=== PATIENT | female | born 1965 | race Caucasian/White ===

== ENCOUNTER 2024-04-18 21:37 | Observation (INO) | payer MEDICARE, MEDICAID, SELFPAY ==
--- NOTE | ~2024-04-18 | XR_ITS ---
EXAMINATION: XR chest 2V DATE: 04/19/2024 16:53 INDICATION: Chest pain. TECHNIQUE: Frontal and lateral views of the chest were obtained. COMPARISON: Chest 2 views 04/18/2024 FINDINGS: There is no pneumonia, pleural effusion, or pneumothorax. The heart size is normal. IMPRESSION: 1. No acute cardiopulmonary disease. Reviewed, dictated and finalized at location E.
--- NOTE | ~2024-04-18 | US_ITS ---
EXAMINATION: US venous doppler [facility] DATE: 04/19/2024 13:18 INDICATION: Chest pain. TECHNIQUE: Grayscale ultrasound images without and with compression and Doppler ultrasound images of the bilateral lower extremity veins were obtained. COMPARISON: Ultrasound 08/24/2023 FINDINGS: The visualized portions of right common femoral vein, profunda (deep) femoral vein, femoral vein, pop liteal vein, peroneal veins, posterior tibial veins, and greater saphenous vein outflow are patent. The visualized portions of left common femoral vein, profunda femoral vein, femoral vein, popliteal v ein, peroneal veins, posterior tibial veins, and greater saphenous vein outflow are patent. IMPRESSION: 1. No deep venous thrombosis. Reviewed, dictated and finalized at location E.
--- NOTE | ~2024-04-18 | NM_ITS ---
EXAMINATION: NM lung vent and perfusion DATE: 04/19/2024 17:18 INDICATION: Chest pain. TECHNIQUE: 13.1 mCi Xenon-133 was given for ventilation images. 5.0 mCi Tc-99m MAA was administered i ntravenously for perfusion images. Scintigraphic images of the chest were obtained. COMPARISON: Chest 2 views 04/19/2024 FINDINGS: Single breath ventilation images demonstrate no defects. Washout images demonstrate retention in left lower lung zone. Perfusion images show a small defect in left lower lobe. IMPRESSION: 1. Low probability for pulmonary embolus. Reviewed, dictated and finalized at location E.
[2024-04-18 20:40] VITALS: BP 126/50; PULSE 73; RESP 18; TEMP 36.4; O2SAT 100
[2024-04-18 20:45] VITALS: BMI 51.9
[2024-04-18] MEDS: SODIUM CHLORIDE 0.9% IV 1,000 ML 100 ML IV CONT (22:00)
[2024-04-19] VITALS (7 sets, daily range): BP systolic 112–122; BP diastolic 60–61; PULSE 65–81; RESP 18; TEMP 36.1–36.3; O2SAT 99–100
[2024-04-19 05:54] LABS: Basophils Percent Auto 0.3 % (0.2-1.2); Eosinophils Absolute Auto 0.3 K/mm3 (0-0.3); Eosinophils Percent Auto 4.3 % (0-4.4); Hematocrit 30.8 % (37.0-47.0); Hemoglobin 9.5 g/dL (12.0-15.0); Immature Granulocyte Absolute 0.03 K/mm3 (0.00-0.031); Immature Granulocyte Percent A 0.5 % (0-0.5); Lymphocytes Absolute Auto 1.67 K/mm3 (0.9-3.2); Lymphocytes Percent Auto 25.7 % (18.3-44.2); Mean Corpuscular HGB Conc 30.8 g/dl (32-36); Mean Corpuscular Hemoglobin 29.2 pg (26-34); Mean Corpuscular Volume 94.8 fl (80-100); Mean Platelet Volume 10.5 fl (7.4-10.4); Monocytes Absolute Auto 0.6 K/mm3 (0.1-0.6); Monocytes Percent Auto 9.1 % (2.6-8.5); Neutrophils Absolute Auto 3.9 K/mm3 (1.3-6.7); Neutrophils Percent Auto 60.1 % (45.5-73.1); Platelet Count Result 184 k/mm3 (150-375); Red Blood Count 3.25 M/mm3 (4.2-5.4); Red Cell Distribution Width 13.8 % (11.5-14.5); White Blood Count 6.5 K/mm3 (4.5-10.0)
[2024-04-19 06:06] LABS: Alanine Aminotransferase 7 U/L (6-35); Albumin Level 3.3 g/dL (3.5-5.1); Alkaline Phosphatase 97 U/L (38-126); Anion Gap 8 mmol/L (4-12); Aspartate Amino Transferase 15 U/L (14-36); Bilirubin,Total 0.4 mg/dL (0.2-1.3); Blood Urea Nitrogen 52 mg/dL (7-17); Calcium 8.4 mg/dL (8.4-10.2); Carbon Dioxide 15 mmol/L (22-30); Chloride 117 mmol/L (98-107); Estimated CRCL calculation 52 ml/min; Estimated Glomerular Filt Rate 36; Glucose 150 mg/dL (65-110); Phosphorus 3.9 mg/dL (2.5-4.5); Potassium 3.6 mmol/L (3.4-5.0); Sodium 140 mmol/L (137-145)
--- NOTE | 2024-04-19 07:48 | PM.IMHP ---
H&P: HPI History of Present Illness Date/Time: 04/19/24 07:48 Chief Complaint: chest pain Narrative: This is a pleasant 59 year old female with a PMH significant for migraines, CVA x 2, chronic back pain, frozen left shoulder, Rouen Y gastric bypass, and iritible bowel syndrome who presented to the emergency room with complaints of chest pain. The patient provides the following history. She was at home this morning when she developed sudden right, sub sternal chest pain that was sharp in nature. The pain did not travel. She did notice that she had some shortness of breath with activity but this clears with rest. She reports dizziness when she changes positions too quickly. At this present time she denies dizziness, headache, abdominal pain, nausea, vomiting, or constipation. She reports that she has loose stools due to her IBS. She denies recent ill contact. She deines recent fall or trauma. In the ED labs were significant for a white count of 9.7, hemoglobin 11.2, platelets 257, Cr 2.24, BUN 74. Her UA showed trace leukocytes and minimal wbcs. EKG shows NRS with a rate in the 70's. Chest XR shows no acute cardiopulmonary disease. She received a dose of Levaquin in the ED for possible UTI. She was admitted to the floor at [facility] for observation for IV fluids for her acute kidney injury. During her workup her d-dimer was found to be elevated at 3.96. Unfortunately during the weekend we cannot do a VQ scan at [facility] so the patient needed to be transfer to [facility] for further imaging and work up. I discussed plan of care with the patient who is agreeable to transfer. 04/19: Patient is doing well today. She does not have any complaints at this time. Her chest pain is completely resolved. Her renal function has improved so she can have her CTA now. Review of Systems Review of Systems: All systems reviewed & are unremarkable except as noted in HPI and below PMFSH Past Medical History Medical History Anxiety Asthma delivery delivered CVA (cerebral vascular accident) Depression High blood pressure IBS (irritable bowel syndrome) Migraine Surgical History Surgical History History of Ken-en-Y gastric bypass Family History Family History (Updated 04/19/24 @ 08:05 by Bianca Casiano APRN) Daughter ESRD (end stage renal disease) Mother ESRD (end stage renal disease) Social History Social History Smoking status: Never smoker Alcohol intake: never Substance use: never Do You Feel Safe in your Home?: Yes Lack of Transportation: No Lack of Food: Never True Current Housing: I Have Housing Concerned About Future Housing: No Difficulty Paying Gas/Electric Bills: No Difficulty Paying for Meds: No Currently Unemployed: No Education: Trade/Vocational Certificate Difficulty w/ Childcare or Family Care: No Spiritual care concerns: Yes (Tenriism) Meds Home Medications and Allergies Home Medications Medication Instructions Recorded Confirmed Type amlodipine 10 mg tablet 10 mg PO DAILY 04/18/24 04/18/24 History wsibfkagmc-pnhaecyzqmtjm-mgpsnirn 1 tablet PO QAM 04/18/24 04/18/24 History 50 mg-325 mg-40 mg tablet celecoxib 200 mg capsule 200 mg PO DAILY 04/18/24 04/18/24 History escitalopram oxalate 20 mg tablet 20 mg PO DAILY 04/18/24 04/18/24 History ibuprofen 800 mg tablet 800 mg PO BID 04/18/24 04/18/24 History lisinopril 20 mg tablet 20 mg PO DAILY 04/18/24 04/18/24 History melatonin 5 mg tablet 5 mg PO HS PRN Insomnia 04/18/24 04/19/24 History multivitamin 1 tablet PO DAILY 04/18/24 04/18/24 History tirzepatide 7.5 mg/0.5 mL 7.5 mg subcut WEEKLY 04/18/24 04/18/24 History subcutaneous pen injector (Mounjaro) Allergies Allergy/AdvReac Type Severity Reaction Status Date / Time sulfamethoxazole Allergy Severe Los
[2024-04-19] MEDS: ENOXAPARIN 30 MG/0.3 ML SYRINGE SUB-Q (09:21)
[2024-04-19] MEDS: amLODIPine BESYLATE 5 MG TABLET 10 MG PO (09:21)
[2024-04-19] MEDS: MULTIVITAMINS THERAPEUTIC TAB (*BKC) 1 TABLET PO (09:21)
[2024-04-19] MEDS: ESCITALOPRAM OXALATE 10 MG TABLET 20 MG PO (09:21)
[2024-04-19] MEDS: ENOXAPARIN 100 MG/ML SYRINGE SUB-Q (09:22)
[2024-04-19] MEDS: SODIUM CHLORIDE 0.9% IV 1,000 ML 100 ML IV CONT (10:40)
[2024-04-19] MEDS: ACETAMINOPHEN/BUTALBITAL/CAFFEINE 325-50-40 MG TABLET (FIORICET) 1 TAB PO (16:47)
--- NOTE | 2024-04-21 15:17 | PM.DS ---
DS: Admitting Diagnosis Discharge Date 04/19/24 Admitting Diagnosis Chest pain DS: Discharge Diagnosis Discharge Diagnosis (1) Elevated d-dimer: Code(s): R79.89 - Other specified abnormal findings of blood chemistry Status: Acute Assessment and Plan: o??? Some shortness of breath with exertion. o??? Not requiring oxygen, not tachycardic VQ scan and venous dopplers ordered treatment lovenox ordered (2) GARTH (acute kidney injury): Code(s): N17.9 - Acute kidney failure, unspecified Status: Acute Assessment and Plan: o??? unclear etiology o??? patient has a family history of renal failure with her mother and daughter. Both . o??? She does not appear dry and reports a decent appetite. o??? She uses ibuprofen daily for pain control for her back and shoulder. She assures me she only takes 800 mg tablets twice a day. o??? Started on IVF LR at 100 ml per hour o??? FeNa labs ordered o??? Likely will need nephrology consult if Cr does not improve with fluids 04/19: Creatinine is improving. 1.5 today. (3) Chest pain: Code(s): R07.9 - Chest pain, unspecified Status: Acute Assessment and Plan: o??? Troponin negative thus far o??? EKG and repeat EKG normal sinus rhythm o??? BNP mildly elevated (4) High blood pressure: Code(s): I10 - Essential (primary) hypertension Status: Acute Assessment and Plan: On lisinopril, amlodipine Blood pressures reviewed and are stable Continue amlodipine but hold lisinopril in setting of GARTH (5) Metabolic acidosis: Code(s): E87.20 - Acidosis, unspecified Status: Acute Assessment and Plan: o??? IVF o??? add bicarb 650 mg tablet PO BID o??? strict I&O DS: Summary Hospital Course Reason for hospitalization: Chest pain, acute kidney injury Hospital Course: This is a pleasant 59 year old female with a PMH significant for migraines, CVA x 2, chronic back pain, frozen left shoulder, Rouen Y gastric bypass, and iritible bowel syndrome who presented to the emergency room with complaints of chest pain. The patient provides the following history. She was at home this morning when she developed sudden right, sub sternal chest pain that was sharp in nature. The pain did not travel. She did notice that she had some shortness of breath with activity but this clears with rest. She reports dizziness when she changes positions too quickly. At this present time she denies dizziness, headache, abdominal pain, nausea, vomiting, or constipation. She reports that she has loose stools due to her IBS. She denies recent ill contact. She deines recent fall or trauma. In the ED labs were significant for a white count of 9.7, hemoglobin 11.2, platelets 257, Cr 2.24, BUN 74. Her UA showed trace leukocytes and minimal wbcs. EKG shows NRS with a rate in the 70's. Chest XR shows no acute cardiopulmonary disease. She received a dose of Levaquin in the ED for possible UTI. She was admitted to the floor at [place] for observation for IV fluids for her acute kidney injury. During her workup her d-dimer was found to be elevated at 3.96. Unfortunately during the weekend we cannot do a VQ scan at [place] so the patient needed to be transfer to [facility] for further imaging and work up. I discussed plan of care with the patient who is agreeable to transfer. 04/19: Patient is doing well today. She does not have any complaints at this time. Her chest pain is completely resolved. Her renal function has improved so she can have her CTA now. 04/19: CTA was negative for PE. Dopplers negative. Patient stable to discharge home today. Time Spent with Patient Time attestation: Total time spent providing and/or coordinating discharge services:56 Exam Narrative: General: well appearing, appears stated age. HEENT: normocephalic, atraumatic. Mucous membranes moist. EOMI, PERRLA, bilateral sclera anicteric, no conjunctival injection. Neck sup
== END 2024-04-19 18:56 | disposition home or self-care (01) ==
PROVIDERS: Nurse Practitioner; Admitting Provider Internal Medicine; Visit Provider Nurse Practitioner Acute Care
DX: R07.9 Chest pain, unspecified (principal); N17.9 Acute kidney failure, unspecified; R79.1 Abnormal coagulation profile; E87.20 Acidosis, unspecified; R06.02 Shortness of breath; R42 Dizziness and giddiness; I10 Essential (primary) hypertension; J45.909 Unspecified asthma, uncomplicated; F41.9 Anxiety disorder, unspecified; F32.A Depression, unspecified; Z98.84 Bariatric surgery status; Z79.85 Long-term (current) use of injectable non-insulin antidiabetic drugs
CPT/HCPCS: 36415; 71046; 78582; 80053; 80069; 83735; 85025; 93970; 96360; 96361; 96372; A9270; A9540; A9558; G0378; J1650; J7030

== ENCOUNTER 2025-04-06 08:46 | Outpatient (CLI) | payer MEDICARE, MEDICAID, SELFPAY ==
--- NOTE | ~2025-04-06 | CT_ITS ---
CT soft tissue neck wo con Ordering provider: Andrés Smiley, KALEN History: 60 years Female with . Other Dysphagia,HOARSNESS,S/P THYROID REMOVED X3MO AGO . Comparison: None. Technique: CT soft tissues neck was performed without contrast. . Automated exposure control and ite rative reconstruction technique were employed. The dose-length product was 510.47 mGy-cm. Findings: LOWER HEAD: The visualized brain parenchyma, optic globes/orbits and mastoids are normal. The visua lized paranasal sinuses are well aerated. SALIVARY GLANDS: Normal. THYROID: Normal. SUPRAHYOID DEEP SPACES: Normal. CAROTID ARTERIES: Normal. JUGULAR VEINS: Normal. TONSILS: Normal. ORAL CAVITY: Partially obscured by dental amalgam but normal as visualized. PHARYNX, LARYNX AND TRACHEA: Patent and normal. No prevertebral soft tissue swelling. SUPERFICIAL SOFT TISSUES: Soft tissue density is seen in the right supraclavicular area adjacent to t he thyroid gland which is most likely inflammatory with hypodensity which measures 1.1 x 1.7 cm most likely an abscess. Lymphadenopathy in this area is not excluded. THORACIC INLET/VISUALIZED UPPER CHEST: Bilateral groundglass appearance is seen in the lung bases whi ch may indicate atelectasis versus pneumonia versus edema. Clinical correlation advised. SKELETAL: Age appropriate degenerative changes. IMPRESSION: 1. Soft tissue density is seen in the right supraclavicular area most likely inflammatory with hypod ense area suggestive of an abscess measuring 1.1 x 1.7 cm. 2. Groundglass appearance in the lungs which may indicate atelectasis versus pneumonia versus edema. Clinical correlation advised. AMINTA, the Physician: Andrés Smiley,nurse was notified with the result of the patient at 4:04 PM on April 06, 2025. Reviewed, dictated and finalized at location A. IMPRESSION: 1. Soft tissue density is seen in the right supraclavicular area most likely i nflammatory with hypodense area suggestive of an abscess measuring 1.1 x 1.7 cm . 2. Groundglass appearance in the lungs which may indicate atelectasis versus p neumonia versus edema. Clinical correlation advised. AMINTA, the Physician: Andrés Smiley,nurse was notified with the result of the patient at 4:04 PM on April 06, 2025.
--- OUTSIDE RECORDS SUMMARY | 2025-04-06 08:56 | XMS_ITS ---
Author Organization [facility] Address [address] [place] [address] Care Team Providers Care Senior Java Web Application Developer Name Role Phone Andrés Smiley Primary Care Provider [phone] Active Problems Patient Care Coordination No te Formatting of this note migh t be different from the original. This is a 59-year-old female presenting to us at the request of Dr. Kirsty Cobb for an evaluation of mediastinal adenopathy and pulmonary nodules. She has a medical history significant for anxiety, asthma, CVA, depression, GERD, gout and hypertension. She is a never smoker. She has a new diagnosis of papillary thyroid cancer. Thyroid nodules and cervical lymphadenopathy concerning for thyroid cancer were initially found on a head CT after she had a fall. She underwent an ultrasound of the thyroid with findings suspicious for multifocal papillary thyroid carcinoma involving the right and left thyroid lobes, with diffuse involvement of the right thyroid lobe and suspicion for gross extrathyroidal extension posterior to the thyroid in the right. Right cervical lymphadenopathy involved levels 2, 3, 4, 5A and 5B with imaging features consistent with metastatic maikel disease. She underwent an FNA that was positive for papillary thyroid cancer. She has lost 125 lb in the last 7 months however that coincides with the initiation of Mounjaro. She has also had a previous gastric bypass 8 years ago. She feels very weak and fatigued. She underwent a chest CT on 01/06/2025. 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 For reference a 0.4 cm pulmonary nodule in the left lower lobe and a 0.4 cm pulmonary nodule near the fissure in the right lower lobe. No pneumothorax or pleural effusion. Multiple hypoattenuating right thyroid nodules better evaluated on prior thyroid ultrasound, for reference right thyroid nodule measuring up to 1.5 x 1.3 cm. A right paratracheal lymph node measuring up to 1.0 cm. Hypoattenuating mediastinal lymph nodes, for reference a prevascular lymph node measuring 1.0 cm in short axis. Heart size is normal. No pericardial effusion. Postsurgical changes of Ken-en-Y gastric bypass surgery. No suspicious osseous lesions. She underwent a PET scan on 01/21/2025. This showed diffuse marked hypermetabolism throughout the thyroid gland compatible with known primary thyroid malignancy. There is a exophytic component to the contour and uptake in the posterior right thyroid lobe in keeping with known extrathyroidal extension. Markedly FDG avid right neck lymph nodes and multiple lymph node stations level 2, 3, 4, 5 and 1 at level 6 most compatible with maikel metastatic disease. Moderately FDG avid anterior mediastinal lymph node, left internal mammary lymph node and right paratracheal lymph node also compatible with maikel metastatic disease. Several tiny nodules throughout both lungs 2 small to be characterized. Diffuse heterogeneous marrow metabolic activity without discrete focal lesions above background. Findings may represent physiologic bone marrow response to anemia. She is here for further surgical evaluation and discussion. Problem Noted Date Diagnosed Date Post-surgical hypothyroidism 03/24/2025 Localized swelling, mass or lump of neck 025 Thyroid cancer 01/29/2025 Morbid obesity 01/27/2025 Type 2 diabetes mellitus wit h other specified complication, unspecified whether usp insulin use 01/27/2025 Papillary thyroid carcinoma 01/19/2025 Assessment & Plan (01/19/2025 3:25 PM TUBE CLEANER): PET scan scheduled for 01/21/25. Refer to ZENDEJAS treatment after surgery given the extend of neck disease and possible distant metastasis Thyroid replacement after surgery with goal TSH suppression. Prescribed 175 mcg of levothyroxine to be started AFTER total thyroidectomy (when advised by MD). Discuss further monitoring and surveillance with tumor markers, iodine scan and image Mediastinal lymphadenopathy 01/19/2025 Lung nodules 01/19/2025 Chest pain 07/04/2023 Coronary artery disease invo lving moapa coronary artery of moapa heart 06/08/2023 Calculus of gallbladder with out cholecystitis without obstruction 05/17/2022 Overview (05/17/2022): Added automatically from request for surgery [id number] Incisional hernia, without obstruction or gangre ne 05/17/2022 Overview (05/17/2022): Added automatically from request for surgery [id number] Current Treatment and Therapy Plans No current plan information found. Past Treatment and Therapy Plans No past plan information found. Lifetime Dose Tracking * Chemical Lifetime Dose Automatic Entry Manual Entr y Air kerma at the reference point (Ka,r) 524 mGy 0 mGy 524 mGy DLP 1,243 mGycm 1,243 mGycm 0 mGycm
--- OUTSIDE RECORDS SUMMARY | 2025-04-06 08:56 | XMS_ITS | Encounter Summary ---
Author Organization [facility] Address [address] [place] [address] Care Team Providers Care Tool Or Die Drawing Checker Name Role Phone Andrés Smiley Primary Care Provider [phone] Reason for Visit * Diagnostic Imaging (Routine) - Closed Specialty Diagnoses / Procedures Referred By Anish t Referred To Contact Diagnoses Left shoulder pain, unspecified chronicity Procedures XR Shoulder Left 2 or More Views XR Shoulder Left 1 View Yennifer Andrade PA [address] [place] [id number] Phone: tel: fax: Referral ID Status Reason Start Date Expiration Date Visits Re quested Visits Authorized [id number] Closed 08/22/2023 09/20/2024 1 1 Encounter Details Date Type Department Care Team (Late st Contact Info) Description 08/22/2023 7:53 AM CDT Hospital Encounter [facility] Orthopedics and Sports Medicine [address] [place] [address] [place] [phone] Social History Tobacco Use Types Packs/Day Years Used Date Smoking Tobacco: Never Passive Smoke Exposure: Never Smokeless Tobacco: Never AUDIT-C Answer Date Recorded Q1: How often do you have a drink containing alcohol? Never 02/10/2025 Q2: How many drinks containi ng alcohol do you have on a typical day when you are drinking? Patient does not drink Q3: How often do you have si x or more drinks on one occasion? Never 02/10/2025 Personal Safety Answer Date Recorded Have you ever been in or are you currently in a harmful physical or emotional relationship or is someone making you feel afraid or unsafe? 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 Never 02/10/2025 12:00 PM Gilda Jama RN Q2: How many drinks containing alcohol do you have on a typical day when you are drinking? Patient does not drink 02/10/2025 12:00 PM Gilda Jama RN Q3: How often do you have six or more drinks on one occasion? Never 02/10/2025 12:00 PM Gilda Jama RN documented as of this encounter Plan of Treatment Not on file documented as of this encounter Procedures Procedure Name Priority Date/Time Associated Diagnosis Comments XR SHOULDER LEFT 2 OR MORE VIEWS Routine 08/22/2023 3:06 PM CDT Left shoulder pain, unspecified chronicity documented in this encounter Results * XR Shoulder Left 2 or More Views (08/22/2023 3:06 PM CDT) Anatomical Region Laterality Modality Upper Extremities, Shoulder Left Digi ambrocio Radiography Narrative 08/22/2023 6:19 PM CDT Radiographs of the left shoulder reviewed and interpreted. No acute fractures, subluxation/dislocation, or destructive osseous lesions. Mild degenerative changes seen of the acromioclavicular joint. Glenohumeral joint space is maintained Yennifer HIGUERA IMG XR PROCEDURES Final Result documented in this encounter Visit Diagnoses Not on filedocumented in this encounter Care Teams Tool Or Die Drawing Checker Relationship Specialty Start Date End Date Andrés Smiley PA [address] [place] [address] PCP - General 04/18/17 documented as of this encounter
--- OUTSIDE RECORDS SUMMARY | 2025-04-06 08:56 | XMS_ITS | Encounter Summary ---
Author Organization [facility] Address [address] [facility] [address] [place] [address] Phone Care Team Providers Care Automobile Mechanic Name Role Phone Andrés Smiley Primary Care Provider [phone] Reason for Visit * Reason Onset Date Comments Medical Question/Miscellaneous 03/24/2025 Encounter Details Date Type Department Care Team (Late st Contact Info) Description 03/24/2025 Telephone [facility] Surgery [address] [facility] [address] [place] [address] Kirsty Cobb MD [address] [phone] [place] [address] Medical Question/Miscellaneous Social History Tobacco Use Types Packs/Day Years [...] on file 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 Was an attempt to transfer to the assigned clinical staff or backline? Yes advised to send TE. Reason for call?: The patient was advised by Dr Zaragoza that a referral to radiation oncology was placed on 03/13/25. Upon viewing the patient's chart, there was no referral placed. Could we kindly get this added for the patient or reach out if any additional information is required? Who is the caller: Nubia Schultz What is the best number for them to contact for a call back: [phone]. Last office visit: 02/24/2025 Date of Surgery: 02/10/2025 documented in this encounter Plan of Treatment Not on file documented as of this encounter Visit Diagnoses Not on filedocumented in this encounter Care Teams Automobile Mechanic Relationship Specialty Start Date End Date Andrés Smiley PA [address] [place] [address] PCP - General 04/18/17 documented as of this encounter
--- OUTSIDE RECORDS SUMMARY | 2025-04-06 08:56 | XMS_ITS | Data Portability ---
Author Organization [facility] Address [address] [place] [address] Care Team Providers Care Belt Sander Stone Name Role Phone PORSCHE SMILEY Primary Care Provider ART ARITA Frozen Yogurt Maker Unavailable Assessment No assessment recorded. Plan of Treatment Reminders Order Date Submit Date Provider Last Modified By Organization Details Last Modified Time Details Appointments None recorded. Lab None recorded. Referral nephrologi st referral 2024 025 yane Patel MD, [address] [facility] , [address], [address], [address], 5 09:46:32 physical therapist referral 2024 025 [facility], [address] [place], [address], 5 17:38:59 Procedures None recorded. Surgeries None recorded. Imaging CT, neck, soft tissue, w/ contrast 2024 025 [facility], [address] [place], [address], 5 09:10:22 Medication Orders ondansetro n 4 mg disintegra ting tablet 2024 025 [facility] #[id number], [address] [place], [address], 5 15:18:24 tramadol 50 mg tablet 2024 025 [facility] #[id number], [address] [place], [address], 15:18:25 furosemide 20 mg tablet 2024 025 [facility] #[id number], [address] [place], [address], 15:30:55 hydrochlor othiazide 25 mg tablet 2024 025 [facility] #[id number], [address] [place], [address], 15:36:12 azithromyc in 500 mg tablet 2024 025 [facility] #[id number], [address] [place], [address], 15:17:29 Patient TargetsNo targets recorded. Patient Instructions Encounter Date Encounter Id Patient Instructions Last Modified By Organization Details Last Modified Time 01/09/2025 [id number] A healthy lifestyle: care instructions jnanney Not available 01/09/2025 16:20:16 02/18/2025 [id number] body mass index: care instructions jnanney Not available 02/18/2025 15:36:06 learning about healthy weight jnanney Not available 02/18/2025 15:36:06 A healthy lifestyle: care instructions jnanney Not available 02/18/2025 15:36:06 learning about high blood pressure jnanney Not available 02/18/2025 15:36:06 thyroidectomy: before your surgery jnanney Not available 02/18/2025 15:36:06 02/25/2025 [id number] A healthy lifestyle: care instructions jnanney Not available 02/25/2025 15:32:30 leg and ankle edema: care instructions jnanney Not available 02/25/2025 15:30:52 learning about high blood pressure jnanney Not available 02/25/2025 15:30:52 03/11/2025 [id number] nausea and vomiting: care instructions jnanney Not available 03/11/2025 15:18:22 learning about high blood pressure jnanney Not available 03/11/2025 15:18:22 thyroidectomy: before your surgery jnanney Not available 03/11/2025 15:18:22 Reason for Referral Physical Therapist Referral for Muscle weakness Referring Physician: Porsche Smiley, [facility], Encounter Date: 02/18/2025 [place] Referral for De creased renal function Referring Physician: Porsche Smiley [facility], Encounter Date: 02/25/2025 Results Created Date Observation Date Name Description Value Unit Range Abnormal Flag Note LastModifiedBy Organization Detail LastModifiedTime 12/16/1912/16/2024 urina lysis , dipst ick Leukocytes Modera te Not Available In-Office Order Internal Use Only DO Not Attach Compendium DO Not Attach Compendium, Do Not Delete/merge, 12/16/2024 11:33:19 12/16/19 25 12/16/2024 urina lysis , dipst ick Nitrite negati ve Not Available In-Office Order Internal Use Only DO Not Attach Compendium DO Not Attach Compendium, Do Not Delete/merge, 12/16/2024 11:33:19 12/16/1912/16/2024 urina lysis , dipst ick Urobilinogen .2 Not Available In-Of fice Order Internal Use Only DO Not Attach Compendium DO Not Attach Compendium, Do Not Delete/merge, 12/16/2024 11:33:19 12/16/19 25 12/16/2024 urina lysis , dipst ick Protein Trace Not Available In-Office Order Internal Use Only DO Not Attach Compendium DO Not Attach Compendium, Do Not Delete/merge, 12/16/2024 11:33:19 12/16/19 25 12/16/2024 urina lysis , dipst ick pH 6.0 Not Available In-Office Order Internal Use Only DO Not Attach Compendium DO Not Attach Compendium, Do Not Delete/merge, 12/16/2024 11:33:19 12/16/19 25 12/16/2024 urina lysis , dipst ick Blood Negati ve Not Available In-Office Order Internal Use Only DO Not Attach Compendium DO Not Attach Compendium, Do Not Delete/merge, 12/16/2024 11:33:19 12/16/19 25 12/16/2024 urina lysis , dipst ick Specific [place] 1.030 Not Available In-Off ice Order Internal Use Only DO Not Attach Compendium DO Not Attach Compendium, Do Not Delete/merge, 12/16/2024 11:33:19 12/16/19 25 12/16/2024 urina lysis , dipst ick Ketone Negati ve Not Available In-Office Order Internal Use Only DO Not Attach Compendium DO Not Attach Compendium, Do Not Delete/merge, 12/16/2024 11:33:19 12/16/19 25 12/16/2024 urina lysis , dipst ick Bilirubin Small Not Available In-Offic e Order Internal Use Only DO Not Attach Compendium DO Not Attach Compendium, Do Not Delete/merge, 12/16/2024 11:33:19 12/16/19 25 12/16/2024 urina lysis , dipst ick Glucose Negati ve Not Available In-Office Order Internal Use Only DO Not Attach Compendium DO Not Attach Compendium, Do Not Delete/merge, 12/16/2024 11:33:19 12/16/19 25 12/16/2024 urina lysis , dipst ick Appearance Clear Not Available In-Offi ce Order Internal Use Only DO Not Attach Compendium DO Not Attach Compendium, Do Not Delete/merge, 12/16/2024 11:33:19 12/16/19 25 12/16/2024 urina lysis , dipst ick Color Yellow Not Available In-Office Order Internal Use Only DO Not Attach Compendium DO Not Attach Compendium, Do Not Delete/merge, 12/16/2024 11:33:19 02/06/20 25 02/05/2025 Hemog lobin A1c/H emogl obin. total in Blood hemoglobin A1C/hemoglob in.total in blood 6.5 % low: 4%high : 5.6% high Hgb A1C, POC 6.5 (H) 4.0 - 5.6 % Not Available Not Available 02/09/2025 11:16:07 02/06/20 25 02/05/2025 Hemog lobin A1c/H emogl obin. total in Blood glucose mean value [mass/volume ] in blood estimated from glycated hemoglobin 140 mg/dL Est [place] ge Gluc POC 140 mg/dL BRIELLE Shannon BJ Not Available Not Available 02/09/2025 11:16:07 02/06/20 25 02/05/2025 Hemog lobin A1c/H emogl obin. total in Blood interpretati on and review of laboratory results Abnorm al Not Available Not Available 11:16:07 Result Notes None recorded. Problems Name Problem SNOMED Code Status Onset Date Resolution Date Notes Provider Name and Address Organization Details Recorded Time Knee pain Active Not Available [facility] 4 00:18:38 Morbid obesity 412886056 Active Not Available [facility] 4 00:18:38 Chronic depression 922272462 Active Not Available [facility] 4 00:18:38 Cerebrovascul ar accident 772540820 Active Not Available [facility] 4 00:18:38 Psoriasis 7511479 Active Not Available [facility] 4 00:18:38 Candidiasis of skin 90764571 Active Not Available [facility] 4 00:18:38 Hyperglycemia 23895645 Active Not Available [facility] 4 00:18:38 Right upper quadrant pain 206288153 Active Not Available [facility] 4 00:18:38 Diabetes mellitus 33615033 Active Not Available [facility] 4 00:18:38 Cellulitis 940356101 Active Not Available [facility] 4 00:18:38 Migraine 53376458 Active Not Available [facility] 4 00:18:38 Incontinence 14642511 Active Not Available [facility] 4 00:18:38 Notes:Some problems listed i n Documents: #[id number], #[id number], #[id number], #[id number], #[id number], #[id number], #[id number], #[id number], #[id number], #[id number] could not be added to this patient's chart. Please review these documents and add these problems to the patient's chart manually as needed. Problem Notes None recorded. Procedures Surgical History Date Name Laterality Status Provider Name and Address Organization Details Recorded Time 11/24/19 22 Date of Last Mammogram completed Kate Landa MA [facility] 01/04/2022 11:53:00 11/19/18 97 Total hysterectomy completed Kate Landa MA [facility] 02/14/2021 11:30:00 tonsillectomy completed Kate Landa MA [facility] 10/10/2021 10:51:03 Removal of adenoids completed Kate Landa MA [facility] 10/10/2021 10:51:32 abdominoplasty completed Kate Landa MA [facility] 10/10/2021 10:51:40 Gastric Bypass completed Eleonora Miller MA [facility] 01/24/2016 10:13:00 Imaging Results None recorded. Procedure Notes None recorded. Medical Equipment None Reported. Allergies Allergen ID Allergen Name Allergen Category Reaction Reaction Severity Criticality Documentation Date Start Date Code Code System Note Provider Name and Address Organization Details Recorded Time 865124 tetracycl ine medicatio n rash Not available Not available 03/24/2020 66195 RxNorm STEPHANY Blackman [facility] 0 10:56:37 128335 Bactrim medicatio n hives Not available Not available 02/14/2021 67099 9 RxNorm Vomit ing STEPHANY Blackman [facility] 1 11:28:25 77507 amoxicill in medicatio n rash Not available Not available 09/18/2016 723 RxNorm STEPHANY Blackman [facility] 0 10:51:29 16192 Medicinal product containin g tetracycl ine structure and acting as antibacte rial agent (product) medicatio n vomiting severe Not available 09/18/2016 73572 1004 SNOMED STEPHANY Gimenez [facility] 6 10:37:03 Medications Name Sig Start Date Stop Date Status Note LastModified by Organization Details LastModified Time celecoxib 200 mg capsule TAKE 1 CAPSULE BY MOUTH DAILY WITH FOOD. 03/30 completed Not Available Not Available Not Available metformin 500 mg tablet TAKE 1 TABLET BY MOUTH TWICE DAILY 01/04 completed Not Available Not Available Not Available levothyroxi ne 175 mcg tablet TAKE 1 TABLET (175 MCG TOTAL) BY MOUTH PAROLE SUPERVISOR BEFORE BREAKFAST active Not Available Not Available No t Available prednisone 10 mg tablet 06/28 completed Not Available Not Available Not Available atorvastati n 20 mg tablet TAKE 1 TABLET BY MOUTH EVERY DAY 07/31 completed Not Available Not Available Not Available venlafaxine 75 mg tablet TAKE 1 TABLET BY MOUTH EVERY DAY 03/24 completed Not Available Not Available Not Available clindamycin HCl 300 mg capsule TAKE 1 CAPSULE BY MOUTH EVERY 6 HOURS FOR 10 DAYS. 08/18 completed Not Available Not Available Not Available azithromyci n 250 mg tablet TAKE 2 TABS (500MG) TODAY (DAY 1), THEN 1 TAB (250MG) FOR 4 DAYS (DAYS 2-5) 09/20 completed Not Available Not Available Not Available ibuprofen 800 mg tablet TAKE 1 TABLET BY MOUTH THREE TIMES A DAY 03/30 completed Not Available Not Available Not Available alprazolam 1 mg tablet TAKE 1 TABLET BY MOUTH THREE TIMES A DAY 2024 active Not Available Not Available Not Avai lable metoprolol succinate ER 50 mg tablet,exte nded release 24 hr Take 1 tablet every day by oral route for 90 days. 07/31 completed Not Available Not Available Not Available hydrocodone 5 mg-acetamin ophen 325 mg tablet 08/21 completed Not Available Not Available Not Available ondansetron HCl 8 mg tablet Take 1 tablet every 12 hours by oral route as needed for 30 days. 02/14 completed Not Available Not Available Not Available fluconazole 200 mg tablet TAKE 1 TABLET EVERY 72 HOURS BY ORAL ROUTE DIRECTED. 02/18 completed Not Available Not Available Not Available meloxicam 15 mg tablet 15 mg by oral route. 04/18 completed Not Available Not Available Not Available lisinopril 20 mg tablet TAKE 1 TABLET BY MOUTH EVERY DAY 02/18 completed Not Available Not Available Not Available ondansetron HCl 4 mg tablet Take 1 tablet twice a day by oral route as needed for 10 days. 09/18 completed Not Available Not Available Not Available famotidine 40 mg tablet TAKE 1 TABLET BY MOUTH EVERY DAY 02/18 completed Not Available Not Available Not Available prednisone 20 mg tablet TWO TABLETS BY MOUTH ONCE DAILY 09/05 completed Not Available Not Available Not Available metronidazo le 500 mg tablet TAKE 1 TABLET BY MOUTH EVERY 8 HOURS FOR 10 DAYS 08/18 completed Not Available Not Available Not Available amlodipine 5 mg tablet TAKE 1 TABLET BY MOUTH EVERY DAY 01/04 completed Not Available Not Available Not Available ciprofloxac in 500 mg tablet TAKE 1 TABLET BY MOUTH EVERY 12 HOURS FOR 10 DAYS 01/09 completed Not Available Not Available Not Available sulfamethox azole 800 mg-trimetho prim 160 mg tablet TK 1 T PO Q 12 H FOR 10 DAYS 02/14 completed Not Available Not Available Not Available tramadol 50 mg tablet TAKE 1 TABLET BY MOUTH THREE TIMES A DAY NEEDED FOR 30 DAYS active Not Available Not Available No t Available acetaminoph en 500 mg tablet TAKE 2 TABS (1000MG TOTAL) BY MOUTH EVERY 8 HOURS NEEDED FOR PAIN FOR UP TO 20 DOSES 11/29 completed Not Available Not Available Not Available butalbital- acetaminoph en-caffeine 50 mg-325 mg-40 mg tablet TAKE 1 TABLET BY MOUTH EVERY 6 HOURS NEEDED FOR 30 DAYS 02/18 completed Not Available Not Available Not Available oxycodone-a cetaminophe n 5 mg-325 mg tablet 01/03 completed Not Available Not Available Not Available Guaiatussin AC 10 mg-100 mg/5 mL oral liquid Take 10 mL every 4 hours by oral route as needed for 10 days. 07/29 completed Not Available Not Available Not Available pravastatin 10 mg tablet TAKE 1 TABLET BY MOUTH EVERY DAY 01/04 completed Not Available Not Available Not Available meclizine 25 mg tablet Take 1 tablet 3 times a day by oral route as needed for 10 days. 03/24 completed Not Available Not Available Not Available amlodipine 10 mg tablet TAKE 1 TABLET BY MOUTH EVERY DAY 02/18 completed Not Available Not Available Not Available cephalexin 500 mg capsule Take 1 capsule every 8 hours by oral route as directed for 10 days. 12/07 completed Not Available Not Available Not Available tacrolimus 0.1 % topical ointment APPLY 1-2 TIMES PER DAY TO PSORIASIS IN THE FOLDS OF THE SKIN WHEN FLARED 03/27 completed Not Available Not Available Not Available calcipotrie ne 0.005 % topical cream wait 2 weeks and apply to affected areas on the body BID Sunday - . 07/31 completed Not Available Not Available Not Available promethazin e 25 mg/mL injection solution Take 1 mL by injection route. 09/18 completed Not Available Not Available Not Available docusate sodium 100 mg capsule TAKE 1 CAPSULE BY MOUTH 2 TIMES A DAY NEEDED FOR CONSTIPAT ION active Not Available Not Available No t Available Replens vaginal gel Insert 1 g every day by vaginal route at bedtime for 30 days, for vaginal dryness. 02/18 completed Not Available Not Available Not Available hydrochloro thiazide 25 mg tablet TAKE 1 TABLET BY MOUTH EVERY DAY 2024 active Not Available Not Available Not Avai lable mometasone 0.1 % topical ointment apply to affected areas on the body BID x 2 weeks, then decrease to BID Sunday - Sunday. 07/31 completed Not Available Not Available Not Available mupirocin 2 % topical ointment APPLY A SMALL AMOUNT TO AFFECTED AREA 3 TIMES A DAY 02/18 completed Not Available Not Available Not Available zolpidem 5 mg tablet Take 1 tablet every day by oral route for 30 days. 03/24 completed Not Available Not Available Not Available furosemide 20 mg tablet TAKE 1 TABLET BY MOUTH EVERY DAY active Not Available Not Available No t Available levofloxaci n 750 mg tablet TAKE 1 TABLET BY MOUTH EVERY DAY FOR 10 DAYS 01/03 completed Not Available Not Available Not Available methylpredn isolone 4 mg tablets in a dose pack FPD 02/14 completed Not Available Not Available Not Available albuterol sulfate HFA 90 mcg/actuati on aerosol inhaler INHALE 2 PUFFS BY MOUTH FOUR TIMES DAILY NEEDED active Not Available Not Available No t Available ketorolac 60 mg/2 mL intramuscul ar solution Inject 2 mL by intramusc ular route. 07/07 completed Not Available Not Available Not Available clobetasol 0.05 % scalp solution PLEASE SEE ATTACHED FOR DETAILED DIRECTION S 03/27 completed Not Available Not Available Not Available lisinopril 40 mg tablet TAKE 1 TABLET BY MOUTH EVERY DAY 10/10 completed Not Available Not Available Not Available ondansetron 4 mg disintegrat ing tablet PLEASE SEE ATTACHED FOR DETAILED DIRECTION S active Not Available Not Available No t Available calcitriol 0.25 mcg capsule TAKE 1 CAPSULE (0.25 MCG TOTAL) BY MOUTH TWICE A DAY active Not Available Not Available No t Available calcipotrie ne 0.005 % topical ointment WAIT 2 WEEKS AND APPLY TO THE AFFECTED AREA ON THE BODY TWICE DAILY SUNDAY THROUGH 01/20 completed Not Available Not Available Not Available oxycodone 5 mg tablet TAKE 1 TABLET BY MOUTH EVERY 4 HOURS NEEDED FOR PAIN FOR UP TO 12 DOSES 03/30 completed Not Available Not Available Not Available neomycin-po lymyxin-hyd rocort 3.5 mg-10,000 unit/mL-1 % ear drops,susp INSTILL 4 DROPS INTO AFFECTED EAR(S) 3 TIMES A DAY 12/07 completed Not Available Not Available Not Available azithromyci n 500 mg tablet TAKE 1 TABLET BY MOUTH EVERY DAY FOR 3 DAYS 02/18 completed Not Available Not Available Not Available escitalopra m 20 mg tablet TAKE 1 TABLET BY MOUTH EVERY DAY active Not Available Not Available No t Available BD Ultra-Fine Short Pen Needle 31 gauge x 5/16 04/18 completed Not Available Not Available Not Available Januvia 100 mg tablet Take 1 tablet every day by oral route for 90 days. 07/31 completed Not Available Not Available Not Available Lantus Solostar U-100 Insulin 100 unit/mL (3 mL) subcutaneou s pen Inject 10 units every day by subcutane ous route for 30 days. 09/18 completed Not Available Not Available Not Available Purelax 17 gram/dose oral powder TAKE 17 G BY MOUTH NEEDED (UP TO 3 TIMES PER DAY NEEDED FOR CONSITPAT ION) 01/03 completed Not Available Not Available Not Available OneTouch Ultra Blue Test Strip USE TO TEST TWICE DAILY active Not Available Not Available No t Available OneTouch Delica Plus Lancet 33 gauge USE TO TEST TWICE DAILY active Not Available Not Available No t Available Fluarix Quad (PF) 60 mcg (15 mcg x 4)/0.5 mL IM syringe ADM 0.5ML IM UTD 02/14 completed Not Available Not Available Not Available Paxlovid 300 mg (150 mg x 2)-100 mg tablets in a dose pack TAKE 1 DOSE PACK BY MOUTH DIRECTED 03/27 completed Not Available Not Available Not Available Mounjaro 7.5 mg/0.5 mL subcutaneou s pen injector INJECT 0.5 ML SUBCUTANE OUSLY WEEKLY 03/11 completed Not Available Not Available Not Available Mounjaro 5 mg/0.5 mL subcutaneou s pen injector INJECT 5 MG SUBCUTANE OUSLY WEEKLY 10/31 completed Not Available Not Available Not Available Mounjaro 2.5 mg/0.5 mL subcutaneou s pen injector Inject 2.5 mg every week by subcutane ous route. 10/31 completed Not Available Not Available Not Available Vitals Date Recorded Body height Oxygen saturation Oxygen saturation in Arterial blood by Pulse oximetry Heart rate Respiratory rate Body temperature Body mass index (BMI) Body weight Systolic blood pressure Diastolic blood pressure Provider Name and Address Organization Details Last Updated DateTime 5 162.56 cm 97 % 97 % 76 /min 16 /min 98.3 [degF] 43 kg/m2 044945. 97 g 122 mm[Hg] 84 mm[Hg] Rubina Zuniga MA [facility] 5 16:01:28 Date Recorded Body height Oxygen saturation Oxygen saturation in Arterial blood by Pulse oximetry Heart rate Respiratory rate Systolic blood pressure Diastolic blood pressure Provider Name and Address Organization Details Last Updated DateTime 5 162.56 cm 98 % 98 % 76 /min 16 /min 126 mm[Hg] 80 mm[Hg] Rubina Zuniga MA [facility] 5 15:22:09 Date Recorded Body height Systolic blood pressure Diastolic blood pressure Provider Name and Address Organization Details Last Updated DateTime 02/25/2025 162.56 cm 160 mm[Hg] 87 mm[Hg] Rubina Zuniga MA [facility] 02/25/2025 14:57:21 Date Recorded Body height Body mass index (BMI) Body weight Oxygen saturation Oxygen saturation in Arterial blood by Pulse oximetry Heart rate Systolic blood pressure Diastolic blood pressure Provider Name and Address Organization Details Last Updated DateTime 5 162.56 cm 43.8 kg/m2 880098. 05 g 98 % 98 % 75 /min 128 mm[Hg] 76 mm[Hg] Kate Landa MA [facility] 5 14:38:27 Date Recorded Body height Body mass index (BMI) Body weight Respiratory rate Oxygen saturation Oxygen saturation in Arterial blood by Pulse oximetry Heart rate Systolic blood pressure Diastolic blood pressure Provider Name and Address Organization Details Last Updated DateTime 5 162.56 cm 43.9 kg/m2 543259. 65 g 16 /min 99 % 99 % 72 /min 124 mm[Hg] 80 mm[Hg] Rubina Zuniga MA [facility] 5 16:51:50 Social History Question Answer Notes LastModified by Organizat ion Details LastModified Time Tobacco Smoking Status Never Smoker Eleonora Miller MA [facility], [facility] 01/24/2016 10:13:00 Are You Blind Or Do You Have Difficulty Seeing? No Glasses Information not available 06/28/2022 What Is Your Level Of Caffeine Consumption? Occasional Information not available 12/07/2022 How Much Tobacco Do You Chew? None Information not available 03/24/2020 In The 14 Days Before Symptom Onset, Have You Had Close Contact With A Laboratory-confir med COVID-19 While That Case Was Ill? No Information not available 03/24/2020 In The 14 Days Before Symptom Onset, Have You Had Close Contact With A Person Who Is Under Investigation For COVID-19 While That Person Was Ill? No Information not available 03/24/2020 Have You Been To An Area Known To Be High Risk For COVID-19? No Information not available 03/24/2020 Are You Deaf Or Do You Have Serious Difficulty Hearing? Yes [place] Information not available 06/28/2022 What Type Of Diet Are You Following? REGULAR Information not available 02/14/2021 Which Illicit Or Recreational Drugs Have You Used? NO Information not available 03/24/2020 Education 2 Year College Information not available 03/24/2020 Marital Status Informatio n not available 03/24/2020 What Was The Date Of Your Most Recent Tobacco Screening? 03/30/2025 Information not available 03/30/2025 What Is Your Relationship Status? Information not available 10/10/2021 Do You Use Your Seat Belt Or Car Seat Routinely? Yes Information not available 06/28/2022 Are You Sexually Active? No Information not available 06/28/2022 Do You Have Smoke And Carbon Monoxide Detectors In Your Home? Yes Information not available 10/10/2021 Are You Passively Exposed To Smoke? Yes Information no t available 01/04/2022 General Stress Level High Information not available 03/24/2020 Do You Use Sunscreen Routinely? Yes Information not available 06/28/2022 Has Tobacco Cessation Counseling Been Provided? No Information not available 10/10/2021 On What Date Was Tobacco Cessation Counseling Provided? 03/30/2025 Information not available 03/30/2025 Sex: Female Functional Status Question Answer Note LastModified by Organizat ion Details LastModified Time Do you use any illicit or recreational drugs? No Information not available 02/14/2021 Do you or have you ever used any other forms of tobacco or nicotine? No Information not available 10/10/2021 What is your level of alcohol consumption? None Information not available 03/24/2020 Are you currently employed? 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 Occasional Information not available 12/07/2022 Mental Status Question Answer Note LastModified by Organization D etails LastModified Time Do you feel stressed (tense, restless, nervous, or anxious, or unable to sleep at night)? [id number] Information not available 12/07/2022 Family History Relationship Description Onset Age of this Age Resolved Age Notes LastModified by Organization Details LastModified Time Mother Asthma Not availabl e 07/07/2016 10:30:00 Mother Depressive disorder [email or web address] Not available 06/19 10:30:00 Mother Diabetes mellitus [email or web address] Not available 06/19 10:30:00 Mother Disorder of thyroid gland [email or web address] Not available 06/19 10:30:00 Mother Hypertensive disorder [email or web address] Not available 06/19 10:30:00 Mother Migraine Not availa ble 07/07/2016 10:30:00 Father Cerebrovascu lar accident [email or web address] Not available 0 07/07/2016 10:30:00 Father Depressive disorder [email or web address] Not available 06/19 10:30:00 Father Disorder of thyroid gland [email or web address] Not available 06/19 10:30:00 Father Hypertensive disorder [email or web address] Not available 06/19 10:30:00 Medical History Condition Response Coronary Artery Disease N Other N Atrial Fibrillation N High Blood Pressure N Thyroid Problems N Kidney or Bladder Problems N Depression Y COPD N Blood Clots N GI Problems N Skin Problems Y Eating Disorder N Anemia Y Heart Attack (MN) N Diabetes Y Anxiety Disorder Y Muscle, Joint, or Bone Problems N Seizures/Epilepsy N Acid Reflux (GERD) Y Cancer N Stroke Y Allergies N Asthma N ADHD N Substance Abuse N High Cholesterol N Hepatitis N Liver Disease N Schizophrenia N Headaches N Osteoporosis N Heart Failure N Gynecological History Statement/Question Response Date of Last Pap Smear Date of Last Mammogram 11/24/2021 Obstetrics History GPAL:G 0 P 0 0 0 0 Immunizations Vaccine Type Date Status Note Provider Nam e and Address Organization Details Recorded Time Influenza, split virus, quadrivalent, preservative 0 completed Not Available [facility] 01/07/2024 00:18:39 COVID-19, mRNA, LNP-S, PF, 30 mcg/0.3 mL dose 1 completed Not Available [facility] 01/07/2024 00:18:39 COVID-19, mRNA, LNP-S, PF, 30 mcg/0.3 mL dose 1 completed Not Available [facility] 01/07/2024 00:18:39 Influenza, MDCK, quadrivalent, PF 9 completed LIGIA RODRIGUEZ NP Attn: Accounting,[address] [facility], [place], [place], [address] [place] [address], [place] [facility] 08/18/2024 09:32:08 COVID-19, mRNA, LNP-S, PF, 30 mcg/0.3 mL dose 1 completed LIGIA RODRIGUEZ NP Attn: Accounting,[address] [place], [place], [address] [place] [address], [place] [facility] 08/18/2024 09:32:08 Influenza, split virus, quadrivalent, PF 0 completed LIGIA RODRIGUEZ NP Attn: Accounting,[address] [place], [place], [address] [place] [address], [place] [facility] 08/18/2024 09:32:08 Influenza, split virus, quadrivalent, PF 1 completed LIGIA RODRIGUEZ NP Attn: Accounting,[address] [place], [address] [place] [address], [place] [facility] 08/18/2024 09:32:08 zoster recombinant 4 completed Marianela Muñoz [place] null, [place] [facility] 08/28/2024 11:51:46 Pneumococcal conjugate PCV20, polysaccharide [id number] conjugate, adjuvant, PF 4 completed Marianela Muñ[place] [facility] 08/28/2024 11:51:46 zoster recombinant 4 completed Marianela Muñ[place] [facility] 08/28/2024 11:51:46 COVID-19, mRNA, LNP-S, PF, levy-sucrose, 30 mcg/0.3 mL 4 completed Marianela Muñ[place] [facility] 08/28/2024 11:51:46 Influenza, split virus, trivalent, PF 4 completed Marianela Muñ[place] [facility] 08/28/2024 11:51:46 Past Encounters Encounter ID Performer Location Encounter Start Date Encounter Closed Date Diagnosis/Indication Diagnosis SNOMED-CT Code Diagnosis ICD10 Code Diagnosis Note [id number] [facility] [address] [place] [address] 01/24/2016 10:18:29 01/24/2016 11:06:11 Knee pain 25723270 M25.561 Morbid obesity 634519689 E66.01 Chronic depression 02165 0009 F34.1 Cerebrovas cular accident 710528074 I63.9 Psoriasis 1012436 L40.9 Candidiasis of skin 4988 3006 B37.2 [id number] Porsche Smiley PA-C [facility] [address] [place] [address] 02/03/2016 10:09:00 02/03/2016 11:32:58 Candidiasis of skin 99490663 B37.2 Chronic depression 79565 0009 F34.1 Morbid obesity 090110249 E66.01 Psoriasis 1975429 L40.9 Hyperglycemia 71972368 R 73.9 Right uppe r quadrant pain 305389512 R10.11 [id number] Porsche Smiley PA-C [facility] [address] [place] [address] 02/10/2016 10:14:27 02/10/2016 10:43:22 Candidiasis of skin 86729782 B37.2 Knee pain 72805866 M25.5 61 Right uppe r quadrant pain 891021082 R10.11 Chronic depression 00898 0009 F34.1 Morbid obesity 335191659 E66.01 Psoriasis 7086352 L40.9 Cerebrovas cular accident 295167261 I63.9 Hyperglycemia 38875969 R 73.9 Diabetes mellitus 466848 09 E11.9 [id number] Porsche Smiley PA-C [facility] [address] [place] [address] 03/27/2016 10:09:45 03/27/2016 11:06:28 Diabetes mellitus 75998929 E11.9 Morbid obesity 869207376 E66.01 Cellulitis 372877937 L03 .90 [id number] Porsche Smiley PA-C [facility] [address] [place] [address] 04/04/2016 10:29:21 04/04/2016 11:17:27 Cellulitis 295010353 L03.90 Diabetes mellitus 704457 09 E11.9 Morbid obesity 433648871 E66.01 Chronic depression 52475 8 F34.1 [id number] Guille George MD [facility] [address] [place] [address] 05/11/2016 14:25:18 05/11/2016 15:30:24 Migraine 33842407 G43.909 Diabetes mellitus 852499 09 E11.9 [facility] 18473351 R3 2 [id number] Porsche Smiley PA-C [facility] [address] [place] [address] 07/07/2016 10:19:31 07/07/2016 10:53:58 Cellulitis 059028709 L03.90 Chronic depression 8 F34.1 [id number] Porsche Smiley PA-C [facility] [address] [place] [address] 09/18/2016 10:20:55 09/18/2016 12:18:41 Essential hypertension 76840978 I10 [id number] Guille George MD [facility] [address] [place] [address] 04/18/2017 15:51:38 04/18/2017 17:21:24 Incontinence 01383570 N39.42 Chronic depression 8 F34.1 Cerebrovas cular accident 176263533 I63.00 [id number] Guille George MD [facility] [address] [place] [address] 07/11/2017 10:58:35 07/11/2017 12:27:18 [id number] Guille George MD [facility] [address] [place] [address] 07/16/2017 10:44:11 07/16/2017 13:40:27 Cellulitis 591843590 L03.90 Morbid obesity 564264735 E66.01 Diabetes mellitus 897091 09 E11.9 [id number] Guille George MD [facility] [address] [place] [address] 07/18/2017 15:44:57 07/18/2017 17:51:52 Diabetes mellitus 10317108 E11.9 Laceration of lower leg 411308353 S81.811D Primary insomnia 8743901 F51.01 [id number] Guille George MD [facility] [address] [place] [address] 01/09/2018 16:30:51 01/09/2018 18:30:44 Migraine with aura 0367078 G43.109 Essential hypertension 86214510 I10 Primary insomnia 0651974 F51.01 [id number] Mahendra Landa MD [facility] [address] [place] [address] 01/17/2018 15:44:00 01/17/2018 16:43:58 Screening for malignant neoplasm of breast 482989276 Z12.31 New daily persistent headache 9381811689 51645 G44.52 Plaque psoriasis 5402151 09 L40.0 Type 2 kiran betes mellitus 78566703 E11.9 [id number] Guille George MD [facility] [address] [place] [address] 07/29/2018 10:22:56 07/29/2018 11:15:54 Morbid obesity 489473776 E66.01 Diabetes mellitus 213540 09 E11.9 Psoriasis 5757210 L40.0 History of polyp of colon 112555835 Z86.842 [id number] Guille George MD [facility] [address] [place] [address] 08/05/2018 09:51:59 08/05/2018 11:09:56 Chronic depression 066248391 F34.1 Morbid obesity 560803296 E66.01 Diabetes mellitus 579121 09 E11.9 Cerebrovas cular accident 706882102 I63.00 Dyspnea on exertion 6084 5006 R06.09 Essential hypertension 35478808 I10 New daily persistent headache 1368951218 76939 G44.52 [id number] Porsche Smiley PA-C [facility] [address] [place] [address] 08/29/2018 10:52:13 08/29/2018 12:06:39 Pain in right knee 5530215666 32554 M25.636 [id number] MD Joyce Hodge FP ([facility]) [address] [place] [address] 01/15/2019 11:01:30 01/15/2019 13:08:11 Psoriasis 1874130 L40.9 Neurofibroma 620520516 D 36.10 [id number] Porsche Smiley PA-C [facility] [address] [place] [address] 07/31/2019 16:03:16 07/31/2019 17:16:29 Cerebrovascular accident 461805182 I63.00 Morbid obesity 483526750 E66.01 Incontinence 00023571 N3 9.42 Diabetes mellitus 189783 09 E11.9 Psoriasis 0592038 L40.0 New daily persistent headache 9864494009 81473 G44.52 Essential hypertension 41803735 I10 Migraine with aura 87461 06 G43.109 Primary insomnia 4180071 F51.01 [id number] NOMAN [facility] [address] [place] [address] 03/24/2020 10:42:16 03/25/2020 09:54:07 Essential hypertension 90497630 I10 New daily persistent headache 9852894375 25656 G44.52 Diabetes mellitus 745656 09 E11.9 Migraine with aura 12316 06 G43.109 History of asthma 926240 007 Z87.09 Chronic depression 64626 0009 F34.1 [id number] [facility] [address] [place] [address] 03/31/2020 10:21:17 03/31/2020 11:29:43 Essential hypertension 73923583 I10 [id number] Porsche Smiley PA-C [facility] [address] [place] [address] 07/13/2020 09:29:52 07/14/2020 16:16:19 Abscess of left axilla 4606832318 1296830 L02.825 [id number] MD [facility] [address] [place] [address] 02/14/2021 10:12:46 02/15/2021 13:25:03 Furuncle 077210237 L02.828 Benign par oxysmal positional vertigo 389801894 H81.11 [id number] [facility] [address] [place] [address] 10/10/2021 10:40:31 10/10/2021 12:43:11 Essential hypertension 30396680 I10 Type 2 kiran betes mellitus 89312254 E11.9 Migraine without aura 56 665032 G43.009 Chronic depression 14111 0009 F34.1 Screening for malignant neoplasm of breast 245084346 Z12.31 [id number] Porsche Smiley PA-C [facility] [address] [place] [address] 01/04/2022 11:32:37 01/04/2022 12:53:09 Pain of right knee joint 1964951711 75425 M25.561 Mixed anxi ety and depressive disorder 654780175 F41.8 Body mass index 40+ - severely obese 472173424 Z68.43 Osteoarthr itis of knee 120707738 M17.9 [id number] Guille George MD [facility] [address] [place] [address] 02/01/2022 10:56:34 02/01/2022 11:38:27 Morbid obesity 492291805 E66.01 [id number] Porsche Smiley PA-C [facility] [address] [place] [address] 06/28/2022 10:21:30 06/28/2022 11:23:17 Adult health examination 883610912 Z00.00 Essential hypertension 48133624 I10 Migraine without aura 56 074478 G43.009 Moderate p ersistent asthma 823081688 J45.40 Osteoarthritis 128815361 M19.90 Mixed anxi ety and depressive disorder 374653494 F41.8 Gastroesop hageal reflux disease without esophagitis 883300293 K21.9 [id number] Porsche Smiley PA-C [facility] [address] [place] [address] 08/21/2022 14:51:49 08/21/2022 15:50:24 Morbid obesity 954888326 E66.01 Overweight 260097556 E66 .3 Essential hypertension 01886486 I10 [address] 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) [address] [place] [address] 12/07/2022 14:17:34 12/14/2022 16:31:08 Skin lesion 06268265 L98.9 - Noted on right labia externa; no signs concerning for infection- Recommende d using warm compress for 20 minutes a day, 3-4 times per day- Advised patient not to shave labia bare; can use clippers for close trim instead to prevent folliculit is in the future- Patient to return to clinic as needed or if lesion gets warm, red, and much bigger in size [id number] Porsche Smiley PA-C [facility] [address] [place] [address] 12/15/2022 11:40:18 12/20/2022 12:26:53 Cellulitis 528545615 L03.115 Overweight 000412225 E66 .3 [id number] Porsche Smiley PA-C [facility] [address] [place] [address] 03/27/2023 13:52:07 04/02/2023 13:37:49 Angina co-occurrent and due to coronary arteriosclerosis 0406021279 5882378 I25.112 History of cerebrovascular accident 934955976 Z86.73 Morbid obesity 668526477 E66.01 Type 2 kiran betes mellitus 57089328 E11.9 Overweight 890812603 E66 .3 [id number] Guille George MD [facility] [address] [place] [address] 05/09/2023 11:07:10 05/10/2023 09:54:11 Cellulitis 157185517 L03.115 Overweight 802609119 E66 .3 [id number] Guille George MD [facility] [address] [place] [address] 07/02/2023 11:15:47 07/03/2023 11:36:47 Strain of triceps brachii muscle 790730562 S46.312A Overweight 490542564 E66 .3 Plaque psoriasis 6061919 09 L40.0 Chronic neck pain 112191 1356 107 M54.2 Osteoarthritis 431558957 M19.90 [id number] Guille George MD [facility] [address] [place] [address] 07/26/2023 10:44:49 07/31/2023 15:47:13 Pain of left shoulder joint 9599777953 7655886 M25.423 [id number] Porsche Smiley PA-C [facility] [address] [place] [address] 08/27/2023 14:01:38 08/29/2023 15:49:45 Cellulitis of right lower limb 9716450698 7311941 L03.115 Adhesive c apsulitis of left shoulder 0000036321 24127 M75.02 Overweight 332441301 E66 .3 [id number] Porsche Smiley PA-C [facility] [address] [place] [address] 01/03/2024 11:07:00 01/08/2024 09:55:08 Long-term drug therapy 802251681 Z79.899 Adhesive c apsulitis of left shoulder 2797456569 94707 M75.02 Morbid obesity 066729843 E66.01 Mixed anxi ety and depressive disorder 008629615 F41.8 [id number] Porsche Smiley PA-C [facility] [address] [place] [address] 02/18/2024 10:58:46 03/06/2024 14:49:01 Fever 796808375 R50.9 Morbid obesity 497533039 E66.01 COVID-19 023623507 U07.1 [id number] Guille George MD [facility] [address] [place] [address] 03/27/2024 14:10:40 03/28/2024 16:14:49 Morbid obesity 753670499 E66.01 Migraine without aura 56 405903 G43.009 Pain of le ft shoulder joint 7416012154 2132298 M25.695 [id number] Guille George MD [facility] [address] [place] [address] 04/29/2024 11:12:28 04/30/2024 08:50:16 Pain of left shoulder joint 5844050643 8021830 M25.512 Overweight 108443765 E66 .3 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 Pt has CR in 1996; no longer needs pap smears.2. STI screening {{complete d declined *}}.3. Pt is post menopausal .4. Discussed breast self awareness5 . Mammogram ordered per ACOG guidelines 6. Colonoscop y done in . Educated on STI reduction and prevention . Encouraged condom use.8. 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 Screening mammography 24 354419 Z12.31 Last Mammogram: 2Or janes placed for [place] Menopause 053524823 Z78. 0 pt is post menopausal Discussed vaginal changes, moisturize rs and lubricatio nDiscussed returning to clinic with any vaginal bleedingDi scussed Calcium and Vitamin D supplement ation Morbid obesity 225138479 E66.01 Furuncle of vulva 979547 006 N76.4 2 small boils that have popped noted to upper vulvaPt is allergic to Bactrim and tetracycli nesWill try mupirocin 2% topical ointment Psoriasis 8144012 L40.9 psoriasis notedPt is no longer seeing anyone for management [id number] Porsche Smiley PA-C [facility] [address] [place] [address] 08/28/2024 11:13:27 09/04/2024 11:00:58 Mixed anxiety and depressive disorder 771370209 F41.8 Pain in left foot 604011 7715 15203 M79.672 Morbid obesity 900662879 E66.01 [id number] Guille George MD [facility] [address] [place] [address] 10/31/2024 11:19:34 11/03/2024 09:29:35 Mediastinal lymphadenopathy 80363265 R59.0 Thyroid nodule 579455935 E04.1 Morbid obesity 523636129 E66.01 [id number] Guille George MD [facility] [address] [place] [address] 11/17/2024 14:09:49 11/18/2024 12:59:36 Postconcussion syndrome 72120279 F07.81 Morbid obesity 908613815 E66.01 [id number] Guille George MD [facility] [address] [place] [address] 12/16/2024 11:12:16 12/22/2024 11:39:20 Dysuria 67366137 R30.0 Thyroid nodule 495220666 E04.1 Mediastina l lymphadenopathy 40687589 R59.0 Acute urin jeramy tract infection 113223705 N30.00 Morbid obesity 492130986 E66.01 [id number] Guille George MD [facility] [address] [place] [address] 01/09/2025 15:50:45 01/12/2025 12:18:52 History of malignant neoplasm of thyroid 505710194 Z85.850 Cervical lymphadenopathy 370663479 R59.0 Multiple n odules of lung 088079711 R91.8 Acute bron chitis with bronchospasm 35219704 J20.8 Overweight 935464187 E66 .3 [id number] Guille George MD [facility] [address] [place] [address] 02/18/2025 15:10:27 02/20/2025 10:12:33 Mixed anxiety and depressive disorder 360747954 F41.8 cont current meds Essential hypertension 43149556 I10 Malignant tumor of thyroid gland 834192920 C73 Body mass index 40+ - severely obese 323185119 Z68.43 Overweight 406469437 E66 .3 Muscle weakness 18604008 M62.81 [id number] Guille George MD [facility] [address] [place] [address] 02/25/2025 14:46:22 02/26/2025 16:07:33 Essential hypertension 20707219 I10 start lasix Edema of l ower extremity 607202854 R60.0 stop hctz start lasix Decreased renal function 90793916 R94.4 Overweight 868582234 E66 .3 [id number] Guille George MD [facility] [address] [place] [address] 03/11/2025 14:08:18 03/13/2025 10:17:30 Malignant tumor of thyroid gland 368834929 C73 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 029111741 E66.01 Essential hypertension 66784648 I10 start lasix Nausea and vomiting 1692 1999 R11.2 [id number] Guille George MD [facility] [address] [place] [address] 03/30/2025 16:20:28 04/01/2025 12:13:31 Esophageal dysphagia 43099314 R13.19 History of surgery 82928 5003 Z98.890 Health Concerns Section Related Observation LastModified by Organization Detai ls LastModified Time None Recorded Concern Status LastModified by Organization Details LastModified Time None Recorded Advance Directives Directive None Recorded Payers Encounter Date Sequence Insurance Name Policy Number Policy Courtney Covered Member ID Courtney Member ID Guarantor Name 01/09/2025 2 [place] WHEN [place]ARE OR MEDICARE REPLACEMENT PRIMARY) Nubia Schultz [id number] Nubia Schultz 01/09/2025 1 [facility] (MEDICARE REPLACEMENT/AD VANTAGE - HMO) [id number] Nubia Schultz [id number] Nubia Schultz 02/18/2025 2 [place] WHEN [place] OR MEDICARE REPLACEMENT PRIMARY) Nubia Antoine [id number] Nubia Antoine 02/18/2025 1 [facility] (MEDICARE REPLACEMENT/AD VANTAGE - HMO) [id number] Nubia Schultz [id number] Nubia Antoine 02/25/2025 2 [place]ICARE REPLACEMENT PRIMARY) Nubia Schultz [id number] Nubia Schultz 02/25/2025 1 [facility] (MEDICARE REPLACEMENT/AD VANTAGE - HMO) [id number] Nubia Schultz [id number] Nubia Antoine 03/11/2025 2 [place] OR MEDICARE REPLACEMENT PRIMARY) Nubia Schultz [id number] Nubia Schultz 03/11/2025 1 [facility] (MEDICARE REPLACEMENT/AD VANTAGE - HMO) [id number] Nubia Schultz [id number] Nubia Antoine 03/30/2025 2 [place] WHEN [place] OR MEDICARE REPLACEMENT PRIMARY) Nubia Schultz [id number] Nubia Schultz 03/30/2025 1 [facility] (MEDICARE REPLACEMENT/AD VANTAGE - HMO) [id number] Nubia Schultz [id number] Nubia Schultz Notes Date Note Type Note Provider Name and Address Organization Details Recorded Time 01/09/2025 text/html just diagnosed with cancer..thyroid..m ets to lymph nodes and lungs..flu like symptoms Porsche Smiley PA-C Attn: Accounting,[address] [facility], [place], [address], [facility] 01/09/2025 16:22:05 02/18/2025 text/html thyroid cancer..total removal and radiation meds start soon for 2 residual spots..bp meds removed.. Porsche Smiley PA-C Attn: Accounting,[address] [facility], [place], [address], [place] - [facility] 02/18/2025 15:38:24 02/25/2025 text/html follw up from [facility]...surgeon feels that the extra yellow fluid coming from neck drain is secondary to general fluid build up from water retention..HCTZ was replaced to her but she reports no increase urine output... Porsche Smiley PA-C Attn: Accounting,[address] [facility] , [place], [address], [facility] 02/25/2025 15:33:22 03/11/2025 text/html had reaction to mounjaro because of un diagnosed thyroid cancer...d/c ...lamenting her weight loss..wants something else but she cannot now with dx of thyroid cancer..lost 100 pounds in 1 year... Porsche Smiley PA-C Attn: Accounting,[address] [facility] , [place], [address], [facility] 03/11/2025 15:19:46 03/30/2025 text/html began with troub le swallowing since her surgery..surgeon disregarded this..has not had radiation on neck yet.... Porsche Smiley PA-C Attn: Accounting,[address] [facility], [place], [address], [facility] 03/30/2025 17:39:58 OBGyn Episode No OBEpisode recorded.
--- OUTSIDE RECORDS SUMMARY | 2025-04-06 08:57 | XMS_ITS | Clinical Summary ---
Author Organization [facility] Address [address] [place] [address] Care Team Providers Care Scarrer Name Role Phone Andrés Smiley Primary Care Provider [phone] Allergies Active Allergy Reactions Criticality Noted Date Comments Amoxicillin Shortness of breath,Rash High Penicillins Shortness of breath,Rash High Sulfamethoxazole-Trimethopri m Hives Medium 01/02/2025 Bactrim Tetracycline Rash,Vomiting Medium Medications multivitamin capsule 0 0 04/06/20 15 Active lisinopril (PRINIVIL,ZESTRIL ) 20 mg tablet Take 1 tablet (20 mg total) by mouth every morning 3 08/05/20 18 Active albuterol HFA (PROVENTIL HFA,VENTOLIN HFA,PROAIR HFA) 90 mcg/actuation inhaler Inhale 2 puffs every 6 (six) hours as needed for wheezing or shortness of breath 03/21/20 22 Active escitalopram (LEXAPRO) 20 mg tablet Take 1 tablet (20 mg total) by mouth every morning 04/28/20 22 Active melatonin 10 mg tablet Take 1 tablet (10 mg total) by mouth nightly Active ALPRAZolam (XANAX) 1 mg tablet Take 1 tablet (1 mg total) by mouth nightly as needed for anxiety 06/28/20 22 Active amLODIPine (NORVASC) 10 mg tablet Take 1 tablet (10 mg total) by mouth every morning 06/28/20 22 Active celecoxib (CeleBREX) 200 mg capsule Take 1 capsule (200 mg total) by mouth every morning 06/28/20 22 Active famotidine (PEPCID) 40 mg tablet Take 1 tablet (40 mg total) by mouth every morning 06/28/20 22 Active docusate sodium (COLACE) 100 mg capsule Take 1 capsule (100 mg total) by mouth 2 (two) times a day as needed for constipation 60 capsule 09/06/20 22 Active Additional Information Patient not taking.Informant: Self, Reported on 03/13/2025 hydroCHLOROthiazi de (HYDRODIURIL) 25 mg tablet Take 1 tablet (25 mg total) by mouth every morning 05/17/20 23 Active ibuprofen (ADVIL,MOTRIN) 800 mg tabletIndications :Anti-inflammator y,Pain Take 1 tablet (800 mg total) by mouth every 8 (eight) hours as needed for pain Takes nightly Active clobetasoL (TEMOVATE) 0.05 % external solution Apply 1 Application topically as needed (scalp) 07/10/20 23 Active butalbital-acetam inophen-caffeine (ESGIC) 50-325-40 mg per tablet Take 1 tablet by mouth every 6 (six) hours as needed for migraine 12/01/19 25 Active cholecalciferol (VITAMIN D-3) 2000 unit capsule Take 1 capsule (2,000 Units total) by mouth every morning Active cyanocobalamin (Vitamin B-12) 500 mcg tablet Take 1 tablet (500 mcg total) by mouth every morning Active calcium carbonate (OS-KEILA) 1,250 mg (500 mg elemental) tabletIndications :hypocalcemia Take 1 tablet (1,250 mg total) by mouth every 8 (eight) hours 90 tablet 02/13/20 25 Active oxyCODONE (ROXICODONE) 5 mg immediate release tabletIndications :Pain Take 1 tablet (5 mg total) by mouth every 4 (four) hours as needed for pain for up to 12 doses 12 tablet 02/13/20 25 Active Additional Information Patient not taking.Reported on 03/13/2025 calcitRIOL (ROCALTROL) 0.25 mcg capsuleIndication s:hypocalcemia Take 1 capsule (0.25 mcg total) by mouth 2 (two) times a day 60 capsule 11 02/13/20 25 026 Active furosemide (LASIX) 20 mg tablet Take 1 tablet (20 mg total) by mouth daily Active acetaminophen 500 mg capsule Take 2 capsules (1,000 mg total) by mouth every 6 (six) hours 30 tablet 03/04/20 25 Active ondansetron ODT (ZOFRAN-ODT) 4 mg disintegrating tabletIndications :Nausea and Vomiting Take 1 tablet (4 mg total) by mouth every 6 (six) hours as needed for nausea or vomiting 15 tablet 03/04/20 25 Active traMADoL (ULTRAM) 50 mg tablet Take 1 tablet (50 mg total) by mouth every 6 (six) hours 10 tablet 03/04/20 25 Active diphenhydrAMINE (BENADRYL) 12.5 mg chewable tabletIndications :Urticaria,Take if developing rash with doxycycline Take 1 tablet (12.5 mg total) by mouth every 6 (six) hours as needed for allergies 30 tablet 03/04/20 25 Active levothyroxine (SYNTHROID) 175 mcg tabletIndications :hypothyroidism Take 1 tablet (175 mcg total) by mouth credit intern before breakfast 90 tablet 1 03/16/20 25 025 Active levothyroxine (SYNTHROID) 175 mcg tabletIndications :hypothyroidism Take 1 tablet (175 mcg total) by mouth credit intern before breakfast 30 tablet 1 02/13/20 25 025 Discontinu ed(Reorder ) ciprofloxacin (CIPRO) 500 mg tablet Take 1 tablet (500 mg total) by mouth 2 (two) times a day for 10 days 20 tablet 03/04/20 25 025 doxycycline (VIBRAMYCIN) 100 mg capsuleIndication s:Skin/Soft Tissue Infection Take 1 tablet/capsule (100 mg total) by mouth 2 (two) times a day for 10 days 20 tablet/caps ule 03/04/20 25 025 Active Problems Patient Care Coordination No te [...] wit h other specified complication, unspecified whether jail insulin use 01/27/2025 Papillary thyroid carcinoma 01/19/2025 Assessment & Plan (01/19/2025 3:25 PM PHOTOLITH OPERATOR): PET scan scheduled for 01/21/25. Refer to [...] pain 07/04/2023 Coronary artery disease invo lving mohegan coronary artery of mohegan heart 06/08/2023 Calculus of gallbladder with out cholecystitis without obstruction 05/17/2022 Overview (05/17/2022): Added automatically from request for surgery [id number] Incisional hernia, without obstruction or gangre ne 05/17/2022 Overview (05/17/2022): Added automatically from request for surgery [id number] Encounters Date Type Department Care Team Description 04/01/2025 Orders Only [facility] Radiology [address] [place] [address] Anna Casarez RN 03/27/2025 Orders Only [facility] Radiology [address] [place] [address] Anna Casarez, MACK Thyroid cancer (HCC) (Primary Dx) 03/27/2025 Telephone [facility] Radiology [address] [place] [address] Anna Casarez, MACK 03/24/2025 1:00 PM CDT Telemedicine [facility] Endocrinology Metabolism and Lipid [address] [facility] Floor 1, [address] [place] [address] Kd Pike MD Papillary thyroid carcinoma (HCC) (Primary Dx); Lung nodules; Post-surgical hypothyroidism 03/24/2025 Documentation [facility] Advanced Medicine Radiation Oncology [address] [facility] Advanced [facility] [place] [address] Ai Flores, MACK 03/24/2025 Orders Only [facility] Surgery [address] [place] [address] 5 [place] [phone] Kirsty Cobb MD Papillary thyroid carcinoma (HCC) (Primary Dx) 03/24/2025 Telephone [facility] Surgery [address] [place] [address] Floor 8 [place] [phone] Kirsty Cobb MD Medical Question/Miscellaneou s 03/13/2025 3:45 PM CDT Office Visit [facility] Surgery [address] [place] [address] 5 [place] [phone] Kirsty Cobb MD Thyroid cancer (HCC) (Primary Dx); Papillary thyroid carcinoma (HCC) 03/13/2025 1:45 PM CDT Lab [facility] - Lab Collection [address] [place] [address] 5 [place] [address] Thyroid cancer (HCC) 03/13/2025 Orders Only [facility] Surgery [address] [place] [address] 5 [place] [phone] Kirsty Cobb MD Papillary thyroid carcinoma (HCC) 03/13/2025 Orders Only [facility] Surgery [address] [place] [address] 5 [place] [phone] Lizette See RN Papillary thyroid carcinoma (HCC) (Primary Dx) 03/12/2025 Telephone [facility] Surgery [address] [place] [phone] Lizette See RN 03/09/2025 Results Follow-Up [facility] Surgery [address] [place] [address] 5 [place] [phone] Kirsty Cobb MD Aerobic and anaerobic culture and gram stain Aspirate Neck, right 02/28/2025 9:07 AM CDT - 03/04/2025 6:51 PM CDT Hospital Encounter [facility] [address] [place] [address] Tarsha Moraes MD Brown, Taylor, MD Localized swelling, mass or lump of neck (Primary Dx); 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 Discharge Disposition: Discharge to home or self care 02/28/2025 Orders Only [facility] Radiology [address] [place] [address] Maryam Lee, MACK 02/28/2025 Orders Only [facility] Oncology [address] [place] [phone] Amina Villa NP 02/25/2025 Telephone [facility] Surgery [address] [place] [phone] Lizette See RN 02/25/2025 Telephone [facility] Surgery [address] [place] [phone] Lizette See RN 02/24/2025 Telephone [facility] Surgery [address] [place] [phone] Lizette See RN 02/24/2025 Orders Only [facility] Surgery [address] [place] [phone] Lizette See RN Papillary thyroid carcinoma (HCC) (Primary Dx) 02/24/2025 Telephone [facility] Surgery [address] [place] [phone] Lizette See RN 02/24/2025 Telephone [facility] Surgery [address] [place] [phone] Kirsty Cobb MD Medical Question/Miscellaneou s 02/20/2025 1:45 PM CDT Clinical Support [facility] Surgery [address] [place] [phone] Kirsty Cobb MD Papillary thyroid carcinoma (HCC) (Primary Dx) 02/20/2025 Documentation [facility] Surgery [address] [place] [phone] Lizette See RN 02/19/2025 Telephone [facility] Surgery [address] [place] [phone] Kirsty Cobb MD 02/10/2025 1:21 PM CDT Anesthesia Event [facility] ([facility]) [address] [place] [address] John Paul De La O MD Montgomery, Andrea J. 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 02/10/2025 12:00 PM CDT - 02/10/2025 4:50 PM CDT Surgery [facility] Operating Room [facility] ([facility]) [address] [place] [address] Kirsty Cobb MD THYROIDECTOMY - TOTAL 02/10/2025 9:22 AM CDT - 02/10/2025 11:59 PM CDT Hospital Encounter [facility] Radiology [facility] ([facility]) [address] [place] [address] Thyroid cancer (HCC) Discharge Disposition: Discharge to home or self care 02/10/2025 8:46 AM CDT - 02/12/2025 2:09 PM CDT Hospital Encounter [facility] [address] [place] [address] Kirsty Cobb MD Thyroid cancer (HCC) Discharge Disposition: Discharge to home or self care 02/09/2025 Telephone [facility] Surgery [address] [place] [address] 5 [place] [address] Lizette See, MACK 02/09/2025 Orders Only [facility] Surgery [address] [place] [address] 5 [place] [phone] Lizette See, MACK Thyroid cancer (HCC) (Primary Dx) 02/05/2025 7:30 AM CDT Pre-Admission Testing [facility] Center for Preoperative Assessment and Planning [facility] ([facility]) [address] [place] [address] Preoperative testing (Primary Dx) 02/02/2025 Telephone [facility] Surgery [address] [place] [phone] Kirsty Cobb MD Medical Question/Miscellaneou s 01/29/2025 Orders Only [facility] Surgery [address] [place] [address] 5 [place] [phone] Lizette See RN Lung nodules (Primary Dx); Thyroid nodule; Mediastinal lymphadenopathy 01/28/2025 Results Follow-Up [facility] Surgery [address] [place] [address] 5 [place] [address] Kirsty Cobb MD Cytology 01/27/2025 1:30 PM CDT Office Visit [facility] Surgery [address] [place] [phone] Geovanna Ackerman MD Mediastinal lymphadenopathy (Primary Dx); Papillary thyroid carcinoma (HCC); Thyroid cancer (HCC); Morbid obesity (HCC); Type 2 diabetes mellitus with other specified complication, unspecified whether jail insulin use (HCC) 01/27/2025 Orders Only [facility] Surgery [address] [place] [phone] Lizette See RN Thyroid nodule (Primary Dx) 01/27/2025 Telephone [facility] Surgery [address] [place] [phone] Lizette See RN 01/26/2025 Telephone [facility] Surgery [address] [place] [phone] Kirsty Cobb MD Medical Question/Miscellaneou s 01/22/2025 Telephone [facility] Surgery [address] [place] [phone] Kirsty Cobb MD Medical Question/Miscellaneou s 01/21/2025 9:43 AM PHOTOLITH OPERATOR - 01/21/2025 11:59 PM PHOTOLITH OPERATOR Hospital Encounter [facility] Radiology [facility] ([facility]) [address] [place] [address] Discharge Disposition: Discharge to home or self care 01/21/2025 9:42 AM PHOTOLITH OPERATOR - 01/21/2025 11:59 PM PHOTOLITH OPERATOR Hospital Encounter [facility] Radiology [facility] ([facility] [address] [place] [address] Thyroid cancer (HCC) Discharge Disposition: Discharge to home or self care 01/21/2025 Orders Only [facility] Surgery [address] [facility] Floor 5 [place] [address] Kirsty Cobb MD Thyroid cancer (HCC) (Primary Dx) 01/20/2025 8:40 AM PHOTOLITH OPERATOR Lab [facility] 1 [facility] 1st [place] [address] Thyroid cancer (HCC) 01/20/2025 8:36 AM PHOTOLITH OPERATOR - 01/20/2025 11:59 PM PHOTOLITH OPERATOR Hospital Encounter [facility] Radiology [address] [place] [address] Thyroid cancer (HCC) Discharge Disposition: Discharge to home or self care 01/19/2025 11:00 AM PHOTOLITH OPERATOR - 01/19/2025 11:59 PM PHOTOLITH OPERATOR Hospital Encounter [facility] Radiology [address] [place] [address] Thyroid cancer (HCC) Discharge Disposition: Discharge to home or self care 01/19/2025 10:00 AM PHOTOLITH OPERATOR Office Visit [facility] Endocrinology Metabolism and Lipid [address] [facility] Floor 1, [address] [place] [phone] Kd Pike MD Papillary thyroid carcinoma (HCC) (Primary Dx); Thyroid cancer (HCC); Mediastinal lymphadenopathy; Lung nodules 01/19/2025 Orders Only [facility] Radiology [address] [place] [address] Anna Casarez, MACK Thyroid cancer (HCC) (Primary Dx) 01/19/2025 Documentation [facility] Radiation Oncology [facility] [place] [address] Ai Flores RN 01/15/2025 Telephone [facility] Radiology [address] [place] [address] Anna Casarez, MACK 01/15/2025 Telephone [facility] Radiology [address] [place] [address] Anna Casarez, MACK 01/14/2025 Orders Only [facility] Surgery [address] [facility] Floor 5 [place] [address] Lizette See RN Thyroid cancer (HCC) (Primary Dx) 01/12/2025 Telephone [facility] Surgery [facility] Floor 5 [place] [address] Lizette See RN 01/09/2025 Orders Only [facility] Surgery [facility] Floor 5 [place] [address] Kirsty Cobb MD Thyroid cancer (HCC) (Primary Dx) 01/09/2025 Orders Only [facility] Surgery [facility] Floor 5 [place] [address] Lizette See RN Thyroid cancer (HCC) (Primary Dx) 01/09/2025 Orders Only [facility] Surgery [address] [place] [address] Floor 5 [place] [address] Lizette See RN Thyroid cancer (HCC) (Primary Dx) 01/09/2025 Orders Only [facility] Surgery [facility] Floor 5 [place] [phone] Kirsty Cobb MD Thyroid cancer (HCC) (Primary Dx) 01/09/2025 Orders Only [facility] Surgery [facility] 5 [place] [phone] Kirsty Cobb MD 01/09/2025 Telephone [facility] Endocrinology Metabolism and Lipid [address] [facility] 5th [place] [address] [place] [phone] Yeny Cavazos RN 01/08/2025 Telephone [facility] Surgery [facility] Floor 8 [place] [phone] Kirsty Cobb MD Medical Question/Miscellaneou s 01/08/2025 Telephone [facility] Surgery [facility] Floor 5 [place] [phone] Lizette See RN 01/07/2025 Telephone [facility] Surgery [address] [place] [address] Floor 8 [place] [phone] Kirsty Cobb MD Medical Question/Miscellaneou s from Last 3 Months Immunizations Immunization Administration Dates Next Due Influenza, Quadrivalent, Juliana l Culture-based MDCK, Preservative Free, Antibiotic Free, Intramuscular 10/14/2019 Influenza, Quadrivalent, Split, Intramuscular Influenza, Quadrivalent, Spl it, Preservative Free, Intramuscular 09/17/2021,09/13/2020 Influenza, Trivalent, Preservative Free, Intramu scular 08/16/2024 ZOSTER Recombinant 08/16/2024,04/16/2024 Surgical History Surgery Date Site/Laterality Comments HYSTERECTOMY 11/19/1996 - 11/18/1997 OOPHORECTOMY 11/19/1996 - 11/18/1997 Bilateral BREAST BIOPSY 2004? Right benign needle bx, no scar CHOLECYSTECTOMY 05/19/2022 GASTRIC BYPASS with 54lb apon removal Medical History Medical History Date Comments Cerebrovascular accident (CVA) (HCC) Stroke Gout Gout Hypertension Hypertension Asthma GERD (gastroesophageal reflux disease) Motion sickness Depression Anxiety PONV (postoperative nausea and vomiting) Cancer (HCC) Thyroid Family History Medical History Relation Name Comments Breast cancer Neg Hx Ovarian cancer Neg Hx Thyroid cancer Neg Hx Social History Tobacco Use Types Packs/Day Years Used Date Smoking Tobacco: Never Passive Smoke Exposure: Never Smokeless Tobacco: Never Tobacco Cessation:Counseling Given: Not Answered AUDIT-C Answer Date Recorded Q1: How often [...] on file Legal Sex Female 12:10 AM PHOTOLITH OPERATOR Gender Identity Not on file Sexual Orientation Not on file Obstetrics History Para Term AB IAB SAB Ectopic Multiple Livin g Live Births 3 1 1 Date Outcome GA Total Labor Labor/2nd/3rd Weight Sex Type Anes PTL Renata A1 A5 Name Clin Term Last Filed Vital Signs Vital Sign Reading Time Taken Comments Blood Pressure 127/72 03/13/2025 2:00 PM CDT Pulse 87 03/13/2025 2:00 PM CDT Temperature 36.8 C (98.3 F) 03/13/2025 2:00 PM CDT Respiratory Rate 18 03/13/2025 2:00 PM CDT Oxygen Saturation 97% 03/13/2025 2:00 PM CDT Inhaled Oxygen Concentration - - Weight 114.2 kg (251 lb 12.8 oz) 03/13/2025 2:00 PM CDT Height 162.6 cm (5' 4.02 ) 02/28/2025 5:55 PM CD T Body Mass Index 43.2 02/28/2025 5:55 PM CDT Plan of Treatment Health Maintenance Due Date Last Done Comments Albumin Creatinine Ratio, Urine 1967 Colon Cancer Screening-Colonoscopy 1967 Depression Screening 1967 Hepatitis C Screening 1967 Dilated Eye Exam 1967 Foot Exam 1967 DTaP/Tdap/Td Vaccine (1 - Tdap) 1978 Hepatitis B Screening 1985 Regular Well Visit/Exam 18-64 1985 Pneumococcal vaccine <65 (1 of 2 - PCV) 1986 Covid-19 Vaccine (4 - 2023-2 5 season) 2024 10/05/2021, 03/16/2021, 02/16/2021 Hemoglobin A1C 08/08/2025 02/05/2025, 05/0 04/2020, 08/01/2019, Additional history exists Breast Cancer Screening-Mammogram 09/10/2025 024, 11/24/2021 Lipid Panel 02/28/2026 02/28/2025, 05/0 04/2020, 07/30/2018, Additional history exists eGFR 03/04/2026 03/04/2025, 02/17, 03/02/2025, Additional history exists Influenza Vaccine Completed 08/16/2024, , 09/13/2020, Additional history exists Zoster Vaccine Completed 08/16/2024, 04/16/2024 Medical Devices Implanted Type Area Fitter Welder Device Identifier Shelf Expiration Date Model / Serial / Lot [employer]eb Angio-Seal Vip 6fr Closere Device [id number] - [id number] Implanted:Qty: 1 on 07/04/2023 by Hank Irby MD at [facility] 01/17/2024 [id number] / / [id number] Procedures Procedure Name Priority Date/Time Associated Diagnosis Comments REFLEX THYROGLOBULIN, TUMOR MARKER, IA, S Routine 03/13/2025 1:45 PM CDT THYROGLOBULIN REFLEX TO MS OR IA Routine 03/13/2025 1:45 PM CDT Thyroid cancer (HCC) TSH Routine 03/13/2025 1:45 PM CDT Thyroid cancer (HCC) US KIDNEY COMPLETE Timed 03/04/2025 3: 13 PM CDT EGFR Timed 03/04/2025 11:26 AM CDT BASIC METABOLIC PANEL Timed 03/04/2025 11:26 AM CDT URINALYSIS AND REFLEX TO MICROSCOPIC AND CULTURE Routine 03/04/2025 11:26 AM CDT CREATININE, URINE, RANDOM Routine 03/03/2025 10:17 PM CDT UREA NITROGEN, URINE, RANDOM Routine 03/03/2025 10:17 PM CDT EGFR Routine 03/03/2025 10:15 PM CDT MAGNESIUM Routine 03/03/2025 10:15 PM CDT PHOSPHORUS Routine 03/03/2025 10:15 PM CDT CBC WITHOUT DIFFERENTIAL Routine 03/03/2025 10:15 PM CDT BASIC METABOLIC PANEL Routine 03/03/2025 10:15 PM CDT SODIUM, URINE, RANDOM Routine 03/03/2025 1:14 PM CDT CREATININE, URINE, RANDOM Routine 03/03/2025 1:14 PM CDT VANCOMYCIN LEVEL TROUGH Timed 03/03/2025 9:46 AM CDT EGFR Routine 03/02/2025 10:15 PM CDT PHOSPHORUS Routine 03/02/2025 10:15 PM CDT BASIC METABOLIC PANEL Routine 03/02/2025 10:15 PM CDT CBC WITHOUT DIFFERENTIAL Routine 03/02/2025 10:15 PM CDT EGFR Routine 03/01/2025 9:16 PM CDT PHOSPHORUS Routine 03/01/2025 9:16 PM CDT MAGNESIUM Routine 03/01/2025 9:16 PM CDT BASIC METABOLIC PANEL Routine 03/01/2025 9:16 PM CDT CBC WITHOUT DIFFERENTIAL Routine 03/01/2025 9:16 PM CDT POCT GLUCOSE DEVICE Routine 03/01/2025 6 :06 AM CDT LIPID PANEL Routine 02/28/2025 9:37 PM CDT EGFR Routine 02/28/2025 9:37 PM CDT CBC WITHOUT DIFFERENTIAL Routine 02/28/2025 9:37 PM CDT PHOSPHORUS Routine 02/28/2025 9:37 PM CDT MAGNESIUM Routine 02/28/2025 9:37 PM CDT BASIC METABOLIC PANEL Routine 02/28/2025 9:37 PM CDT TRIGLYCERIDES, BODY FLUID STAT 02/28/2025 2:33 PM CDT AMYLASE, BODY FLUID Routine 02/28/2025 2 :33 PM CDT AEROBIC AND ANAEROBIC CULTURE AND GRAM STAIN Routine 02/28/2025 2:[address] SOFT TISSUE NECK W CONTRAST ED 02/28/2025 10:56 AM CDT POCT CREATININE - DEVICE Routine 02/28/2025 10:36 AM CDT EGFR Routine 02/28/2025 10:06 AM CDT DIFFERENTIAL AUTO Routine 02/28/2025 10: 06 AM CDT COMPREHENSIVE METABOLIC PANEL Routine 02/28/2025 10:06 AM CDT CBC WITH AUTO DIFFERENTIAL Routine 02/28/2025 10:06 AM CDT POCT GLUCOSE DEVICE Routine 02/12/2025 1 1:48 AM CDT POCT GLUCOSE DEVICE Routine 02/12/2025 7 :26 AM CDT EGFR Routine 02/11/2025 10:14 PM CDT PTH Routine 02/11/2025 10:14 PM CDT BASIC METABOLIC PANEL Routine 02/11/2025 10:14 PM CDT POCT GLUCOSE DEVICE Routine 02/11/2025 7 :38 PM CDT POCT GLUCOSE DEVICE Routine 02/11/2025 5 :30 PM CDT EGFR Routine 02/11/2025 1:15 PM CDT VITAMIN B12 Routine 02/11/2025 1:15 PM CDT VITAMIN D 25 HYDROXY Routine 02/11/2025 1:15 PM CDT BASIC METABOLIC PANEL Routine 02/11/2025 1:15 PM CDT CALCIUM, IONIZED Timed 02/11/2025 1:15 PM CDT PTH Timed 02/11/2025 1:15 PM CDT POCT GLUCOSE DEVICE Routine 02/11/2025 1 2:28 PM CDT POCT GLUCOSE DEVICE Routine 02/11/2025 8 :26 AM CDT EGFR Routine 02/11/2025 6:03 AM CDT CALCIUM, IONIZED Routine 02/11/2025 6:03 AM CDT PTH Routine 02/11/2025 6:03 AM CDT BASIC METABOLIC PANEL Routine 02/11/2025 6:03 AM CDT POCT GLUCOSE DEVICE Routine 02/10/2025 1 1:20 PM CDT EGFR Routine 02/10/2025 11:14 PM CDT PTH Routine 02/10/2025 11:14 PM CDT CALCIUM, IONIZED Routine 02/10/2025 11:1 4 PM CDT BASIC METABOLIC PANEL Routine 02/10/2025 11:14 PM CDT POCT GLUCOSE DEVICE Routine 02/10/2025 9 :15 PM CDT MS AN PROCEDURE PLACEHOLDER Routine 02/10/2025 5:42 PM CDT POCT GLUCOSE DEVICE Routine 02/10/2025 5 :02 PM CDT SURGICAL PATHOLOGY Routine 02/10/2025 3: 30 PM CDT Thyroid cancer (HCC) POCT GLUCOSE DEVICE Routine 02/10/2025 2 :50 PM CDT MS AN PROCEDURE PLACEHOLDER Routine 02/10/2025 2:00 PM CDT MS AN ELECTIVE ENDOTRACHEAL AIRWAY Routine 02/10/2025 2:00 PM CDT DISSECTION NECK - BILATERAL 02/10/2025 1:21 PM CDT Thyroid cancer (HCC) Case Notes 01/29@1317: Sent case msg to [employer] to see if she is waiting on block release. [facility] [employer]IM[facility] THYROIDECTOMY - TOTAL 02/10/2025 1:21 PM CDT Thyroid cancer (HCC) Case Notes 01/29@1317: Sent case msg to [employer] to see if she is waiting on block release. [facility]eds [facility] POCT GLUCOSE DEVICE Routine 02/10/2025 1 2:36 PM CDT US SOFT TISSUE NECK Schedule Routine, Read Routine (OP Routine) 02/10/2025 11:15 AM CDT Thyroid cancer (HCC) TYPE AND SCREEN 14 DAY Routine 02/05/2025 9:37 AM CDT Preoperative testing POCT HEMOGLOBIN A1C Routine 02/05/2025 8 :23 AM CDT ECG 12-LEAD Routine 02/05/2025 8:11 AM CDT Preoperative testing PET/CT FDG SKULL TO THIGH Schedule Routine, Read Routine (OP Routine) 01/21/2025 1:10 PM PHOTOLITH OPERATOR Thyroid cancer (HCC) NM THYROGEN INJECTION Schedule Routine, Read Routine (OP Routine) 01/20/2025 9:33 AM PHOTOLITH OPERATOR Thyroid cancer (HCC) TSH Routine 01/20/2025 8:38 AM PHOTOLITH OPERATOR Thyroid cancer (HCC) NM THYROGEN INJECTION Schedule Routine, Read Routine (OP Routine) 01/19/2025 11:49 AM PHOTOLITH OPERATOR Thyroid cancer (HCC) SCREENING MAMMOGRAM BILATERAL W VALERIO Schedule Routine, Read Routine (OP Routine) 11/24/2021 8:39 AM PHOTOLITH OPERATOR Encounter for screening mammogram for malignant neoplasm of breast from Last 3 Months or Most Recently Relevant to Health Maintenance Results * Reflex thyroglobulin, tumor marker, IA, S (03/13/2025 1:45 PM CDT) Thyroglobulin, Tumor Marker 78 < or = 33 ng/mL [facility] Thyroglobulin interp See Footnote [facility] Comment: Thyroglobulin (Tg) reference intervals are for patients with an intact thyroid and not for patients who have had surgery for thyroid cancer. Tg reference intervals in patients that have undergone thyroidectomy or any treatment for follicular thyroid cancer are dependent on the residual mass of the thyroid tissue after surgery. Tg results, regardless of concentration, should not be interpreted as absolute evidence for the presence or absence of papillary or follicular thyroid cancer. This result needs to be interpreted in the context of the clinical evaluation. ADDITIONAL INFORMATION PLEASE NOTE: The given cutoff of <1.8 IU/mL is for the detection of potential thyroglobulin antibody (TgAb) interference in thyroglobulin immunoassays. A thyroglobulin antibody (TgAb) reference cutoff of <4.0 IU/mL may be more suitable for the evaluation of autoimmune thyroiditis. The thyroglobulin and thyroglobulin antibody testing methods are immunoenzymatic assays manufactured by [employer] and performed on the [employer] DXI 800. Values obtained from different assay methods or kits may be different and cannot be used interchangeably. The results cannot be interpreted as absolute evidence for the presence or absence of malignant disease. Test Performed by: [facility] [address] [place] [address] Finish Machine Tender: Basil Rose Ph.D.; CLIA# [id number] Blood 03/13/2025 1:45 PM CDT 03/13/2025 3:05 PM CDT us Kirsty Cobb MD LAB BLOOD ORDERABLES Final Resul t Performing Organization Address City/[facility] Co de Phone Number [facility] Department [place] [address] [facility] * Thyroglobulin reflex to MS or IA (03/13/2025 1:45 PM CDT) Anti-thyroglobulin <1.8 <1.8 IUnits/mL [facility] Comment: Thyroglobulin Antibody < 1.8 IU/mL. Thyroglobulin performed by Immunoassay to follow. Test Performed by: [place] [id number] Finish Machine Tender: Basil Rose Ph.D.; CLIA# [id number] Blood 03/13/2025 1:45 PM CDT 03/13/2025 3:05 PM CDT us Kirsty Cobb MD LAB BLOOD ORDERABLES Final Resul t Performing Organization Address [facility] Co de Phone Number [facility] Department [place] [address] [facility] * (ABNORMAL) TSH (03/13/2025 1:45 PM CDT) Thyroid Stimulating Hormone 0.04(L) 0.30 - 4.20 mcIUnit/mL Blood 03/13/2025 1:45 PM CDT 03/13/2025 1:47 PM CDT us Kirsty Cobb MD LAB BLOOD ORDERABLES Final Resul t Performing Organization Address City/[facility]/ZIP Co de Phone Number [facility] [place] [address] * US Kidney Complete (03/04/2025 3:13 PM CDT) Anatomical Region Laterality Modality Kidney N/A Ultrasound 03/04/2025 3:28 PM CDT Impressions 03/04/2025 3:28 PM CDT No hydronephrosis. Electronically signed by: Carolann Aleman M.D. Narrative 03/04/2025 3:28 PM CDT EXAMINATION: COMPLETE RENAL SONOGRAM HISTORY: Persistent elevation in creatinine COMPARISON: CT abdomen pelvis on 05/06/2022 FINDINGS: Kidneys: The echogenicity of both kidneys is normal. Mild thinning of the renal cortices bilaterally with prominent renal sinus fat unchanged since 05/06/2022. The kidneys are normal in size. The right kidney measures 9.3 cm in length, and the left, 10.0 cm in length. There is no hydronephrosis in either kidney. There are no renal calculi visualized. Bladder: The urinary bladder is normal Procedure Note Carolann Aleman MD - 03/04/2025 EXAMINATION: COMPLETE RENAL SONOGRAM HISTORY: Persistent elevation in creatinine COMPARISON: CT abdomen pelvis on 05/06/2022 FINDINGS: Kidneys: The echogenicity of both kidneys is normal. Mild thinning of the renal cortices bilaterally with prominent renal sinus fat unchanged since 05/06/2022. The kidneys are normal in size. The right kidney measures 9.3 cm in length, and the left, 10.0 cm in length. There is no hydronephrosis in either kidney. There are no renal calculi visualized. Bladder: The urinary bladder is normal IMPRESSION: No hydronephrosis. Electronically signed by: Carolann Aleman M.D. Kirsty Cobb MD [facility] US PROCEDURES Final Result * (ABNORMAL) eGFR (03/04/2025 11:26 AM CDT) eGFR 47(L) >=60 mL/min/1. 73 m2 Comment: Interpretive Data Reference Interval Normal >/= 90 mL/min/1.73m2 Mildly decreased* 60 - 89 mL/min/1.73m2 Mildly to moderately decreased 45 - 59 mL/min/1.73m2 Moderately to severely decreased 30 - 44 mL/min/1.73m2 Severely decreased 15 - 29 mL/min/1.73m2 Kidney Failure < 15 mL/min/1.73m2 *Relative to young adult level Estimated glomerular filtration rate is determined by the 2020 CKD-EPI equation recommended by the National Kidney Foundation (A Unifying Approach to GFR Estimation: Recommendations of the NKF-ASK Task Force on Reassessing the Inclusion of Race in Diagnosing Kidney Disease, JASN 2020). The CKD-EPI equation should not be used for patients with unstable renal function and has not been validated in children and those over 70. Current interpretive data was last reviewed 2021. Blood 03/04/2025 11:2 6 AM CDT 03/04/2025 12:28 PM CDT us Kirsty Cobb MD LAB BLOOD ORDERABLES Final Resul t [facility] Department [place] [address] * Urinalysis reflex to microscopic and culture Urine, clean voided (03/04/2025 11:26 AM CDT) Color, ur Straw Yellow Clarity, ur Clear Clear [facility] Specific gravity, ur 1.014 1.003 - 1.030 [facility] pH, urine 6.5 [facility] Comment: Interpretive Data U rine pH is affected by diet, medications, systemic acid-base disturbances, and renal tubular function. pH may affect urinary stone formation. For example, urine pH below 6.0 may help reduce the tendency for calcium phosphate stones and pH greater than 6.0 may reduce the tendency for uric acid stone formation. Source: [facility] Respons[facility] Current Interpretive Data was last revised on 2017 Protein, ur ql Negative Negative [facility] Glucose, ur ql Negative Negative [facility] Ketones, ur Negative Negative [facility] Bilirubin, ur Negative Negative [facility] Blood, ur Negative Negative [facility] Urobilinogen, ur <2.0 <2.0 mg/dL [facility] Nitrite, ur Negative Negative [facility] Leukocyte esterase, ur Negative Negative [facility] UA reflex comment Reflex conditions for microscopic UA and culture not met. [facility] Urine, clean voided 03/04/2025 11:26 AM CDT 03/04/2025 12:34 PM CDT us Kirsty Cobb MD LAB MICROBIOLOGY - GENERAL ORDER BALDEV Final Result Performing Organization Address [facility] Co de Phone Number [facility] Department [place] [address] * (ABNORMAL) Basic metabolic panel (03/04/2025 11:26 AM CDT) Sodium 143 135 - 145 mmol/L Potassium, pl 4.0 3.3 - 4.9 mmol/L [facility] Chloride 105 97 - 110 mmol/L [facility] CO2 30 22 - 32 mmol/L [facility] Anion gap 8 2 - 15 mmol/L [facility] BUN 20 6 - 25 mg/dL [facility] Creatinine 1.32(H) 0.60 - 1.10 mg/dL [facility] Glucose 137 70 - 199 mg/dL [facility] Comment: Interpretive Data Fasting glucose >/= 126 mg/dl is diagnostic for diabetes. Fasting is defined as no caloric intake for at least 8 hours. Fasting glucose between 100 mg/dl to 125 mg/dl is diagnostic of prediabetes. In a patient with classic symptoms of hyperglycemia or hyperglycemic crisis, a random glucose >/= 200 mg/dl is diagnostic for diabetes. In the absence of unequivocal hyperglycemia, results should be confirmed by repeat testing. The classification and Diagnosis of Diabetes Diabetes Care 202; 46: S19-S40. Current interpretive data was last revised 2022. Calcium 9.0 8.5 - 10.3 mg/dL [facility] Blood 03/04/2025 11:2 6 AM CDT 03/04/2025 12:28 PM CDT us Kirsty Cobb MD LAB BLOOD ORDERABLES Final Resul t Performing Organization Address [facility] Co de Phone Number [facility] Department [place] [address] * Urea nitrogen, urine, random (03/03/2025 10:17 PM CDT) Urea nitrogen, ur 366 mg/dL Comment: Interpretive Data No reference range established. Current interpretive data was last revised 2019. Urine 03/03/2025 10:1 7 PM CDT 03/03/2025 11:41 PM CDT us Kirsty Cobb MD LAB URINE ORDERABLES Final Resul t Performing Organization Address [facility] de Phone Number [facility] Department [place] [address] * Creatinine, urine, random (03/03/2025 10:17 PM CDT) Creatinine Ur 66.0 mg/dL Comment: Interpretive Data No reference range established. Current interpretive data was last revised 2019. Urine 03/03/2025 10:1 7 PM CDT 03/03/2025 11:41 PM CDT us Kirsty Cobb MD LAB URINE ORDERABLES Final Resul t Performing Organization Address [facility] de Phone Number [facility] Department [place] [address] * (ABNORMAL) eGFR (03/03/2025 10:15 PM CDT) eGFR 44(L) >=60 mL/min/1. 73 m2 Comment: Interpretive Data Reference Interval Normal >/= 90 mL/min/1.73m2 Mildly decreased* 60 - 89 mL/min/1.73m2 Mildly to moderately decreased 45 - 59 mL/min/1.73m2 Moderately to severely decreased 30 - 44 mL/min/1.73m2 Severely decreased 15 - 29 mL/min/1.73m2 Kidney Failure < 15 mL/min/1.73m2 *Relative to young adult level Estimated glomerular filtration rate is determined by the 2020 CKD-EPI equation recommended by the National Kidney Foundation (A Unifying Approach to GFR Estimation: Recommendations of the NKF-ASK Task Force on Reassessing the Inclusion of Race in Diagnosing Kidney Disease, JASN 202). The CKD-EPI equation should not be used for patients with unstable renal function and has not been validated in children and those over 70. Current interpretive data was last reviewed 2021. Blood 03/03/2025 10:1 5 PM CDT 03/03/2025 11:25 PM CDT Kirsty Cobb MD LAB BLOOD ORDERABLES Final Resul t [facility] Department [place] [address] * (ABNORMAL) CBC without differential (03/03/2025 10:15 PM CDT) WBC 6.35 3.80 - 9.90 K/cumm Hgb 7.4(L) 11.9 - 15.5 g/dL [facility] Hct 24.0(L) 35.6 - 45.5 % [facility] Plt 221 150 - 400 K/cumm [facility] MPV 10.2 9.1 - 12.3 fL [facility] RBC 2.53(L) 3.90 - 5.20 M/cumm [facility] MCV 94.9 81.3 - 96.4 fL [facility] MCH 29.2 27.1 - 33.3 pg [facility] MCHC 30.8(L) 32.3 - 35.7 g/dL [facility] RDW CV 15.2(H) 11.1 - 14.9 % [facility] RDW SD 52.5(H) 35.7 - 48.1 fL [facility] NRBC abs 0.00 0.00 - 0.01 K/cumm [facility] Blood 03/03/2025 10:1 5 PM CDT 03/03/2025 11:25 PM CDT Kirsty Cobb MD LAB BLOOD ORDERABLES Final Resul t Performing Organization Address City/[facility] Co de Phone Number [facility] [place] [address] * Phosphorus (03/03/2025 10:15 PM CDT) [facility] Phosphorus, pl 3.8 2.3 - 4.5 mg/dL Blood 03/03/2025 10:1 5 PM CDT 03/03/2025 11:25 PM CDT us Kirsty Cobb MD LAB BLOOD ORDERABLES Final Resul t Performing Organization Address City/[facility] Co de Phone Number [facility] [place] [address] * Magnesium (03/03/2025 10:15 PM CDT) [facility] Magnesium 1.8 1.4 - 2.5 mg/dL Blood 03/03/2025 10:1 5 PM CDT 03/03/2025 11:25 PM CDT us Kirsty Cobb MD LAB BLOOD ORDERABLES Final Resul t Performing Organization Address City/[facility] Co de Phone Number [facility] [place] [address] * (ABNORMAL) Basic metabolic panel (03/03/2025 10:15 PM CDT) [facility] Sodium 145 135 - 145 mmol/L Potassium, pl 4.0 3.3 - 4.9 mmol/L [facility] Chloride 108 97 - 110 mmol/L [facility] CO2 29 22 - 32 mmol/L [facility] Anion gap 8 2 - 15 mmol/L [facility] BUN 22 6 - 25 mg/dL [facility] Creatinine 1.38(H) 0.60 - 1.10 mg/dL [facility] Glucose 111 70 - 199 mg/dL [facility] Comment: Interpretive Data Fasting glucose >/= 126 mg/dl is diagnostic for diabetes. Fasting is defined as no caloric intake for at least 8 hours. Fasting glucose between 100 mg/dl to 125 mg/dl is diagnostic of prediabetes. In a patient with classic symptoms of hyperglycemia or hyperglycemic crisis, a random glucose >/= 200 mg/dl is diagnostic for diabetes. In the absence of unequivocal hyperglycemia, results should be confirmed by repeat testing. The classification and Diagnosis of Diabetes Diabetes Care 2021; 46: S19-S40. Current interpretive data was last revised 2022. Calcium 8.7 8.5 - 10.3 mg/dL [facility] Blood 03/03/2025 10:1 5 PM CDT 03/03/2025 11:25 PM CDT Result Roxana Cobb MD LAB BLOOD ORDERABLES Final Resul t Performing Organization Address City/[facility] de Phone Number [facility] Department [place] [address] * Sodium, urine, random (03/03/2025 1:14 PM CDT) Sodium, ur 154 mmol/L Comment: Interpretive Data No reference range established. Current interpretive data was last revised 2019. Urine 03/03/2025 1:14 PM CDT 03/03/2025 1:58 PM CDT Result Roxana Cobb MD LAB URINE ORDERABLES Final Resul t Performing Organization Address City/[facility]/ZIP Co de Phone Number [facility] Department [place] [address] * Creatinine, urine, random (03/03/2025 1:14 PM CDT) Creatinine Ur 19.9 mg/dL Comment: Interpretive Data No reference range established. Current interpretive data was last revised 2019. Urine 03/03/2025 1:14 PM CDT 03/03/2025 1:58 PM CDT Result Roxana Cobb MD LAB URINE ORDERABLES Final Resul t Performing Organization Address [facility] Co de Phone Number [facility] [place] [address] * (ABNORMAL) Vancomycin level trough Draw trough 30 minutes prior to vancomycin dose. (03/03/2025 9:46 AM CDT) Vancomycin trough 21.2(H) 10.0 - 20.0 mcg/mL Blood 03/03/2025 9:46 AM CDT 03/03/2025 10:22 AM CDT Narrative [facility] - 03/03/2025 10:52 AM CDT Draw trough 30 minutes prior to vancomycin dose. Esperanza Banda MD LAB BLOOD ORDERABL ES Final Result Performing Organization Address [facility] de Phone Number [facility] [place] [address] * (ABNORMAL) eGFR (03/02/2025 10:15 PM CDT) eGFR 41(L) >=60 mL/min/1. 73 m2 Comment: Interpretive Data Reference Interval Normal >/= 90 mL/min/1.73m2 Mildly decreased* 60 - 89 mL/min/1.73m2 Mildly to moderately decreased 45 - 59 mL/min/1.73m2 Moderately to severely decreased 30 - 44 mL/min/1.73m2 Severely decreased 15 - 29 mL/min/1.73m2 Kidney Failure < 15 mL/min/1.73m2 *Relative to young adult level Estimated glomerular filtration rate is determined by the 2020 CKD-EPI equation recommended by the National Kidney Foundation (A Unifying Approach to GFR Estimation: Recommendations of the NKF-ASK Task Force on Reassessing the Inclusion of Race in Diagnosing Kidney Disease, JASN 2020). The CKD-EPI equation should not be used for patients with unstable renal function and has not been validated in children and those over 70. Current interpretive data was last reviewed 2021. Blood 03/02/2025 10:1 5 PM CDT 03/02/2025 11:05 PM CDT us Kirsty Cobb MD LAB BLOOD ORDERABLES Final Resul t Performing Organization Address [facility]/ZIP Co de Phone Number [facility] Department [place] [address] * (ABNORMAL) CBC without differential (03/02/2025 10:15 PM CDT) WBC 8.01 3.80 - 9.90 K/cumm Hgb 7.9(L) 11.9 - 15.5 g/dL [facility] Hct 25.4(L) 35.6 - 45.5 % [facility] Plt 204 150 - 400 K/cumm [facility] MPV 10.8 9.1 - 12.3 fL [facility] RBC 2.71(L) 3.90 - 5.20 M/cumm [facility] MCV 93.7 81.3 - 96.4 fL [facility] MCH 29.2 27.1 - 33.3 pg [facility] MCHC 31.1(L) 32.3 - 35.7 g/dL [facility] RDW CV 15.5(H) 11.1 - 14.9 % [facility] RDW SD 53.4(H) 35.7 - 48.1 fL [facility] NRBC abs 0.00 0.00 - 0.01 K/cumm [facility] Blood 03/02/2025 10:1 5 PM CDT 03/02/2025 11:05 PM CDT us Kirsty Cobb MD LAB BLOOD ORDERABLES Final Resul t [facility] Department [place] [address] * Phosphorus (03/02/2025 10:15 PM CDT) Phosphorus, pl 3.4 2.3 - 4.5 mg/dL Blood 03/02/2025 10:1 5 PM CDT 03/02/2025 11:05 PM CDT us Kirsty Cobb MD LAB BLOOD ORDERABLES Final Resul t Performing Organization Address City/[facility]/ZIP Co de Phone Number [facility] Department [place] [address] * (ABNORMAL) Basic metabolic panel (03/02/2025 10:15 PM CDT) Pathologist [facility] Sodium 140 135 - 145 mmol/L Potassium, pl 3.4 3.3 - 4.9 mmol/L [facility] Chloride 103 97 - 110 mmol/L [facility] CO2 25 22 - 32 mmol/L [facility] Anion gap 12 2 - 15 mmol/L [facility] BUN 24 6 - 25 mg/dL [facility] Creatinine 1.46(H) 0.60 - 1.10 mg/dL [facility] Glucose 155 70 - 199 mg/dL [facility] Comment: Interpretive Data Fasting glucose >/= 126 mg/dl is diagnostic for diabetes. Fasting is defined as no caloric intake for at least 8 hours. Fasting glucose between 100 mg/dl to 125 mg/dl is diagnostic of prediabetes. In a patient with classic symptoms of hyperglycemia or hyperglycemic crisis, a random glucose >/= 200 mg/dl is diagnostic for diabetes. In the absence of unequivocal hyperglycemia, results should be confirmed by repeat testing. The classification and Diagnosis of Diabetes Diabetes Care 2021; 46: S19-S40. Current interpretive data was last revised 2022. Calcium 8.7 8.5 - 10.3 mg/dL [facility] Blood 03/02/2025 10:1 5 PM CDT 03/02/2025 11:05 PM CDT us Kirsty Cobb MD LAB BLOOD ORDERABLES Final Resul t Performing Organization Address [facility] Co de Phone Number [facility] Department [place] [address] * (ABNORMAL) eGFR (03/01/2025 9:16 PM CDT) Pathologist [facility] eGFR 46(L) >=60 mL/min/1. 73 m2 Comment: Interpretive Data Reference Interval Normal >/= 90 mL/min/1.73m2 Mildly decreased* 60 - 89 mL/min/1.73m2 Mildly to moderately decreased 45 - 59 mL/min/1.73m2 Moderately to severely decreased 30 - 44 mL/min/1.73m2 Severely decreased 15 - 29 mL/min/1.73m2 Kidney Failure < 15 mL/min/1.73m2 *Relative to young adult level Estimated glomerular filtration rate is determined by the 2020 CKD-EPI equation recommended by the National Kidney Foundation (A Unifying Approach to GFR Estimation: Recommendations of the NKF-ASK Task Force on Reassessing the Inclusion of Race in Diagnosing Kidney Disease, JASN 2020). The CKD-EPI equation should not be used for patients with unstable renal function and has not been validated in children and those over 70. Current interpretive data was last reviewed 2021. Blood 03/01/2025 9:16 PM CDT 03/01/2025 10:27 PM CDT us Kirsty Cobb MD LAB BLOOD ORDERABLES Final Resul t [facility] Department [place] [address] * (ABNORMAL) CBC without differential (03/01/2025 9:16 PM CDT) [facility] WBC 12.35(H) 3.80 - 9.90 K/cumm Hgb 7.6(L) 11.9 - 15.5 g/dL [facility] Hct 24.5(L) 35.6 - 45.5 % [facility] Plt 163 150 - 400 K/cumm [facility] MPV 10.5 9.1 - 12.3 fL [facility] RBC 2.59(L) 3.90 - 5.20 M/cumm [facility] MCV 94.6 81.3 - 96.4 fL [facility] MCH 29.3 27.1 - 33.3 pg [facility] MCHC 31.0(L) 32.3 - 35.7 g/dL [facility] RDW CV 15.7(H) 11.1 - 14.9 % [facility] RDW SD 54.2(H) 35.7 - 48.1 fL [facility] NRBC abs 0.00 0.00 - 0.01 K/cumm [facility] Blood 03/01/2025 9:16 PM CDT 03/01/2025 10:27 PM CDT us Kirsty Cobb MD LAB BLOOD ORDERABLES Final Resul t Performing Organization Address City/[facility] Co de Phone Number [facility] [place] [address] * Phosphorus (03/01/2025 9:16 PM CDT) Pathologist [facility] Phosphorus, pl 3.3 2.3 - 4.5 mg/dL Blood 03/01/2025 9:16 PM CDT 03/01/2025 10:27 PM CDT us Kirsty Cobb MD LAB BLOOD ORDERABLES Final Resul t Performing Organization Address [facility] Co de Phone Number [facility] Department [place] [address] * Magnesium (03/01/2025 9:16 PM CDT) [facility] Magnesium 2.2 1.4 - 2.5 mg/dL Blood 03/01/2025 9:16 PM CDT 03/01/2025 10:27 PM CDT us Kirsty Cobb MD LAB BLOOD ORDERABLES Final Resul t Performing Organization Address [facility] Co de Phone Number [facility] [place] [address] * (ABNORMAL) Basic metabolic panel (03/01/2025 9:16 PM CDT) Sodium 142 135 - 145 mmol/L Potassium, pl 3.7 3.3 - 4.9 mmol/L [facility] Chloride 106 97 - 110 mmol/L [facility] CO2 25 22 - 32 mmol/L [facility] Anion gap 11 2 - 15 mmol/L [facility] BUN 28(H) 6 - 25 mg/dL [facility] Creatinine 1.34(H) 0.60 - 1.10 mg/dL [facility] Glucose 128 70 - 199 mg/dL [facility] Comment: Interpretive Data Fasting glucose >/= 126 mg/dl is diagnostic for diabetes. Fasting is defined as no caloric intake for at least 8 hours. Fasting glucose between 100 mg/dl to 125 mg/dl is diagnostic of prediabetes. In a patient with classic symptoms of hyperglycemia or hyperglycemic crisis, a random glucose >/= 200 mg/dl is diagnostic for diabetes. In the absence of unequivocal hyperglycemia, results should be confirmed by repeat testing. The classification and Diagnosis of Diabetes Diabetes Care 2021; 46: S19-S40. Current interpretive data was last revised 2022. Calcium 8.6 8.5 - 10.3 mg/dL [facility] Blood 03/01/2025 9:16 PM CDT 03/01/2025 10:27 PM CDT us Kirsty Cobb MD LAB BLOOD ORDERABLES Final Resul t Performing Organization Address City/[facility]/ZIP Co de Phone Number [facility] [place] [address] * POCT glucose (03/01/2025 6:06 AM CDT) Glucose, POC 102 70 - 199 mg/dL Blood 03/01/2025 6:06 AM CDT 03/01/2025 6:06 AM CDT us Kirsty Cobb MD LAB POCT ORDERABLES - DEVICE Fin al Result Performing Organization Address City/[facility]/ZIP Co de Phone Number [facility] Department [place] [address] * (ABNORMAL) eGFR (02/28/2025 9:37 PM CDT) Pathologist [facility] eGFR 48(L) >=60 mL/min/1. 73 m2 Comment: Interpretive Data Reference Interval Normal >/= 90 mL/min/1.73m2 Mildly decreased* 60 - 89 mL/min/1.73m2 Mildly to moderately decreased 45 - 59 mL/min/1.73m2 Moderately to severely decreased 30 - 44 mL/min/1.73m2 Severely decreased 15 - 29 mL/min/1.73m2 Kidney Failure < 15 mL/min/1.73m2 *Relative to young adult level Estimated glomerular filtration rate is determined by the 2020 CKD-EPI equation recommended by the National Kidney Foundation (A Unifying Approach to GFR Estimation: Recommendations of the NKF-ASK Task Force on Reassessing the Inclusion of Race in Diagnosing Kidney Disease, JASN 2020). The CKD-EPI equation should not be used for patients with unstable renal function and has not been validated in children and those over 70. Current interpretive data was last reviewed 2021. Blood 02/28/2025 9:37 PM CDT 02/28/2025 10:47 PM CDT Tarsha Moraes MD LAB BLOOD ORDERABLES Bronwyn lau Result [facility] Department [place] [address] * (ABNORMAL) CBC without differential (02/28/2025 9:37 PM CDT) [facility] WBC 17.76(H) 3.80 - 9.90 K/cumm Hgb 7.8(L) 11.9 - 15.5 g/dL [facility] Hct 24.7(L) 35.6 - 45.5 % [facility] Plt 207 150 - 400 K/cumm [facility] MPV 10.3 9.1 - 12.3 fL [facility] RBC 2.60(L) 3.90 - 5.20 M/cumm [facility] MCV 95.0 81.3 - 96.4 fL [facility] MCH 30.0 27.1 - 33.3 pg [facility] MCHC 31.6(L) 32.3 - 35.7 g/dL [facility] RDW CV 15.8(H) 11.1 - 14.9 % [facility] RDW SD 55.0(H) 35.7 - 48.1 fL [facility] NRBC abs 0.00 0.00 - 0.01 K/cumm [facility] Blood 02/28/2025 9:37 PM CDT 02/28/2025 10:47 PM CDT Tarsha Moraes MD LAB BLOOD ORDERABLES Bronwyn l Result Performing Organization Address [facility] Co de Phone Number [facility] [place] [address] * Phosphorus (02/28/2025 9:37 PM CDT) Phosphorus, pl 3.1 2.3 - 4.5 mg/dL Blood 02/28/2025 9:37 PM CDT 02/28/2025 10:47 PM CDT Tarsha Moraes MD LAB BLOOD ORDERABLES Bronwyn l Result Performing Organization Address City/[facility] Co de Phone Number [facility] Department [place] [address] * Magnesium (02/28/2025 9:37 PM CDT) Magnesium 1.6 1.4 - 2.5 mg/dL Blood 02/28/2025 9:37 PM CDT 02/28/2025 10:47 PM CDT Tarsha Moraes MD LAB BLOOD ORDERABLES Bronwyn l Result [facility] Department [place] [address] * Lipid panel (02/28/2025 9:37 PM CDT) Cholesterol 114 30 - 199 mg/dL Comment: Interpretive Data Ages < or = 19 years Acceptable: <170 mg/dL Borderline high: 170-199 mg/dL High: >or= 200 mg/dL Ages > or = 20 years Desirable: <200 mg/dL Borderline high: 200-239 mg/dL High: >or= 240 mg/dL Literature References: 1. Expert Panel on Integrated Guidelines for Cardiovascular Health and Risk Reduction in Children and Adolescents. Pediatrics 2011;128:S213 2. NCEP Expert Panel. Circulation 2004;110:227 Current Interpretive Data was last revised on 2018. Triglycerides 56 <=149 mg/dL [facility] Comment: Interpretive Data Ages < or = 9 years Acceptable: <75 mg/dL Borderline high: 75-99 mg/dL High: >or= 100 mg/dL Ages 10 to 20 years Acceptable: <90 mg/dL Borderline high: 90-129 mg/dL High: >or= 130 mg/dL Ages > or = 20 years Desirable: <150 mg/dL Borderline high: 150-199 mg/dL High: 200-499 mg/dL Very high: >or= 499 mg/dL Literature References: 1. Expert Panel on Integrated Guidelines for Cardiovascular Health and Risk Reduction in Children and Adolescents. Pediatrics 2011;128:S213 2. NCEP Expert Panel. Circulation 2004;110:227 Current Interpretive Data was last revised on 2018. HDL 51 >=40 mg/dL [facility] Comment: Interpretive Data Ages < or = 19 years Acceptable: >45 mg/dL Borderline low: 40-45 mg/dL Low: <40 mg/dL Ages > or = 20 years Desirable: >or= 60 mg/dL Low: <40 mg/dL Literature References: 1. Expert Panel on Integrated Guidelines for Cardiovascular Health and Risk Reduction in Children and Adolescents. Pediatrics 2011;128:S213 2. NCEP Expert Panel. Circulation 2004;110:227 Current Interpretive Data was last revised on 2018. LDL, calculated 50 <=129 mg/dL [facility] Comment: Interpretive Data Ages < or = 19 years Acceptable: <110 mg/dL Borderline high: 110-129 mg/dL High: >or= 130 mg/dL Ages > or = 20 years Optimal: <100 mg/dL Near optimal: 100-129 mg/dL Borderline high: 130-159 mg/dL High: >160 mg/dL Calculated using the Avtar LDL-C estimating equation. This equation was implemented on 2024. Prior to this date LDL-C was estimated using the Friedewald equation. Literature References: 1. Expert Panel on Integrated Guidelines for Cardiovascular Health and Risk Reduction in Children and Adolescents. Pediatrics 2011;128:S213 2. NCEP Expert Panel. Circulation 2004;110:227 3. Avtar Bush et al. JASBIR Cardiol. 2020 March 19;5(5):540-548. doi: 10.1001/[email or web address] Current Interpretive Data was last revised on 2024. Non-HDL Cholesterol 63 mg/[facility] Comment: Interpretive Data Ages < or = 19 years Acceptable: <120 mg/dL Borderline high: 120-144 mg/dL High: >145 mg/dL Ages > or = 20 years When triglycerides are >200 mg/dL, Non-HDL cholesterol is a secondary target of therapy with treatment goals that are 30 mg/dL greater than the LDL cholesterol target. Literature References: 1. Expert Panel on Integrated Guidelines for Cardiovascular Health and Risk Reduction in Children and Adolescents. Pediatrics 2011;128:S213 2. NCEP Expert Panel. Circulation 2004;110:227 Current Interpretive Data was last revised on 2018. Chol/HDL ratio [address] [facility] Blood 02/28/2025 9:37 PM CDT 02/28/2025 10:47 PM CDT us Kirsty Cobb MD LAB BLOOD ORDERABLES Final Resul t [facility] [place] [address] * (ABNORMAL) Basic metabolic panel (02/28/2025 9:37 PM CDT) Sodium 142 135 - 145 mmol/L Potassium, pl 4.1 3.3 - 4.9 mmol/L [facility] Chloride 107 97 - 110 mmol/L [facility] CO2 27 22 - 32 mmol/L [facility] Anion gap 8 2 - 15 mmol/L [facility] BUN 26(H) 6 - 25 mg/dL [facility] Creatinine 1.30(H) 0.60 - 1.10 mg/dL [facility] Glucose 225(H) 70 - 199 mg/dL [facility] Comment: Interpretive Data Fasting glucose >/= 126 mg/dl is diagnostic for diabetes. Fasting is defined as no caloric intake for at least 8 hours. Fasting glucose between 100 mg/dl to 125 mg/dl is diagnostic of prediabetes. In a patient with classic symptoms of hyperglycemia or hyperglycemic crisis, a random glucose >/= 200 mg/dl is diagnostic for diabetes. In the absence of unequivocal hyperglycemia, results should be confirmed by repeat testing. The classification and Diagnosis of Diabetes Diabetes Care 2021; 46: S19-S40. Current interpretive data was last revised 2022. Calcium 8.1(L) 8.5 - 10.3 mg/dL [facility] Blood 02/28/2025 9:37 PM CDT 02/28/2025 10:47 PM CDT Tarsha Moraes MD LAB BLOOD ORDERABLES Bronwyn sid Result [facility] Department [place] [address] * (ABNORMAL) Aerobic and anaerobic culture and gram stain Aspirate Neck, right (02/28/2025 2:33 PM CDT) Pathologist [facility] Direct Specimen Exam Stain: Few polymorphonuclear leukocytes seen. Abundant Gram Negative Bacilli Abundant Gram Positive Cocci Rare Gram Positive Bacilli Report Final Report: Abundant Pseudomonas aeruginosa Abundant Streptococcus agalactiae (Group B Streptococci) Abundant Staphylococcus aureus Methicillin resistant (MRSA) by penicillin binding protein 2a (PBP2a) testing. (.) [facility] Organism PSEUDOMONAS AERUGINOSA [facility] Organism STREPTOCOCCUS AGALACTIAE (GROUP B STREPTOCOCCI) [facility] Organism STAPHYLOCOCCUS AUREUS [facility] Aspirate (Neck, right) 02/28/2025 2:33 PM CDT 02/28/2025 2:49 PM [address] [facility] - 03/06/2025 2:02 PM CDT Testing performed by [facility] ([phone]) Specimens submitted from normally sterile body sites will have all bacterial morphotypes identified. Specimens that contain grossly mixed mirza and/or are from body sites that are not normally sterile will be examined for Staphylococcus aureus, Pseudomonas aeruginosa, beta-hemolytic strep, vancomycin-resistant Enterococcus, Bacteroides, Parabacteroides, Clostridium perfringens and fungus. If any of these are isolated, the organism will be reported. Current interpretive data was last revised on 2020. Organism Antibiotic Method Susceptibility Pseudomonas aeruginosa Aztreonam INTERPRETATION Susceptible Pseudomonas aeruginosa Ceftazidime INTERPRETATION Susceptible Pseudomonas aeruginosa Ciprofloxacin INTERPRETATION Susceptible Pseudomonas aeruginosa Cefepime INTERPRETATION Susceptible Pseudomonas aeruginosa Imipenem INTERPRETATION Susceptible Pseudomonas aeruginosa Meropenem INTERPRETATION Susceptible Pseudomonas aeruginosa Piperacillin/Tazobactam INTERPR ETATION Susceptible Pseudomonas aeruginosa Tobramycin INTERPRETATION Susceptible Streptococcus agalactiae (Group B Streptococci) Penicillin (JULIAN) (JULIAN) INTERPRETATION Susceptible Streptococcus agalactiae (Group B Streptococci) Ceftriaxone (JULIAN) (JULIAN) INTERPRETATION Susceptible Streptococcus agalactiae (Group B Streptococci) Clindamycin (JULIAN) INTERPRETATION Resistant Streptococcus agalactiae (Group B Streptococci) Levofloxacin (JULIAN) INTERPRETATION Susceptible Streptococcus agalactiae (Group B Streptococci) Linezolid (JULIAN) INTERPRETATION Susceptible Streptococcus agalactiae (Group B Streptococci) Vancomycin (UJLIAN) INTERPRETATION Susceptible Staphylococcus aureus Vancomycin INTERPRETATION Susceptible Staphylococcus aureus Ceftaroline INTERPRETATION Susceptible Staphylococcus aureus Trimethoprim with Sulfamethoxazole INTERPRETATION Susceptible Staphylococcus aureus Linezolid INTERPRETATION Susceptible Staphylococcus aureus Doxycycline INTERPRETATION Susceptible Staphylococcus aureus Clindamycin INTERPRETATION Resistant Staphylococcus aureus Erythromycin INTERPRETATION Resistant Staphylococcus aureus Oxacillin INTERPRETATION Resistant Staphylococcus aureus Cefazolin INTERPRETATION Resistant Staphylococcus aureus Ceftriaxone INTERPRETATION Resistant us Aliya Funk MD LAB MICROBIOLOGY - GENERAL O RDERABLES Final Result [facility] [place] [address] * Triglycerides, body fluid (02/28/2025 2:33 PM CDT) Specimen type, fld Peritoneal Triglycerides, fld <20 mg/dL [facility] Comment: Repeated and Verified The above specimen type is not cleared for use in this method by the FDA. Analytical characteristics have been validated by the performing laboratory. No reference range established - see interpretive comments. Interpretive Data Pleural - Triglycerides >110 mg/dL is indicative of chylothorax while triglyceride < 50 mg/dL rules out chylothorax. Peritoneal - Triglycerides > 200 mg/dL is indicative of chylous ascites. References: Pleural Fluid characteristics of Chylothorax. [facility] Proceedings. December 2008; 84(2):129-133 Clifford Textbook of Clinical Chemistry and Molecular Diagnostics, Sixth Edition. Elsevier Press. 2018. Chapter 43, Body Fluids, p. 925 [employer] Test directory, Body Fluid Reference Intervals and/or Interpretative Information. [email or web address] [facility] Laboratories. Practical Guide to the Analytical Validation of Body Fluid Chemistry Testing. January 2013. 1-9. Current Interpretive Data was last revised 2019. Fluid 02/28/2025 2:33 PM CDT 02/28/2025 2:45 PM CDT Narrative [facility] - 02/28/2025 3:33 PM CDT From neck drain aspirate us Aliya Funk MD LAB BODY FLUIDS AND STOOLS O RDERABLES Final Result [facility] Department [place] [address] * Amylase, body fluid (02/28/2025 2:33 PM CDT) Specimen type, fld Peritoneal Amylase, fld <30 Units/L [facility] Comment: Repeated and Verified The above specimen type is not cleared for use in this method by the FDA. Analytical characteristics have been validated by the performing laboratory. No reference range established - see interpretive comments. Interpretive Data Pleural - Ratio of pleural to serum amylase >1.0 is indicative of pancreatic excretions in the pleural fluid. Peritoneal - Normally equivalent to serum levels, but elevated levels are indicative of pancreatitis or pancreatic secretions. Pancreatic Fluid - Fluid amylase <250 U/L is indicative of benign serous cyst. References: Clifford Textbook of Clinical Chemistry and Molecular Diagnostics, Sixth Edition. Elsevier Press. 2018. Chapter 43, Body Fluids, p. 925 [employer] Test directory, Body Fluid Reference Intervals and/or Interpretative Information. [email or web address] Current Interpretive Data was last revised 2019. Fluid 02/28/2025 2:33 PM CDT 02/28/2025 2:45 PM [address] [facility] - 02/28/2025 3:33 PM CDT From neck drain aspirate us Aliya Funk MD LAB BODY FLUIDS AND STOOLS O RDERABLES Final Result [facility] Department [place] [address] * CT Neck Soft Tissue W Contrast (02/28/2025 10:56 AM CDT) Anatomical Region Laterality Modality Head and Neck N/A Computed Tomogra phy 02/28/2025 12:2 1 PM CDT Impressions 02/28/2025 2:07 PM CDT 1. Post surgical changes of a thyroidectomy and right neck dissection with a large collection in the operative bed and neck, extending into the upper anterior mediastinum, with a surgical drain coursing through this collection. Correlate with drain output if there is concern for infection. 2. Persistent right prevascular anterior mediastinal lymph node measuring up to 1.1 cm suspicious for residual maikel metastatic disease. Other subcentimeter mediastinal lymph nodes are indeterminate. Dictated by: Ibrahima Lemons MD The radiology attending physician has personally reviewed this study, and had reviewed and/or edited this written report and agrees with it. Electronically signed by: Marianne Philip M.D., Ph.D. Narrative 02/28/2025 2:07 PM CDT EXAMINATION: CT of the neck with contrast HISTORY: Status post thyroidectomy and neck dissection with left neck pain. TECHNIQUE: CT of the neck was performed according to the standard protocol with intravenous contrast. Contrast information: 71 mL Optiray-350 IV COMPARISON: Preoperative CT 01/06/2025. FINDINGS: There are postoperative changes of a thyroidectomy and right neck dissection. There is a right lower approach surgical drain which loops up along the right neck and terminates inferiorly in the superior anterior mediastinum. There is a large collection measuring approximately 9.9 x 3.3 x 4.2 cm and the right neck. Through which the surgical drain courses. The right sternomastoid muscle extends through this collection. The collection abuts the right internal jugular vein, and expands the right posterior cervical spaces as well as the operative bed extending into the upper anterior mediastinum.. There is no synovial mass effect on the airway which remains widely patent. Scattered left neck cervical nodes are identified which are pathologically enlarged. There is a persistent 1.0 cm rounded enhancing prevascular anteromediastinal lymph node on series 3 image 111 which was previously FDG avid. Unchanged 9 mm right paratracheal lymph nodes which were not FDG avid on prior PET/CT. The base of the skull and the temporal bones are normal. Limited views of the brain including the cerebellum and brainstem are normal. The limited view of the [place] is unremarkable. The visualized portions of the orbits are normal. Spinal canal is normal in caliber. Mild cervical kyphosis centered at C5-C6. There is lower cervical degenerative disease most pronounced at C5-C6 and C6-C7. No significant spinal canal or neuroforaminal stenosis. Procedure Note Marianne Philip MD PhD - 02/28/2025 EXAMINATION: CT of the neck with contrast HISTORY: Status post thyroidectomy and neck dissection with left neck pain. TECHNIQUE: CT of the neck was performed according to the standard protocol with intravenous contrast. Contrast information: 71 mL Optiray-350 IV COMPARISON: Preoperative CT 01/06/2025. FINDINGS: There are postoperative changes of a thyroidectomy and right neck dissection. There is a right lower approach surgical drain which loops up along the right neck and terminates inferiorly in the superior anterior mediastinum. There is a large collection measuring approximately 9.9 x 3.3 x 4.2 cm and the right neck. Through which the surgical drain courses. The right sternomastoid muscle extends through this collection. The collection abuts the right internal jugular vein, and expands the right posterior cervical spaces as well as the operative bed extending into the upper anterior mediastinum.. There is no synovial mass effect on the airway which remains widely patent. Scattered left neck cervical nodes are identified which are pathologically enlarged. There is a persistent 1.0 cm rounded enhancing prevascular anteromediastinal lymph node on series 3 image 111 which was previously FDG avid. Unchanged 9 mm right paratracheal lymph nodes which were not FDG avid on prior PET/CT. The base of the skull and the temporal bones are normal. Limited views of the brain including the cerebellum and brainstem are normal. The limited view of the [place] is unremarkable. The visualized portions of the orbits are normal. Spinal canal is normal in caliber. Mild cervical kyphosis centered at C5-C6. There is lower cervical degenerative disease most pronounced at C5-C6 and C6-C7. No significant spinal canal or neuroforaminal stenosis. IMPRESSION: 1. Post surgical changes of a thyroidectomy and right neck dissection with a large collection in the operative bed and neck, extending into the upper anterior mediastinum, with a surgical drain coursing through this collection. Correlate with drain output if there is concern for infection. 2. Persistent right prevascular anterior mediastinal lymph node measuring up to 1.1 cm suspicious for residual maikel metastatic disease. Other subcentimeter mediastinal lymph nodes are indeterminate. Dictated by: Ibrahima Lemons MD The radiology attending physician has personally reviewed this study, and had reviewed and/or edited this written report and agrees with it. Electronically signed by: Marianne Philip M.D., Ph.D. Aliya Funk MD IMG CT PROCEDURES Final Resu lt * (ABNORMAL) POCT creatinine (02/28/2025 10:36 AM CDT) Creatinine POC 1.2(H) 0.6 - 1.1 mg/dL Blood 02/28/2025 10:3 6 AM CDT 02/28/2025 10:36 AM CDT Tarsha Moraes MD LAB POCT ORDERABLES - DEV ICE Final Result Performing Organization Address [facility] Co de Phone Number [facility] [place] [address] * (ABNORMAL) eGFR (02/28/2025 10:06 AM CDT) eGFR 48(L) >=60 mL/min/1. 73 m2 Comment: Interpretive Data Reference Interval Normal >/= 90 mL/min/1.73m2 Mildly decreased* 60 - 89 mL/min/1.73m2 Mildly to moderately decreased 45 - 59 mL/min/1.73m2 Moderately to severely decreased 30 - 44 mL/min/1.73m2 Severely decreased 15 - 29 mL/min/1.73m2 Kidney Failure < 15 mL/min/1.73m2 *Relative to young adult level Estimated glomerular filtration rate is determined by the 2020 CKD-EPI equation recommended by the National Kidney Foundation (A Unifying Approach to GFR Estimation: Recommendations of the NKF-ASK Task Force on Reassessing the Inclusion of Race in Diagnosing Kidney Disease, JASN 2020). The CKD-EPI equation should not be used for patients with unstable renal function and has not been validated in children and those over 70. Current interpretive data was last reviewed 2021. Blood 02/28/2025 10:0 6 AM CDT 02/28/2025 10:35 AM CDT us Aliya Funk MD LAB BLOOD ORDERABLES Final R esult Performing Organization Address City/[facility] Co de Phone Number [facility] [place] [address] * (ABNORMAL) Differential, auto (02/28/2025 10:06 AM CDT) Neutrophil abs 10.19(H) 1.50 - 6.50 K/cumm Imm gran abs 0.05 0.00 - 0.10 K/cumm [facility] Lymphocyte abs 0.72(L) 0.80 - 3.30 K/cumm [facility] Monocyte abs 0.64 0.20 - 0.80 K/cumm [facility] Eosinophil abs 0.18 0.00 - 0.50 K/cumm [facility] Basophil abs 0.03 0.00 - 0.10 K/cumm [facility] Neutrophil pct 86.3 % [facility] Comment: Interpretive Data Percent cell count reference ranges are not reported, since discordance with absolute values may lead to misinterpretation of CBC data. Current Interpretive Data was last revised on 2018. Imm gran pct 0.4 % [facility] Comment: Interpretive Data Percent cell count reference ranges are not reported, since discordance with absolute values may lead to misinterpretation of CBC data. Current Interpretive Data was last revised on 2018. Lymphocyte pct 6.1 % [facility] Comment: Interpretive Data Percent cell count reference ranges are not reported, since discordance with absolute values may lead to misinterpretation of CBC data. Current Interpretive Data was last revised on 2018. Monocyte pct 5.4 % [facility] Comment: Interpretive Data Percent cell count reference ranges are not reported, since discordance with absolute values may lead to misinterpretation of CBC data. Current Interpretive Data was last revised on 2018. Eosinophil pct 1.5 % [facility] Comment: Interpretive Data Percent cell count reference ranges are not reported, since discordance with absolute values may lead to misinterpretation of CBC data. Current Interpretive Data was last revised on 2018. Basophil pct 0.3 % [facility] Comment: Interpretive Data Percent cell count reference ranges are not reported, since discordance with absolute values may lead to misinterpretation of CBC data. Current Interpretive Data was last revised on 2018. Blood 02/28/2025 10:0 6 AM CDT 02/28/2025 10:36 AM CDT us Aliya Funk MD LAB BLOOD ORDERABLES Final R esult [facility] Department [place] [address] * (ABNORMAL) CBC with auto differential (02/28/2025 10:06 AM CDT) [facility] WBC 11.81(H) 3.80 - 9.90 K/cumm Hgb 9.3(L) 11.9 - 15.5 g/dL [facility] Hct 29.5(L) 35.6 - 45.5 % [facility] Plt 241 150 - 400 K/cumm [facility] MPV 9.4 9.1 - 12.3 fL [facility] RBC 3.15(L) 3.90 - 5.20 M/cumm [facility] MCV 93.7 81.3 - 96.4 fL [facility] MCH 29.5 27.1 - 33.3 pg [facility] MCHC 31.5(L) 32.3 - 35.7 g/dL [facility] RDW CV 15.5(H) 11.1 - 14.9 % [facility] RDW SD 52.7(H) 35.7 - 48.1 fL [facility] NRBC abs 0.00 0.00 - 0.01 K/cumm [facility] Blood 02/28/2025 10:0 6 AM CDT 02/28/2025 10:36 AM CDT Aliya Funk MD LAB BLOOD ORDERABLES Final R esult [facility] Department [place] [address] * (ABNORMAL) Comprehensive metabolic panel (02/28/2025 10:06 AM CDT) [facility] Sodium 142 135 - 145 mmol/L Potassium, pl 3.6 3.3 - 4.9 mmol/L [facility] Chloride 105 97 - 110 mmol/L [facility] CO2 28 22 - 32 mmol/L [facility] Anion gap 9 2 - 15 mmol/L [facility] BUN 25 6 - 25 mg/dL [facility] Creatinine 1.29(H) 0.60 - 1.10 mg/dL [facility] Glucose 135 70 - 199 mg/dL [facility] Comment: Interpretive Data Fasting glucose >/= 126 mg/dl is diagnostic for diabetes. Fasting is defined as no caloric intake for at least 8 hours. Fasting glucose between 100 mg/dl to 125 mg/dl is diagnostic of prediabetes. In a patient with classic symptoms of hyperglycemia or hyperglycemic crisis, a random glucose >/= 200 mg/dl is diagnostic for diabetes. In the absence of unequivocal hyperglycemia, results should be confirmed by repeat testing. The classification and Diagnosis of Diabetes Diabetes Care 2021; 46: S19-S40. Current interpretive data was last revised 2022. Calcium 8.9 8.5 - 10.3 mg/dL [facility] Bilirubin, total 0.8 0.1 - 1.2 mg/dL [facility] Protein, pl 6.8 6.5 - 8.5 g/dL [facility] Albumin 3.4(L) 3.5 - 5.0 g/dL [facility] Alk phos 126 40 - 130 Units/L [facility] ALT 7 7 - 45 Units/L [facility] AST 18 10 - 45 Units/L [facility] Blood 02/28/2025 10:0 6 AM CDT 02/28/2025 10:35 AM CDT us Aliya Funk MD LAB BLOOD ORDERABLES Final R esult Performing Organization Address City/[facility]/ZIP Co de Phone Number [facility] Department [place] [address] * POCT glucose (02/12/2025 11:48 AM CDT) Glucose, POC 131 70 - 199 mg/dL Blood 02/12/2025 11:4 8 AM CDT 02/12/2025 11:48 AM CDT us Kirsty Cobb MD LAB POCT ORDERABLES - DEVICE Fin al Result Performing Organization Address [facility]/ZIP Co de Phone Number [facility] Department [place] [address] * POCT glucose (02/12/2025 7:26 AM CDT) Glucose, POC 97 70 - 199 mg/dL Blood 02/12/2025 7:26 AM CDT 02/12/2025 7:26 AM CDT us Kirsty Cobb MD LAB POCT ORDERABLES - DEVICE Fin al Result Performing Organization Address City/[facility]/ZIP Co de Phone Number [facility] Department [place] [address] * (ABNORMAL) eGFR (02/11/2025 10:14 PM CDT) [facility] eGFR 42(L) >=60 mL/min/1. 73 m2 Comment: Interpretive Data Reference Interval Normal >/= 90 mL/min/1.73m2 Mildly decreased* 60 - 89 mL/min/1.73m2 Mildly to moderately decreased 45 - 59 mL/min/1.73m2 Moderately to severely decreased 30 - 44 mL/min/1.73m2 Severely decreased 15 - 29 mL/min/1.73m2 Kidney Failure < 15 mL/min/1.73m2 *Relative to young adult level Estimated glomerular filtration rate is determined by the 2020 CKD-EPI equation recommended by the National Kidney Foundation (A Unifying Approach to GFR Estimation: Recommendations of the NKF-ASK Task Force on Reassessing the Inclusion of Race in Diagnosing Kidney Disease, JASN 202). The CKD-EPI equation should not be used for patients with unstable renal function and has not been validated in children and those over 70. Current interpretive data was last reviewed 2021. Blood 02/11/2025 10:1 4 PM CDT 02/11/2025 10:54 PM CDT us Kirsty Cobb MD LAB BLOOD ORDERABLES Final Resul t Performing Organization Address City/[facility]/ZIP Co de Phone Number [facility] Department [place] [address] * PTH (02/11/2025 10:14 PM CDT) PTH 15 15 - 65 pg/mL Blood 02/11/2025 10:1 4 PM CDT 02/11/2025 10:54 PM CDT us Kirsty Cobb MD LAB BLOOD ORDERABLES Final Resul t Performing Organization Address City/[facility] Co de Phone Number [facility] [place] [place] [address] * (ABNORMAL) Basic metabolic panel (02/11/2025 10:14 PM CDT) [facility] Sodium 142 135 - 145 mmol/L Potassium, pl 4.1 3.3 - 4.9 mmol/L [facility] Chloride 110 97 - 110 mmol/L [facility] CO2 24 22 - 32 mmol/L [facility] Anion gap 8 2 - 15 mmol/L [facility] BUN 32(H) 6 - 25 mg/dL [facility] Creatinine 1.45(H) 0.60 - 1.10 mg/dL [facility] Glucose 149 70 - 199 mg/dL [facility] Comment: Interpretive Data Fasting glucose >/= 126 mg/dl is diagnostic for diabetes. Fasting is defined as no caloric intake for at least 8 hours. Fasting glucose between 100 mg/dl to 125 mg/dl is diagnostic of prediabetes. In a patient with classic symptoms of hyperglycemia or hyperglycemic crisis, a random glucose >/= 200 mg/dl is diagnostic for diabetes. In the absence of unequivocal hyperglycemia, results should be confirmed by repeat testing. The classification and Diagnosis of Diabetes Diabetes Care 2021; 46: S19-S40. Current interpretive data was last revised 2022. Calcium 7.8(L) 8.5 - 10.3 mg/dL [facility] Blood 02/11/2025 10:1 4 PM CDT 02/11/2025 10:54 PM CDT us Kirsty Cobb MD LAB BLOOD ORDERABLES Final Resul t Performing Organization Address [facility] Co de Phone Number [facility] Department [place] [place] [address] * POCT glucose (02/11/2025 7:38 PM CDT) Glucose, POC 143 70 - 199 mg/dL Blood 02/11/2025 7:38 PM CDT 02/11/2025 7:38 PM CDT us Kirsty Cobb MD LAB POCT ORDERABLES - DEVICE Fin al Result Performing Organization Address [facility] Co de Phone Number [facility] Department [place] [address] * POCT glucose (02/11/2025 5:30 PM CDT) Glucose, POC 160 70 - 199 mg/dL Blood 02/11/2025 5:30 PM CDT 02/11/2025 5:30 PM CDT us Kirsty Cobb MD LAB POCT ORDERABLES - DEVICE Fin al Result Performing Organization Address [facility] de Phone Number [facility] Department [place] [address] * (ABNORMAL) eGFR (02/11/2025 1:15 PM CDT) eGFR 46(L) >=60 mL/min/1. 73 m2 Comment: Interpretive Data Reference Interval Normal >/= 90 mL/min/1.73m2 Mildly decreased* 60 - 89 mL/min/1.73m2 Mildly to moderately decreased 45 - 59 mL/min/1.73m2 Moderately to severely decreased 30 - 44 mL/min/1.73m2 Severely decreased 15 - 29 mL/min/1.73m2 Kidney Failure < 15 mL/min/1.73m2 *Relative to young adult level Estimated glomerular filtration rate is determined by the 2020 CKD-EPI equation recommended by the National Kidney Foundation (A Unifying Approach to GFR Estimation: Recommendations of the NKF-ASK Task Force on Reassessing the Inclusion of Race in Diagnosing Kidney Disease, JASN 2020). The CKD-EPI equation should not be used for patients with unstable renal function and has not been validated in children and those over 70. Current interpretive data was last reviewed 2021. Blood 02/11/2025 1:15 PM CDT 02/11/2025 1:59 PM CDT Result Roxana Cobb MD LAB BLOOD ORDERABLES Final Resul t Performing Organization Address City/[facility] Co de Phone Number [facility] [place] [address] * (ABNORMAL) Calcium, ionized (02/11/2025 1:15 PM CDT) Calcium, Ionized 4.49(L) 4.50 - 5.10 mg/dL Blood 02/11/2025 1:15 PM CDT 02/11/2025 1:56 PM CDT Result Roxana Cobb MD LAB BLOOD ORDERABLES Final Resul t Performing Organization Address [facility] Co de Phone Number [facility] [place] [address] * Vitamin D 25 hydroxy (02/11/2025 1:15 PM CDT) Vitamin D 25-OH 33 30 - 80 ng/mL Blood 02/11/2025 1:15 PM CDT 02/11/2025 1:59 PM CDT Result Roxana Cobb MD LAB BLOOD ORDERABLES Final Resul t Performing Organization Address [facility] Co de Phone Number [facility] [place] [address] * PTH (02/11/2025 1:15 PM CDT) PTH 18 15 - 65 pg/mL Blood 02/11/2025 1:15 PM CDT 02/11/2025 1:59 PM CDT us Kirsty Cobb MD LAB BLOOD ORDERABLES Final Resul t Performing Organization Address City/[facility]/ZIP Co de Phone Number [facility] Department [place] [address] * Vitamin B12 (02/11/2025 1:15 PM CDT) Pathologist [facility] Vitamin B12 399 230 - 1,250 pg/mL Blood 02/11/2025 1:15 PM CDT 02/11/2025 1:59 PM CDT us Kirsty Cobb MD LAB BLOOD ORDERABLES Final Resul t Performing Organization Address [facility] de Phone Number [facility] Department [place] [address] * (ABNORMAL) Basic metabolic panel (02/11/2025 1:15 PM CDT) [facility] Sodium 141 135 - 145 mmol/L Potassium, pl 3.9 3.3 - 4.9 mmol/L [facility] Chloride 105 97 - 110 mmol/L [facility] CO2 25 22 - 32 mmol/L [facility] Anion gap 11 2 - 15 mmol/L [facility] BUN 26(H) 6 - 25 mg/dL [facility] Creatinine 1.33(H) 0.60 - 1.10 mg/dL [facility] Glucose 156 70 - 199 mg/dL [facility] Comment: Interpretive Data Fasting glucose >/= 126 mg/dl is diagnostic for diabetes. Fasting is defined as no caloric intake for at least 8 hours. Fasting glucose between 100 mg/dl to 125 mg/dl is diagnostic of prediabetes. In a patient with classic symptoms of hyperglycemia or hyperglycemic crisis, a random glucose >/= 200 mg/dl is diagnostic for diabetes. In the absence of unequivocal hyperglycemia, results should be confirmed by repeat testing. The classification and Diagnosis of Diabetes Diabetes Care 2021; 46: S19-S40. Current interpretive data was last revised 2022. Calcium 8.3(L) 8.5 - 10.3 mg/dL [facility] Blood 02/11/2025 1:15 PM CDT 02/11/2025 1:59 PM CDT Result Roxana Cobb MD LAB BLOOD ORDERABLES Final Resul t Performing Organization Address [facility] de Phone Number [facility] [place] [address] * (ABNORMAL) POCT glucose (02/11/2025 12:28 PM CDT) Glucose, POC 210(H) 70 - 199 mg/dL Blood 02/11/2025 12:2 8 PM CDT 02/11/2025 12:28 PM CDT Result Roxana Cobb MD LAB POCT ORDERABLES - DEVICE Fin al Result Performing Organization Address [facility] de Phone Number [facility] Department [place] [address] * POCT glucose (02/11/2025 8:26 AM CDT) [facility] Glucose, POC 167 70 - 199 mg/dL Blood 02/11/2025 8:26 AM CDT 02/11/2025 8:26 AM CDT Result Roxana Cobb MD LAB POCT ORDERABLES - DEVICE Fin al Result Performing Organization Address [facility] de Phone Number [facility] [place] [address] * (ABNORMAL) eGFR (02/11/2025 6:03 AM CDT) Pathologist [facility] eGFR 47(L) >=60 mL/min/1. 73 m2 Comment: Interpretive Data Reference Interval Normal >/= 90 mL/min/1.73m2 Mildly decreased* 60 - 89 mL/min/1.73m2 Mildly to moderately decreased 45 - 59 mL/min/1.73m2 Moderately to severely decreased 30 - 44 mL/min/1.73m2 Severely decreased 15 - 29 mL/min/1.73m2 Kidney Failure < 15 mL/min/1.73m2 *Relative to young adult level Estimated glomerular filtration rate is determined by the 2020 CKD-EPI equation recommended by the National Kidney Foundation (A Unifying Approach to GFR Estimation: Recommendations of the NKF-ASK Task Force on Reassessing the Inclusion of Race in Diagnosing Kidney Disease, JASN 2020). The CKD-EPI equation should not be used for patients with unstable renal function and has not been validated in children and those over 70. Current interpretive data was last reviewed 2021. Blood 02/11/2025 6:03 AM CDT 02/11/2025 6:17 AM CDT us Kirsty Cobb MD LAB BLOOD ORDERABLES Final Resul t Performing Organization Address City/[facility] Co de Phone Number [facility] Department [place] [address] * (ABNORMAL) Calcium, ionized (02/11/2025 6:03 AM CDT) Calcium, Ionized 4.21(L) 4.50 - 5.10 mg/dL Blood 02/11/2025 6:03 AM CDT 02/11/2025 6:17 AM CDT us Kirsty Cobb MD LAB BLOOD ORDERABLES Final Resul t Performing Organization Address City/[facility] Co de Phone Number [facility] Department [place] [address] * (ABNORMAL) PTH (02/11/2025 6:03 AM CDT) PTH 8(L) 15 - 65 pg/mL Blood 02/11/2025 6:03 AM CDT 02/11/2025 6:18 AM CDT us Kirsty Cobb MD LAB BLOOD ORDERABLES Final Resul t Performing Organization Address City/[facility]/ZIP Co de Phone Number [facility] Department [place] [address] * (ABNORMAL) Basic metabolic panel (02/11/2025 6:03 AM CDT) Pathologist [facility] Sodium 141 135 - 145 mmol/L Potassium, pl 4.6 3.3 - 4.9 mmol/L [facility] Chloride 108 97 - 110 mmol/L [facility] CO2 25 22 - 32 mmol/L [facility] Anion gap 8 2 - 15 mmol/L [facility] BUN 28(H) 6 - 25 mg/dL [facility] Creatinine 1.32(H) 0.60 - 1.10 mg/dL [facility] Glucose 143 70 - 199 mg/dL [facility] Comment: Interpretive Data Fasting glucose >/= 126 mg/dl is diagnostic for diabetes. Fasting is defined as no caloric intake for at least 8 hours. Fasting glucose between 100 mg/dl to 125 mg/dl is diagnostic of prediabetes. In a patient with classic symptoms of hyperglycemia or hyperglycemic crisis, a random glucose >/= 200 mg/dl is diagnostic for diabetes. In the absence of unequivocal hyperglycemia, results should be confirmed by repeat testing. The classification and Diagnosis of Diabetes Diabetes Care 202; 46: S19-S40. Current interpretive data was last revised 2022. Calcium 8.4(L) 8.5 - 10.3 mg/dL [facility] Blood 02/11/2025 6:03 AM CDT 02/11/2025 6:17 AM CDT Narrative [facility] - 02/11/2025 6:39 AM CDT Begin after renal function panel us Kirsty Cobb MD LAB BLOOD ORDERABLES Final Resul t Performing Organization Address City/[facility]/ZIP Co de Phone Number [facility] Department [place] [address] * (ABNORMAL) POCT glucose (02/10/2025 11:20 PM CDT) Glucose, POC 250(H) 70 - 199 mg/dL Blood 02/10/2025 11:2 0 PM CDT 02/10/2025 11:20 PM CDT us Kirsty Cobb MD LAB POCT ORDERABLES - DEVICE Fin al Result Performing Organization Address [facility] Co de Phone Number [facility] [place] [address] * (ABNORMAL) eGFR (02/10/2025 11:14 PM CDT) eGFR 51(L) >=60 mL/min/1. 73 m2 Comment: Interpretive Data Reference Interval Normal >/= 90 mL/min/1.73m2 Mildly decreased* 60 - 89 mL/min/1.73m2 Mildly to moderately decreased 45 - 59 mL/min/1.73m2 Moderately to severely decreased 30 - 44 mL/min/1.73m2 Severely decreased 15 - 29 mL/min/1.73m2 Kidney Failure < 15 mL/min/1.73m2 *Relative to young adult level Estimated glomerular filtration rate is determined by the 2020 CKD-EPI equation recommended by the National Kidney Foundation (A Unifying Approach to GFR Estimation: Recommendations of the NKF-ASK Task Force on Reassessing the Inclusion of Race in Diagnosing Kidney Disease, JASN 2020). The CKD-EPI equation should not be used for patients with unstable renal function and has not been validated in children and those over 70. Current interpretive data was last reviewed 2021. Blood 02/10/2025 11:1 4 PM CDT 02/10/2025 11:53 PM CDT us Kirsty Cobb MD LAB BLOOD ORDERABLES Final Resul t Performing Organization Address City/[facility]/ZIP Co de Phone Number [facility] [place] [address] * (ABNORMAL) Calcium, ionized (02/10/2025 11:14 PM CDT) Calcium, Ionized 4.35(L) 4.50 - 5.10 mg/dL Blood 02/10/2025 11:1 4 PM CDT 02/10/2025 11:49 PM CDT us Kirsty Cobb MD LAB BLOOD ORDERABLES Final Resul t Performing Organization Address City/[facility] Co de Phone Number [facility] [place] [address] * (ABNORMAL) PTH (02/10/2025 11:14 PM CDT) Pathologist [facility] PTH 11(L) 15 - 65 pg/mL Blood 02/10/2025 11:1 4 PM CDT 02/11/2025 1:11 AM CDT us Kirsty Cobb MD LAB BLOOD ORDERABLES Final Resul t Performing Organization Address [facility] de Phone Number [facility] [place] [address] * (ABNORMAL) Basic metabolic panel (02/10/2025 11:14 PM CDT) Pathologist [facility] Sodium 140 135 - 145 mmol/L Potassium, pl 4.4 3.3 - 4.9 mmol/L [facility] Chloride 107 97 - 110 mmol/L [facility] CO2 26 22 - 32 mmol/L [facility] Anion gap 7 2 - 15 mmol/L [facility] BUN 27(H) 6 - 25 mg/dL [facility] Creatinine 1.22(H) 0.60 - 1.10 mg/dL [facility] Glucose 238(H) 70 - 199 mg/dL [facility] Comment: Interpretive Data Fasting glucose >/= 126 mg/dl is diagnostic for diabetes. Fasting is defined as no caloric intake for at least 8 hours. Fasting glucose between 100 mg/dl to 125 mg/dl is diagnostic of prediabetes. In a patient with classic symptoms of hyperglycemia or hyperglycemic crisis, a random glucose >/= 200 mg/dl is diagnostic for diabetes. In the absence of unequivocal hyperglycemia, results should be confirmed by repeat testing. The classification and Diagnosis of Diabetes Diabetes Care 202; 46: S19-S40. Current interpretive data was last revised 2022. Calcium 8.2(L) 8.5 - 10.3 mg/dL [facility] Blood 02/10/2025 11:1 4 PM CDT 02/10/2025 11:53 PM CDT Kirsty Cobb MD LAB BLOOD ORDERABLES Final Resul t Performing Organization Address [facility] Co de Phone Number [facility] Department [place] [address] * (ABNORMAL) POCT glucose (02/10/2025 9:15 PM CDT) Glucose, POC 288(H) 70 - 199 mg/dL Blood 02/10/2025 9:15 PM CDT 02/10/2025 9:15 PM CDT Result [facility] Kirsty Cobb MD LAB POCT ORDERABLES - DEVICE Fin al Result Performing Organization Address [facility] de Phone Number [facility] [place] [address] * MS AN PROCEDURE PLACEHOLDER (02/10/2025 5:42 PM CDT) Narrative Ariana Smith CRNA - 02/10/2025 5:42 PM CDT Ariana Smith CRNA 02/10/2025 5:42 PM Peripheral IV Catheter Patient location: OR Staff: Placed by: PARK MANAGER: Ariana Smith CRNA Preprocedure prep: Prep solution: chlorhexadine PPE: gloves and provider hat/mask PIV line: Laterality: right Site: foot Catheter size: 20 g Technique: direct visualization and palpatation Procedure details: good blood return and occlusive dressing applied Number of attempts: 1 John Paul De La O MD ANESTHESIA ORDERABLES Final Result * POCT glucose (02/10/2025 5:02 PM CDT) Glucose, POC 151 70 - 199 mg/dL Blood 02/10/2025 5:02 PM CDT 02/10/2025 5:02 PM CDT Kirsty Cobb MD LAB POCT ORDERABLES - DEVICE Fin al Result [facility] Department [place] [address] * Surgical pathology (02/10/2025 3:30 PM CDT) Tissue specimen (specimen) (Thyroid) 02/10/2025 3:30 PM CDT Tissue specimen (specimen) (Lymph node, dissection/region al resection) 02/10/2025 3:34 PM CDT Tissue specimen (specimen) (Thyroid) 02/10/2025 3:35 PM CDT Tissue specimen (specimen) (Lymph node, dissection/region al resection) 02/10/2025 3:35 PM CDT Tissue specimen (specimen) (Thyroid) 02/10/2025 5:27 PM CDT Tissue specimen (specimen) (Thyroid) 02/10/2025 6:[address] [facility] - 02/16/2025 11:40 AM CDT EPIC results best viewed via link to PDF [facility] [place] [address] Note to Patients: This report may contain a detailed description of human tissue sent by a health care provider to the laboratory for pathologic evaluation. The content of this report is essential for diagnosis and may provide important critical findings. This information may be unfamiliar to patients to review without a medical professional present. It is advised that the patient review this report in the presence of a health care provider who can answer questions and explain the details. SURGICAL PATHOLOGY REPORT FINAL Patient Name: NORRIS SCHULTZ Gender: F : 1965 (Age: 60) Address: [address] [place], [place] [id number] [facility] #: [id number] Taken:02/10/2025 Received:02/11/2025 Reported: 02/16/2025 Patient Type: [facility] OP In Bed Service: Surgery Location: [place] [address] Physician(s): MD Andrés Ulrich PA Natnael Beyene Doilicho, MD William E. Gillanders, M.D. Diagnosis: A. Thyroid, part of right thyroid lobe #1 , total thyroidectomy: - Papillary thyroid carcinoma, classic, multifocal - Two foci, 5.0 cm in greatest dimension - Lymphovascular invasion identified - Margins are disrupted and positive for carcinoma - pT3a/N1b - See synoptic - Metastatic carcinoma in one of one lymph node (/) - Largest focus: 0.8 cm - Positive for extranodal extension, microscopic, < 1mm - Parathyroid tissue present B. Lymph nodes, central neck, dissection: - Metastatic carcinoma in three out of five lymph nodes (3/5) - Largest focus: 1.0 cm - Negative for extranodal extension C. Thyroid, part of right thyroid lobe #2 , total thyroidectomy: - Papillary thyroid carcinoma, classic, multifocal - 3.0 cm in greatest dimension - Lymphovascular invasion identified - Margins are positive for carcinoma - pT3a/N1b - See synoptic D. Lymph nodes, right level 2,3,4,5, dissection: - Level 5 lymph nodes - No evidence of malignancy in four lymph nodes (0/4) - Level 4 lymph nodes - No evidence of malignancy in five lymph nodes (0/5) - Level 3 lymph nodes - Metastatic carcinoma in four out of ten lymph nodes (4/10) - Largest focus: 2 cm - Positive for extranodal extension, microscopically < 0.2 cm - Level 2 lymph nodes - Metastatic carcinoma in seven out of thirteen lymph nodes (7/13) - Largest focus: 2.5 cm - Positive for extranodal extension, microscopically 0.2 cm - Metastatic carcinoma in one of one lymph node (/, level not identified) - Largest focus: 0.9 cm - Negative for extranodal extension E. Thyroid, left thyroid lobe, total thyroidectomy: - Papillary thyroid carcinoma, infiltrative, multifocal - 2.1 cm in greatest dimension - Lymphovascular invasion not identified - Margins are negative for carcinoma - pT3a/N1b - See synoptic - Metastatic carcinoma in one of one lymph node (11/19) - Largest focus: 0.9 cm - Negative for extranodal extension F. Thyroid, right thyroid lobe part 3 , total thyroidectomy: - Fragments of papillary thyroid carcinoma, infiltrative, multifocal (2.6 cm in aggregate) - Lymphovascular invasion identified - Margins indeterminate - pT3a/N1b - See synoptic xd/02/15/2025 20:28 By this signature, I attest that the above diagnosis is based upon my personal examination of the slides(and/or other material indicated in the diagnosis). Annalise Hayden MD, PhD Report Electronically Reviewed and Signed Out By Annalise Hayden MD, PhD 02/16/2025 11:40:04 Moriah Johnson M.D., PhD History: The patient is a 60 year old female with biopsy proven papillary thyroid carcinoma of the right middle lobe of the thyroid and an FNA of the left middle lobe of the thyroid suspicious for papillary thyroid carcinoma. Operative procedure: total thyroidectomy, central neck lymph node dissection, right modified radical neck dissection Specimen(s) Received: A: Part of right thyroid lobe #1 B: Central neck lymph nodes C: Part of right thyroid lobe #2 D: Right level 2,3,4,5 E: Left thyroid lobe F: Right thyroid lobe part 3 Gross Description: Received in six formalin jars labeled with the patient's identifiers. A. Received in formalin and labeled with patient identifiers and additionally labeled part of right thyroid lobe 1 is an 11 g, 5.0 x 3.1 x 1.9 cm portion of right thyroid. This fragment has of capsule present in some areas by is significantly irregular and disrupted. There is visible tumor present in the areas of disruption. The exterior surface of the specimen is entirely inked black. The specimen is serially sectioned to reveal an unencapsulated irregular white- llanos lesion percolating throughout the entire specimen overall measuring approximately 5.0 x 3.1 x 0.9 cm. This lesion is infiltrative and trach throughout the specimen in small nodules which are grossly contiguous with each other. This lesion grossly abuts the black inked capsular surface as well as the black inked cut surface. Additionally within the specimen there is a separate encapsulated nodule which measures 1.2 x 1.1 x 1.6 cm. One possible lymph node is identified measuring proximally 0.7 cm in greatest dimension. A1 Radial sections of encapsulated nodule at one end A2 Entire encapsulated nodule serially sectioned submitted in relation to surrounding lesion A3 Radial sections of encapsulated nodule at opposite end A4 Receptionist/Telephone Operator sections of mass in relation to grossly uninvolved thyroid A5 Receptionist/Telephone Operator sections of mass in relation to black inked margin in areas of putative positive margin A6 Additional food service representative sections of mass A7 One possible lymph node bisected and submitted entirely Jar 1. B. Received in formalin and labeled with patient identifiers and additionally labeled central neck lymph node are multiple fragments of yellow-llanos lobulated fibroadipose tissue measuring 3.1 x 3.8 x 1.6 cm in aggregate. Sectioning and palpation reveals 11 possible lymph nodes ranging in size from 0.2 cm to 2.1 cm in greatest dimension. B1 Four possible lymph nodes submitted entirely B2 Three possible lymph nodes submitted entirely B3 One possible lymph node submitted entirely B4 One lymph node with gross tumor involvement bisected and submitted entirely B5 One lymph node bisected and submitted entirely B6 The largest lymph node serially sectioned and submitted entirely, with gross tumor involvement including area of possible gross extranodal extension versus adherent second lymph node Jar 1. C. Received in formalin and labeled with patient identifiers and additionally labeled part of right thyroid lobe 2 is a 2 g, 3.0 x 1.4 x 0.9 cm fragment. The majority of this fragment consists of a white-llanos irregular firm lesion which is grossly visible at margin. The entire exterior surface of the specimen is inked black. The specimen is serially sectioned to reveal a irregular firm white-llanos unencapsulated lesion replacing almost the entirety of the tissue present. This lesion measures 3.0 x 1.4 x 0.9 cm. This lesion grossly abuts the inked surface. The specimen is submitted entirely serial sections. C1-C2 Entire specimen serially sectioned and submitted Jar 0. D. Received in formalin and labeled with patient identifiers and additionally labeled right level two, three, four, five is a fragmented a 8.3 x 7.0 x 4.2 cm unoriented neck dissection specimen. The specimen consists of lymph nodes, fibroconnective tissue, and adipose tissue. No salivary gland or putative muscle is noted. The specimen is into levels two through five. Within level five there is six lymph nodes ranging in size from 0.2 cm to 1.3 cm in greatest dimension. Within level four 12 lymph nodes are identified ranging in size from 0.4 cm to 1.3 cm in greatest dimension. Within level three nine lymph nodes ranging in size from 0.5 cm to 1.3 cm in greatest dimension. Additionally there is a 3.4 cm mass of putative positive matted lymph nodes consisting of at least eight lymph nodes with putative extranodal extension noted grossly (at least 0.5 cm). Within level two 10 lymph nodes are identified ranging in size from 0.4 cm to 2.1 cm in greatest dimension. Additionally a 3.8 cm possible lymph node with edematous and cystic changes present. Additionally within the container are two detached fragments of tissue measuring 3.1 and 2.6 cm in greatest dimension. Sectioning and palpation of the fragments reveals a single lymph node measuring 1.5 cm cm in greatest dimension. D1 Level five lymph nodes, four lymph nodes submitted entirely D2-D3 Level five lymph node, one lymph node bisected and submitted entirely in each cassette D4 Level four lymph node, one putative lymph node bisected and submitted entirely D5-D7 Level four lymph node, lymph node submitted entirely in each cassette D8 Level four lymph node, two lymph node submitted entirely D9-D11 Level three lymph node, food service representative sections of matted mass of lymph nodes D12-D13 Level three lymph node, three lymph nodes submitted in each cassette D14 Level three lymph node, two lymph nodes submitted entirely D15 One lymph node bisected and submitted entirely pieces D16-D17 Level two lymph nodes, two lymph nodes submitted entirely in each cassette D18-D22 Level two lymph nodes, one lymph node bisected and submitted entirely in each cassette D23-D24 Level two lymph node, One lymph node serially sectioned and submitted entirely D25-D28 Level two lymph node, serially sectioned and submitted entirely, putative lymph node with edema and cystic degeneration D29 Free-floating lymph node bisected and submitted entirely E. Received in formalin and labeled with patient identifiers and additionally labeled left thyroid lobe is a 6 g, 3.1 x 2.65 1.6 cm portion of left thyroid. There is an area grossly consistent with the surgical section margin present on one aspect which is inked orange. Additionally there is an area of firm white unencapsulated tissue adjacent to this resection margin concerning for exposed putative tumor which is inked yellow. The remainder of the exterior surface is inked black. A single possible lymph node is identified measuring 0.7 cm in greatest dimension. The specimen is serially sectioned to reveal a firm white-llanos lesion measuring 0.5 x 0.5 x 2.1 cm which grossly abuts the black inked surface. The lesion comes within 2 mm of the orange inked resection margin. A separate firm white-llanos nodule is noted which corresponds to the putative exposed tumor inked yellow which measures 0.5 x 0.4 x 0.3 cm. A single lymph node is identified measuring 0.9 cm in greatest dimension. E1 One lymph node submitted entirely E2-E4 Entire lesion serially sectioned and submitted, with E3 including area with c and E4 containing the second described nodule losest approach to margins E5 Receptionist/Telephone Operator sections of uninvolved thyroid Jar 0. F. Received in formalin and labeled with patient identifiers and additionally labeled right thyroid lobe part three are numerous fragments of thyroid tissue intermixed with white-llanos lesion weighing 2 g and measuring 2.6 x 2.5 x 1.0 cm in aggregate. These fragments appear to consist of lesion grossly identical to those described in other portions of the right thyroid intermixed with benign thyroid tissue. Overall the entire aggregate appears to contain lesion in every fragment. These fragments are left uninked due to the small size of the fragments. the specimen is submitted entirely. F1 Three small fragments F2 Two small fragments F3 One larger fragment bisected and submitted entirely F4 One larger fragment bisected and submitted entirely Jar 0. 02/11/2025 13:49 Gross Resident:Annalise Galindo M.D. CANCER CASE SUMMARY FOR THYROID NEOPLASMS For Parts A to F Procedure: Total thyroidectomy Tumor focality: Multifocal Tumor Site: Right lobe Left lobe Tumor size: Greatest dimension: 5 cm Histologic type: Papillary carcinoma, classic (usual, conventional) Margins: Margin(s) involved by carcinoma Angioinvasion (Vascular Invasion): Present Lymphatic Invasion: Present Perineural Invasion: Present Extrathyroidal extension: Cannot be determined Regional lymph nodes: Number of Lymph Nodes Involved: 17 Level - pretracheal, paratracheal and prelaryngeal/Delphian, perithyroidal (central compartment dissection) Level I-V (lateral neck dissection) Right lateral level I-V Number of Lymph Nodes Examined: 40 Level - pretracheal, paratracheal and prelaryngeal/Delphian, perithyroidal (central compartment dissection) Level I-V (lateral neck dissection) Right Lateral Level I-V Size of Largest Metastatic Deposit: 2.5 cm Extranodal Extension (FREDIS): Present Pathologic Stage Classification (pTNM, AJCC: TNM Descriptors: m (multiple primary tumors) Primary tumor (pT): pT3: Tumor >4 cm limited to the thyroid, or gross extrathyroidal extension invading only strap muscles pT3a: Tumor >4 cm limited to the thyroid Regional lymph nodes (pN): pN1b: Metastasis to unilateral, bilateral, or contralateral lateral neck lymph nodes (levels I, II, III, IV, or V) or retropharyngeal lymph nodes The pathologic stage assigned here should be regarded as provisional, and may change after integration of clinical data not provided with this specimen. CAP VERSION: Thyroid 4.1.0.0 By this signature, I attest that the above diagnosis is based upon my personal examination of the slides(and/or other material). Addenda/Procedures The performance characteristics of some immunohistochemical stains, fluorescence in-situ hybridization tests and immunophenotyping by flow cytometry cited in this report (if any) were determined by the Surgical Pathology and Flow Cytometry Departments at [facility] as part of an ongoing quality control lab tech program and in compliance with federally mandated regulations drawn from the Clinical Laboratory Improvement Act of 1988 (CLIA '88). Some of these tests rely on the use of analyte specific reagents and are subject to specific labeling requirements by the US Food and Drug Administration. Such diagnostic tests may only be performed in a facility that is certified by the Department of Health and Human Services as a high complexity laboratory under CLIA '88. The FDA has determined that such clearance or approval is not necessary. This test is used for clinical purposes. It should not be regarded as investigational or for research. Nevertheless, federal rules concerning the medical use of analyte specific reagents require that the following disclaimer be attached to the report: This test was developed and its performance characteristics determined by the Surgical Pathology and Flow Cytometry Departments of [facility]. It has not been cleared or approved by the U. S. Food and Drug Administration. IMAGES AND SCANNED DOCUMENTS, IF INCLUDED, ONLY VIEWABLE IN PDF VERSION OF REPORT Kirsty Cobb MD LAB PATHOLOGY ORDERABLES Final R esult PATHOLOGY [facility] 3rd Floor [place], [place] [phone] * POCT glucose (02/10/2025 2:50 PM CDT) Glucose, POC 112 70 - 199 mg/dL Blood 02/10/2025 2:50 PM CDT 02/10/2025 2:50 PM CDT Kirsty Cobb MD LAB POCT ORDERABLES - DEVICE Fin al Result Performing Organization Address City/State/[facility] Co de Phone Number [facility] Department [place] [address] * MS AN ELECTIVE ENDOTRACHEAL AIRWAY, MS AN PROCEDURE PLACEHOLDER (02/10/2025 2:00 PM CDT) Narrative Ariana Smith CRNA - 02/10/2025 2:00 PM CDT Ariana Smith CRNA 02/10/2025 2:01 PM Airway Patient location: OR Urgency: elective Indications for airway management: anesthesia and airway protection Difficult airway: no Staff: Supervising provider: John Paul De La O MD Placed by: PARK MANAGER: Ariana Smith CRNA Emergent airway documentation: Risks and benefits discussed: yes Consent obtained: yes Consent given by: patient Airway prep: Preoxygenated: yes Patient position: sniffing Mask difficulty assessment: 0 - not attempted Spontaneous ventilation during airway: absent Sedation level during airway: GA Final airway details: Final airway type: endotracheal airway Tube type: NIM tube ETT size: 7.0 mm Cuffed: yes Technique used for successful ETT placement: video laryngoscopy Insertion site: oral Video blade type: Cruz Blade size: 3 Cormack-Lehane (video): grade I - full view of glottis Cuff volume: 7 mL Cuff inflated with: air ETT to teeth: 21 cm ETT to gums: 21 cm Placement verified by: auscultation and CO2 detection Airway secured with: silk tape and tegaderm Number of attempts: 1 us John Paul De La O MD ANESTHESIA ORDERABLES Final Result * POCT glucose (02/10/2025 12:36 PM CDT) Glucose, POC 95 70 - 199 mg/dL Blood 02/10/2025 12:3 6 PM CDT 02/10/2025 12:36 PM CDT us Kirsty oCbb MD LAB POCT ORDERABLES - DEVICE Fin al Result [facility] Department [place] [address] * US Soft Tissue Neck (02/10/2025 11:15 AM CDT) Anatomical Region Laterality Modality Head and Neck N/A Ultrasound 02/10/2025 11:5 3 AM CDT Impressions 02/10/2025 11:53 AM CDT Preoperative marking of right cervical lymphadenopathy as described above. Electronically signed by: Margoth Roman M.D. Narrative 02/10/2025 11:53 AM CDT EXAMINATION: US SOFT TISSUE NECK HISTORY: 59-year-old female with multifocal papillary thyroid carcinoma with gross extrathyroidal extension posterior to the right thyroid lobe and metastatic right neck lymphadenopathy presenting for pre-op marking. FINDINGS: Partially imaged multifocal papillary thyroid cancer. There is extensive right cervical lymphadenopathy involving nearly all cervical lymph node stations, with multiple enlarged heterogenous lymph nodes containing echogenic foci. Preoperative marking was performed: - #1: level II/III enlarged lymph node conglomerate - #2: level III smaller adjacent satellite lymph nodes containing echogenic foci - #3: level III anterior enlarged lymph node - #4: level IV enlarged lymph node adjacent to the thyroid gland - #5: level IV enlarged lymph node conglomerate - #6: level IV smaller adjacent satellite lymph nodes containing echogenic foci No left cervical lymphadenopathy. Procedure Note Margoth Roman MD - 02/10/2025 EXAMINATION: US SOFT TISSUE NECK HISTORY: 59-year-old female with multifocal papillary thyroid carcinoma with gross extrathyroidal extension posterior to the right thyroid lobe and metastatic right neck lymphadenopathy presenting for pre-op marking. FINDINGS: Partially imaged multifocal papillary thyroid cancer. There is extensive right cervical lymphadenopathy involving nearly all cervical lymph node stations, with multiple enlarged heterogenous lymph nodes containing echogenic foci. Preoperative marking was performed: - #1: level II/III enlarged lymph node conglomerate - #2: level III smaller adjacent satellite lymph nodes containing echogenic foci - #3: level III anterior enlarged lymph node - #4: level IV enlarged lymph node adjacent to the thyroid gland - #5: level IV enlarged lymph node conglomerate - #6: level IV smaller adjacent satellite lymph nodes containing echogenic foci No left cervical lymphadenopathy. IMPRESSION: Preoperative marking of right cervical lymphadenopathy as described above. Electronically signed by: Margoth Roman M.D. us Kirsty Cobb MD IMG US PROCEDURES Final Result * TYPE AND SCREEN 14 DAY (02/05/2025 9:37 AM CDT) Bao, indirect Negative ABO Rh A Positive [facility] Blood 02/05/2025 9:37 AM CDT 02/05/2025 11:15 AM CDT Narrative [facility] - 02/05/2025 12:04 PM CDT Is this test being ordered in advance for a procedure?->Yes Expected date of procedure:->02/10/25 Has the patient been transfused in the past 3 months?->No Has the patient been in the past 3 months?->No Genie Wilkinson NP LAB BLOOD BANK TEST ORDERAB LES Final Result [facility] Department [place] [address] * (ABNORMAL) POCT hemoglobin A1c (02/05/2025 8:23 AM CDT) Hgb A1C, POC 6.5(H) 4.0 - 5.6 % Est Average Gluc POC 140 mg/dL [facility] Comment: The ADA recommends reporting an estimated Average Glucose (eAG) with all Hemoglobin A1c results using the equation derived from a study of 507 normal and diabetic adults. Minority populations were underrepresented and children were not included. (Diabetes Care [id number], 2007). The eAG is not equivalent to a fasting glucose. Blood 02/05/2025 8:23 AM CDT 02/05/2025 8:23 AM CDT us Kirsty Cobb MD POINT OF CARE TEST ORDERABLES Fi nal Result Performing Organization Address City/[facility]/ZIP Co de Phone Number [facility] Department [place] [address] * ECG 12 lead (02/05/2025 8:11 AM CDT) Ventricular Rate EKG/Min 65 BPM [facility] Atrial Rate 65 BPM [facility] MS-Interval (MSEC) 160 ms [facility] QRS-Interval (MSEC) 96 ms [facility] QT-Interval (MSEC) 432 ms [facility] QTc 449 ms [facility] P [place] 23 degrees [facility] R [place] -15 degrees [facility] T [place] 14 degrees [facility] Diagnosis Normal sinus rhythm Normal ECG No previous ECGs available Confirmed by Zari Parker MD ([id number]) on 02/08/2025 8:03:24 AM [facility] 02/05/2025 8:11 AM CDT 02/08/2025 8:03 AM CDT Genie Wilkinson 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 ECG ORDERABLES Final Resul t Performing Organization Address [facility] de Phone Number [facility] * PET/CT FDG Skull to Thigh (01/21/2025 1:10 PM PHOTOLITH OPERATOR) Anatomical Region Laterality Modality N/A Positron Emissio n Tomography (PET) 01/21/2025 2:08 PM PHOTOLITH OPERATOR Impressions 01/21/2025 2:08 PM PHOTOLITH OPERATOR 1. Diffuse marked hypermetabolism throughout the thyroid gland compatible with known primary thyroid malignancy. There is a exophytic component to the contour and uptake in the posterior right thyroid lobe in keeping with known extrathyroidal extension. 2. Markedly FDG avid right neck lymph nodes at multiple lymph node stations-level 2, 3, 4, 5 and one at level 6 most compatible with maikel metastatic disease. 3. Moderately FDG avid anterior mediastinal lymph node, left internal mammary lymph node and right paratracheal lymph node also compatible with maikel metastatic disease. 4. Several tiny nodules throughout both lungs too small to be characterized on this study. 5. Diffuse heterogeneous marrow metabolic activity without discrete focal lesions above background. Findings may represent physiologic bone marrow response to anemia. Electronic health records do not indicate recent bone marrow stimulating therapy. Correlation with clinical history and lab values may be helpful.. Electronically signed by: Jessica Cristobal M.D. Narrative 01/21/2025 2:08 PM PHOTOLITH OPERATOR EXAMINATION: TUMOR FDG-PET/CT IMAGING DATE OF STUDY: 01/21/2025 SCANNER: [facility] [email or web address] (NV1). This is a high-resolution scanner, which can result in higher SUVs (and even detection of previously unrecognized small lesions) compared to older scanners. RADIOPHARMACEUTICAL: 18.9 mCi F-18 Fluorodeoxyglucose (FDG) i.v. Injection site: Left antecubital fossa HISTORY: 59-year-old female with papillary thyroid carcinoma with ultrasound findings suspicious for multifocal papillary thyroid carcinoma involving both lobes suspicion for gross extrathyroidal extension posterior to the right thyroid lobe. Metastatic right neck lymph nodes at levels to 3, 4, 5 8 and 5 the. The study is requested for initial staging. Initial treatment strategy. TECHNIQUE: The patient's fasting blood glucose level, measured by glucometer before injection of FDG, was 145 mg/dL. After intravenous administration of FDG, noncontrast CT images were obtained for attenuation correction and for fusion with emission PET images to allow for anatomical localization of PET findings. Emission PET images were then obtained. The study was interpreted on the [email or web address] workstation. The mean liver SUV (reported for clinical quality assurance associate purposes) is 2.9. The total scanned area was skull vertex to proximal thighs. Images of the body were obtained starting 65 minutes after injection of tracer. All reported SUVs are maximum SUVs, unless otherwise specified. COMPARISON: Thyroid ultrasound 01/02/2025. Contrast chest CT 01/06/2025 which demonstrated right thyroid nodules, suspicious mediastinal lymphadenopathy and diffuse tiny pulmonary nodules on a background of mosaic attenuation. CT 01/06/2025 demonstrated multiple heterogeneously attenuating thyroid nodules with evidence of extrathyroidal extension and 1.5 cm with extension to the level of the thoracic inlet. Suspicion for multiple metastatic disease in numerous right cervical lymph node levels 2, 3, 4, 5 and 6. DESCRIPTORS OF LESION FDG AVIDITY: Minimal: <= blood pool Mild: > blood pool and <= liver Moderate: > liver and <= 2x SUVmax liver Moderate to marked: >2x SUVmax liver and <= 3x SUVmax liver Marked: > 3x SUVmax liver FINDINGS: Diffuse marked hypermetabolism throughout both thyroid lobes with an exophytic component to the posterior right thyroid lobe suggestive of extension. Reference SUV right thyroid lobe, 7.5.] Several markedly FDG avid right neck lymph nodes at multiple lymph node stations-level 2, 3, 4, and 5 as well as 1 markedly hypermetabolic the right 6A neck lymph node.. Reference right level 5 neck lymph node measuring up to 2.4 x 1.9 cm, SUV 7.6. There is moderate physiologic metabolic activity in the brown adipose tissue of the neck and supraclavicular regions as well as cervical and thoracic paravertebral regions. Moderately FDG avid anterior mediastinal lymph node measuring up to 9 mm transverse short axis, SUV 4.4. Moderately FDG avid right paratracheal lymph node (image 99), SUV 4.6 measuring up to 10 mm transverse short axis. Small subcentimeter mildly FDG avid left internal mammary lymph node. Heterogeneous metabolic activity throughout the skeleton without discrete focal areas above background marrow. The most FDG-avid lesion is identified neck lymph node, has a maximum SUV of 7.6, and approximate axial dimensions of 2.4 x [address] findings: Subcentimeter left cervical lymph nodes not enlarged by imaging size criteria. Minimal coronary calcifications in the LAD. Several tiny pulmonary nodules too small to be characterized on this study. Postsurgical changes of prior gastric bypass. Accessory spleens of the splenic hilum. Atrophic appearance of the pancreas. Scattered sigmoid diverticula. The uterus is not seen. Subcentimeter left cervical lymph nodes are not enlarged by imaging size criteria Procedure Note Jessica Cristobal MD - 01/21/2025 EXAMINATION: TUMOR FDG-PET/CT IMAGING DATE OF STUDY: 01/21/2025 SCANNER: [facility] [employer] (NV1). This is a high-resolution scanner, which can result in higher SUVs (and even detection of previously unrecognized small lesions) compared to older scanners. RADIOPHARMACEUTICAL: 18.9 mCi F-18 Fluorodeoxyglucose (FDG) i.v. Injection site: Left antecubital fossa HISTORY: 59-year-old female with papillary thyroid carcinoma with ultrasound findings suspicious for multifocal papillary thyroid carcinoma involving both lobes suspicion for gross extrathyroidal extension posterior to the right thyroid lobe. Metastatic right neck lymph nodes at levels to 3, 4, 5 8 and 5 the. The study is requested for initial staging. Initial treatment strategy. TECHNIQUE: The patient's fasting blood glucose level, measured by glucometer before injection of FDG, was 145 mg/dL. After intravenous administration of FDG, noncontrast CT images were obtained for attenuation correction and for fusion with emission PET images to allow for anatomical localization of PET findings. Emission PET images were then obtained. The study was interpreted on the [email or web address] workstation. The mean liver SUV (reported for clinical quality assurance associate purposes) is 2.9. The total scanned area was skull vertex to proximal thighs. Images of the body were obtained starting 65 minutes after injection of tracer. All reported SUVs are maximum SUVs, unless otherwise specified. COMPARISON: Thyroid ultrasound 01/02/2025. Contrast chest CT 01/06/2025 which demonstrated right thyroid nodules, suspicious mediastinal lymphadenopathy and diffuse tiny pulmonary nodules on a background of mosaic attenuation. CT 01/06/2025 demonstrated multiple heterogeneously attenuating thyroid nodules with evidence of extrathyroidal extension and 1.5 cm with extension to the level of the thoracic inlet. Suspicion for multiple metastatic disease in numerous right cervical lymph node levels 2, 3, 4, 5 and 6. DESCRIPTORS OF LESION FDG AVIDITY: Minimal: <= blood pool Mild: > blood pool and <= liver Moderate: > liver and <= 2x SUVmax liver Moderate to marked: >2x SUVmax liver and <= 3x SUVmax liver Marked: > 3x SUVmax liver FINDINGS: Diffuse marked hypermetabolism throughout both thyroid lobes with an exophytic component to the posterior right thyroid lobe suggestive of extension. Reference SUV right thyroid lobe, 7.5.] Several markedly FDG avid right neck lymph nodes at multiple lymph node stations-level 2, 3, 4, and 5 as well as 1 markedly hypermetabolic the right 6A neck lymph node.. Reference right level 5 neck lymph node measuring up to 2.4 x 1.9 cm, SUV 7.6. There is moderate physiologic metabolic activity in the brown adipose tissue of the neck and supraclavicular regions as well as cervical and thoracic paravertebral regions. Moderately FDG avid anterior mediastinal lymph node measuring up to 9 mm transverse short axis, SUV 4.4. Moderately FDG avid right paratracheal lymph node (image 99), SUV 4.6 measuring up to 10 mm transverse short axis. Small subcentimeter mildly FDG avid left internal mammary lymph node. Heterogeneous metabolic activity throughout the skeleton without discrete focal areas above background marrow. The most FDG-avid lesion is identified neck lymph node, has a maximum SUV of 7.6, and approximate axial dimensions of 2.4 x [address] findings: Subcentimeter left cervical lymph nodes not enlarged by imaging size criteria. Minimal coronary calcifications in the LAD. Several tiny pulmonary nodules too small to be characterized on this study. Postsurgical changes of prior gastric bypass. Accessory spleens of the splenic hilum. Atrophic appearance of the pancreas. Scattered sigmoid diverticula. The uterus is not seen. Subcentimeter left cervical lymph nodes are not enlarged by imaging size criteria IMPRESSION: 1. Diffuse marked hypermetabolism throughout the thyroid gland compatible with known primary thyroid malignancy. There is a exophytic component to the contour and uptake in the posterior right thyroid lobe in keeping with known extrathyroidal extension. 2. Markedly FDG avid right neck lymph nodes at multiple lymph node stations-level 2, 3, 4, 5 and one at level 6 most compatible with maikel metastatic disease. 3. Moderately FDG avid anterior mediastinal lymph node, left internal mammary lymph node and right paratracheal lymph node also compatible with maikel metastatic disease. 4. Several tiny nodules throughout both lungs too small to be characterized on this study. 5. Diffuse heterogeneous marrow metabolic activity without discrete focal lesions above background. Findings may represent physiologic bone marrow response to anemia. Electronic health records do not indicate recent bone marrow stimulating therapy. Correlation with clinical history and lab values may be helpful.. Electronically signed by: Jessica Cristobal M.D. Kirsty Cobb MD [facility] PET PROCEDURES Final Result * NM Thyrogen Injection (01/20/2025 9:33 AM PHOTOLITH OPERATOR) Narrative [facility] - 01/20/2025 9:33 AM PHOTOLITH OPERATOR This order does not require dictation. Please see encounter notes for further details. us Kirsty OHARA NM PROCEDURES Final Result Performing Organization Address [facility] de Phone Number [email or web address] * (ABNORMAL) TSH (01/20/2025 8:38 AM PHOTOLITH OPERATOR) Thyroid Stimulating Hormone 201.00(H) 0.30 - 4.20 mcIUnit/m L Blood 01/20/2025 8:38 AM PHOTOLITH OPERATOR 01/20/2025 9:50 AM PHOTOLITH OPERATOR us Kirsty Cobb MD LAB BLOOD ORDERABLES Final Resul t Performing Organization Address [facility] Phone Number [facility] Department [place] [address] * NM Thyrogen Injection (01/19/2025 11:49 AM PHOTOLITH OPERATOR) Narrative [facility] - 01/19/2025 11:49 AM PHOTOLITH OPERATOR This order does not require dictation. Please see encounter notes for further details. us Kirsty Cobb MD [facility] NM PROCEDURES Final Result Performing Organization Address [facility] Phone Number [email or web address] * Screening Mammogram Bilateral W Valerio (11/24/2021 8:39 AM PHOTOLITH OPERATOR) Anatomical Region Laterality Modality Breast Bilateral Mammography 11/24/2021 9:28 AM PHOTOLITH OPERATOR Impressions 11/24/2021 9:28 AM PHOTOLITH OPERATOR There is no mammographic evidence of malignancy. Routine screening mammography is recommended in 1 year. BI-RADS: 1 - Negative. The patient will be entered into a reminder system with a target due date of 1 year for her next mammogram. Electronically signed by: Bull Garcia M.D. Narrative 11/24/2021 9:28 AM PHOTOLITH OPERATOR EXAMINATION: SCREENING MAMMOGRAM BILATERAL W VALERIO ORDERING HEALTHCARE PROVIDER: SELF REFERRAL HISTORY: New baseline screening mammography. COMPARISON: None available. TECHNIQUE: CC and MLO views of the bilateral breasts were obtained with digital technique using breast tomosynthesis with C view. Computer aided detection was utilized. FINDINGS: DENSITY: The tissue of the bilateral breasts is almost entirely fatty. BREASTS: There are no suspicious masses, suspicious calcifications, or other suspicious findings in either breast. us Self Referral IMG MAMMO PROCEDURES Final Resul t from Last 3 Months or Most Recently Relevant to Health Maintenance Insurance MEDICARE ADVANTAGE [facility] MEDICARE Address: [address] [id number] MEDICARE ADVANTAGE [facility] MEDICARE Address: [address] [address] [employer]PA [facility] MEDICARE ADVANTAGE [facility] MED[facility] Address: [address] [address] [place] [address] [employer] Advance Directives For more information, please contact: [phone] * Full Code (Latest Code Status on File) Date Activated Date Inactivated Comments 02/28/2025 5:33 PM 03/04/2025 10:56 PM * Full Code Date Activated Date Inactivated Comments 02/10/2025 8:54 PM 02/12/2025 6:14 PM * Full Code Date Activated Date Inactivated Comments 07/04/2023 10:44 AM 07/04/2023 5:20 PM Care Teams Scarrer Relationship Specialty Start Date End Date Andrés Smiley PA [address] [place] [address] PCP - General 04/18/17
--- OUTSIDE RECORDS SUMMARY | 2025-04-06 08:57 | XMS_ITS | Referral Summary ---
Author Organization [facility] Address [address] [place] [address] Care Team Providers Care Chemistry Department Chair Name Role Phone Andrés Smiley Primary Care Provider [phone] Encounters Date Type Department Care Team Description 04/01/2025 Orders Only [facility] Radiology 1 [place] [address] Anna Casarez RN 03/27/2025 Orders Only [facility] Radiology 1 [place] [address] Anna Casarez, MACK Thyroid cancer (HCC) (Primary Dx) 03/27/2025 Telephone [facility] Radiology 1 [place] [address] Anna Casarez, MACK 03/24/2025 Documentation [facility] Radiation Oncology [address] [place] [address] [place] [address] Ai Flores RN 03/24/2025 Orders Only [facility] Surgery [address] [facility] Floor 5 [place] [phone] Kirsty Cobb MD Papillary thyroid carcinoma (HCC) (Primary Dx) 03/24/2025 Telephone [facility] Surgery [facility] Floor 8 [place] [phone] Kirsty Cobb MD Medical Question/Miscellaneou s 03/24/2025 1:00 PM CDT Telemedicine [facility] Endocrinology Metabolism and Lipid [facility] 1, [address] [place] [phone] Kd Pike MD Papillary thyroid carcinoma (HCC) (Primary Dx); Lung nodules; Post-surgical hypothyroidism 03/13/2025 Orders Only [facility] Surgery [address] [place] [address] 5 [place] [phone] Kirsty Cobb MD Papillary thyroid carcinoma (HCC) 03/13/2025 Orders Only [facility] Surgery [address] [place] [address] 5 [place] [phone] Lizette See RN Papillary thyroid carcinoma (HCC) (Primary Dx) 03/13/2025 1:45 PM CDT Lab [facility] [address] [place] [address] 5 [place] [address] Thyroid cancer (HCC) 03/13/2025 3:45 PM CDT Office Visit [facility] Surgery [address] [place] [phone] Kirsty Cobb MD Thyroid cancer (HCC) (Primary Dx); Papillary thyroid carcinoma (HCC) 03/12/2025 Telephone [facility] Surgery [address] [place] [phone] Lizette See RN 03/09/2025 Results Follow-Up [facility] Surgery [address] [place] [phone] Kirsty Cobb MD Aerobic and anaerobic culture and gram stain Aspirate Neck, right 02/28/2025 9:07 AM CDT - 03/04/2025 6:51 PM CDT Hospital Encounter [address] [phone] Tarsha Moraes MD Brown, Taylor, MD Localized swelling, mass or lump of neck (Primary Dx); 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 Discharge Disposition: Discharge to home or self care 02/28/2025 Orders Only [facility] Radiology [address] [place] [address] Maryam Lee, MACK 02/28/2025 Orders Only [facility] Oncology [address] [place] [phone] Amina Villa NP 02/25/2025 Telephone [facility] Surgery [address] [place] [phone] Lizette See RN 02/25/2025 Telephone [facility] Surgery [address] [place] [phone] Lizette See, MACK 02/24/2025 Telephone [facility] Surgery [address] [place] [phone] Lizette See RN 02/24/2025 Orders Only [facility] Surgery [address] [place] [phone] Lizette See RN Papillary thyroid carcinoma (HCC) (Primary Dx) 02/24/2025 Telephone [facility] Surgery [address] [place] [phone] Lizette See RN 02/24/2025 Telephone [facility] Surgery [address] [place] [phone] Kirsty Cobb MD Medical Question/Miscellaneou s 02/20/2025 Documentation [facility] Surgery [address] [place] [phone] Lizette See RN 02/20/2025 1:45 PM CDT Clinical Support [facility] Surgery [address] [place] [phone] Kirsty Cobb MD Papillary thyroid carcinoma (HCC) (Primary Dx) 02/19/2025 Telephone [facility] Surgery [address] [place] [phone] Kirsty Cobb MD 02/10/2025 8:46 AM CDT - 02/12/2025 2:09 PM CDT Hospital Encounter [facility] 1 [place] [address] Kirsty Cobb MD Thyroid cancer (HCC) Discharge Disposition: Discharge to home or self care 02/10/2025 9:22 AM CDT - 02/10/2025 11:59 PM CDT Hospital Encounter [facility] ([facility]) [address] [place] [address] Thyroid cancer (HCC) Discharge Disposition: Discharge to home or self care 02/10/2025 12:00 PM CDT - 02/10/2025 4:50 PM CDT Surgery [facility] Operating Room [facility] ([facility]) [address] [place] [address] Kirsty Cobb MD THYROIDECTOMY - TOTAL 02/10/2025 1:21 PM CDT Anesthesia Event [facility] Operating Room [facility] ([facility]) [address] [place] [address] John Paul De La O MD [place], Andrea J., NP 02/09/2025 Telephone [facility] Surgery [address] [place] [address] 5 [place] [address] Lizette See RN 02/09/2025 Orders Only [facility] Surgery [address] [place] [address] 5 [place] [phone] Lizette See RN Thyroid cancer (HCC) (Primary Dx) 02/05/2025 7:30 AM CDT Pre-Admission Testing [facility] Center for Preoperative Assessment and Planning [facility] ([facility]) [address] [place] [address] Preoperative testing (Primary Dx) 02/02/2025 Telephone [facility] Surgery [address] [place] [address] Floor 8 [place] [address] Kirsty Cobb MD Medical Question/Miscellaneou s 01/29/2025 Orders Only [facility] Surgery [address] [place] [address] 5 [place] [address] Lizette See RN Lung nodules (Primary Dx); Thyroid nodule; Mediastinal lymphadenopathy 01/28/2025 Results Follow-Up [facility] Surgery [address] [place] [address] 5 [place] [address] Kirsty Cobb MD Cytology 01/27/2025 Orders Only [facility] Surgery [address] [place] [address] Floor 5 [place] [phone] Lizette See RN Thyroid nodule (Primary Dx) 01/27/2025 Telephone [facility] Surgery [address] [place] [address] 5 [place] [phone] Lizette See RN 01/27/2025 1:30 PM CDT Office Visit [facility] Surgery [address] [place] [address] 5 [place] [phone] Geovanna Ackerman MD Mediastinal lymphadenopathy (Primary Dx); Papillary thyroid carcinoma (HCC); Thyroid cancer (HCC); Morbid obesity (HCC); Type 2 diabetes mellitus with other specified complication, unspecified whether group home insulin use (HCC) 01/26/2025 Telephone [facility] Surgery [address] [place] [address] Floor 8 [place] [phone] Kirsty Cobb MD Medical Question/Miscellaneou s 01/22/2025 Telephone [facility] Surgery [address] [place] [address] 5 [place] [phone] Kirsty Cobb MD Medical Question/Miscellaneou s 01/21/2025 Orders Only [facility] Surgery [address] [place] [phone] Kirsty Cobb MD Thyroid cancer (HCC) (Primary Dx) 01/21/2025 9:43 AM [facility] - 01/21/2025 11:59 PM [facility] Hospital Encounter [facility] Radiology [facility] ([facility]) [address] [place] [address] Discharge Disposition: Discharge to home or self care 01/21/2025 9:42 AM [facility] - 01/21/2025 11:59 PM [facility] Hospital Encounter [facility] Radiology [facility] ([facility]) [address] [place] [address] Thyroid cancer (HCC) Discharge Disposition: Discharge to home or self care 01/20/2025 8:40 AM [facility] Lab [facility] 1 [facility] 1st [place] [address] Thyroid cancer (HCC) 01/20/2025 8:36 AM [facility] - 01/20/2025 11:59 PM [facility] Hospital Encounter [facility] Radiology 1 [place] [address] Thyroid cancer (HCC) Discharge Disposition: Discharge to home or self care 01/19/2025 Orders Only [facility] Radiology 1 [place] [address] Anna Casarez, MACK Thyroid cancer (HCC) (Primary Dx) 01/19/2025 Documentation [facility] Advanced Medicine Radiation Oncology [facility] [place] [address] Ai Flores RN 01/19/2025 11:00 AM [facility] - 01/19/2025 11:59 PM [facility] Hospital Encounter [facility] Radiology 1 [place] [address] Thyroid cancer (HCC) Discharge Disposition: Discharge to home or self care 01/19/2025 10:00 AM [facility] Office Visit [facility] Endocrinology Metabolism and Lipid [address] [place] [address] Floor 1, [address] [place] [phone] Kd Pike MD Papillary thyroid carcinoma (HCC) (Primary Dx); Thyroid cancer (HCC); Mediastinal lymphadenopathy; Lung nodules 01/15/2025 Telephone [facility] Radiology 1 [place] [address] Anna Casarez, MACK 01/15/2025 Telephone [facility] Radiology 1 [place] [address] Anna Casarez, MACK 01/14/2025 Orders Only [facility] Surgery [address] [place] [address] Floor 5 [place] [address] Lizette See, MACK Thyroid cancer (HCC) (Primary Dx) 01/12/2025 Telephone [facility] Surgery [address] [place] [address] Floor 5 [place] [address] Lizette See, MACK 01/09/2025 Orders Only [facility] Surgery [address] [facility] Floor 5 [place] [address] Kirsty Cobb MD Thyroid cancer (HCC) (Primary Dx) 01/09/2025 Orders Only [facility] Surgery [address] [place] [address] 5 [place] [address] Lizette See RN Thyroid cancer (HCC) (Primary Dx) 01/09/2025 Orders Only [facility] Surgery [address] [place] [address] 5 [place] [phone] Lizette See RN Thyroid cancer (HCC) (Primary Dx) 01/09/2025 Orders Only [facility] Surgery [address] [place] [address] 5 [place] [phone] Kirsty Cobb MD Thyroid cancer (HCC) (Primary Dx) 01/09/2025 Orders Only [facility] Surgery [address] [place] [address] 5 [place] [phone] Kirsty Cobb MD 01/09/2025 Telephone [facility] Endocrinology Metabolism and Lipid [address] [facility] Advanced Medicine 5th [place] [address] [place] [address] Yeny Cavazos RN 01/08/2025 Telephone [facility] Surgery [address] [place] [address] 8 [place] [phone] Kirsty Cobb MD Medical Question/Miscellaneou s 01/08/2025 Telephone [facility] Surgery [address] [place] [address] 5 [place] [phone] Lizette See RN 01/07/2025 Telephone [facility] Surgery [address] [place] [address] 8 [place] [phone] Kirsty Cobb MD Medical Question/Miscellaneou s from Last 3 Months Allergies Active Allergy Reactions Criticality Noted Date [...] 1 tablet (175 mcg total) by mouth early interventionist before breakfast 90 tablet 1 03/16/20 25 025 Active levothyroxine (SYNTHROID) 175 mcg tabletIndications :hypothyroidism Take 1 tablet (175 mcg total) by mouth early interventionist before breakfast 30 tablet 1 02/13/20 25 [...] for 10 days 20 tablet/caps ule 03/04/20 025 Active Problems Patient Care Coordination No [...] wit h other specified complication, unspecified whether termite helper insulin use 01/27/2025 Papillary thyroid carcinoma 01/19/2025 Assessment & Plan (01/19/2025 3:25 PM [facility]ORI): PET scan scheduled for 01/21/25. Refer to [...] pain 07/04/2023 Coronary artery disease invo lving [employer] coronary artery of [employer] heart 06/08/2023 Calculus of gallbladder with out cholecystitis without obstruction 05/17/2022 Overview (05/17/2022): Added automatically from request for surgery [id number] Incisional hernia, without obstruction or gangre ne 05/17/2022 Overview (05/17/2022): Added automatically from request for surgery [id number] Immunizations Immunization Administration Dates Next Due Influenza, Quadrivalent, Juliana l Culture-based MDCK, Preservative Free, Antibiotic Free, Intramuscular 10/14/2019 Influenza, Quadrivalent, Split, Intramuscular Influenza, Quadrivalent, Spl it, Preservative Free, Intramuscular 09/17/2021,09/13/2020 Influenza, Trivalent, Preservative Free, Intramu scular 08/16/2024 ZOSTER Recombinant 08/16/2024,04/16/2024 Social History Tobacco Use Types Packs/Day Years [...] on file Legal Sex Female 12:10 AM [facility] Gender Identity Not on file Sexual Orientation Not on file Last Filed Vital Signs Vital Sign Reading [...] 02/28/2025 5:55 PM CDT Plan of Treatment Not on file Medical Devices Implanted Type Area Cad Drafter Device Identifier Shelf Expiration Date Model / Serial / Lot Workface Angio-Seal Vip 6fr Closere Device [id number] - [id number] Implanted:Qty: 1 on 07/04/2023 by Hank Irby MD at [facility] 01/17/2024 [id number] / / [id number] Procedures Procedure Name Priority Date/Time Associated Diagnosis [...] DEVICE Routine 02/10/2025 9 :15 PM CDT VA AN PROCEDURE PLACEHOLDER Routine 02/10/2025 5:42 PM CDT POCT GLUCOSE DEVICE Routine 02/10/2025 5 :02 PM CDT SURGICAL PATHOLOGY Routine 02/10/2025 3: 30 PM CDT Thyroid cancer (HCC) POCT GLUCOSE DEVICE Routine 02/10/2025 2 :50 PM CDT VA AN PROCEDURE PLACEHOLDER Routine 02/10/2025 2:00 PM CDT VA AN ELECTIVE ENDOTRACHEAL AIRWAY Routine 02/10/2025 2:00 PM CDT DISSECTION NECK - BILATERAL 02/10/2025 1:21 PM CDT Thyroid cancer (HCC) Case Notes 01/29@1317: Sent case msg to [employer] to see if she is waiting on block release. SR Special Needs NIMs THYROIDECTOMY - TOTAL 02/10/2025 1:21 PM CDT Thyroid cancer (HCC) Case Notes 01/29@1317: Sent case msg to [employer] to see if she is waiting on [...] Read Routine (OP Routine) 01/21/2025 1:10 PM [facility] Thyroid cancer (HCC) NM THYROGEN INJECTION Schedule Routine, Read Routine (OP Routine) 01/20/2025 9:33 AM [facility] [facility] Thyroid cancer (HCC) TSH Routine 01/20/2025 8:38 AM [facility] [place] [facility] Thyroid cancer (HCC) NM THYROGEN INJECTION Schedule Routine, Read Routine (OP Routine) 01/19/2025 11:49 AM [facility] [place] [facility] Thyroid cancer (HCC) SCREENING MAMMOGRAM BILATERAL W VALERIO Schedule Routine, Read Routine (OP Routine) 11/24/2021 8:39 AM [facility] Encounter for screening mammogram for malignant neoplasm of breast from Last 3 Months or Most Recently Relevant to Health Maintenance Results * Reflex thyroglobulin, tumor marker, IA, S (03/13/2025 1:45 PM CDT) Thyroglobulin, Tumor Marker 78 < or = 33 ng/mL [facility] Thyroglobulin interp See Footnote [facility]ALLY [facility] Comment: Thyroglobulin (Tg) reference intervals are for [...] testing methods are immunoenzymatic assays manufactured by [employer] and performed on the [employer] DXI 800. Values obtained from different assay methods or kits may be different and cannot be used interchangeably. The results cannot be interpreted as absolute evidence for the presence or absence of malignant disease. Test Performed by: [facility] [id number] [place] [address] Reservations And Ticketing Agent: Basil Rose Ph.D.; CLIA# [id number] Blood 03/13/2025 1:45 PM CDT 03/13/2025 3:05 PM CDT us Kirsty Cobb MD LAB BLOOD ORDERABLES Final Resul t Performing Organization Address City/[facility] Co de Phone Number [facility] [place] [address] [facility] * Thyroglobulin reflex to MS or IA (03/13/2025 1:45 PM CDT) Anti-thyroglobulin <1.8 <1.8 IUnits/mL [facility] Comment: Thyroglobulin Antibody < 1.8 IU/mL. Thyroglobulin performed by Immunoassay to follow. Test Performed by: [facility] [address] [place] [address] Reservations And Ticketing Agent: Basil Rose Ph.D.; CLIA# [id number] Blood 03/13/2025 1:45 PM CDT 03/13/2025 3:05 PM CDT us Kirsty Cobb MD LAB BLOOD ORDERABLES Final Resul t Performing Organization Address City/[facility] Co de Phone Number WALLY [facility] [employer] [place] [address] [facility] * (ABNORMAL) TSH (03/13/2025 1:45 PM CDT) Thyroid Stimulating Hormone 0.04(L) 0.30 - 4.20 mcIUnit/mL Blood 03/13/2025 1:45 PM CDT 03/13/2025 1:47 PM CDT us Kirsty Cobb MD LAB BLOOD ORDERABLES Final Resul t Performing Organization Address City/[facility]/ZIP Co de Phone Number WALLY [facility] [place] [address] * US Kidney Complete (03/04/2025 3:13 PM [...] by: Carolann Aleman M.D. Kirsty Cobb MD [facility] US PROCEDURES Final Result * (ABNORMAL) eGFR [...] MD LAB BLOOD ORDERABLES Final Resul t [facility] [place] [address] * Urinalysis reflex to microscopic and culture Urine, clean voided (03/04/2025 11:26 AM CDT) Color, ur Straw Yellow Clarity, ur Clear Clear [facility] Specific gravity, ur 1.014 1.003 - 1.030 [facility] pH, urine 6.5 [facility] Comment: Interpretive Data U rine pH is affected by diet, medications, systemic acid-base disturbances, and renal tubular function. pH may affect urinary stone formation. For example, urine pH below 6.0 may help reduce the tendency for calcium phosphate stones and pH greater than 6.0 may reduce the tendency for uric acid stone formation. Source: [facility] [employer] Current Interpretive Data was last revised on 2017 Protein, ur ql Negative Negative [facility] Glucose, ur ql Negative Negative [facility] Ketones, ur Negative Negative [facility] Bilirubin, ur Negative Negative [facility] Blood, ur Negative Negative [facility] Urobilinogen, ur <2.0 <2.0 mg/dL [facility] Nitrite, ur Negative Negative [facility] Leukocyte esterase, ur Negative Negative [facility] UA reflex comment Reflex conditions for microscopic UA and culture not met. [facility] Urine, clean voided 03/04/2025 11:26 AM CDT 03/04/2025 12:34 PM CDT us Kirsty Cobb MD LAB MICROBIOLOGY - GENERAL ORDER BALDEV Final Result Performing Organization Address [facility]/ZIP Co de Phone Number [facility] Department [place] [address] * (ABNORMAL) Basic metabolic panel (03/04/2025 11:26 AM CDT) Pathologist [facility] Sodium 143 135 - 145 mmol/L Potassium, pl 4.0 3.3 - 4.9 mmol/L [facility] Chloride 105 97 - 110 mmol/L [facility] CO2 30 22 - 32 mmol/L [facility] Anion gap 8 2 - 15 mmol/L [facility] BUN 20 6 - 25 mg/dL [facility] Creatinine 1.32(H) 0.60 - 1.10 mg/dL [facility] Glucose 137 70 - 199 mg/dL [facility] Comment: Interpretive Data Fasting glucose >/= 126 [...] 2022. Calcium 9.0 8.5 - 10.3 mg/dL [facility] Blood 03/04/2025 11:2 6 AM CDT 03/04/2025 12:28 PM CDT us Kirsty Cobb MD LAB BLOOD ORDERABLES Final Resul t Performing Organization Address City/[facility]/ZIP Co de Phone Number [facility] Department [place] [address] * Urea nitrogen, urine, random (03/03/2025 10:17 PM CDT) Urea nitrogen, ur 366 mg/dL Comment: Interpretive Data No reference range established. Current interpretive data was last revised 2019. Urine 03/03/2025 10:1 7 PM CDT 03/03/2025 11:41 PM CDT us Kirsty Cobb MD LAB URINE ORDERABLES Final Resul t Performing Organization Address City/[facility]/ZIP Co de Phone Number [facility] [place] [address] * Creatinine, urine, random (03/03/2025 10:17 PM CDT) Creatinine Ur 66.0 mg/dL Comment: Interpretive Data No reference range established. Current interpretive data was last revised 2019. Urine 03/03/2025 10:1 7 PM CDT 03/03/2025 11:41 PM CDT us Kirsty Cobb MD LAB URINE ORDERABLES Final Resul t Performing Organization Address City/[facility]/ZIP Co de Phone Number [facility] [place] [address] * (ABNORMAL) eGFR (03/03/2025 10:15 PM CDT) [...] MD LAB BLOOD ORDERABLES Final Resul t [facility] [place] [address] * (ABNORMAL) CBC without differential (03/03/2025 10:15 PM CDT) WBC 6.35 3.80 - 9.90 K/cumm Hgb 7.4(L) 11.9 - 15.5 g/dL [facility] Hct 24.0(L) 35.6 - 45.5 % [facility] Plt 221 150 - 400 K/cumm [facility] MPV 10.2 9.1 - 12.3 fL [facility] RBC 2.53(L) 3.90 - 5.20 M/cumm [facility] MCV 94.9 81.3 - 96.4 fL [facility] MCH 29.2 27.1 - 33.3 pg [facility] MCHC 30.8(L) 32.3 - 35.7 g/dL [facility] RDW CV 15.2(H) 11.1 - 14.9 % [facility] RDW SD 52.5(H) 35.7 - 48.1 fL [facility] NRBC abs 0.00 0.00 - 0.01 K/cumm [facility] Blood 03/03/2025 10:1 5 PM CDT 03/03/2025 11:25 PM CDT us Kirsty Cobb MD LAB BLOOD ORDERABLES Final Resul t Performing Organization Address City/[facility] Co de Phone Number [facility] [place] [address] * Phosphorus (03/03/2025 10:15 PM CDT) Pathologist [facility] Phosphorus, pl 3.8 2.3 - 4.5 mg/dL Blood 03/03/2025 10:1 5 PM CDT 03/03/2025 11:25 PM CDT us Kirsty Cobb MD LAB BLOOD ORDERABLES Final Resul t Performing Organization Address [facility] Co de Phone Number [facility] [place] [address] * Magnesium (03/03/2025 10:15 PM CDT) [facility] [address] Magnesium 1.8 1.4 - 2.5 mg/dL Blood 03/03/2025 10:1 5 PM CDT 03/03/2025 11:25 PM CDT us Kirsty Cobb MD LAB BLOOD ORDERABLES Final Resul t Performing Organization Address [facility] Co de Phone Number [facility] [place] [address] * (ABNORMAL) Basic metabolic panel (03/03/2025 10:15 PM CDT) [facility] [address] Sodium 145 135 - 145 mmol/L Potassium, pl 4.0 3.3 - 4.9 mmol/L [facility] Chloride 108 97 - 110 mmol/L [facility] CO2 29 22 - 32 mmol/L [facility] Anion gap 8 2 - 15 mmol/L [facility] BUN 22 6 - 25 mg/dL [facility] Creatinine 1.38(H) 0.60 - 1.10 mg/dL [facility] Glucose 111 70 - 199 mg/dL [facility] Comment: Interpretive Data Fasting glucose >/= 126 [...] 2022. Calcium 8.7 8.5 - 10.3 mg/dL [facility] Blood 03/03/2025 10:1 5 PM CDT 03/03/2025 11:25 PM CDT us Kirsty Cobb MD LAB BLOOD ORDERABLES Final Resul t Performing Organization Address [facility] de Phone Number [facility] [place] [address] * Sodium, urine, random (03/03/2025 1:14 PM CDT) Sodium, ur 154 mmol/L Comment: Interpretive Data No reference range established. Current interpretive data was last revised 2019. Urine 03/03/2025 1:14 PM CDT 03/03/2025 1:58 PM CDT us Kirsty Cobb MD LAB URINE ORDERABLES Final Resul t Performing Organization Address [facility] de Phone Number [facility] [place] [address] * Creatinine, urine, random (03/03/2025 1:14 PM CDT) Creatinine Ur 19.9 mg/dL Comment: Interpretive Data No reference range established. Current interpretive data was last revised 2019. Urine 03/03/2025 1:14 PM CDT 03/03/2025 1:58 PM CDT us Kirsty Cobb MD LAB URINE ORDERABLES Final Resul t Performing Organization Address City/[facility]/[place] [address] * (ABNORMAL) Vancomycin level trough Draw trough 30 minutes prior to vancomycin dose. (03/03/2025 9:46 AM CDT) Vancomycin trough 21.2(H) 10.0 - 20.0 mcg/mL Blood 03/03/2025 9:46 AM CDT 03/03/2025 10:22 AM CDT Narrative [facility] - 03/03/2025 10:52 AM CDT Draw trough 30 minutes prior to vancomycin dose. Esperanza Banda MD LAB BLOOD ORDERABL ES Final Result Performing Organization Address [facility] Co de Phone Number [facility] [place] [address] * (ABNORMAL) eGFR (03/02/2025 10:15 PM CDT) Pathologist [facility] eGFR 41(L) >=60 mL/min/1. 73 m2 Comment: [...] ORDERABLES Final Resul t Performing Organization Address [facility] Co de Phone Number [facility] [place] [address] * (ABNORMAL) CBC without differential (03/02/2025 10:15 PM CDT) Pathologist [facility] WBC 8.01 3.80 - 9.90 K/cumm Hgb 7.9(L) 11.9 - 15.5 g/dL [facility] Hct 25.4(L) 35.6 - 45.5 % [facility] Plt 204 150 - 400 K/cumm [facility] MPV 10.8 9.1 - 12.3 fL [facility] RBC 2.71(L) 3.90 - 5.20 M/cumm [facility] MCV 93.7 81.3 - 96.4 fL [facility] MCH 29.2 27.1 - 33.3 pg [facility] MCHC 31.1(L) 32.3 - 35.7 g/dL [facility] RDW CV 15.5(H) 11.1 - 14.9 % [facility] RDW SD 53.4(H) 35.7 - 48.1 fL [facility] NRBC abs 0.00 0.00 - 0.01 K/cumm [facility] Blood 03/02/2025 10:1 5 PM CDT 03/02/2025 11:05 PM CDT us Kirsty Cobb MD LAB BLOOD ORDERABLES Final Resul t Performing Organization Address City/[facility]/ZIP Co de Phone Number [facility] [place] [address] * Phosphorus (03/02/2025 10:15 PM CDT) Pathologist [facility] Phosphorus, pl 3.4 2.3 - 4.5 mg/dL Blood 03/02/2025 10:1 5 PM CDT 03/02/2025 11:05 PM CDT us Kirsty Cobb MD LAB BLOOD ORDERABLES Final Resul t Performing Organization Address [facility] Co de Phone Number [facility] [place] [address] * (ABNORMAL) Basic metabolic panel (03/02/2025 10:15 PM CDT) Pathologist [facility] Sodium 140 135 - 145 mmol/L Potassium, pl 3.4 3.3 - 4.9 mmol/L [facility] Chloride 103 97 - 110 mmol/L [facility] CO2 25 22 - 32 mmol/L [facility] Anion gap 12 2 - 15 mmol/L [facility] BUN 24 6 - 25 mg/dL [facility] Creatinine 1.46(H) 0.60 - 1.10 mg/dL [facility] Glucose 155 70 - 199 mg/dL [facility] Comment: Interpretive Data Fasting glucose >/= 126 [...] 2022. Calcium 8.7 8.5 - 10.3 mg/dL [facility] Blood 03/02/2025 10:1 5 PM CDT 03/02/2025 11:05 PM CDT us Kirsty Cobb MD LAB BLOOD ORDERABLES Final Resul t Performing Organization Address [facility] Co de Phone Number [facility] [place] [address] * (ABNORMAL) eGFR (03/01/2025 9:16 PM CDT) Pathologist [facility] eGFR 46(L) >=60 mL/min/1. 73 m2 Comment: [...] MD LAB BLOOD ORDERABLES Final Resul t [facility] [place] [address] * (ABNORMAL) CBC without differential (03/01/2025 9:16 PM CDT) [facility] [address] WBC 12.35(H) 3.80 - 9.90 K/cumm Hgb 7.6(L) 11.9 - 15.5 g/dL [facility] Hct 24.5(L) 35.6 - 45.5 % [facility] Plt 163 150 - 400 K/cumm [facility] MPV 10.5 9.1 - 12.3 fL [facility] RBC 2.59(L) 3.90 - 5.20 M/cumm [facility] MCV 94.6 81.3 - 96.4 fL [facility] MCH 29.3 27.1 - 33.3 pg [facility] MCHC 31.0(L) 32.3 - 35.7 g/dL [facility] RDW CV 15.7(H) 11.1 - 14.9 % [facility] RDW SD 54.2(H) 35.7 - 48.1 fL [facility] NRBC abs 0.00 0.00 - 0.01 K/cumm [facility] Blood 03/01/2025 9:16 PM CDT 03/01/2025 10:27 PM CDT us Kirsty Cobb MD LAB BLOOD ORDERABLES Final Resul t Performing Organization Address City/[facility] Co de Phone Number [facility] [place] [address] * Phosphorus (03/01/2025 9:16 PM CDT) Phosphorus, pl 3.3 2.3 - 4.5 mg/dL Blood 03/01/2025 9:16 PM CDT 03/01/2025 10:27 PM CDT us Kirsty Cobb MD LAB BLOOD ORDERABLES Final Resul t Performing Organization Address [facility] de Phone Number [facility] [place] [address] * Magnesium (03/01/2025 9:16 PM CDT) Pathologist [facility] Magnesium 2.2 1.4 - 2.5 mg/dL Blood 03/01/2025 9:16 PM CDT 03/01/2025 10:27 PM CDT Result Roxana Cobb MD LAB BLOOD ORDERABLES Final Resul t Performing Organization Address [facility] Co de Phone Number [facility] [place] [address] * (ABNORMAL) Basic metabolic panel (03/01/2025 9:16 PM CDT) Sodium 142 135 - 145 mmol/L Potassium, pl 3.7 3.3 - 4.9 mmol/L [facility] Chloride 106 97 - 110 mmol/L [facility] CO2 25 22 - 32 mmol/L [facility] Anion gap 11 2 - 15 mmol/L [facility] BUN 28(H) 6 - 25 mg/dL [facility] Creatinine 1.34(H) 0.60 - 1.10 mg/dL [facility] Glucose 128 70 - 199 mg/dL [facility] Comment: Interpretive Data Fasting glucose >/= 126 [...] 2022. Calcium 8.6 8.5 - 10.3 mg/dL [facility] Blood 03/01/2025 9:16 PM CDT 03/01/2025 10:27 PM CDT us Kirsty Cobb MD LAB BLOOD ORDERABLES Final Resul t Performing Organization Address [facility] Co de Phone Number [facility] [place] [address] * POCT glucose (03/01/2025 6:06 AM CDT) Glucose, POC 102 70 - 199 mg/dL Blood 03/01/2025 6:06 AM CDT 03/01/2025 6:06 AM CDT us Kirsty Cobb MD LAB POCT ORDERABLES - DEVICE Fin al Result Performing Organization Address [facility] de Phone Number [facility] [place] [address] * (ABNORMAL) eGFR (02/28/2025 9:37 PM CDT) [facility] [address] eGFR 48(L) >=60 mL/min/1. 73 m2 Comment: [...] MD LAB BLOOD ORDERABLES Bronwyn lau Result [facility] [place] [address] * (ABNORMAL) CBC without differential (02/28/2025 9:37 PM CDT) [facility] [address] WBC 17.76(H) 3.80 - 9.90 K/cumm Hgb 7.8(L) 11.9 - 15.5 g/dL [facility] Hct 24.7(L) 35.6 - 45.5 % [facility] Plt 207 150 - 400 K/cumm [facility] MPV 10.3 9.1 - 12.3 fL [facility] RBC 2.60(L) 3.90 - 5.20 M/cumm [facility] MCV 95.0 81.3 - 96.4 fL [facility] MCH 30.0 27.1 - 33.3 pg [facility] MCHC 31.6(L) 32.3 - 35.7 g/dL [facility] RDW CV 15.8(H) 11.1 - 14.9 % [facility] RDW SD 55.0(H) 35.7 - 48.1 fL [facility] NRBC abs 0.00 0.00 - 0.01 K/cumm [facility] Blood 02/28/2025 9:37 PM CDT 02/28/2025 10:47 PM CDT Tarsha Moraes MD LAB BLOOD ORDERABLES Bronwyn l Result Performing Organization Address City/[facility]/ZIP Co de Phone Number [facility] [place] [address] * Phosphorus (02/28/2025 9:37 PM CDT) Phosphorus, pl 3.1 2.3 - 4.5 mg/dL Blood 02/28/2025 9:37 PM CDT 02/28/2025 10:47 PM CDT Result [facility] Tarsha Moraes MD LAB BLOOD ORDERABLES Bronwyn l Result [facility] [place] [address] * Magnesium (02/28/2025 9:37 PM CDT) Magnesium 1.6 1.4 - 2.5 mg/dL Blood 02/28/2025 9:37 PM CDT 02/28/2025 10:47 PM CDT Tarsha Moraes MD LAB BLOOD ORDERABLES Bronwyn l Result [facility] [place] [address] * Lipid panel (02/28/2025 9:37 PM CDT) [...] revised on 2018. Triglycerides 56 <=149 mg/dL [facility] Comment: Interpretive Data Ages < or = [...] revised on 2018. HDL 51 >=40 mg/dL [facility] Comment: Interpretive Data Ages < or [...] on 2018. LDL, calculated 50 <=129 mg/dL [facility] Comment: Interpretive Data Ages < or [...] 3. Avtar Bush et al. JASBIR Cardiol. 2019March 19;5(5):540-548. doi: 10.1001/jamacardio.2020.0013 Current Interpretive Data was last revised on 2024. Non-HDL Cholesterol 63 mg/dL [facility] Comment: Interpretive Data Ages < or [...] last revised on 2018. Chol/HDL ratio 2 [facility] Blood 02/28/2025 9:37 PM CDT 02/28/2025 10:47 PM CDT us Kirsty Cobb MD LAB BLOOD ORDERABLES Final Resul t [facility] [place] [address] * (ABNORMAL) Basic metabolic panel (02/28/2025 9:37 PM CDT) Pathologist [facility] Sodium 142 135 - 145 mmol/L Potassium, pl 4.1 3.3 - 4.9 mmol/L [facility] Chloride 107 97 - 110 mmol/L [facility] CO2 27 22 - 32 mmol/L [facility] Anion gap 8 2 - 15 mmol/L [facility] BUN 26(H) 6 - 25 mg/dL [facility] Creatinine 1.30(H) 0.60 - 1.10 mg/dL [facility] Glucose 225(H) 70 - 199 mg/dL [facility] Comment: Interpretive Data Fasting glucose >/= 126 [...] 2022. Calcium 8.1(L) 8.5 - 10.3 mg/dL [facility] Blood 02/28/2025 9:37 PM CDT 02/28/2025 10:47 PM CDT Tarsha Moraes MD LAB BLOOD ORDERABLES Bronwyn l Result [facility] [place] [address] * (ABNORMAL) Aerobic and anaerobic culture and gram stain Aspirate Neck, right (02/28/2025 2:33 PM CDT) [facility] [address] Direct Specimen Exam Stain: Few polymorphonuclear leukocytes seen. Abundant Gram Negative Bacilli Abundant Gram Positive Cocci Rare Gram Positive Bacilli Report Final Report: Abundant Pseudomonas aeruginosa Abundant Streptococcus agalactiae (Group B Streptococci) Abundant Staphylococcus aureus Methicillin resistant (MRSA) by penicillin binding protein 2a (PBP2a) testing. (.) [facility] Organism PSEUDOMONAS AERUGINOSA [facility] Organism STREPTOCOCCUS AGALACTIAE (GROUP B STREPTOCOCCI) [facility] Organism STAPHYLOCOCCUS AUREUS [facility] Aspirate (Neck, right) 02/28/2025 2:33 PM CDT 02/28/2025 2:49 PM CDT Narrative [facility] - 03/06/2025 2:02 PM CDT Testing performed by [facility] ([phone]) Specimens submitted from normally sterile body sites [...] Susceptible Streptococcus agalactiae (Group B Streptococci) Vancomycin (JULIAN) INTERPRETATION Susceptible Staphylococcus aureus Vancomycin INTERPRETATION Susceptible [...] MICROBIOLOGY - GENERAL O RDERABLES Final Result [facility] [place] [address] * Triglycerides, body fluid (02/28/2025 2:33 PM [...] ascites. References: Pleural Fluid characteristics of Chylothorax. [facility] Proceedings. December 2008; 84(2):129-133 Clifford Textbook of Clinical Chemistry and Molecular Diagnostics, Sixth Edition. [employer] Press. 2018. Chapter 43, Body Fluids, p. 925 [employer] Test directory, Body Fluid Reference Intervals and/or Interpretative Information. https://[employer]bodyfluids [facility]. Practical Guide to the Analytical Validation of Body Fluid Chemistry Testing. January 2013. 1-9. Current Interpretive Data was last revised 2019. Fluid 02/28/2025 2:33 PM CDT 02/28/2025 2:45 PM CDT Narrative [facility] - 02/28/2025 3:33 PM CDT From neck drain aspirate us Aliya Funk MD LAB BODY FLUIDS AND STOOLS O RDERABLES Final Result [facility] Department [place] [address] * Amylase, body fluid (02/28/2025 2:33 PM CDT) Specimen type, fld Peritoneal Amylase, fld <30 Units/L [facility] Comment: Repeated and Verified The above specimen [...] 2018. Chapter 43, Body Fluids, p. 925 [employer] Test directory, Body Fluid Reference Intervals and/or Interpretative Information. https://[employer]bodyfluids Current Interpretive Data was last revised 2019. Fluid 02/28/2025 2:33 PM CDT 02/28/2025 2:45 PM CDT Narrative [facility] - 02/28/2025 3:33 PM CDT From neck drain aspirate us Aliya Funk MD LAB BODY FLUIDS AND STOOLS O RDERABLES Final Result [facility] [place] [address] * CT Neck Soft Tissue W Contrast [...] are normal. The limited view of the [place] is unremarkable. The visualized portions [...] are normal. The limited view of the [place] is unremarkable. The visualized portions [...] DEV ICE Final Result Performing Organization Address [facility] Co de Phone Number [facility] [place] [address] * (ABNORMAL) eGFR (02/28/2025 10:06 AM CDT) Pathologist [facility] eGFR 48(L) >=60 mL/min/1. 73 m2 Comment: [...] 6 AM CDT 02/28/2025 10:35 AM CDT Aliya Funk MD LAB BLOOD ORDERABLES Final R esult Performing Organization Address City/[facility] Co de Phone Number [facility] [place] [address] * (ABNORMAL) Differential, auto (02/28/2025 10:06 AM CDT) Pathologist [facility] Neutrophil abs 10.19(H) 1.50 - 6.50 K/cumm Imm gran abs 0.05 0.00 - 0.10 K/cumm [facility] Lymphocyte abs 0.72(L) 0.80 - 3.30 K/cumm [facility] Monocyte abs 0.64 0.20 - 0.80 K/cumm [facility] Eosinophil abs 0.18 0.00 - 0.50 K/cumm [facility] Basophil abs 0.03 0.00 - 0.10 K/cumm [facility] Neutrophil pct 86.3 % [facility] Comment: Interpretive Data Percent cell count reference ranges are not reported, since discordance with absolute values may lead to misinterpretation of CBC data. Current Interpretive Data was last revised on 2018. Imm gran pct 0.4 % [facility] Comment: Interpretive Data Percent cell count reference ranges are not reported, since discordance with absolute values may lead to misinterpretation of CBC data. Current Interpretive Data was last revised on 2018. Lymphocyte pct 6.1 % [facility] Comment: Interpretive Data Percent cell count reference ranges are not reported, since discordance with absolute values may lead to misinterpretation of CBC data. Current Interpretive Data was last revised on 2018. Monocyte pct 5.4 % [facility] Comment: Interpretive Data Percent cell count reference ranges are not reported, since discordance with absolute values may lead to misinterpretation of CBC data. Current Interpretive Data was last revised on 2018. Eosinophil pct 1.5 % [facility] Comment: Interpretive Data Percent cell count reference ranges are not reported, since discordance with absolute values may lead to misinterpretation of CBC data. Current Interpretive Data was last revised on 2018. Basophil pct 0.3 % [facility] Comment: Interpretive Data Percent cell count reference ranges are not reported, since discordance with absolute values may lead to misinterpretation of CBC data. Current Interpretive Data was last revised on 2018. Blood 02/28/2025 10:0 6 AM CDT 02/28/2025 10:36 AM CDT us Aliya Funk MD LAB BLOOD ORDERABLES Final R esult [facility] [place] [address] * (ABNORMAL) CBC with auto differential (02/28/2025 10:06 AM CDT) [facility] [address] WBC 11.81(H) 3.80 - 9.90 K/cumm Hgb 9.3(L) 11.9 - 15.5 g/dL [facility] Hct 29.5(L) 35.6 - 45.5 % [facility] Plt 241 150 - 400 K/cumm [facility] MPV 9.4 9.1 - 12.3 fL [facility] RBC 3.15(L) 3.90 - 5.20 M/cumm [facility] MCV 93.7 81.3 - 96.4 fL [facility] MCH 29.5 27.1 - 33.3 pg [facility] MCHC 31.5(L) 32.3 - 35.7 g/dL [facility] RDW CV 15.5(H) 11.1 - 14.9 % [facility] RDW SD 52.7(H) 35.7 - 48.1 fL [facility] NRBC abs 0.00 0.00 - 0.01 K/cumm [facility] Blood 02/28/2025 10:0 6 AM CDT 02/28/2025 10:36 AM CDT Aliya Funk MD LAB BLOOD ORDERABLES Final R esult [facility] [place] [address] * (ABNORMAL) Comprehensive metabolic panel (02/28/2025 10:06 AM CDT) [facility] [address] Sodium 142 135 - 145 mmol/L Potassium, pl 3.6 3.3 - 4.9 mmol/L [facility] Chloride 105 97 - 110 mmol/L [facility] CO2 28 22 - 32 mmol/L [facility] Anion gap 9 2 - 15 mmol/L [facility] BUN 25 6 - 25 mg/dL [facility] Creatinine 1.29(H) 0.60 - 1.10 mg/dL [facility] Glucose 135 70 - 199 mg/dL [facility] Comment: Interpretive Data Fasting glucose >/= 126 [...] 2022. Calcium 8.9 8.5 - 10.3 mg/dL [facility] Bilirubin, total 0.8 0.1 - 1.2 mg/dL [facility] Protein, pl 6.8 6.5 - 8.5 g/dL [facility] Albumin 3.4(L) 3.5 - 5.0 g/dL [facility] Alk phos 126 40 - 130 Units/L [facility] ALT 7 7 - 45 Units/L [facility] 18 10 - 45 Units/L [facility] Blood 02/28/2025 10:0 6 AM CDT 02/28/2025 10:35 AM CDT us Aliya Funk MD LAB BLOOD ORDERABLES Final R esult Performing Organization Address [facility] Co de Phone Number [facility] [place] [address] * POCT glucose (02/12/2025 11:48 AM CDT) [facility] Signature Glucose, POC 131 70 - 199 mg/dL Blood 02/12/2025 11:4 8 AM CDT 02/12/2025 11:48 AM CDT us Kirsty Cobb MD LAB POCT ORDERABLES - DEVICE Fin al Result Performing Organization Address [facility]/ZIP Co de Phone Number [facility] [place] [address] * POCT glucose (02/12/2025 7:26 AM CDT) Glucose, POC 97 70 - 199 mg/dL Blood 02/12/2025 7:26 AM CDT 02/12/2025 7:26 AM CDT us Kirsty Cobb MD LAB POCT ORDERABLES - DEVICE Fin al Result Performing Organization Address [facility] de Phone Number [facility] [place] [address] * (ABNORMAL) eGFR (02/11/2025 10:14 PM CDT) eGFR 42(L) >=60 mL/min/1. 73 m2 Comment: [...] ORDERABLES Final Resul t Performing Organization Address City/[facility]/ZIP Co de Phone Number [facility] [place] [address] * PTH (02/11/2025 10:14 PM CDT) PTH 15 15 - 65 pg/mL Blood 02/11/2025 10:1 4 PM CDT 02/11/2025 10:54 PM CDT us Kirsty Cobb MD LAB BLOOD ORDERABLES Final Resul t Performing Organization Address City/[facility]/ZIP Co de Phone Number [facility] [place] [address] * (ABNORMAL) Basic metabolic panel (02/11/2025 10:14 PM CDT) Pathologist [facility] Sodium 142 135 - 145 mmol/L Potassium, pl 4.1 3.3 - 4.9 mmol/L [facility] Chloride 110 97 - 110 mmol/L [facility] CO2 24 22 - 32 mmol/L [facility] Anion gap 8 2 - 15 mmol/L [facility] BUN 32(H) 6 - 25 mg/dL [facility] Creatinine 1.45(H) 0.60 - 1.10 mg/dL [facility] Glucose 149 70 - 199 mg/dL [facility] Comment: Interpretive Data Fasting glucose >/= 126 [...] 2022. Calcium 7.8(L) 8.5 - 10.3 mg/dL [facility] Blood 02/11/2025 10:1 4 PM CDT 02/11/2025 10:54 PM CDT us Kirsty Cobb MD LAB BLOOD ORDERABLES Final Resul t Performing Organization Address City/[facility]/ZIP Co de Phone Number [facility] [place] [address] * POCT glucose (02/11/2025 7:38 PM CDT) Glucose, POC 143 70 - 199 mg/dL Blood 02/11/2025 7:38 PM CDT 02/11/2025 7:38 PM CDT us Kirsty Cobb MD LAB POCT ORDERABLES - DEVICE Fin al Result [facility] [place] [address] * POCT glucose (02/11/2025 5:30 PM CDT) Glucose, POC 160 70 - 199 mg/dL Blood 02/11/2025 5:30 PM CDT 02/11/2025 5:30 PM CDT us Kirsty Cobb MD LAB POCT ORDERABLES - DEVICE Fin al Result Performing Organization Address City/[facility] [place] [address] * (ABNORMAL) eGFR (02/11/2025 1:15 PM CDT) [...] ORDERABLES Final Resul t Performing Organization Address City/[facility] Co de Phone Number [facility] [place] [address] * (ABNORMAL) Calcium, ionized (02/11/2025 1:15 PM CDT) Calcium, Ionized 4.49(L) 4.50 - 5.10 mg/dL Blood 02/11/2025 1:15 PM CDT 02/11/2025 1:56 PM CDT us Kirsty Cobb MD LAB BLOOD ORDERABLES Final Resul t Performing Organization Address [facility] de Phone Number [facility] [place] [address] * Vitamin D 25 hydroxy (02/11/2025 1:15 PM CDT) Vitamin D 25-OH 33 30 - 80 ng/mL Blood 02/11/2025 1:15 PM CDT 02/11/2025 1:59 PM CDT Result Roxana Cobb MD LAB BLOOD ORDERABLES Final Resul t Performing Organization Address [facility] de Phone Number [facility] [place] [address] * PTH (02/11/2025 1:15 PM CDT) PTH 18 15 - 65 pg/mL Blood 02/11/2025 1:15 PM CDT 02/11/2025 1:59 PM CDT us Kirsty Cobb MD LAB BLOOD ORDERABLES Final Resul t Performing Organization Address City/[facility]/ZIP Co de Phone Number [facility] [place] [address] * Vitamin B12 (02/11/2025 1:15 PM CDT) [facility] [address] Vitamin B12 399 230 - 1,250 pg/mL Blood 02/11/2025 1:15 PM CDT 02/11/2025 1:59 PM CDT us Kirsty Cobb MD LAB BLOOD ORDERABLES Final Resul t Performing Organization Address [facility] de Phone Number [facility] [place] [address] * (ABNORMAL) Basic metabolic panel (02/11/2025 1:15 PM CDT) [facility] [address] Sodium 141 135 - 145 mmol/L Potassium, pl 3.9 3.3 - 4.9 mmol/L [facility] Chloride 105 97 - 110 mmol/L [facility] CO2 25 22 - 32 mmol/L [facility] Anion gap 11 2 - 15 mmol/L [facility] BUN 26(H) 6 - 25 mg/dL [facility] Creatinine 1.33(H) 0.60 - 1.10 mg/dL [facility] Glucose 156 70 - 199 mg/dL [facility] Comment: Interpretive Data Fasting glucose >/= 126 [...] 2022. Calcium 8.3(L) 8.5 - 10.3 mg/dL [facility] Blood 02/11/2025 1:15 PM CDT 02/11/2025 1:59 PM CDT us Kirsty Cobb MD LAB BLOOD ORDERABLES Final Resul t Performing Organization Address [facility] Co de Phone Number [facility] [place] [address] * (ABNORMAL) POCT glucose (02/11/2025 12:28 PM CDT) Glucose, POC 210(H) 70 - 199 mg/dL Blood 02/11/2025 12:2 8 PM CDT 02/11/2025 12:28 PM CDT us Kirsty Cobb MD LAB POCT ORDERABLES - DEVICE Fin al Result Performing Organization Address [facility] de Phone Number [facility] [place] [address] * POCT glucose (02/11/2025 8:26 AM CDT) [facility] [address] Glucose, POC 167 70 - 199 mg/dL Blood 02/11/2025 8:26 AM CDT 02/11/2025 8:26 AM CDT Result Roxana Cobb MD LAB POCT ORDERABLES - DEVICE Fin al Result Performing Organization Address [facility] de Phone Number [facility] [place] [address] * (ABNORMAL) eGFR (02/11/2025 6:03 AM CDT) [facility] [address] eGFR 47(L) >=60 mL/min/1. 73 m2 Comment: [...] ORDERABLES Final Resul t Performing Organization Address City/[facility] de Phone Number [facility] [place] [address] * (ABNORMAL) Calcium, ionized (02/11/2025 6:03 AM CDT) Calcium, Ionized 4.21(L) 4.50 - 5.10 mg/dL Blood 02/11/2025 6:03 AM CDT 02/11/2025 6:17 AM CDT us Kirsty Cobb MD LAB BLOOD ORDERABLES Final Resul t Performing Organization Address City/State/[facility] Co de Phone Number [facility] [place] [address] * (ABNORMAL) PTH (02/11/2025 6:03 AM CDT) PTH 8(L) 15 - 65 pg/mL Blood 02/11/2025 6:03 AM CDT 02/11/2025 6:18 AM CDT us Kirsty Cobb MD LAB BLOOD ORDERABLES Final Resul t Performing Organization Address City/[facility]/ZIP Co de Phone Number [facility] [place] [address] * (ABNORMAL) Basic metabolic panel (02/11/2025 6:03 AM CDT) [facility] [address] Sodium 141 135 - 145 mmol/L Potassium, pl 4.6 3.3 - 4.9 mmol/L [facility] Chloride 108 97 - 110 mmol/L [facility] CO2 25 22 - 32 mmol/L [facility] Anion gap 8 2 - 15 mmol/L [facility] BUN 28(H) 6 - 25 mg/dL [facility] Creatinine 1.32(H) 0.60 - 1.10 mg/dL [facility] Glucose 143 70 - 199 mg/dL [facility] Comment: Interpretive Data Fasting glucose >/= 126 [...] 2022. Calcium 8.4(L) 8.5 - 10.3 mg/dL [facility] Blood 02/11/2025 6:03 AM CDT 02/11/2025 6:17 AM CDT Narrative [facility] - 02/11/2025 6:39 AM CDT Begin after renal function panel us Kirsty Cobb MD LAB BLOOD ORDERABLES Final Resul t Performing Organization Address City/[facility]/ZIP Co de Phone Number [facility] [place] [address] * (ABNORMAL) POCT glucose (02/10/2025 11:20 PM CDT) [facility] [address] Glucose, POC 250(H) 70 - 199 mg/dL Blood 02/10/2025 11:2 0 PM CDT 02/10/2025 11:20 PM CDT us Kirsty Cobb MD LAB POCT ORDERABLES - DEVICE Fin al Result Performing Organization Address City/[facility]/ZIP Co de Phone Number [facility] [place] [address] * (ABNORMAL) eGFR (02/10/2025 11:14 PM CDT) [facility] [address] eGFR 51(L) >=60 mL/min/1. 73 m2 Comment: [...] LAB BLOOD ORDERABLES Final Resul t [facility] [place] [address] * (ABNORMAL) Calcium, ionized (02/10/2025 11:14 PM CDT) [facility] [address] Calcium, Ionized 4.35(L) 4.50 - 5.10 mg/dL Blood 02/10/2025 11:1 4 PM CDT 02/10/2025 11:49 PM CDT us Kirsty Cobb MD LAB BLOOD ORDERABLES Final Resul t Performing Organization Address City/[facility] Co de Phone Number [facility] [place] [address] * (ABNORMAL) PTH (02/10/2025 11:14 PM CDT) [facility] [address] PTH 11(L) 15 - 65 pg/mL Blood 02/10/2025 11:1 4 PM CDT 02/11/2025 1:11 AM CDT us Kirsty Cobb MD LAB BLOOD ORDERABLES Final Resul t Performing Organization Address [facility] de Phone Number [facility] [place] [address] * (ABNORMAL) Basic metabolic panel (02/10/2025 11:14 PM CDT) [facility] [address] Sodium 140 135 - 145 mmol/L Potassium, pl 4.4 3.3 - 4.9 mmol/L [facility] Chloride 107 97 - 110 mmol/L [facility] CO2 26 22 - 32 mmol/L [facility] Anion gap 7 2 - 15 mmol/L [facility] BUN 27(H) 6 - 25 mg/dL [facility] Creatinine 1.22(H) 0.60 - 1.10 mg/dL [facility] Glucose 238(H) 70 - 199 mg/dL [facility] Comment: Interpretive Data Fasting glucose >/= 126 [...] 2022. Calcium 8.2(L) 8.5 - 10.3 mg/dL [facility] Blood 02/10/2025 11:1 4 PM CDT 02/10/2025 11:53 PM CDT Kirsty Cobb MD LAB BLOOD ORDERABLES Final Resul t Performing Organization Address City/[facility] Co de Phone Number [facility] [place] [address] * (ABNORMAL) POCT glucose (02/10/2025 9:15 PM CDT) [facility] [address] Glucose, POC 288(H) 70 - 199 mg/dL Blood 02/10/2025 9:15 PM CDT 02/10/2025 9:15 PM CDT Result [facility] Kirsty Cobb MD LAB POCT ORDERABLES - DEVICE Fin al Result Performing Organization Address [facility] Co de Phone Number [facility] [place] [address] * VA AN PROCEDURE PLACEHOLDER (02/10/2025 5:42 PM CDT) Narrative Ariana Smith CRNA - 02/10/2025 5:42 PM CDT Ariana Simth CRNA 02/10/2025 5:42 PM Peripheral IV Catheter Patient location: OR Staff: Placed by: BLAKE: Ariana Smith CRNA Preprocedure prep: Prep solution: [...] 5:02 PM CDT 02/10/2025 5:02 PM CDT us Kirsty Cobb MD LAB POCT ORDERABLES - DEVICE Fin al Result [facility] [place] [address] * Surgical pathology (02/10/2025 3:30 PM CDT) [...] (Thyroid) 02/10/2025 6:00 PM CDT Narrative PATHOLOGY [facility] - 02/16/2025 11:40 AM CDT EPIC results best viewed via link to PDF [facility] [place] [address] Note to Patients: This report may contain [...] Gender: F : 1965 (Age: 60) Address: [address] [place] [id number] Hospital #: [id number] Taken:02/10/2025 Received:02/11/2025 Reported: 02/16/2025 Patient Type: [facility] OP In Bed Service: Surgery Location: [facility] 1332 Physician(s): MD Andrés Ulrich PA Natnael Beyene [...] of encapsulated nodule at opposite end A4 Mining Teacher sections of mass in relation to grossly uninvolved thyroid A5 Mining Teacher sections of mass in relation to black inked margin in areas of putative positive margin A6 Additional retail customer service representative sections of mass A7 One [...] submitted entirely D9-D11 Level three lymph node, retail customer service representative sections of matted mass of [...] described nodule losest approach to margins E5 Mining Teacher sections of uninvolved thyroid Jar 0. F. [...] Surgical Pathology and Flow Cytometry Departments at [facility] as part of an ongoing plant quality manager program and in compliance with federally mandated [...] Surgical Pathology and Flow Cytometry Departments of [facility]. It has not been cleared or approved by the U. S. Food and Drug Administration. IMAGES AND SCANNED DOCUMENTS, IF INCLUDED, ONLY VIEWABLE IN PDF VERSION OF REPORT Kirsty Cobb MD LAB PATHOLOGY ORDERABLES Final R esult PATHOLOGY [facility] 3rd Floor [place], [place] [phone] * POCT glucose (02/10/2025 2:50 PM CDT) Glucose, POC 112 70 - 199 mg/dL Blood 02/10/2025 2:50 PM CDT 02/10/2025 2:50 PM CDT us Kirsty Cobb MD LAB POCT ORDERABLES - DEVICE Fin al Result [facility] [place] [address] * VA AN ELECTIVE ENDOTRACHEAL AIRWAY, VA AN PROCEDURE PLACEHOLDER (02/10/2025 2:00 PM CDT) Narrative Ariana Smith CRNA - 02/10/2025 2:00 PM CDT Ariana Smith CRNA 02/10/2025 2:01 PM Airway Patient location: OR Urgency: elective Indications for airway management: anesthesia and airway protection Difficult airway: no Staff: Supervising provider: John Paul De La O MD Placed by: BLAKE: Ariana Smith CRNA Emergent airway documentation: Risks [...] CDT 02/10/2025 12:36 PM CDT us Kirsty Cobb MD LAB POCT ORDERABLES - DEVICE Fin al Result [facility] [place] [address] * US Soft Tissue Neck (02/10/2025 11:15 [...] above. Electronically signed by: Margoth Roman M.D. Kirsty Cobb MD [facility] PROCEDURES Final Result * TYPE AND SCREEN 14 DAY (02/05/2025 9:37 AM CDT) Pathologist [facility] Bao, indirect Negative ABO Rh A Positive [facility] Blood 02/05/2025 9:37 AM CDT 02/05/2025 11:15 AM CDT Narrative [facility] - 02/05/2025 12:04 PM CDT Is this test being ordered in advance for a procedure?->Yes Expected date of procedure:->02/10/25 Has the patient been transfused in the past 3 months?->No Has the patient been in the past 3 months?->No Genie Wilkinson NP LAB BLOOD BANK TEST ORDERAB LES Final Result [facility] [place] [address] * (ABNORMAL) POCT hemoglobin A1c (02/05/2025 8:23 AM CDT) Hgb A1C, POC 6.5(H) 4.0 - 5.6 % Est Average Gluc POC 140 mg/dL [facility] Comment: The ADA recommends reporting an estimated Average Glucose (eAG) with all Hemoglobin A1c results using the equation derived from a study of 507 normal and diabetic adults. Minority populations were underrepresented and children were not included. (Diabetes Care 31:2742-8564, 2008). The eAG is not equivalent to a fasting glucose. Blood 02/05/2025 8:23 AM CDT 02/05/2025 8:23 AM CDT us Kirsty Cobb MD POINT OF CARE TEST ORDERABLES Fi nal Result Performing Organization Address [facility] Co de Phone Number [facility] [place] [address] * ECG 12 lead (02/05/2025 8:11 AM CDT) Ventricular Rate EKG/Min 65 BPM [facility] Atrial Rate 65 BPM [facility] VA-Interval (MSEC) 160 ms [facility] QRS-Interval (MSEC) 96 ms [facility] QT-Interval (MSEC) 432 ms [facility] QTc 449 ms [facility] P [place] 23 degrees [facility] R [place] -15 degrees [facility] T [place] 14 degrees [facility] Diagnosis Normal sinus rhythm Normal ECG No previous ECGs available Confirmed by Elena JAEN, [facility] ([id number]) on 02/08/2025 8:03:24 AM [facility] 02/05/2025 8:11 AM CDT 02/08/2025 8:03 AM CDT us Genie Wilkinson TIP TESTER ECG ORDERABLES Final Resul t Performing Organization Address [facility] de Phone Number [facility] [email or web address] [facility] * PET/CT FDG Skull to Thigh (01/21/2025 1:10 PM [facility]) Anatomical Region Laterality Modality N/A Positron Emissio n Tomography (PET) 01/21/2025 2:08 PM [facility] Impressions 01/21/2025 2:08 PM [facility] 1. Diffuse marked hypermetabolism throughout the thyroid [...] Jessica Cristobal M.D. Narrative 01/21/2025 2:08 PM [facility] EXAMINATION: TUMOR FDG-PET/CT IMAGING DATE OF STUDY: 01/21/2025 SCANNER: [facility] [employer] (NV1). This is a high-resolution scanner, which [...] obtained. The study was interpreted on the LedgerX workstation. The mean liver SUV (reported for senior quality engineer purposes) is 2.9. The total scanned area [...] FDG-PET/CT IMAGING DATE OF STUDY: 01/21/2025 SCANNER: [facility] N PET Vision (NV1). This is a high-resolution scanner, which [...] obtained. The study was interpreted on the [employer] workstation. The mean liver SUV (reported for senior quality engineer purposes) is 2.9. The total scanned area [...] * NM Thyrogen Injection (01/20/2025 9:33 AM [facility]) Narrative [facility] - 01/20/2025 9:33 AM [facility] [place] This order does not require dictation. Please see encounter notes for further details. Result Roxana Cobb MD [facility] NM PROCEDURES Final Result Performing Organization Address [facility] de Phone Number [email or web address] * (ABNORMAL) TSH (01/20/2025 8:38 AM [facility]) Thyroid Stimulating Hormone 201.00(H) 0.30 - 4.20 mcIUnit/m L Blood 01/20/2025 8:38 AM [facility] 01/20/2025 9:50 AM [facility] Result Roxana Cobb MD LAB BLOOD ORDERABLES Final Resul t Performing Organization Address [facility] Phone Number [facility] [place] [address] * NM Thyrogen Injection (01/19/2025 11:49 AM [facility] [place] [facility]) Narrative [facility] - 01/19/2025 11:49 AM [facility] This order does not require dictation. Please see encounter notes for further details. Result Roxana Cobb MD G NM PROCEDURES Final Result Performing Organization Address [facility] Phone Number [email or web address] * Screening Mammogram Bilateral W Valerio (11/24/2021 8:39 AM [facility]) Anatomical Region Laterality Modality Breast Bilateral Mammography 11/24/2021 9:28 AM [facility] Impressions 11/24/2021 9:28 AM [facility] There is no mammographic evidence of malignancy. Routine screening mammography is recommended in 1 year. BI-RADS: 1 - Negative. The patient will be entered into a reminder system with a target due date of 1 year for her next mammogram. Electronically signed by: Bull Garcia M.D. Narrative 11/24/2021 9:28 AM [facility] EXAMINATION: SCREENING MAMMOGRAM BILATERAL W VALERIO ORDERING [...] Relevant to Health Maintenance Insurance MEDICARE ADVANTAGE UHC MEDICARE ADVANTAGE IDPA [facility] MEDICARE ADVANTAGE IDPA Advance Directives For more information, please contact: [phone] * Full Code (Latest Code Status on File) Date Activated Date Inactivated Comments 02/28/2025 5:33 PM 03/04/2025 10:56 PM * Full Code Date Activated Date Inactivated Comments 02/10/2025 8:54 PM 02/12/2025 6:14 PM * Full Code Date Activated Date Inactivated Comments 07/04/2023 10:44 AM 07/04/2023 5:20 PM Care Teams Chemistry Department Chair Relationship Specialty Start Date End Date Andrés Smiley PA [address] [place] [address] PCP - General 04/18/17
--- OUTSIDE RECORDS SUMMARY | 2025-04-06 08:57 | XMS_ITS | Clinical Summary ---
Author Organization Formerly [facility] Facility Address [address] [place] [address] Care Team Providers Care Audit Control Clerk Name Role Phone Unavailable Primary Care Provider Unavailabl e Encounters Date Type Department Care Team Description 03/26/2025 Documentation Only [facility]. [address] [place] [address] Emre Patel MD 03/26/2025 Documentation Only [facility]. [address] [place] [address] Emre Patel MD from Last 3 Months Social History Tobacco Use Types Packs/Day Years Used Date Smoking Tobacco: Never Assessed Comments Unknown Sex and Gender Information Value Date Recorded Sex Assigned at Not on file Legal Sex Female 1:37 PM EDT Gender Identity Not on file Sexual Orientation Not on file Plan of Treatment Health Maintenance Due Date Last Done Comments Breast Cancer Screening 1965 Hepatitis B Vaccine (1 of 3 - 19+ 3-dose series) 1986 Pneumococcal Vaccine: 50+ Ye ars (1 of 2 - PCV) 1986 Colorectal Cancer Screening: Annual FOBT 02/08/2016 Colorectal Cancer Screening: Colonoscopy 02/08/2016 Colorectal Cancer Screening: Sigmoidoscopy 02/08/2016 Diabetes: Ophthalmology Exam 03/26/2025 Diabetes: Pedal Pulse Checked 03/26/2025 Diabetes: Sensory Foot Exam 03/26/2025 Diabetes: Visual Foot Exam 03/26/2025 Diabetes: Hemoglobin A1C 05/08/2025 02/05/2025 Influenza Vaccine Completed 08/16/2024, , 09/13/2020, Additional history exists
== END 2025-04-06 08:47 | disposition home or self-care (01) ==
LOC: CHSIMG 08:47
PROVIDERS: PCP Physician Assistant; Visit Provider Physician Assistant
DX: R13.19 Other dysphagia (principal); M79.89 Other specified soft tissue disorders; R91.8 Other nonspecific abnormal finding of lung field
CPT/HCPCS: 70490

== ENCOUNTER 2025-04-27 12:03 | Outpatient (CLI) | payer MEDICARE, MEDICAID, SELFPAY ==
--- NOTE | ~2025-04-27 | US_ITS ---
Ultrasound of the neck Clinical history sialitis 2 COMPARISON: CT dated 04/06/2025 TECHNIQUE: Targeted sonographic imaging performed of the right neck of the area of clinical concern. FINDINGS: Patient is status post thyroidectomy. There is a 9 mm irregular hypoechoic area at the area of concern, nonspecific. No other sonographic abnormality evident. IMPRESSION: 9 mm irregular hypoechoic area at the region of clinical concern. This could reflect small abscess/ph legmon. Reviewed, dictated and finalized at location M. IMPRESSION: 9 mm irregular hypoechoic area at the region of clinical concern. This could re flect small abscess/phlegmon.
--- OUTSIDE RECORDS SUMMARY | 2025-04-27 13:24 | XMS_ITS ---
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 Refer to [...] pain 07/04/2023 Coronary artery disease invo lving alutiiq coronary artery of alutiiq heart 06/08/2023 Calculus of gallbladder with out cholecystitis without obstruction 05/17/2022 Overview (05/17/2022): Added automatically from request for surgery [id number] Incisional hernia, without obstruction or gangre ne 05/17/2022 Overview (05/17/2022): Added automatically from request for surgery [id number] Current Treatment and Therapy Plans No current plan information found. Past Treatment and Therapy Plans No past plan information found. Lifetime Dose Tracking * Chemical Lifetime Dose Automatic Entry Manual Entr y Air kerma at the reference point (Ka,r) 524 mGy 0 mGy 524 mGy DLP 1,243 mGycm 1,243 mGycm 0 mGycm
--- OUTSIDE RECORDS SUMMARY | 2025-04-27 13:25 | XMS_ITS | Referral Summary ---
Author Organization [facility] Address [address] [place] [address] Care Team Providers Care E Learning Manager Name Role Phone Andrés Smiley Primary Care Provider [phone] Encounters Date Type Department Care Team Description 04/16/2025 Telephone [facility] Surgery [address] [place] [address] Floor 5 [place] [phone] Lizette See RN 04/15/2025 Orders Only [facility] Surgery [address] [place] [address] Floor 5 [place] [phone] Lizette See RN Dysphagia, unspecified type (Primary Dx) 04/15/2025 Telephone [facility] Surgery [address] [place] [address] Floor 5 [place] [address] Lizette See RN 04/15/2025 Telephone [facility] Surgery [address] [place] [address] Floor 8 [place] [phone] Kirsty Cobb Patient issue/concern 04/13/2025 Telephone [facility] Surgery [address] [place] [address] Floor 5 [place] [phone] Kirsty Cobb MD 04/10/2025 Telephone [facility] 1 [place] [address] Anna Casarez RN 04/08/2025 2:08 PM CDT - 04/08/2025 11:59 PM CDT Hospital Encounter [facility] [address] [place] [address] Discharge Disposition: Discharge to home or self care 04/07/2025 Telephone [facility] 1 [place] [address] Anna Casarez, MACK 04/01/2025 Orders Only [facility] 1 [place] [address] Anna Casarez, MACK 03/27/2025 Orders Only [facility] 1 [place] [address] Anna Casarez, MACK Thyroid cancer (HCC) (Primary Dx) 03/27/2025 Telephone [facility] [address] [place] [address] Anna Casarez, MACK 03/24/2025 Documentation [facility] Radiation Oncology [address] [facility] [place] [address] Ai Flores RN 03/24/2025 Orders Only [facility] Surgery [address] [place] [address] 5 [place] [phone] Kirsty Cobb MD Papillary thyroid carcinoma (HCC) (Primary Dx) 03/24/2025 Telephone [facility] Surgery [address] [place] [address] Floor 8 [place] [phone] Kirsty Cobb MD Medical Question/Miscellaneou s 03/24/2025 1:00 PM CDT Telemedicine [facility] Endocrinology Metabolism and Lipid [address] [place] [address] 1, [address] [place] [phone] Kd Pike MD Papillary thyroid carcinoma (HCC) (Primary Dx); Lung nodules; Post-surgical hypothyroidism 03/13/2025 Orders Only [facility] Surgery [address] [place] [address] 5 [place] [phone] Kirsty Cobb MD Papillary thyroid carcinoma (HCC) 03/13/2025 Orders Only [facility] Surgery [address] [place] [address] 5 [place] [phone] Lizette See RN Papillary thyroid carcinoma (HCC) (Primary Dx) 03/13/2025 1:45 PM CDT Lab [facility] - Lab Collection [address] [place] [phone] Thyroid cancer (HCC) 03/13/2025 3:45 PM CDT Office Visit [facility] Surgery [address] [place] [phone] Kirsty Cobb MD Thyroid cancer (HCC) (Primary Dx); Papillary thyroid carcinoma (HCC) 03/12/2025 Telephone [facility] Surgery [address] [place] [phone] Lizette See RN 03/09/2025 Results Follow-Up [facility] Surgery [address] [place] [phone] Kirsty Cobb MD Aerobic and anaerobic culture and gram stain Aspirate Neck, right 02/28/2025 9:07 AM CDT - 03/04/2025 6:51 PM CDT Hospital Encounter [address] [phone] Tarsha Moreas MD Brown, Taylor, MD Localized swelling, mass or lump of neck (Primary Dx); 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 Discharge Disposition: Discharge to home or self care 02/28/2025 Orders Only [facility] [address] [place] [address] Maryam Lee, MACK 02/28/2025 Orders Only [facility] Oncology [address] [place] [address] Amina Villa NP 02/25/2025 Telephone [facility] Surgery [address] [place] [phone] Lizette See RN 02/25/2025 Telephone [facility] Surgery [address] [place] [phone] Lizette See RN 02/24/2025 Telephone [facility] Surgery [address] [place] [address], [place] [phone] Lizette See RN 02/24/2025 Orders Only [facility] Surgery [address] [place] [address] 5 [place] [address] Lizette See RN Papillary thyroid carcinoma (HCC) (Primary Dx) 02/24/2025 Telephone [facility] Surgery [address] [place] [address] 5 [place] [phone] Lizette See RN 02/24/2025 Telephone [facility] Surgery [address] [place] [address] 8 [place] [address] Kirsty Cobb MD Medical Question/Miscellaneou s 02/20/2025 Documentation [facility] [address] [place] [address] 5 [place] [address] Lizette See RN 02/20/2025 1:45 PM CDT Clinical Support [facility] Surgery [address] [place] [address] 5 [place] [address] Kirsty Cobb MD Papillary thyroid carcinoma (HCC) (Primary Dx) 02/19/2025 Telephone [facility] Surgery [address] [place] [address] 8 [place] [phone] Kirsty Cobb MD 02/10/2025 8:46 AM CDT - 02/12/2025 2:09 PM CDT Hospital Encounter [address] [phone] Kirsty Cobb MD Thyroid cancer (HCC) Discharge Disposition: Discharge to home or self care 02/10/2025 9:22 AM CDT - 02/10/2025 11:59 PM CDT Hospital Encounter [facility] [address] [place] [address] Thyroid cancer (HCC) Discharge Disposition: Discharge to home or self care 02/10/2025 12:00 PM CDT - 02/10/2025 4:50 PM CDT Surgery [facility] [address] [place] [address] Kirsty Cobb MD THYROIDECTOMY - TOTAL 02/10/2025 1:21 PM CDT Anesthesia Event [facility] ([facility]) [address] [place] [address] John Paul De La O MD Montgomery, Andrea J., NP 02/09/2025 Telephone [facility] Surgery [address] [place] [phone] Lizette See RN 02/09/2025 Orders Only [facility] Surgery [address] [place] [phone] Lizette See RN Thyroid cancer (HCC) (Primary Dx) 02/05/2025 7:30 AM CDT Pre-Admission Testing [facility] Pre[facility] ([facility]) [address] [place] [address] Preoperative testing (Primary Dx) 02/02/2025 Telephone [facility] Surgery [address] [place] [phone] Kirsty Cobb MD Medical Question/Miscellaneou s 01/29/2025 Orders Only [facility] [address] [place] [phone] Lizette See RN Lung nodules (Primary Dx); Thyroid nodule; Mediastinal lymphadenopathy 01/28/2025 Results Follow-Up [facility] [address] [place] [phone] Kirsty Cobb MD Cytology 01/27/2025 Orders Only [facility] [address] [place] [phone] Lizette See RN Thyroid nodule (Primary Dx) 01/27/2025 Telephone [facility] [address] [place] [phone] Lizette See RN 01/27/2025 1:30 PM CDT Office Visit [facility] [address] [place] [phone] Geovanna Ackerman MD Mediastinal lymphadenopathy (Primary Dx); Papillary thyroid carcinoma (HCC); Thyroid cancer (HCC); Morbid obesity (HCC); Type 2 diabetes mellitus with other specified complication, unspecified whether fdc insulin use (HCC) 01/26/2025 Telephone [facility] Surgery [facility] 8 [place] [phone] Kirsty Cobb MD Medical Question/Miscellaneou s from Last 3 Months Allergies Active Allergy Reactions Criticality Noted Date Comments Amoxicillin Shortness of breath,Rash High Penicillins Shortness of breath,Rash High Sulfamethoxazole-Trimethopri m Hives Medium 01/02/2025 Bactrim Tetracycline Rash,Vomiting Medium Medications multivitamin capsule 0 0 04/06/20 15 Active lisinopril (PRINIVIL,ZESTRIL) 20 mg tablet Take 1 tablet (20 [...] Patient not taking.Informant: Self, Reported on 03/13/2025 hydroCHLOROthiazid e (HYDRODIURIL) 25 mg tablet Take 1 tablet (25 mg total) by mouth every morning 05/17/20 Active ibuprofen (ADVIL,MOTRIN) 800 mg tabletIndications: Anti-inflammatory, Pain Take 1 tablet (800 mg total) by mouth every 8 (eight) hours as needed for pain Takes nightly Active clobetasoL (TEMOVATE) 0.05 % external solution Apply 1 Application topically as needed (scalp) 07/10/20 23 Active butalbital-acetami nophen-caffeine (ESGIC) 50-325-40 mg per tablet Take 1 tablet by mouth every 6 (six) hours as needed for migraine 12/01/19 25 Active cholecalciferol (VITAMIN D-3) 2000 unit capsule Take 1 capsule (2,000 Units total) by mouth every morning Active cyanocobalamin (Vitamin B-12) 500 mcg tablet Take 1 tablet (500 mcg total) by mouth every morning Active calcium carbonate (OS-KEILA) 1,250 mg (500 mg elemental) tabletIndications: hypocalcemia Take 1 tablet (1,250 mg total) by mouth every 8 (eight) hours 90 tablet 02/13/20 25 Active oxyCODONE (ROXICODONE) 5 mg immediate release tabletIndications: Pain Take 1 tablet (5 mg total) by mouth every 4 (four) hours as needed for pain for up to 12 doses 12 tablet 02/13/20 25 Active Additional Information Patient not taking.Reported on 03/13/2025 calcitRIOL (ROCALTROL) 0.25 mcg capsuleIndications :hypocalcemia Take 1 capsule (0.25 mcg total) by mouth 2 (two) times a day 60 capsule 11 02/13/20 25 026 Active furosemide (LASIX) 20 mg tablet Take 1 tablet (20 mg total) by mouth daily Active acetaminophen 500 mg capsule Take 2 capsules (1,000 mg total) by mouth every 6 (six) hours 30 tablet 03/04/20 25 Active ondansetron ODT (ZOFRAN-ODT) 4 mg disintegrating tabletIndications: Nausea and Vomiting Take 1 tablet (4 mg total) by mouth every 6 (six) hours as needed for nausea or vomiting 15 tablet 03/04/20 25 Active traMADoL (ULTRAM) 50 mg tablet Take 1 tablet (50 mg total) by mouth every 6 (six) hours 10 tablet 03/04/20 25 Active diphenhydrAMINE (BENADRYL) 12.5 mg chewable tabletIndications: Urticaria,Take if developing rash with doxycycline Take 1 tablet (12.5 mg total) by mouth every 6 (six) hours as needed for allergies 30 tablet 03/04/20 25 Active levothyroxine (SYNTHROID) 175 mcg tabletIndications: hypothyroidism Take 1 tablet (175 mcg total) by mouth welder setter resistance machine before breakfast 90 tablet 1 03/16/20 25 025 Active Active Problems Patient Care Coordination No te [...] wit h other 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 Refer to [...] pain 07/04/2023 Coronary artery disease invo lving [place] coronary artery of [place] heart 06/08/2023 Calculus of gallbladder with out cholecystitis without obstruction 05/17/2022 Overview (05/17/2022): Added automatically from request for surgery [id number] Incisional hernia, without obstruction or gangre ne 05/17/2022 Overview (05/17/2022): Added automatically from request for surgery [id number] Immunizations Immunization Administration Dates Next Due Influenza, [...] on file Legal Sex Female 12:10 AM POST DOCTORAL RESEARCHER Gender Identity Not on file Sexual Orientation [...] 2:00 PM CDT Height 162.6 cm (5' 4.02) 02/28/2025 5:55 PM CD T Body Mass Index 43.2 02/28/2025 5:55 PM CDT Plan of Treatment Not on file Medical Devices Implanted Type Area Farm Management Agent Device Identifier Shelf Expiration Date Model / Serial / Lot [employer] Angio-Seal Vip 6fr Closere Device [id number] - [id number] Implanted:Qty: 1 on 07/04/2023 by Hank Irby MD at [employer] 01/17/2024 [id number] / / [id number] Procedures Procedure Name Priority Date/Time Associated Diagnosis Comments NEURO CT OUTSIDE REFERENCE Routine 04/08/2025 2:08 PM CDT Diagnosis unknown REFLEX THYROGLOBULIN, TUMOR MARKER, IA, S Routine [...] DEVICE Routine 02/10/2025 9 :15 PM CDT WI AN PROCEDURE PLACEHOLDER Routine 02/10/2025 5:42 PM CDT POCT GLUCOSE DEVICE Routine 02/10/2025 5 :02 PM CDT SURGICAL PATHOLOGY Routine 02/10/2025 3: 30 PM CDT Thyroid cancer (HCC) POCT GLUCOSE DEVICE Routine 02/10/2025 2 :50 PM CDT WI AN PROCEDURE PLACEHOLDER Routine 02/10/2025 2:00 PM CDT WI AN ELECTIVE ENDOTRACHEAL AIRWAY Routine 02/10/2025 2:00 PM CDT DISSECTION NECK - BILATERAL 02/10/2025 1:21 PM CDT Thyroid cancer (HCC) Case Notes 01/29@1317: Sent case msg to [facility] to see if she is waiting on block release. SR Special Needs NIMs THYROIDECTOMY - TOTAL 02/10/2025 1:21 PM CDT Thyroid cancer (HCC) Case Notes 01/29@1317: Sent case msg to [facility] to see if she is waiting on [...] Routine 02/05/2025 8:11 AM CDT Preoperative testing SCREENING MAMMOGRAM BILATERAL W VALERIO Schedule Routine, Read Routine (OP Routine) 11/24/2021 8:39 AM POST DOCTORAL RESEARCHER Encounter for screening mammogram for malignant neoplasm of breast from Last 3 Months or Most Recently Relevant to Health Maintenance Results * Neuro CT Outside Reference (04/08/2025 2:08 PM CDT) Impressions [facility] - 04/08/2025 2:08 PM CDT These images are for Reference purposes only and have not been reviewed by [facility]. There will be no report generated by a [facility] Radiologist. Narrative [facility] - 04/08/2025 2:08 PM CDT EXAMINATION: Images For Reference Purposes Only us Patti Alejandro MD IM CT PROCEDURES Final Result [facility] * Reflex thyroglobulin, tumor marker, IA, S (03/13/2025 1:45 PM CDT) Thyroglobulin, Tumor Marker 78 < or = 33 ng/mL [place] [facility] Thyroglobulin interp See Footnote WALLY [...] testing methods are immunoenzymatic assays manufactured by [employer] and performed on the [employer] DXI 800. Values obtained from different assay methods or kits may be different and cannot be used interchangeably. The results cannot be interpreted as absolute evidence for the presence or absence of malignant disease. Test Performed by: [place] [address] Roller Leveler Operator: Basil Rose Ph.D.; CLIA# [id number] Blood 03/13/2025 1:45 PM CDT 03/13/2025 3:05 PM CDT us Kirsty Cobb MD LAB BLOOD ORDERABLES Final Resul t Performing Organization Address [facility] de Phone Number WALLY [facility] [address] [facility] * Thyroglobulin reflex to MS or IA (03/13/2025 1:45 PM CDT) Anti-thyroglobulin <1.8 <1.8 IUnits/mL [facility] Comment: Thyroglobulin Antibody < 1.8 IU/mL. Thyroglobulin performed by Immunoassay to follow. Test Performed by: [place] [address] Roller Leveler Operator: Basil Rose Ph.D.; CLIA# [id number] Blood 03/13/2025 1:45 PM CDT 03/13/2025 3:05 PM CDT us Kirsty Cobb MD LAB BLOOD ORDERABLES Final Resul t Performing Organization Address [facility] Co de Phone Number WALLY [facility] [place] [address] [facility] * (ABNORMAL) TSH (03/13/2025 1:45 PM CDT) Thyroid Stimulating Hormone 0.04(L) 0.30 - 4.20 mcIUnit/mL Blood 03/13/2025 1:45 PM CDT 03/13/2025 1:47 PM CDT us Kirsty Cobb MD LAB BLOOD ORDERABLES Final Resul t [facility] [place] [address] * US Kidney Complete (03/04/2025 3:13 PM [...] by: Carolann Aleman M.D. Kirsty Cobb MD IM US PROCEDURES Final Result * (ABNORMAL) eGFR [...] MD LAB BLOOD ORDERABLES Final Resul t [facility] [place] [address] * Urinalysis reflex to microscopic and culture Urine, clean voided (03/04/2025 11:26 AM CDT) Color, ur Straw Yellow Clarity, ur Clear Clear [facility] Specific gravity, ur 1.014 1.003 - 1.[address] [facility] pH, urine 6.[address] [facility] Comment: Interpretive Data U rine pH is affected by diet, medications, systemic acid-base disturbances, and renal tubular function. pH may affect urinary stone formation. For example, urine pH below 6.0 may help reduce the tendency for calcium phosphate stones and pH greater than 6.0 may reduce the tendency for uric acid stone formation. Source: [facility] [employer] Current Interpretive Data was last revised on 2017 Protein, ur ql Negative Negative [facility] Glucose, ur ql Negative Negative [facility] Ketones, ur Negative Negative [facility] Bilirubin, ur Negative Negative [facility] Blood, ur Negative Negative [facility] Urobilinogen, ur <2.0 <2.0 mg/dL [facility] Nitrite, ur Negative Negative [facility] Leukocyte esterase, ur Negative Negative [facility] UA reflex comment Reflex conditions for microscopic UA and culture not met. [facility] Urine, clean voided 03/04/2025 11:26 AM CDT 03/04/2025 12:34 PM CDT Kirsty Cobb MD LAB MICROBIOLOGY - GENERAL ORDER BALDEV Final Result [facility] [place] [address] * (ABNORMAL) Basic metabolic panel (03/04/2025 11:26 AM CDT) Sodium 143 135 - 145 mmol/L Potassium, pl 4.0 3.3 - 4.9 mmol/L [facility] Chloride 105 97 - 110 mmol/L [facility] CO2 30 22 - 32 mmol/L [facility] Anion gap 8 2 - 15 mmol/L [facility] BUN 20 6 - 25 mg/dL [facility] Creatinine 1.32(H) 0.60 - 1.10 mg/dL [facility] Glucose 137 70 - 199 mg/dL [facility] Comment: Interpretive Data Fasting glucose >/= 126 [...] 2022. Calcium 9.0 8.5 - 10.3 mg/dL [facility] Blood 03/04/2025 11:2 6 AM CDT 03/04/2025 12:28 PM CDT Result Roxana Cobb MD LAB BLOOD ORDERABLES Final Resul t Performing Organization Address [facility] de Phone Number [facility] [place] [address] * Urea nitrogen, urine, random (03/03/2025 10:17 PM CDT) Urea nitrogen, ur 366 mg/dL Comment: Interpretive Data No reference range established. Current interpretive data was last revised 2019. Urine 03/03/2025 10:1 7 PM CDT 03/03/2025 11:41 PM CDT us Kirsty Cobb MD LAB URINE ORDERABLES Final Resul t Performing Organization Address [facility] de Phone Number [facility] [place] [address] * Creatinine, urine, random (03/03/2025 10:17 PM CDT) Creatinine Ur 66.0 mg/dL Comment: Interpretive Data No reference range established. Current interpretive data was last revised 2019. Urine 03/03/2025 10:1 7 PM CDT 03/03/2025 11:41 PM CDT Result Roxana Cobb MD LAB URINE ORDERABLES Final Resul t Performing Organization Address [facility] de Phone Number [facility] [place] [address] * (ABNORMAL) eGFR (03/03/2025 10:15 PM CDT) [...] MD LAB BLOOD ORDERABLES Final Resul t [facility] [place] [address] * (ABNORMAL) CBC without differential (03/03/2025 10:15 PM CDT) WBC 6.35 3.80 - 9.90 K/cumm Hgb 7.4(L) 11.9 - 15.5 g/dL [facility] Hct 24.0(L) 35.6 - 45.5 % [facility] Plt 221 150 - 400 K/cumm [facility] MPV 10.2 9.1 - 12.[address] [facility] RBC 2.53(L) 3.90 - 5.20 M/cumm [facility] MCV 94.9 81.3 - 96.[address] [facility] MCH 29.2 27.1 - 33.[address] [facility] MCHC 30.8(L) 32.3 - 35.7 g/dL [facility] RDW CV 15.2(H) 11.1 - 14.9 % [facility] RDW SD 52.5(H) 35.7 - 48.[address] [facility] NRBC abs 0.00 0.00 - 0.01 K/cumm [facility] Blood 03/03/2025 10:1 5 PM CDT 03/03/2025 11:25 PM CDT us Kirsty Cobb MD LAB BLOOD ORDERABLES Final Resul t Performing Organization Address [facility] de Phone Number [facility] [place] [address] * Phosphorus (03/03/2025 10:15 PM CDT) [facility] Phosphorus, pl 3.8 2.3 - 4.5 mg/dL Blood 03/03/2025 10:1 5 PM CDT 03/03/2025 11:25 PM CDT us Kirsty Cobb MD LAB BLOOD ORDERABLES Final Resul t Performing Organization Address [facility] de Phone Number [facility] [place] [address] * Magnesium (03/03/2025 10:15 PM CDT) [facility] Magnesium 1.8 1.4 - 2.5 mg/dL Blood 03/03/2025 10:1 5 PM CDT 03/03/2025 11:25 PM CDT us Kirsty Cobb MD LAB BLOOD ORDERABLES Final Resul t Performing Organization Address [facility] [place] [address] * (ABNORMAL) Basic metabolic panel (03/03/2025 10:15 PM CDT) [facility] Sodium 145 135 - 145 mmol/L Potassium, pl 4.0 3.3 - 4.9 mmol/L [facility] Chloride 108 97 - 110 mmol/L [facility] CO2 29 22 - 32 mmol/L [facility] Anion gap 8 2 - 15 mmol/L [facility] BUN 22 6 - 25 mg/dL [facility] Creatinine 1.38(H) 0.60 - 1.10 mg/dL [facility] Glucose 111 70 - 199 mg/dL [facility] Comment: Interpretive Data Fasting glucose >/= 126 [...] 2022. Calcium 8.7 8.5 - 10.3 mg/dL [facility] Blood 03/03/2025 10:1 5 PM CDT 03/03/2025 11:25 PM CDT us Kirsty Cobb MD LAB BLOOD ORDERABLES Final Resul t Performing Organization Address [facility] Co de Phone Number [facility] [place] [address] * Sodium, urine, random (03/03/2025 1:14 PM CDT) Sodium, ur 154 mmol/L Comment: Interpretive Data No reference range established. Current interpretive data was last revised 2019. Urine 03/03/2025 1:14 PM CDT 03/03/2025 1:58 PM CDT us Kirsty Cobb MD LAB URINE ORDERABLES Final Resul t Performing Organization Address City/State/[facility] Co de Phone Number [facility] [place] [address] * Creatinine, urine, random (03/03/2025 1:14 PM CDT) Creatinine Ur 19.9 mg/dL Comment: Interpretive Data No reference range established. Current interpretive data was last revised 2019. Urine 03/03/2025 1:14 PM CDT 03/03/2025 1:58 PM CDT Kirsty Cobb MD LAB URINE ORDERABLES Final Resul t Performing Organization Address [facility] Co de Phone Number [facility] [place] [address] * (ABNORMAL) Vancomycin level trough Draw trough 30 minutes prior to vancomycin dose. (03/03/2025 9:46 AM CDT) Vancomycin trough 21.2(H) 10.0 - 20.0 mcg/mL Blood 03/03/2025 9:46 AM CDT 03/03/2025 10:22 AM CDT [facility]ative [facility] - 03/03/2025 10:52 AM CDT Draw trough 30 minutes prior to vancomycin dose. Esperanza Banda MD LAB BLOOD ORDERABL ES Final Result Performing Organization Address [facility] de Phone Number [facility] [place] [address] * (ABNORMAL) eGFR (03/02/2025 10:15 PM CDT) [...] 5 PM CDT 03/02/2025 11:05 PM CDT Kirsty Cobb MD LAB BLOOD ORDERABLES Final Resul t Performing Organization Address City/[facility] Co de Phone Number [facility] [place] [address] * (ABNORMAL) CBC without differential (03/02/2025 10:15 PM CDT) WBC 8.01 3.80 - 9.90 K/cumm Hgb 7.9(L) 11.9 - 15.5 g/dL [facility] Hct 25.4(L) 35.6 - 45.5 % [facility] Plt 204 150 - 400 K/cumm [facility] MPV 10.8 9.1 - 12.[address] [facility] RBC 2.71(L) 3.90 - 5.20 M/cumm [facility] MCV 93.7 81.3 - 96.[address] [facility] MCH 29.2 27.1 - 33.[address] [facility] MCHC 31.1(L) 32.3 - 35.7 g/dL [facility] RDW CV 15.5(H) 11.1 - 14.9 % [facility] RDW SD 53.4(H) 35.7 - 48.[address] [facility] NRBC abs 0.00 0.00 - 0.01 K/cumm [facility] Blood 03/02/2025 10:1 5 PM CDT 03/02/2025 11:05 PM CDT Kirsty Cobb MD LAB BLOOD ORDERABLES Final Resul t Performing Organization Address City/[facility]/ZIP Co de Phone Number [facility] [place] [address] * Phosphorus (03/02/2025 10:15 PM CDT) Phosphorus, pl 3.4 2.3 - 4.5 mg/dL Blood 03/02/2025 10:1 5 PM CDT 03/02/2025 11:05 PM CDT Kirsty Cobb MD LAB BLOOD ORDERABLES Final Resul t [facility] [place] [address] * (ABNORMAL) Basic metabolic panel (03/02/2025 10:15 PM CDT) Pathologist [facility] Sodium 140 135 - 145 mmol/L Potassium, pl 3.4 3.3 - 4.9 mmol/L [facility] Chloride 103 97 - 110 mmol/L [facility] CO2 25 22 - 32 mmol/L [facility] Anion gap 12 2 - 15 mmol/L [facility] BUN 24 6 - 25 mg/dL [facility] Creatinine 1.46(H) 0.60 - 1.10 mg/dL [facility] Glucose 155 70 - 199 mg/dL [facility] Comment: Interpretive Data Fasting glucose >/= 126 [...] 2022. Calcium 8.7 8.5 - 10.3 mg/dL [facility] Blood 03/02/2025 10:1 5 PM CDT 03/02/2025 11:05 PM CDT us Kirsty Cobb MD LAB BLOOD ORDERABLES Final Resul t Performing Organization Address [facility] Co de Phone Number [facility] [place] [address] * (ABNORMAL) eGFR (03/01/2025 9:16 PM CDT) eGFR 46(L) >=60 mL/min/1. 73 [...] 9:16 PM CDT 03/01/2025 10:27 PM CDT Kirsty Cobb MD LAB BLOOD ORDERABLES Final Resul t Performing Organization Address City/[facility] Co de Phone Number [facility] [place] [address] * (ABNORMAL) CBC without differential (03/01/2025 9:16 PM CDT) WBC 12.35(H) 3.80 - 9.90 K/cumm Hgb 7.6(L) 11.9 - 15.5 g/dL [facility] Hct 24.5(L) 35.6 - 45.5 % [facility] Plt 163 150 - 400 K/cumm [facility] MPV 10.5 9.1 - 12.[address] [facility] RBC 2.59(L) 3.90 - 5.20 M/cumm [facility] MCV 94.6 81.3 - 96.[address] [facility] MCH 29.3 27.1 - 33.[address] [facility] MCHC 31.0(L) 32.3 - 35.7 g/dL [facility] RDW CV 15.7(H) 11.1 - 14.9 % [facility] RDW SD 54.2(H) 35.7 - 48.[address] [facility] NRBC abs 0.00 0.00 - 0.01 K/cumm [facility] Blood 03/01/2025 9:16 PM CDT 03/01/2025 10:27 PM CDT us Kirsty Cobb MD LAB BLOOD ORDERABLES Final Resul t Performing Organization Address City/[facility] Co de Phone Number [facility] [place] [address] * Phosphorus (03/01/2025 9:16 PM CDT) Pathologist [facility] Phosphorus, pl 3.3 2.3 - 4.5 mg/dL Blood 03/01/2025 9:16 PM CDT 03/01/2025 10:27 PM CDT us Kirsty Cobb MD LAB BLOOD ORDERABLES Final Resul t [facility] [place] [address] * Magnesium (03/01/2025 9:16 PM CDT) Pathologist [facility] Magnesium 2.2 1.4 - 2.5 mg/dL Blood 03/01/2025 9:16 PM CDT 03/01/2025 10:27 PM CDT us Kirsty Cobb MD LAB BLOOD ORDERABLES Final Resul t Performing Organization Address City/[facility]/ZIP Co de Phone Number [facility] [place] [address] * (ABNORMAL) Basic metabolic panel (03/01/2025 9:16 PM CDT) Sodium 142 135 - 145 mmol/L Potassium, pl 3.7 3.3 - 4.9 mmol/L [facility] Chloride 106 97 - 110 mmol/L [facility] CO2 25 22 - 32 mmol/L [facility] Anion gap 11 2 - 15 mmol/L [facility] BUN 28(H) 6 - 25 mg/dL [facility] Creatinine 1.34(H) 0.60 - 1.10 mg/dL [facility] Glucose 128 70 - 199 mg/dL [facility] Comment: Interpretive Data Fasting glucose >/= 126 [...] 2022. Calcium 8.6 8.5 - 10.3 mg/dL [facility] Blood 03/01/2025 9:16 PM CDT 03/01/2025 10:27 PM CDT us Kirsty Cobb MD LAB BLOOD ORDERABLES Final Resul t Performing Organization Address City/[facility]/ZIP Co de Phone Number [facility] Department [place] [address] * POCT glucose (03/01/2025 6:06 AM CDT) Glucose, POC 102 70 - 199 mg/dL Blood 03/01/2025 6:06 AM CDT 03/01/2025 6:06 AM CDT us Kirsty Cobb MD LAB POCT ORDERABLES - DEVICE Fin al Result Performing Organization Address [facility] Co de Phone Number [facility] [place] [address] * (ABNORMAL) eGFR (02/28/2025 9:37 PM CDT) eGFR 48(L) >=60 mL/min/1. 73 m2 [...] PM CDT 02/28/2025 10:47 PM CDT us Tarsha Moraes MD LAB BLOOD ORDERABLES Bronwyn l Result Performing Organization Address City/[facility]/ZIP Co de Phone Number [facility] [place] [address] * (ABNORMAL) CBC without differential (02/28/2025 9:37 PM CDT) WBC 17.76(H) 3.80 - 9.90 K/cumm Hgb 7.8(L) 11.9 - 15.5 g/dL [facility] Hct 24.7(L) 35.6 - 45.5 % [facility] Plt 207 150 - 400 K/cumm [facility] MPV 10.3 9.1 - 12.[address] [facility] RBC 2.60(L) 3.90 - 5.20 M/cumm [facility] MCV 95.0 81.3 - 96.[address] [facility] MCH 30.0 27.1 - 33.[address] [facility] MCHC 31.6(L) 32.3 - 35.7 g/dL [facility] RDW CV 15.8(H) 11.1 - 14.9 % [facility] RDW SD 55.0(H) 35.7 - 48.[address] [facility] NRBC abs 0.00 0.00 - 0.01 K/cumm [facility] Blood 02/28/2025 9:37 PM CDT 02/28/2025 10:47 PM CDT Tarsha Moraes MD LAB BLOOD ORDERABLES Bronwyn l Result [facility] [place] [address] * Phosphorus (02/28/2025 9:37 PM CDT) Pathologist [facility] Phosphorus, pl 3.1 2.3 - 4.5 mg/dL Blood 02/28/2025 9:37 PM CDT 02/28/2025 10:47 PM CDT Tarsha Moraes MD LAB BLOOD ORDERABLES Bronwyn l Result [facility] [place] [address] * Magnesium (02/28/2025 9:37 PM CDT) [facility] Magnesium 1.6 1.4 - 2.5 mg/dL Blood 02/28/2025 9:37 PM CDT 02/28/2025 10:47 PM CDT us Tarsha Moraes MD LAB BLOOD ORDERABLES Bronwyn sid Result [facility] [place] [address] * Lipid panel (02/28/2025 9:37 PM CDT) [...] revised on 2018. Triglycerides 56 <=149 mg/dL [facility] Comment: Interpretive Data Ages < or = [...] revised on 2018. HDL 51 >=40 mg/dL [facility] Comment: Interpretive Data Ages < or = [...] 2018. LDL, calculated 50 <=129 mg/dL [facility] Comment: Interpretive Data Ages < or [...] revised on 2024. Non-HDL Cholesterol 63 mg/dL [facility] Comment: Interpretive Data Ages < or [...] last revised on 2018. Chol/HDL ratio 2 [facility] Blood 02/28/2025 9:37 PM CDT 02/28/2025 10:47 PM CDT Kirsty Cobb MD LAB BLOOD ORDERABLES Final Resul t [facility] [place] [address] * (ABNORMAL) Basic metabolic panel (02/28/2025 9:37 PM CDT) Pathologist [facility] Sodium 142 135 - 145 mmol/L Potassium, pl 4.1 3.3 - 4.9 mmol/L [facility] Chloride 107 97 - 110 mmol/L [facility] CO2 27 22 - 32 mmol/L [facility] Anion gap 8 2 - 15 mmol/L [facility] BUN 26(H) 6 - 25 mg/dL [facility] Creatinine 1.30(H) 0.60 - 1.10 mg/dL [facility] Glucose 225(H) 70 - 199 mg/dL [facility] Comment: Interpretive Data Fasting glucose >/= 126 [...] 2022. Calcium 8.1(L) 8.5 - 10.3 mg/dL [facility] Blood 02/28/2025 9:37 PM CDT 02/28/2025 10:47 PM CDT us Tarsha Moraes MD LAB BLOOD ORDERABLES Bronwyn l Result Performing Organization Address City/[facility]/ZIP Co de Phone Number [facility] [place] [address] * (ABNORMAL) Aerobic and anaerobic culture and gram stain Aspirate Neck, right (02/28/2025 2:33 PM CDT) [facility] Direct Specimen Exam Stain: Few polymorphonuclear leukocytes seen. Abundant Gram Negative Bacilli Abundant Gram Positive Cocci Rare Gram Positive Bacilli Report Final Report: Abundant Pseudomonas aeruginosa Abundant Streptococcus agalactiae (Group B Streptococci) Abundant Staphylococcus aureus Methicillin resistant (MRSA) by penicillin binding protein 2a (PBP2a) testing. (.) [facility] Organism PSEUDOMONAS AERUGINOSA [facility] Organism STREPTOCOCCUS AGALACTIAE (GROUP B STREPTOCOCCI) [facility] Organism STAPHYLOCOCCUS AUREUS [facility] Aspirate (Neck, right) 02/28/2025 2:33 PM CDT 02/28/2025 2:49 PM CDT Narrative [facility] - 03/06/2025 2:02 PM CDT Testing performed by [facility] ([phone]) Specimens submitted from normally sterile body sites [...] INTERPRETATION Resistant Staphylococcus aureus Ceftriaxone INTERPRETATION Resistant Aliya Funk MD LAB MICROBIOLOGY - GENERAL O RDERABLES Final Result [facility] [place] [address] * Triglycerides, body fluid (02/28/2025 2:33 PM CDT) Specimen type, fld Peritoneal Triglycerides, fld <20 mg/dL [facility] Comment: Repeated and Verified The above specimen [...] ascites. References: Pleural Fluid characteristics of Chyl[facility]ax. [facility] Proceedings. December 2008; 84(2):129-133 Clifford Textbook of Clinical Chemistry and Molecular Diagnostics, Sixth Edition. Elsevier Press. 2018. Chapter 43, Body Fluids, p. 925 [employer] Test directory, Body Fluid Reference Intervals and/or Interpretative Information. [email or web address] [facility] Laboratories. Practical Guide to the Analytical Validation of Body Fluid Chemistry Testing. January 2013. 1-9. Current Interpretive Data was last revised 2019. Fluid 02/28/2025 2:33 PM CDT 02/28/2025 2:45 PM CDT Narrative [facility] - 02/28/2025 3:33 PM CDT From neck drain aspirate Aliya Funk MD LAB BODY FLUIDS AND STOOLS O RDERABLES Final Result [facility] [place] [address] * Amylase, body fluid (02/28/2025 2:33 PM [...] 2018. Chapter 43, Body Fluids, p. 925 [employer] Test directory, Body Fluid Reference Intervals and/or Interpretative Information. [email or web address] Current Interpretive Data was last revised 2019. Fluid 02/28/2025 2:33 PM CDT 02/28/2025 2:45 PM CDT Narrative [facility] - 02/28/2025 3:33 PM CDT From neck drain aspirate us Aliya Funk MD LAB BODY FLUIDS AND STOOLS O RDERABLES Final Result [facility] [place] [address] * CT Neck Soft Tissue W Contrast [...] are normal. The limited view of the [place] is unremarkable. The visualized portions [...] are normal. The limited view of the [place] is unremarkable. The visualized portions [...] DEV ICE Final Result Performing Organization Address [facility] de Phone Number [facility] [place] [address] * (ABNORMAL) eGFR (02/28/2025 10:06 AM CDT) [...] ORDERABLES Final R esult Performing Organization Address City/[facility] Co de Phone Number [facility] [place] [address] * (ABNORMAL) Differential, auto (02/28/2025 10:06 AM CDT) Neutrophil abs 10.19(H) 1.50 - 6.50 K/cumm Imm gran abs 0.05 0.00 - 0.10 K/cumm [facility] Lymphocyte abs 0.72(L) 0.80 - 3.30 K/cumm [facility] Monocyte abs 0.64 0.20 - 0.80 K/cumm [facility] Eosinophil abs 0.18 0.00 - 0.50 K/cumm [facility] Basophil abs 0.03 0.00 - 0.10 K/cumm [facility] Neutrophil pct 86.3 % [facility] Comment: Interpretive Data Percent cell count reference ranges are not reported, since discordance with absolute values may lead to misinterpretation of CBC data. Current Interpretive Data was last revised on 2018. Imm gran pct 0.4 % [facility] Comment: Interpretive Data Percent cell count reference ranges are not reported, since discordance with absolute values may lead to misinterpretation of CBC data. Current Interpretive Data was last revised on 2018. Lymphocyte pct 6.1 % [facility] Comment: Interpretive Data Percent cell count reference ranges are not reported, since discordance with absolute values may lead to misinterpretation of CBC data. Current Interpretive Data was last revised on 2018. Monocyte pct 5.4 % [facility] Comment: Interpretive Data Percent cell count reference ranges are not reported, since discordance with absolute values may lead to misinterpretation of CBC data. Current Interpretive Data was last revised on 2018. Eosinophil pct 1.5 % [facility] Comment: Interpretive Data Percent cell count reference ranges are not reported, since discordance with absolute values may lead to misinterpretation of CBC data. Current Interpretive Data was last revised on 2018. Basophil pct 0.3 % [facility] Comment: Interpretive Data Percent cell count reference ranges are not reported, since discordance with absolute values may lead to misinterpretation of CBC data. Current Interpretive Data was last revised on 2018. Blood 02/28/2025 10:0 6 AM CDT 02/28/2025 10:36 AM CDT us Aliya Funk MD LAB BLOOD ORDERABLES Final R esult [facility] [place] [address] * (ABNORMAL) CBC with auto differential (02/28/2025 10:06 AM CDT) Pathologist [facility] WBC 11.81(H) 3.80 - 9.90 K/cumm Hgb 9.3(L) 11.9 - 15.5 g/dL [facility] Hct 29.5(L) 35.6 - 45.5 % [facility] Plt 241 150 - 400 K/cumm [facility] MPV 9.4 9.1 - 12.[address] [facility] RBC 3.15(L) 3.90 - 5.20 M/cumm [facility] MCV 93.7 81.3 - 96.[address] [facility] MCH 29.5 27.1 - 33.[address] [facility] MCHC 31.5(L) 32.3 - 35.7 g/dL [facility] RDW CV 15.5(H) 11.1 - 14.9 % [facility] RDW SD 52.7(H) 35.7 - 48.[address] [facility] NRBC abs 0.00 0.00 - 0.01 K/cumm [facility] Blood 02/28/2025 10:0 6 AM CDT 02/28/2025 10:36 AM CDT Aliya Funk MD LAB BLOOD ORDERABLES Final R esult [facility] [place] [address] * (ABNORMAL) Comprehensive metabolic panel (02/28/2025 10:06 AM CDT) Pathologist [facility] Sodium 142 135 - 145 mmol/L Potassium, pl 3.6 3.3 - 4.9 mmol/L [facility] Chloride 105 97 - 110 mmol/L [facility] CO2 28 22 - 32 mmol/L [facility] Anion gap 9 2 - 15 mmol/L [facility] BUN 25 6 - 25 mg/dL [facility] Creatinine 1.29(H) 0.60 - 1.10 mg/dL [facility] Glucose 135 70 - 199 mg/dL [facility] Comment: Interpretive Data Fasting glucose >/= 126 [...] 2022. Calcium 8.9 8.5 - 10.3 mg/dL [facility] Bilirubin, total 0.8 0.1 - 1.2 mg/dL [facility] Protein, pl 6.8 6.5 - 8.5 g/dL [facility] Albumin 3.4(L) 3.5 - 5.0 g/dL [facility] Alk phos 126 40 - 130 Units/L [facility] ALT 7 7 - 45 Units/L [facility] AST 18 10 - 45 Units/L [facility] Blood 02/28/2025 10:0 6 AM CDT 02/28/2025 10:35 AM CDT us Aliya Funk MD LAB BLOOD ORDERABLES Final R esult [facility] [place] [address] * POCT glucose (02/12/2025 11:48 AM CDT) [facility] Glucose, POC 131 70 - 199 mg/dL Blood 02/12/2025 11:4 8 AM CDT 02/12/2025 11:48 AM CDT us Kirsty Cobb MD LAB POCT ORDERABLES - DEVICE Fin al Result [facility] [place] [address] * POCT glucose (02/12/2025 7:26 AM CDT) Glucose, POC 97 70 - 199 mg/dL Blood 02/12/2025 7:26 AM CDT 02/12/2025 7:26 AM CDT us Kirsty Cobb MD LAB POCT ORDERABLES - DEVICE Fin al Result Performing Organization Address [facility] Co de Phone Number [facility] [place] [address] * (ABNORMAL) eGFR (02/11/2025 10:14 PM CDT) [...] ORDERABLES Final Resul t Performing Organization Address City/[facility]/ZIP Co de Phone Number [facility] [place] [address] * PTH (02/11/2025 10:14 PM CDT) PTH 15 15 - 65 pg/mL Blood 02/11/2025 10:1 4 PM CDT 02/11/2025 10:54 PM CDT Kirsty Cobb MD LAB BLOOD ORDERABLES Final Resul t Performing Organization Address [facility] [place] [address] * (ABNORMAL) Basic metabolic panel (02/11/2025 10:14 PM CDT) Pathologist [facility] Sodium 142 135 - 145 mmol/L Potassium, pl 4.1 3.3 - 4.9 mmol/L [facility] Chloride 110 97 - 110 mmol/L [facility] CO2 24 22 - 32 mmol/L [facility] Anion gap 8 2 - 15 mmol/L [facility] BUN 32(H) 6 - 25 mg/dL [facility] Creatinine 1.45(H) 0.60 - 1.10 mg/dL [facility] Glucose 149 70 - 199 mg/dL [facility] Comment: Interpretive Data Fasting glucose >/= 126 [...] 2022. Calcium 7.8(L) 8.5 - 10.3 mg/dL [facility] Blood 02/11/2025 10:1 4 PM CDT 02/11/2025 10:54 PM CDT us Kirsty Cobb MD LAB BLOOD ORDERABLES Final Resul t Performing Organization Address [facility] Co de Phone Number [facility] [place] [address] * POCT glucose (02/11/2025 7:38 PM CDT) Glucose, POC 143 70 - 199 mg/dL Blood 02/11/2025 7:38 PM CDT 02/11/2025 7:38 PM CDT us Kirsty Cobb MD LAB POCT ORDERABLES - DEVICE Fin al Result Performing Organization Address [facility] Co de Phone Number [facility] [place] [address] * POCT glucose (02/11/2025 5:30 PM CDT) Glucose, POC 160 70 - 199 mg/dL Blood 02/11/2025 5:30 PM CDT 02/11/2025 5:30 PM CDT us Kirsty Cobb MD LAB POCT ORDERABLES - DEVICE Fin al Result Performing Organization Address [facility] Co de Phone Number [facility] [place] [address] * (ABNORMAL) eGFR (02/11/2025 1:15 PM CDT) [...] ORDERABLES Final Resul t Performing Organization Address City/[facility] Co de Phone Number [facility] [place] [address] * (ABNORMAL) Calcium, ionized (02/11/2025 1:15 PM CDT) Calcium, Ionized 4.49(L) 4.50 - 5.10 mg/dL Blood 02/11/2025 1:15 PM CDT 02/11/2025 1:56 PM CDT us Kirsty Cobb MD LAB BLOOD ORDERABLES Final Resul t Performing Organization Address [facility] Co de Phone Number [facility] Department [place] [address] * Vitamin D 25 hydroxy (02/11/2025 1:15 PM CDT) Vitamin D 25-OH 33 30 - 80 ng/mL Blood 02/11/2025 1:15 PM CDT 02/11/2025 1:59 PM CDT us Kirsty Cobb MD LAB BLOOD ORDERABLES Final Resul t Performing Organization Address City/[facility] Co de Phone Number [facility] [place] [address] * PTH (02/11/2025 1:15 PM CDT) [facility] PTH 18 15 - 65 pg/mL Blood 02/11/2025 1:15 PM CDT 02/11/2025 1:59 PM CDT us Kirsty Cobb MD LAB BLOOD ORDERABLES Final Resul t Performing Organization Address City/[facility] Co de Phone Number [facility] [place] [address] * Vitamin B12 (02/11/2025 1:15 PM CDT) [facility] Vitamin B12 399 230 - 1,250 pg/mL Blood 02/11/2025 1:15 PM CDT 02/11/2025 1:59 PM CDT us Kirsty Cobb MD LAB BLOOD ORDERABLES Final Resul t Performing Organization Address [facility] de Phone Number [facility] [place] [address] * (ABNORMAL) Basic metabolic panel (02/11/2025 1:15 PM CDT) [facility] Sodium 141 135 - 145 mmol/L Potassium, pl 3.9 3.3 - 4.9 mmol/L [facility] Chloride 105 97 - 110 mmol/L [facility] CO2 25 22 - 32 mmol/L [facility] Anion gap 11 2 - 15 mmol/L [facility] BUN 26(H) 6 - 25 mg/dL [facility] Creatinine 1.33(H) 0.60 - 1.10 mg/dL [facility] Glucose 156 70 - 199 mg/dL [facility] Comment: Interpretive Data Fasting glucose >/= 126 [...] 2022. Calcium 8.3(L) 8.5 - 10.3 mg/dL [facility] Blood 02/11/2025 1:15 PM CDT 02/11/2025 1:59 PM CDT us Kirsty Cobb MD LAB BLOOD ORDERABLES Final Resul t Performing Organization Address [facility] Co de Phone Number [facility] [place] [address] * (ABNORMAL) POCT glucose (02/11/2025 12:28 PM CDT) Glucose, POC 210(H) 70 - 199 mg/dL Blood 02/11/2025 12:2 8 PM CDT 02/11/2025 12:28 PM CDT us Kirsty Cobb MD LAB POCT ORDERABLES - DEVICE Fin al Result Performing Organization Address [facility] Co de Phone Number [facility] [place] [address] * POCT glucose (02/11/2025 8:26 AM CDT) Glucose, POC 167 70 - 199 mg/dL Blood 02/11/2025 8:26 AM CDT 02/11/2025 8:26 AM CDT us Kirsty Cobb MD LAB POCT ORDERABLES - DEVICE Fin al Result Performing Organization Address [facility] Co de Phone Number [facility] [place] [address] * (ABNORMAL) eGFR (02/11/2025 6:03 AM CDT) Pathologist [facility] eGFR 47(L) >=60 mL/min/1. 73 m2 Comment: [...] 6:03 AM CDT 02/11/2025 6:17 AM CDT Kirsty Cobb MD LAB BLOOD ORDERABLES Final Resul t Performing Organization Address City/[facility]/ZIP Co de Phone Number [facility] [place] [address] * (ABNORMAL) Calcium, ionized (02/11/2025 6:03 AM CDT) [facility] Calcium, Ionized 4.21(L) 4.50 - 5.10 mg/dL Blood 02/11/2025 6:03 AM CDT 02/11/2025 6:17 AM CDT us Kirsty Cobb MD LAB BLOOD ORDERABLES Final Resul t Performing Organization Address City/[facility]/ZIP Co de Phone Number [facility] [place] [address] * (ABNORMAL) PTH (02/11/2025 6:03 AM CDT) PTH 8(L) 15 - 65 pg/mL Blood 02/11/2025 6:03 AM CDT 02/11/2025 6:18 AM CDT us Kirsty Cobb MD LAB BLOOD ORDERABLES Final Resul t Performing Organization Address [facility]/ZIP Co de Phone Number [facility] [place] [address] * (ABNORMAL) Basic metabolic panel (02/11/2025 6:03 AM CDT) Pathologist [facility] Sodium 141 135 - 145 mmol/L Potassium, pl 4.6 3.3 - 4.9 mmol/L [facility] Chloride 108 97 - 110 mmol/L [facility] CO2 25 22 - 32 mmol/L [facility] Anion gap 8 2 - 15 mmol/L [facility] BUN 28(H) 6 - 25 mg/dL [facility] Creatinine 1.32(H) 0.60 - 1.10 mg/dL [facility] Glucose 143 70 - 199 mg/dL [facility] Comment: Interpretive Data Fasting glucose >/= 126 [...] 2022. Calcium 8.4(L) 8.5 - 10.3 mg/dL [facility] Blood 02/11/2025 6:03 AM CDT 02/11/2025 6:17 AM CDT Narrative [facility] - 02/11/2025 6:39 AM CDT Begin after renal function panel us Kirsty Cobb MD LAB BLOOD ORDERABLES Final Resul t [facility] [place] [address] * (ABNORMAL) POCT glucose (02/10/2025 11:20 PM CDT) Glucose, POC 250(H) 70 - 199 mg/dL Blood 02/10/2025 11:2 0 PM CDT 02/10/2025 11:20 PM CDT us Kirsty Cobb MD LAB POCT ORDERABLES - DEVICE Fin al Result Performing Organization Address [facility] Co de Phone Number [facility] [place] [address] * (ABNORMAL) eGFR (02/10/2025 11:14 PM CDT) Pathologist [facility] eGFR 51(L) >=60 mL/min/1. 73 m2 Comment: [...] ORDERABLES Final Resul t Performing Organization Address City/[facility]/ZIP Co de Phone Number CERNER [facility] [place] [address] * (ABNORMAL) Calcium, ionized (02/10/2025 11:14 PM CDT) [facility] Calcium, Ionized 4.35(L) 4.50 - 5.10 mg/dL Blood 02/10/2025 11:1 4 PM CDT 02/10/2025 11:49 PM CDT us Kirsty Cobb MD LAB BLOOD ORDERABLES Final Resul t Performing Organization Address City/[facility] [place] [address] * (ABNORMAL) PTH (02/10/2025 11:14 PM CDT) [facility] PTH 11(L) 15 - 65 pg/mL Blood 02/10/2025 11:1 4 PM CDT 02/11/2025 1:11 AM CDT us Kirsty Cobb MD LAB BLOOD ORDERABLES Final Resul t Performing Organization Address City/[facility] Co de Phone Number [facility] [place] [address] * (ABNORMAL) Basic metabolic panel (02/10/2025 11:14 PM CDT) [facility] Sodium 140 135 - 145 mmol/L Potassium, pl 4.4 3.3 - 4.9 mmol/L [facility] Chloride 107 97 - 110 mmol/L [facility] CO2 26 22 - 32 mmol/L [facility] Anion gap 7 2 - 15 mmol/L [facility] BUN 27(H) 6 - 25 mg/dL [facility] Creatinine 1.22(H) 0.60 - 1.10 mg/dL [facility] Glucose 238(H) 70 - 199 mg/dL [facility] Comment: Interpretive Data Fasting glucose >/= 126 [...] 2022. Calcium 8.2(L) 8.5 - 10.3 mg/dL [facility] Blood 02/10/2025 11:1 4 PM CDT 02/10/2025 11:53 PM CDT us Kirsty Cobb MD LAB BLOOD ORDERABLES Final Resul t Performing Organization Address [facility] Co de Phone Number [facility] [place] [address] * (ABNORMAL) POCT glucose (02/10/2025 9:15 PM CDT) [facility] Signature Glucose, POC 288(H) 70 - 199 mg/dL Blood 02/10/2025 9:15 PM CDT 02/10/2025 9:15 PM CDT us Kirsty Cobb MD LAB POCT ORDERABLES - DEVICE Fin al Result Performing Organization Address [facility] Co de Phone Number [facility] [place] [address] * [place] AN PROCEDURE PLACEHOLDER (02/10/2025 5:42 PM CDT) [...] occlusive dressing applied Number of attempts: 1 us John Paul De La O MD ANESTHESIA ORDERABLES Final Result * POCT glucose (02/10/2025 5:02 PM CDT) Glucose, POC 151 70 - 199 mg/dL Blood 02/10/2025 5:02 PM CDT 02/10/2025 5:02 PM CDT us Kirsty Cobb MD LAB POCT ORDERABLES - DEVICE Fin al Result [facility] [place] [address] * Surgical pathology (02/10/2025 3:30 PM CDT) [...] (Thyroid) 02/10/2025 6:00 PM CDT Narrative PATHOLOGY [facility] - 02/16/2025 11:40 AM CDT EPIC results best viewed via link to PDF [facility] [place] [address] Note to Patients: This report may contain [...] Gender: F : 1965 (Age: 60) Address: [address] [place], [place] [id number] Hospital #: [id number] Taken:02/10/2025 Received:02/11/2025 Reported: 02/16/2025 Patient Type: [facility] OP In Bed Service: Surgery Location: [facility] 5181 Physician(s): MD Andrés Ulrich PA Natnael Beyene Doilicho, MD William E. Gillanders, M.D. Diagnosis: A. Thyroid, part of right thyroid lobe #1, total thyroidectomy: - Papillary thyroid carcinoma, classic, multifocal - Two foci, 5.0 cm in greatest dimension - Lymphovascular invasion identified - Margins are disrupted and positive for carcinoma - pT3a/N1b - See synoptic - Metastatic carcinoma in one of one lymph node (1/1) - Largest focus: 0.8 cm - Positive for extranodal extension, microscopic, < 1mm - Parathyroid tissue present B. Lymph nodes, central neck, dissection: - Metastatic carcinoma in three out of five lymph nodes (3/5) - Largest focus: 1.0 cm - Negative for extranodal extension C. Thyroid, part of right thyroid lobe #2, total thyroidectomy: - Papillary thyroid carcinoma, classic, [...] carcinoma in one of one lymph node (11/19, level not identified) - Largest focus: 0.9 [...] extension F. Thyroid, right thyroid lobe part 3, total thyroidectomy: - Fragments of papillary thyroid [...] and labeled with patient identifiers and additionally labeledpart of right thyroid lobe 1 is an [...] of encapsulated nodule at opposite end A4 Calender Wind Up Tender sections of mass in relation to grossly uninvolved thyroid A5 Calender Wind Up Tender sections of mass in relation to black inked margin in areas of putative positive margin A6 Additional ambulatory services representative sections of mass A7 One possible [...] submitted entirely [id number] Level three lymph node, ambulatory services representative sections of matted mass of lymph [...] described nodule losest approach to margins E5 Calender Wind Up Tender sections of uninvolved thyroid Jar 0. F. [...] Surgical Pathology and Flow Cytometry Departments at [facility] as part of an ongoing quality internship program and in compliance with federally mandated [...] Surgical Pathology and Flow Cytometry Departments of [facility]. It has not been cleared or approved by the U. S. Food and Drug Administration. IMAGES AND SCANNED DOCUMENTS, IF INCLUDED, ONLY VIEWABLE IN PDF VERSION OF REPORT us Kirsty Cobb MD LAB PATHOLOGY ORDERABLES Final R esult PATHOLOGY [facility] 3rd Floor [place], [place] [phone] * POCT glucose (02/10/2025 2:50 PM CDT) Glucose, POC 112 70 - 199 mg/dL Blood 02/10/2025 2:50 PM CDT 02/10/2025 2:50 PM CDT us Kirsty Cobb MD LAB POCT ORDERABLES - DEVICE Fin al Result Performing Organization Address [facility] Co de Phone Number [facility] [place] [address] * WI AN ELECTIVE ENDOTRACHEAL AIRWAY, WI AN PROCEDURE PLACEHOLDER (02/10/2025 2:00 PM CDT) Narrative Ariana Smith CRNA - 02/10/2025 2:00 PM CDT Ariana Smith CRNA 02/10/2025 2:01 PM Airway Patient location: OR Urgency: elective Indications for airway management: anesthesia and airway protection Difficult airway: no Staff: Supervising provider: John Paul De La O MD Placed by: CHEMICAL SPRAYER: Ariana Smith CRNA Emergent airway documentation: Risks [...] POCT ORDERABLES - DEVICE Fin al Result [facility] [place] [address] * US Soft Tissue Neck (02/10/2025 11:15 [...] by: Margoth Roman M.D. Kirsty Cobb MD IMG US PROCEDURES Final Result * TYPE AND SCREEN 14 DAY (02/05/2025 9:37 AM CDT) Bao, indirect Negative ABO Rh A Positive [facility] Blood 02/05/2025 9:37 AM CDT 02/05/2025 11:15 AM CDT Narrative [facility] - 02/05/2025 12:04 PM CDT Is this test being ordered in advance for a procedure?->Yes Expected date of procedure:->02/10/25 Has the patient been transfused in the past 3 months?->No Has the patient been in the past 3 months?->No us Genie Wilkinson NP LAB BLOOD BANK TEST ORDERAB LES Final Result [facility] [place] [address] * (ABNORMAL) POCT hemoglobin A1c (02/05/2025 8:23 AM CDT) Hgb A1C, POC 6.5(H) 4.0 - 5.6 % Est Average Gluc POC 140 mg/dL [facility] Comment: The ADA recommends reporting an estimated Average Glucose (eAG) with all Hemoglobin A1c results using the equation derived from a study of 507 normal and diabetic adults. Minority populations were underrepresented and children were not included. (Diabetes Care 31:6471-4651, 2008). The eAG is not equivalent to a fasting glucose. Blood 02/05/2025 8:23 AM CDT 02/05/2025 8:23 AM CDT us Kirsty Cobb MD POINT OF CARE TEST ORDERABLES Fi nal Result Performing Organization Address City/[facility] Co de Phone Number [facility] [place] [address] * ECG 12 lead (02/05/2025 8:11 AM CDT) Ventricular Rate EKG/Min 65 BPM [facility] Atrial Rate 65 BPM [facility] WI-Interval (MSEC) 160 ms [facility] QRS-Interval (MSEC) 96 ms [facility] QT-Interval (MSEC) 432 ms [facility] QTc 449 ms [facility] P [place] 23 degrees [facility] R [place] -15 degrees [facility] T [place] 14 degrees [facility] Diagnosis Normal sinus rhythm Normal ECG No previous ECGs available Confirmed by Elena JEAN, Zari ([id number]) on 02/08/2025 8:03:24 AM [facility] 02/05/2025 8:11 AM CDT 02/08/2025 8:03 AM CDT Genie Wilkinson BRUSHER TENDER ECG ORDERABLES Final Resul t Performing Organization Address [facility] Co de Phone Number [facility] * Screening Mammogram Bilateral W Valerio (11/24/2021 8:39 AM POST DOCTORAL RESEARCHER) Anatomical Region Laterality Modality Breast Bilateral Mammography 11/24/2021 9:28 AM POST DOCTORAL RESEARCHER Impressions 11/24/2021 9:28 AM POST DOCTORAL RESEARCHER There is no mammographic evidence of malignancy. Routine screening mammography is recommended in 1 year. BI-RADS: 1 - Negative. The patient will be entered into a reminder system with a target due date of 1 year for her next mammogram. Electronically signed by: Bull Garcia M.D. 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: SCREENING MAMMOGRAM BILATERAL W VALERIO ORDERING [...] Relevant to Health Maintenance Insurance MEDICARE ADVANTAGE [facility] MEDICARE ADVANTAGE IDPA [facility] MEDICARE ADVANTAGE IDPA Advance Directives For more information, please contact: [phone] * Full Code (Latest Code Status on File) Date Activated Date Inactivated Comments 02/28/2025 5:33 PM 03/04/2025 10:56 PM * Full Code Date Activated Date Inactivated Comments 02/10/2025 8:54 PM 02/12/2025 6:14 PM * Full Code Date Activated Date Inactivated Comments 07/04/2023 10:44 AM 07/04/2023 5:20 PM Care Teams E Learning Manager Relationship Specialty Start Date End Date Andrés Smiley PA [address] [place] [address] PCP - General 04/18/17
--- OUTSIDE RECORDS SUMMARY | 2025-04-27 13:25 | XMS_ITS | Data Portability ---
Author Organization [facility] José [facility] Address [address] [place] [address] Care Team Providers Care Health Technician Name Role Phone PORSCHE SMILEY Primary Care Provider ART ARITA Case Management Specialist Unavailable Assessment No assessment recorded. Plan of Treatment Reminders Order Date Submit Date Provider Last Modified By Organization Details Last Modified Time Details Appointments None recorded. Lab None recorded. Referral nephrologi st referral [address] [facility], 2 [facility] , [address], [address], [address], 09:27:37 physical therapist referral 2024 025 [facility], [address] [place], [address], 5 17:38:59 Procedures None recorded. Surgeries None recorded. Imaging CT, neck, soft tissue, w/ contrast 2024 025 [facility], [address] [place], [address], 5 17:02:55 Medication Orders Cipro 500 mg tablet 2024 025 [facility] #[id number], [address] [place], [address], 5 16:01:57 meclizine 25 mg tablet 2024 025 [facility]acy #[id number], [address] [place], [address], 16:01:56 ondansetro n 4 mg disintegra ting tablet [address] [id number] [address] [place], [address], 15:18:24 tramadol 50 mg tablet 2024 025 [facility] #[id number], [address] [place], [address], 15:18:25 furosemide [address] tablet [address] [id number] [address] [place], [address], 15:30:55 hydrochlor othiazide 25 mg tablet [id number] [address] [place], [address], 15:36:12 Patient TargetsNo targets recorded. Patient Instructions Encounter Date Encounter Id Patient Instructions Last Modified By Organization Details Last Modified Time 02/18/2025 [id number] body mass index: care instructions jnanney Not available 02/18/2025 15:36:06 learning about healthy weight jnanney Not available 02/18/2025 15:36:06 A healthy lifestyle: care instructions jnanney Not available 02/18/2025 15:36:06 learning about high blood pressure jnanney Not available 02/18/2025 15:36:06 thyroidectomy: before your surgery jnanney Not available 02/18/2025 15:36:06 02/25/2025 [id number] A healthy lifestyle: care instructions jnanney Not available 02/25/2025 15:32:30 leg and ankle edema: care instructions jnanney Not available 02/25/2025 15:30:52 learning about high blood pressure jnanney Not available 02/25/2025 15:30:52 03/11/2025 [id number] nausea and vomiting: care instructions jnanney Not available 03/11/2025 15:18:22 learning about high blood pressure jnanney Not available 03/11/2025 15:18:22 thyroidectomy: before your surgery jnanney Not available 03/11/2025 15:18:22 04/17/2025 [id number] benign paroxysma l positional vertigo (bppv): care instructions jnanney Not available 04/17/2025 16:01:54 Reason for Referral Physical Therapist Referral for Muscle weakness Referring Physician: Porsche Smiley [facility], Encounter Date: 02/18/2025 Print Press Operator Referral for De creased renal function Referring Physician: Porsche Smiley [facility], Encounter Date: 02/25/2025 Results Created Date Observation Date Name Description Value Unit Range Abnormal Flag Note LastModifiedBy Organization Detail LastModifiedTime 02/06/2002/05/2025 Hemog lobin A1c/H emogl obin. total in Blood hemoglobin A1C/hemoglob in.total in blood 6.5 % low: 4%high : 5.6% high Hgb A1C, POC 6.5 (H) 4.0 - 5.6 % Not Available Not Available 02/09/2025 11:16:07 02/06/2002/05/2025 Hemog lobin A1c/H emogl obin. total in Blood glucose mean value [mass/volume ] in blood estimated from glycated hemoglobin 140 mg/dL Est [place] ge Gluc POC 140 mg/dL BRIELLE Ortega [facility] Not Available Not Available 02/09/2025 11:16:07 02/06/2002/05/2025 Hemog lobin A1c/H emogl obin. total in Blood interpretati on and review of laboratory results Abnorm al Not Available Not Available 11:16:07 04/06/20 25 04/06/2025 CT, neck, soft tissu e, w/o contr ast No observ ation record ed. [facility] [address] [place], [address], 04/07/2025 09:24:13 Result Notes None recorded. Problems Name Problem SNOMED Code Status Onset Date Resolution Date Notes Provider Name and Address Organization Details Recorded Time Knee pain Active Not Available [facility] 4 00:18:38 Morbid obesity 197437851 Active Not Available [facility] 4 00:18:38 Chronic depression 460488742 Active Not Available [facility] 4 00:18:38 Cerebrovascul ar accident 469563273 Active Not Available [facility] 4 00:18:38 Psoriasis 8444129 Active Not Available [facility] 4 00:18:38 Candidiasis of skin 45884828 Active Not Available [facility] 4 00:18:38 Hyperglycemia 69529503 Active Not Available [facility] 4 00:18:38 Right upper quadrant pain 343840913 Active Not Available [facility] 4 00:18:38 Diabetes mellitus 83730751 Active Not Available [facility] 4 00:18:38 Cellulitis 076916874 Active Not Available [facility] 4 00:18:38 Migraine 73679722 Active Not Available [facility] 4 00:18:38 Incontinence 80669585 Active Not Available [facility] 4 00:18:38 Notes:Some problems listed i n Documents: #[id number], #[id number], #[id number], #[id number], #[id number], #[id number], #[id number], #[id number], #[id number], #[id number], #[id number] could not be added to this patient's chart. Please review these documents and add these problems to the patient's chart manually as needed. Problem Notes None recorded. Procedures Surgical History Date Name Laterality Status Provider Name and Address Organization Details Recorded Time 11/24/19 22 Date of Last Mammogram completed STEPHANY Blackman [facility] 01/04/2022 11:53:00 11/19/18 97 Total hysterectomy completed STEPHANY Blackman [facility] 02/14/2021 11:30:00 tonsillectomy completed STEPHANY Blackman [facility] 10/10/2021 10:51:03 Removal of adenoids completed Kate Landa MA [facility] 10/10/2021 10:51:32 abdominoplasty completed Kate Landa MA [facility] 10/10/2021 10:51:40 Gastric Bypass completed Eleonora Miller MA [facility] - [facility] 01/24/2016 10:13:00 Imaging Results None recorded. Procedure Notes None recorded. Medical Equipment None Reported. Allergies Allergen ID Allergen Name Allergen Category Reaction Reaction Severity Criticality Documentation Date Start Date Code Code System Note Provider Name and Address Organization Details Recorded Time 503128 tetracycl ine medicatio n rash Not available Not available 03/24/2020 36650 RxNorm STEPHANY Blackman [facility] 0 10:56:37 649878 Bactrim medicatio n hives Not available Not available 02/14/2021 35542 9 RxNorm Vomit ing STEPHANY Blackman [facility] 1 11:28:25 76338 amoxicill in medicatio n rash Not available Not available 09/18/[address] - [facility] 0 10:51:29 05062 Medicinal product containin g tetracycl ine structure and acting as antibacte rial agent (product) medicatio n vomiting severe Not available 09/18/2016 80246 1004 SNOMED STEPHANY Gimenez, CT [facility] 6 10:37:03 Medications Name Sig Start Date [...] 1 TABLET (175 MCG TOTAL) BY MOUTH STORE DELI MANAGER BEFORE BREAKFAST active Not Available Not Available [...] MOUTH EVERY 6 HOURS FOR 10 DAYS. active Not Available Not Available No t Available azithromyci n 250 mg tablet TAKE 2 TABS (500MG) TODAY (DAY 1), THEN 1 TAB (250MG) FOR 4 DAYS (DAYS 2-5) 09/20 completed Not Available Not Available Not Available ibuprofen 800 mg tablet TAKE 1 TABLET BY MOUTH THREE TIMES A DAY active Not Available Not Available No t Available alprazolam 1 mg tablet TAKE 1 TABLET BY MOUTH 3 TIMES A DAY active Not Available Not Available No t Available metoprolol succinate ER 50 mg tablet,exte nded [...] MOUTH EVERY 12 HOURS FOR 10 DAYS active Not Available Not Available No t Available sulfamethox azole 800 mg-trimetho prim 160 [...] Available Not Available meclizine 25 mg tablet TAKE 1 TABLET BY MOUTH THREE TIMES A DAY NEEDED FOR 10 DAYS active Not Available Not Available No t Available amlodipine 10 mg tablet TAKE 1 TABLET BY MOUTH EVERY DAY active Not Available Not Available No t Available cephalexin 500 mg capsule Take 1 [...] Not Available Not Available No t Available mometasone 0.1 % topical ointment apply to [...] 126 mm[Hg] 80 mm[Hg] Rubina Zuniga MA [facility] 15:22:09 Date Recorded Body height Systolic blood pressure Diastolic blood pressure Provider Name and Address Organization Details Last Updated DateTime 02/25/2025 162.56 cm 160 mm[Hg] 87 mm[Hg] Rubina Zuniga MA [facility] 02/25/2025 14:57:21 Date Recorded Body height Body mass index (BMI) Body weight Oxygen saturation Oxygen saturation in Arterial blood by Pulse oximetry Heart rate Systolic blood pressure Diastolic blood pressure Provider Name and Address Organization Details Last Updated DateTime 5 162.56 cm 43.8 kg/m2 208853. 05 g 98 % 98 % 75 /min 128 mm[Hg] 76 mm[Hg] Kate Landa MA [facility] 5 14:38:27 Date Recorded Body height Body mass index (BMI) Body weight Respiratory rate Oxygen saturation Oxygen saturation in Arterial blood by Pulse oximetry Heart rate Systolic blood pressure Diastolic blood pressure Provider Name and Address Organization Details Last Updated DateTime 5 162.56 cm 43.9 kg/m2 877017. 65 g 16 /min 99 % 99 % 72 /min 124 mm[Hg] 80 mm[Hg] Rubina Zuniga MA [facility] 16:51:50 Date Recorded Body height Body mass index (BMI) Body weight Respiratory rate Oxygen saturation Oxygen saturation in Arterial blood by Pulse oximetry Heart rate Systolic blood pressure Diastolic blood pressure Provider Name and Address Organization Details Last Updated DateTime 5 162.56 cm 42.6 kg/m2 986099. 91 g 16 /min 98 % 98 % 78 /min 122 mm[Hg] 74 mm[Hg] Rubina Zuniga MA [facility] 5 15:30:56 Social History Question Answer Notes LastModified by Organizat ion Details LastModified Time Tobacco Smoking Status Never Smoker STEPHANY Almeida, [facility] 01/24/2016 10:13:00 Are You Blind Or Do [...] Do You Have Serious Difficulty Hearing? Yes [place] Both Ear Information not available 06/28/2022 What Type Of Diet Are You Following? REGULAR Information not available 02/14/2021 Which Illicit Or Recreational Drugs Have You Used? NO Information not available 03/24/2020 Education 2 Year College Information not available 03/24/2020 Marital Status Informatio n not available 03/24/2020 What Was The Date Of Your Most Recent Tobacco Screening? 04/17/2025 Information not available 04/17/2025 What Is Your Relationship Status? Information not [...] What Date Was Tobacco Cessation Counseling Provided? 04/17/2025 Information not available 04/17/2025 Sex: Female Functional Status Question Answer Note [...] anxious, or unable to sleep at night)? [id number] Information not available 12/07/2022 Family History Relationship [...] Problems N Kidney or Bladder Problems N GI Problems N Depression Y COPD N Blood Clots N Skin Problems Y Eating Disorder N Anemia Y Heart Attack (OK) N Anxiety Disorder Y Diabetes Y Muscle, Joint, or Bone Problems N Seizures/Epilepsy N Acid Reflux (GERD) Y Cancer N Stroke Y Asthma N Allergies N ADHD N Substance Abuse N High Cholesterol N Hepatitis N Liver Disease N Schizophrenia N Headaches N Heart Failure N Osteoporosis N Gynecological History Statement/Question Response Date of Last Pap Smear Date of Last Mammogram 11/24/2021 Obstetrics History GPAL:G 0 P 0 0 0 0 Immunizations Vaccine Type Date Status Note Provider Nam e and Address Organization Details Recorded Time Influenza, split virus, quadrivalent, preservative 0 completed Not Available [facility] 01/07/2024 00:18:39 COVID-19, mRNA, LNP-S, PF, 30 mcg/0.3 mL dose 1 completed Not Available [facility] 01/07/2024 00:18:39 COVID-19, mRNA, LNP-S, PF, 30 mcg/0.3 mL dose 1 completed Not Available [facility] 01/07/2024 00:18:39 Influenza, MDCK, quadrivalent, PF 9 completed LIGIA RODRIGUEZ NP Attn: [address] [place], [address], [place] [facility] 08/18/2024 09:32:08 COVID-19, mRNA, LNP-S, PF, 30 mcg/0.3 mL dose 1 completed LIGIA RODRIGUEZ NP Attn: [address] [place], [address], [place] [facility] 08/18/2024 09:32:08 Influenza, split virus, quadrivalent, PF 0 completed LIGIA RODRIGUEZ NP Attn: [address] [place], [address], [place] [facility] 08/18/2024 09:32:08 Influenza, split virus, quadrivalent, PF 1 completed LIGIA RODRIGUEZ NP Attn: [address] , [place], [address], [place] [facility] 08/18/2024 09:32:08 zoster recombinant 4 completed Marianela Muñoz [place] null, [place] [facility] 08/28/2024 11:51:46 Pneumococcal conjugate PCV20, polysaccharide [id number] conjugate, adjuvant, PF 4 completed STEPHANY [place], [place] [facility] 08/28/2024 11:51:46 zoster recombinant 4 completed STE[place] [facility] 08/28/2024 11:51:46 COVID-19, mRNA, LNP-S, PF, levy-sucrose, 30 mcg/0.3 mL 4 completed STEPHANY [place] [facility] 08/28/2024 11:51:46 Influenza, split virus, trivalent, PF 4 completed Marianela Muñoz [place], [place] [facility] 08/28/2024 11:51:46 Past Encounters Encounter ID Performer Location Encounter Start Date Encounter Closed Date Diagnosis/Indication Diagnosis SNOMED-CT Code Diagnosis ICD10 Code Diagnosis Note [id number] Porsche Smiley PA-C [employer] [address] [place] [address] 01/24/2016 10:18:29 01/24/2016 11:06:11 Knee pain 49564708 M25.561 Morbid obesity 580713423 E66.01 Chronic depression 72197 0009 F34.1 Cerebrovas cular accident 874070748 I63.9 Psoriasis 9402582 L40.9 Candidiasis of skin 4988 3006 B37.2 [id number] NOMAN Meng [address] [place] [address] 02/03/2016 10:09:00 02/03/2016 11:32:58 Candidiasis of skin 51752470 B37.2 Chronic depression 65716 000 F34.1 Morbid obesity 601461212 E66.01 Psoriasis 4095238 L40.9 Hyperglycemia 09731259 R 73.9 Right uppe r quadrant pain 494996080 R10.11 [id number]orsche Smiley PA-C [facility] [address] [place] [address] 02/10/2016 10:14:27 02/10/2016 10:43:22 Candidiasis of skin 52184499 B37.2 Knee pain 35721939 M25.5 61 Right uppe r quadrant pain 056064986 R10.11 Chronic depression 79786 0009 F34.1 Morbid obesity 678672492 E66.01 Psoriasis 7774327 L40.9 Cerebrovas cular accident 390800448 I63.9 Hyperglycemia 02968272 R 73.9 Diabetes mellitus 480256 09 E11.9 [id number] [address] Smiley PA-C [facility] [address] [place] [address] 03/27/2016 10:09:45 03/27/2016 11:06:28 Diabetes mellitus 81721194 E11.9 Morbid obesity 756699649 E66.01 Cellulitis 845566555 L03 .90 [id number] Porsche Smiley PA-C [facility] [address] [place] [address] 04/04/2016 10:29:21 04/04/2016 11:17:27 Cellulitis 378646561 L03.90 Diabetes mellitus 652738 09 E11.9 Morbid obesity 107243836 E66.01 Chronic depression 93994 000 F34.1 [id number] George MD [facility] [address] [place] [address] 05/11/2016 14:25:18 05/11/2016 15:30:24 Migraine 91158803 G43.909 Diabetes mellitus 774965 09 E11.9 Incontinence 26929783 R3 [id number] PA-C [facility] [address] [place] [address] 07/07/2016 10:19:31 07/07/2016 10:53:58 Cellulitis 809807531 L03.90 Chronic depression 78595 8 F34.1 [id number] [address]orsche Smiley PA-C [facility] [address] [place] [address] 09/18/2016 10:20:55 09/18/2016 12:18:41 Essential hypertension 47019435 I10 [id number] Guille George MD [facility] [address] [place] [address] 04/18/2017 15:51:38 04/18/2017 17:21:24 Incontinence 69875831 N39.42 Chronic depression 54144 0009 F34.1 Cerebrovas cular accident 510950763 I63.[id number] George [address] [facility] [address] [place] [address] 07/11/2017 10:58:35 07/11/2017 12:27:[id number] [facility] [address] [place] [address] 07/16/2017 10:44:11 07/16/2017 13:40:27 Cellulitis 625375085 L03.90 Morbid obesity 044295720 E66.01 Diabetes mellitus 640140 09 E11.9 [id number] [address] George [address] [facility] [address] [place] [address] 07/18/2017 15:44:57 07/18/2017 17:51:52 Diabetes mellitus 32870126 E11.9 Laceration of lower leg 816491176 S81.811D Primary insomnia 9212047 F51.01 [id number] [address] [facility] [address] [place] [address] 01/09/2018 16:30:51 01/09/2018 18:30:44 Migraine with aura 7248620 G43.109 Essential hypertension 87274672 I10 Primary insomnia 5609190 F51.01 [id number] Ma[address] Landa MD [facility] [address] [place] [address] 01/17/2018 15:44:00 01/17/2018 16:43:58 Screening for malignant neoplasm of breast 115974238 Z12.31 New daily persistent headache 6853807224 42111 G44.52 Plaque psoriasis 5271023 09 L40.0 Type 2 kiran betes mellitus 20704239 E11.9 [id number] George [address] [facility] [address] [place] [address] 07/29/2018 10:22:56 07/29/2018 11:15:54 Morbid obesity 270500609 E66.01 Diabetes mellitus 916554 09 E11.9 Psoriasis 5495586 L40.0 History of polyp of colon 204507526 Z86.400 [id number] [address] [facility] [address] [place] [address] 08/05/2018 09:51:59 08/05/2018 11:09:56 Chronic depression 636951008 F34.1 Morbid obesity 827598743 E66.01 Diabetes mellitus 694241 09 E11.9 Cerebrovas cular accident 296529912 I63.00 Dyspnea on exertion 6084 5006 R06.09 Essential hypertension 81564397 I10 New daily persistent headache 8525384784 41287 G44.52 [id number] [address]orsche Smiley PA-C [facility] [address] [place] [address] 08/29/2018 10:52:13 08/29/2018 12:06:39 Pain in right knee 8101084013 88347 M25.374 [id number] Jermain Garcia MD [facility] ([facility]) [address] [place] [address] 01/15/2019 11:01:30 01/15/2019 13:08:11 Psoriasis 2019895 L40.9 Neurofibroma 429748833 D 36.10 [id number] Porsche Smiley PA-C [facility] [address] [place] [address] 07/31/2019 16:03:16 07/31/2019 17:16:29 Cerebrovascular accident 019291904 I63.00 Morbid obesity 846042832 E66.01 Incontinence 96627382 N3 9.42 Diabetes mellitus 463722 09 E11.9 Psoriasis 6090712 L40.0 New daily persistent headache 9725260190 63544 G44.52 Essential hypertension 60453354 I10 Migraine with aura 92526 06 G43.109 Primary insomnia 8292736 F51.01 [id number] Porsche Smiley PA-C [facility] [address] [place] [address] 03/24/2020 10:42:16 03/25/2020 09:54:07 Essential hypertension 38797689 I10 New daily persistent headache 9544240451 33936 G44.52 Diabetes mellitus 376213 09 E11.9 Migraine with aura 00506 06 G43.109 History of asthma 422112 007 Z87.09 Chronic depression 98360 0009 F34.1 [id number] Porsche Smiley PA-C [facility] [address] [place] [address] 03/31/2020 10:21:17 03/31/2020 11:29:43 Essential hypertension 21705885 I10 [id number] Porsche Smiley PA-C [facility] [address] [place] [address] 07/13/2020 09:29:52 07/14/2020 16:16:19 Abscess of left axilla 2069954363 5821197 L02.[id number] [facility] [address] [place] [address] 02/14/2021 10:12:46 02/15/2021 13:25:03 Furuncle 941374556 L02.828 Benign par oxysmal positional vertigo 645215351 H81.11 [id number] Porsche Smiley PA-C [facility] [address] [place] [address] 10/10/2021 10:40:31 10/10/2021 12:43:11 Essential hypertension 62192686 I10 Type 2 kiran betes mellitus 17102711 E11.9 Migraine without aura 56 710256 G43.009 Chronic depression 13984 0009 F34.1 Screening for malignant neoplasm of breast 656842005 Z12.31 [id number] Porsche Smiley PA-C [facility] [address] [place] [address] 01/04/2022 11:32:37 01/04/2022 12:53:09 Pain of right knee joint 6705800357 17351 M25.561 Mixed anxi ety and depressive disorder 670898984 F41.8 Body mass index 40+ - severely obese 255691603 Z68.43 Osteoarthr itis of knee 550184443 M17.9 [id number] [address] George MD [facility] [address] [place] [address] 02/01/2022 10:56:34 02/01/2022 11:38:27 Morbid obesity 602868595 E66.01 [id number] Porsche Smiley PA-C [facility] [address] [place] [address] 06/28/2022 10:21:30 06/28/2022 11:23:17 Adult health examination 743493296 Z00.00 Essential hypertension 65996939 I10 Migraine without aura 56 607253 G43.009 Moderate p ersistent asthma 700242974 J45.40 Osteoarthritis 210019579 M19.90 Mixed anxi ety and depressive disorder 854073434 F41.8 Gastroesop hageal reflux disease without esophagitis 758647829 K21.9 [id number] Porsche Smiley PA-C [facility] [address] [place] [address] 08/21/2022 14:51:49 08/21/2022 15:50:24 Morbid obesity 438768935 E66.01 Overweight 361089095 E66 .3 Essential hypertension 38985630 I10 Adult heal th examination 441346621 Z00.00 [id number] Porsche Smiley PA-C [facility] [address] [place] [address] 09/05/2022 15:05:15 09/05/2022 15:51:20 Edema of lower extremity 815587828 R60.0 [id number] Porsche Smiley PA-C [facility] [address] [place] [address] 09/20/2022 10:16:07 09/20/2022 11:14:23 Morbid obesity 851547348 E66.01 Cellulitis of lower limb 797958401 L03.119 Persistent cough 4163636 02 R05.3 [id number] MD Eli CRISTOBALhalto ([employer]ONG SETTER) [address] [place] [address] 12/07/2022 14:17:34 12/14/2022 16:31:08 Skin lesion 56235946 L98.9 - Noted on right labia externa; [...] warm, red, and much bigger in size [id number] Porsche Smiley PA-C [facility] [address] [place] [address] 12/15/2022 11:40:18 12/20/2022 12:26:53 Cellulitis 607167504 L03.115 Overweight 150565152 E66 .3 [id number] Porsche Smiley PA-C [facility] [address] [place] [address] 03/27/2023 13:52:07 04/02/2023 13:37:49 Angina co-occurrent and due to coronary arteriosclerosis 9526251285 9372538 I25.112 History of cerebrovascular accident 515128891 Z86.73 Morbid obesity 415669440 E66.01 Type 2 kiran betes mellitus 88637548 E11.9 Overweight 967376580 E66 .3 [id number] George MD [facility] [address] [place] [address] 05/09/2023 11:07:10 05/10/2023 09:54:11 Cellulitis 368114462 L03.115 Overweight 776148330 E66 .[id number] George MD [facility] [address] [place] [address] 07/02/2023 11:15:47 07/03/2023 11:36:47 Strain of triceps brachii muscle 526521624 S46.312A Overweight 670603844 E66 .3 Plaque psoriasis 2214657 09 L40.0 Chronic neck pain 465099 6246 107 M54.2 Osteoarthritis 977332968 M19.[id number] [facility] [address] [place] [address] 07/26/2023 10:44:49 07/31/2023 15:47:13 Pain of left shoulder joint 0475841891 9570746 M25.333 [id number] Porsche Smiley PA-C [facility] [address] [place] [address] 08/27/2023 14:01:38 08/29/2023 15:49:45 Cellulitis of right lower limb 8587174770 9669882 L03.115 Adhesive c apsulitis of left shoulder 1568653828 62344 M75.02 Overweight 297372970 E66 .3 [id number] Porsche Smiley PA-C [facility] [address] [place] [address] 01/03/2024 11:07:00 01/08/2024 09:55:08 Long-term drug therapy 464621470 Z79.899 Adhesive c apsulitis of left shoulder 9604753083 22713 M75.02 Morbid obesity 881088465 E66.01 Mixed anxi ety and depressive disorder 481807720 F41.8 [id number] Porsche Smiley PA-C [facility] [address] [place] [address] 02/18/2024 10:58:46 03/06/2024 14:49:01 Fever 373937035 R50.9 Morbid obesity 854591970 E66.01 COVID-19 112623431 U07.1 [id number] George [address] [facility] [address] [place] [address] 03/27/2024 14:10:40 03/28/2024 16:14:49 Morbid obesity 605323563 E66.01 Migraine without aura 56 875989 G43.009 Pain of le ft shoulder joint 9805194180 8129518 M25.[id number] George MD [facility] [address] [place] [address] 04/29/2024 11:12:28 04/30/2024 08:50:16 Pain of left shoulder joint 2016639116 5465814 M25.512 Overweight 738445632 E66 .3 jail current use of non-steroidal anti-inflammatory drug 8811363026 04744 Z79.1 Essential hypertension 22598166 I10 Serum crea tinine above reference range 800989017 R79.89 [id number] Loren Ames MD [facility] [address] [place] [address] 08/18/2024 09:58:21 08/20/2024 16:02:37 Gynecologic examination 06388072 Z01.419 Covering Machine Tender exam completedB reast and thyroid WNLDenies any family history of breast, ovarian, pancreatic , endometria l cancer 1. Pt has CR in 1996; no longer needs pap smears.2. STI screening declined.3 . Pt is post menopausal .4. Discussed breast self awareness5 . Mammogram ordered per ACOG guidelines 6. Colonoscop y done in . Educated on STI reduction and prevention . Encouraged condom use.8. Discussed when to return to clinic for /DIRECTOR INDEPENDENT complaints . Screening mammography 24 856096 Z12.31 Last Mammogram: 2Or janes placed for [place] Menopause 993844462 Z78. 0 pt is post menopausal Discussed vaginal changes, moisturize rs and lubricatio nDiscussed returning to clinic with any vaginal bleedingDi scussed Calcium and Vitamin D supplement ation Morbid obesity 962028896 E66.01 Furuncle of vulva 461200 006 N76.4 2 small boils that have popped noted to upper vulvaPt is allergic to Bactrim and tetracycli nesWill try mupirocin 2% topical ointment Psoriasis 8269638 L40.9 psoriasis notedPt is no longer seeing anyone for management [id number] Porsche Smiley PA-C [facility] [address] [place] [address] 08/28/2024 11:13:27 09/04/2024 11:00:58 Mixed anxiety and depressive disorder 459487908 F41.8 Pain in left foot 531154 1051 85438 M79.672 Morbid obesity 315117439 E66.01 [id number] [address]ille George MD [facility] [address] [place] [address] 10/31/2024 11:19:34 11/03/2024 09:29:35 Mediastinal lymphadenopathy 19137300 R59.0 Thyroid nodule 221455638 E04.1 Morbid obesity 028660506 E66.01 [id number] Guille George MD [facility] [address] [place] [address] 11/17/2024 14:09:49 11/18/2024 12:59:36 Postconcussion syndrome 59429749 F07.81 Morbid obesity 750472009 E66.01 [id number] [address] George MD [facility] [address] [place] [address] 12/16/2024 11:12:16 12/22/2024 11:39:20 Dysuria 04321010 R30.0 Thyroid nodule 491705335 E04.1 Mediastina l lymphadenopathy 37686546 R59.0 Acute urin jeramy tract infection 647264556 N30.00 Morbid obesity 875795951 E66.01 [id number] [address] George MD [facility] [address] [place] [address] 01/09/2025 15:50:45 01/12/2025 12:18:52 History of malignant neoplasm of thyroid 110287340 Z85.850 Cervical lymphadenopathy 552444781 R59.0 Multiple n odules of lung 582569441 R91.8 Acute bron chitis with bronchospasm 90790482 J20.8 Overweight 377294574 E66 .3 [id number] George MD [facility] [address] [place] [address] 02/18/2025 15:10:27 02/20/2025 10:12:33 Mixed anxiety and depressive disorder 535577435 F41.8 cont current meds Essential hypertension 97551346 I10 Malignant tumor of thyroid gland 242350588 C73 Body mass index 40+ - severely obese 803734674 Z68.43 Overweight 394064282 E66 .3 Muscle weakness 24189938 M62.81 [id number] [facility] [address] [place] [address] 02/25/2025 14:46:22 02/26/2025 16:07:33 Essential hypertension 65834652 I10 start lasix Edema of l ower extremity 204199271 R60.0 stop hctz start lasix Decreased renal function 27401427 R94.4 Overweight 095137750 E66 .3 [id number] George MD [facility] [address] [place] [address] 03/11/2025 14:08:18 03/13/2025 10:17:30 Malignant tumor of thyroid gland 304948226 C73 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 340439624 E66.01 Essential hypertension 56823579 I10 start lasix Nausea and vomiting 1691999 R11.2 [id number] [facility] [address] [place] [address] 03/30/2025 16:20:28 04/01/2025 12:13:31 Esophageal dysphagia 83099610 R13.19 History of surgery 27465 5003 Z98.048 [id number] Guille George MD [facility] [address] [place] [address] 04/17/2025 15:16:12 04/20/2025 16:32:20 Therapeutic drug monitoring assay 25598264 Z51.81 Abscess 376329118 L02.91 Benign par oxysmal positional vertigo 019790887 H81.11 Health Concerns Section Related Observation LastModified by Organization Detai ls LastModified Time None Recorded Concern Status LastModified by Organization Details LastModified Time None Recorded Advance Directives Directive None Recorded Payers Encounter Date Sequence Insurance Name Policy Number Policy Courtney Covered Member ID Courtney Member ID Guarantor Name 02/18/2025 2 [place] WHEN [place]ARE OR MEDICARE REPLACEMENT PRIMARY) Nubia Schultz [id number] Nubia Schultz 02/18/2025 1 [facility] (MEDICARE REPLACEMENT/AD VANTAGE - HMO) [id number] Nubia Schultz [id number] Nubia Schultz 02/25/2025 2 [place]ARE [place]ICARE REPLACEMENT PRIMARY) Nubia Schultz [id number] Nubia Schultz 02/25/2025 1 [facility] (MEDICARE REPLACEMENT/AD VANTAGE - HMO) [id number] Nubia Schultz [id number] Nubia Schultz 03/11/2025 2 [place]ICARE REPLACEMENT PRIMARY) Nubia Schultz [id number] Nubia Schultz 03/11/2025 1 [facility] (MEDICARE REPLACEMENT/AD VANTAGE - HMO) [id number] Nubia Schultz [id number] Nubia Schultz 03/30/2025 2 [place]ICARE REPLACEMENT PRIMARY) Nubia Schultz [id number] Nubia Schultz 03/30/2025 1 [facility] (MEDICARE REPLACEMENT/AD VANTAGE - HMO) [id number] Nubia Schultz [id number] Nubia Schultz 04/17/2025 2 [place] OR MEDICARE REPLACEMENT PRIMARY) Nubia Schultz [id number] Nubia Schultz 04/17/2025 1 [facility] (MEDICARE REPLACEMENT/AD VANTAGE - HMO) [id number] Nubia Schultz [id number] Nubia Schultz Notes Date Note Type Note Provider Name and Address Organization Details Recorded Time 02/18/2025 text/html thyroid cancer..total removal and radiation meds start soon for 2 residual spots..bp meds removed.. Porsche Smiley PA-C Attn: [address] [place], [address], [facility] 02/18/2025 15:38:24 02/25/2025 text/html follw up from [facility]...surgeon feels that the extra yellow fluid coming from neck drain is secondary to general fluid build up from water retention..HCTZ was replaced to her but she reports no increase urine output... Porsche Smiley PA-C Attn: [address] [place], [address], [place] [facility] 02/25/2025 15:33:22 03/11/2025 text/html had reaction to mounjaro because of un diagnosed thyroid cancer...d/c ...lamenting her weight loss..wants something else but she cannot now with dx of thyroid cancer..lost 100 pounds in 1 year... Porsche Smiley PA-C Attn: [address] [facility], [place], [address], [place] [facility] 03/11/2025 15:19:46 03/30/2025 text/html began with troub le swallowing since her surgery..surgeon disregarded this..has not had radiation on neck yet.... Porsche Smiley PA-C Attn: [address] [facility], [place], [address], [facility] [place] 03/30/2025 17:39:58 04/17/2025 text/html hx of PTC treate d by oncology....is supposed to see interventional radiology for drainage..now is dizzy also....feels like the room is spinning.... Porsche Smiley PA-C Attn: [address] [facility], [place], [address], [facility] [place] 04/17/2025 16:02:55 OBGyn Episode No OBEpisode recorded.
--- OUTSIDE RECORDS SUMMARY | 2025-04-27 13:25 | XMS_ITS | Encounter Summary ---
Author Organization [facility] Healthcare Address [address] [place] [address] Care Team Providers Care Crushing Machine Operator Name Role Phone Andrés Smiley Primary Care Provider [phone] Reason for Visit * Diagnostic Imaging (Routine) - Closed Specialty Diagnoses / Procedures Referred By Anish t Referred To Contact Diagnoses Left shoulder pain, unspecified chronicity Procedures XR Shoulder Left 2 or More Views XR Shoulder Left 1 View Yennifer Andrade PA [address] [place] [address] Phone: tel: fax: Referral ID Status Reason Start Date Expiration Date Visits Re quested Visits Authorized [id number] Closed 08/22/2023 09/20/2024 1 1 Encounter Details Date Type Department Care Team (Late st Contact Info) Description 08/22/2023 7:53 AM CDT Hospital Encounter [facility] Orthopedics and Sports Medicine [address] [place] [address] [place] [address] [phone] Social History Tobacco Use Types Packs/Day Years [...] on file Legal Sex Female 12:10 AM TAG [employer] Gender Identity Not on file Sexual Orientation [...] on filedocumented in this encounter Care Teams Crushing Machine Operator Relationship Specialty Start Date End Date Andrés Smiley PA [address] [place] [address] PCP - General 04/18/17 documented as of this encounter
--- OUTSIDE RECORDS SUMMARY | 2025-04-27 13:26 | XMS_ITS | Clinical Summary ---
Author Organization [facility] Address [address] [place] [address] Care Team Providers Care Manager Culinary Name Role Phone Andrés Smiley Primary Care Provider [phone] Allergies Active Allergy Reactions Criticality Noted Date [...] mg total) by mouth every morning 06/28/20 Active famotidine (PEPCID) 40 mg tablet Take 1 tablet (40 mg total) by mouth every morning 06/28/20 Active docusate sodium (COLACE) 100 mg capsule Take 1 capsule (100 mg total) by mouth 2 (two) times a day as needed for constipation 60 capsule 09/06/20 Active Additional Information Patient not taking.Informant: Self, Reported on 03/13/2025 hydroCHLOROthiazid e (HYDRODIURIL) 25 mg tablet Take 1 tablet (25 mg total) by mouth every morning 05/17/20 23 Active ibuprofen (ADVIL,MOTRIN) 800 mg tabletIndications: Anti-inflammatory, [...] 1 tablet (175 mcg total) 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 Refer to [...] pain 07/04/2023 Coronary artery disease invo lving [place] coronary artery of [place] heart 06/08/2023 Calculus of gallbladder with out cholecystitis without obstruction 05/17/2022 Overview (05/17/2022): Added automatically from request for surgery [id number] Incisional hernia, without obstruction or gangre ne 05/17/2022 Overview (05/17/2022): Added automatically from request for surgery [id number] Encounters Date Type Department Care Team Description 04/16/2025 Telephone [facility] Surgery [address] [place] [address] Floor [address] [place] [phone] Lizette See RN 04/15/2025 Orders Only [facility] Surgery [address] [place] [address] 5 [place] [phone] Lizette See RN Dysphagia, unspecified type (Primary Dx) 04/15/2025 Telephone [facility] Surgery [address] [place] [address] Floor 5 [place] [address] Lizette See RN 04/15/2025 Telephone [facility] Surgery [address] [place] [address] Floor 8 [place] [phone] Kirsty Cobb Patient issue/concern 04/13/2025 Telephone [facility] Surgery [address] [place] [address] Floor 5 [place] [address] Kirsty Cobb MD 04/10/2025 Telephone [facility] Radiology 1 [place] [address] Anna Casarez, MACK 04/08/2025 2:08 PM CDT - 04/08/2025 11:59 PM CDT Hospital Encounter [facility] [address] [place] [address] Discharge Disposition: Discharge to home or self care 04/07/2025 Telephone [facility] Radiology 1 [place] [address] Anna Casarez, MACK 04/01/2025 Orders Only [facility] Radiology 1 [place] [address] Anna Casarez, MACK 03/27/2025 Orders Only [facility] Radiology 1 [place] [address] Anna Casarez, MACK Thyroid cancer (HCC) (Primary Dx) 03/27/2025 Telephone [facility] Radiology 1 [place] [address] Anna Casarez, MACK 03/24/2025 1:00 PM CDT Telemedicine [facility] Endocrinology Metabolism and Lipid [facility] Floor 1, [address] [place] [phone] Kd Pike MD Papillary thyroid carcinoma (HCC) (Primary Dx); Lung nodules; Post-surgical hypothyroidism 03/24/2025 Documentation [facility] Medicine Radiation Oncology [facility] [place] [address] Ai Flores RN 03/24/2025 Orders Only [facility] Surgery [facility] Floor 5 [place] [phone] Kirsty Cobb MD Papillary thyroid carcinoma (HCC) (Primary Dx) 03/24/2025 Telephone [facility] Surgery [address] [place] [address] Floor 8 [place] [phone] Kirsty Cobb MD Medical Question/Miscellaneou s 03/13/2025 3:45 PM CDT Office Visit [facility] Surgery [facility] Floor 5 [place] [phone] Kirsty Cobb MD Thyroid cancer (HCC) (Primary Dx); Papillary thyroid carcinoma (HCC) 03/13/2025 1:45 PM CDT Lab [facility] - Lab Collection [facility] Floor 5 [place] [address] Thyroid cancer (HCC) 03/13/2025 Orders Only [facility] Surgery [address] [place] [address] Floor 5 [place] [phone] Kirsty Cobb MD Papillary thyroid carcinoma (HCC) 03/13/2025 Orders Only [facility] Surgery [address] [place] [phone] Lizette See RN Papillary thyroid carcinoma (HCC) (Primary Dx) 03/12/2025 Telephone [facility] Surgery [address] [place] [phone] Lizette See RN 03/09/2025 Results Follow-Up [facility] Surgery [address] [place] [phone] Kirsty Cobb MD Aerobic and anaerobic culture and gram stain Aspirate Neck, right 02/28/2025 9:07 AM CDT - 03/04/2025 6:51 PM CDT Hospital [address] [phone] Tarsha Moraes MD Brown, Taylor, MD Localized swelling, mass or lump of neck (Primary Dx); 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 Discharge Disposition: Discharge to home or self care 02/28/2025 Orders Only [facility] Radiology [address] [place] [address] Maryam Lee RN 02/28/2025 Orders Only [facility] Oncology [address] [place] [address] Amina Villa NP 02/25/2025 Telephone [facility] Surgery [address] [place] [phone] Lizette See RN 02/25/2025 Telephone [facility] Surgery [address] [place] [phone] Lizette See RN 02/24/2025 Telephone [facility] Surgery [address] [place] [phone] Lizette See RN 02/24/2025 Orders Only [facility] Surgery [address] [place] [phone] Bise, Lizette, RN Papillary thyroid carcinoma (HCC) (Primary Dx) 02/24/2025 Telephone [facility] Surgery [facility] [address] [place] [address] Lizette See RN 02/24/2025 Telephone [facility] Surgery [address] [place] [address] 8 [place] [address] Kirsty Cobb MD Medical Question/Miscellaneou s 02/20/2025 1:45 PM CDT Clinical Support [facility] Surgery [address] [place] [address] 5 [place] [address] Kirsty Cobb MD Papillary thyroid carcinoma (HCC) (Primary Dx) 02/20/2025 Documentation [facility] Surgery [address] [place] [address] 5 [place] [address] Lizette See RN 02/19/2025 Telephone [facility] Surgery [address] [place] [phone] Kirsty Cobb MD 02/10/2025 1:21 PM CDT Anesthesia Event [facility] Operating Room [facility] [address] [place] [address] John Paul De La O MD Montgomery, Andrea J., NP 02/10/2025 12:00 PM CDT - 02/10/2025 4:50 PM CDT Surgery [facility] Operating Room [facility] [address] [place] [address] Kirsty Cobb MD THYROIDECTOMY - TOTAL 02/10/2025 9:22 AM CDT - 02/10/2025 11:59 PM CDT Hospital Encounter [facility] Radiology [facility] [address] [place] [address] Thyroid cancer (HCC) Discharge Disposition: Discharge to home or self care 02/10/2025 8:46 AM CDT - 02/12/2025 2:09 PM CDT Hospital Encounter [facility] 1 [place] [address] Kirsty Cobb MD Thyroid cancer (HCC) Discharge Disposition: Discharge to home or self care 02/09/2025 Telephone [facility] Surgery [address] [place] [phone] Lizette See RN 02/09/2025 Orders Only [facility] Surgery [address] [place] [phone] Lizette See RN Thyroid cancer (HCC) (Primary Dx) 02/05/2025 7:30 AM CDT Pre-Admission Testing [facility] Center for Preoperative Assessment and Planning [facility] ([facility]) [address] [place] [address] Preoperative testing (Primary Dx) 02/02/2025 Telephone [facility] Surgery [address] [place] [phone] Kirsty Cobb MD Medical Question/Miscellaneou s 01/29/2025 Orders Only [facility] Surgery [address] [place] [phone] Lizette See RN Lung nodules (Primary Dx); Thyroid nodule; Mediastinal lymphadenopathy 01/28/2025 Results Follow-Up [facility] Surgery [address] [place] [phone] Kirsty Cobb MD Cytology 01/27/2025 1:30 PM CDT Office Visit [facility] Surgery [address] [place] [phone] Geovanna Ackerman MD Mediastinal lymphadenopathy (Primary Dx); Papillary thyroid carcinoma (HCC); Thyroid cancer (HCC); Morbid obesity (HCC); Type 2 diabetes mellitus with other specified complication, unspecified whether moth exterminator insulin use (HCC) 01/27/2025 Orders Only [facility] Surgery [address] [place] [phone] Lizette See RN Thyroid nodule (Primary Dx) 01/27/2025 Telephone [facility] Surgery [address] [place] [phone] Lizette See RN 01/26/2025 Telephone [facility] Surgery [address] [place] [phone] Kirsty Cobb MD Medical Question/Miscellaneou s from [...] on file Legal Sex Female 12:10 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 Gender Identity Not on file Sexual Orientation [...] 08/01/2019, Additional history exists Breast Cancer Screening-Mammogram 09/10/20252 024, 11/24/2021 Lipid Panel 02/28/2026 02/28/2025, 05/0 04/2020, 07/30/2018, Additional history exists eGFR 03/04/2026 03/04/2025, 02/17, 03/02/2025, Additional history exists Influenza Vaccine Completed 08/16/2024, , 09/13/2020, Additional history exists Zoster Vaccine Completed 08/16/2024, 04/16/2024 Medical Devices Implanted Type Area Barber Instructor Device Identifier Shelf Expiration Date Model / Serial / Lot Signal Angio-Seal Vip 6fr Closere Device [id number] - [id number] Implanted:Qty: 1 on 07/04/20[facility] [id number] / / [id number] Procedures Procedure Name Priority Date/Time Associated Diagnosis [...] DEVICE Routine 02/10/2025 9 :15 PM CDT GA AN PROCEDURE PLACEHOLDER Routine 02/10/2025 5:42 PM CDT POCT GLUCOSE DEVICE Routine 02/10/2025 5 :02 PM CDT SURGICAL PATHOLOGY Routine 02/10/2025 3: 30 PM CDT Thyroid cancer (HCC) POCT GLUCOSE DEVICE Routine 02/10/2025 2 :50 PM CDT GA AN PROCEDURE PLACEHOLDER Routine 02/10/2025 2:00 PM CDT GA AN ELECTIVE ENDOTRACHEAL AIRWAY Routine 02/10/2025 2:00 PM CDT DISSECTION NECK - BILATERAL 02/10/2025 1:21 PM CDT Thyroid cancer (HCC) Case Notes 01/29@1317: Sent case msg to [employer] to see if she is waiting on block release. SR Special Needs NIMs THYROIDECTOMY - TOTAL 02/10/2025 1:21 PM CDT Thyroid cancer (HCC) Case Notes 01/29@1317: Sent case msg to Equivalent DATA to see if she is waiting on [...] Read Routine (OP Routine) 11/24/2021 8:39 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 Encounter for screening mammogram for malignant neoplasm of breast from Last 3 Months or Most Recently Relevant to Health Maintenance Results * Neuro CT Outside Reference (04/08/2025 2:08 PM CDT) Impressions BIB - 04/08/2025 2:08 PM CDT These images are for Reference purposes only and have not been reviewed by [facility] Radiology. There will be no report generated by a [facility] Radiologist. Narrative [id number]_RK - 04/08/2025 2:08 PM CDT EXAMINATION: Images For Reference Purposes Only us Patti Alejandro MD IMG CT PROCEDURES Final Result [email or web address] * Reflex thyroglobulin, tumor marker, IA, S (03/13/2025 1:45 PM CDT) Thyroglobulin, Tumor Marker 78 < or = 33 ng/mL [place] [place] Thyroglobulin interp See Footnote WALLY [...] testing methods are immunoenzymatic assays manufactured by [employer] and performed on the Beautified DXI 800. Values obtained from different assay methods or kits may be different and cannot be used interchangeably. The results cannot be interpreted as absolute evidence for the presence or absence of malignant disease. Test Performed by: [place] [address] Engineering Vice President: Basil Rose Ph.D.; CLIA# [id number] Blood 03/13/2025 1:45 PM CDT 03/13/2025 3:05 PM CDT us Kirsty Cobb MD LAB BLOOD ORDERABLES Final Resul t Performing Organization Address City/[facility] Co de Phone Number [facility] [address] [facility] * Thyroglobulin reflex to MS or IA (03/13/2025 1:45 PM CDT) Anti-thyroglobulin <1.8 <1.8 IUnits/mL [facility] Comment: Thyroglobulin Antibody < 1.8 IU/mL. Thyroglobulin performed by Immunoassay to follow. Test Performed by: [place] [address] Engineering Vice President: Basil Rose Ph.D.; CLIA# [id number] Blood 03/13/2025 1:45 PM CDT 03/13/2025 3:05 PM CDT us Kirsty Cobb MD LAB BLOOD ORDERABLES Final Resul t Performing Organization Address [facility] Co de Phone Number [facility] [place] [address] [facility] [facility] * (ABNORMAL) TSH (03/13/2025 1:45 PM CDT) Thyroid Stimulating Hormone 0.04(L) 0.30 - 4.20 mcIUnit/mL Blood 03/13/2025 1:45 PM CDT 03/13/2025 1:47 PM CDT us Kirsty Cobb MD LAB BLOOD ORDERABLES Final Resul t Performing Organization Address City/State/[facility] Co de Phone Number [facility] [place] [address] * US Kidney Complete (03/04/2025 3:13 PM [...] by: Carolann Aleman M.D. Kirsty Cobb MD [facility] US PROCEDURES Final Result * (ABNORMAL) eGFR [...] ORDERABLES Final Resul t [facility] [place] [address] * Urinalysis reflex to microscopic and culture Urine, clean voided (03/04/2025 11:26 AM CDT) Color, ur Straw Yellow Clarity, ur Clear Clear [facility] Specific gravity, ur 1.014 1.003 - 1.[address] [facility] pH, urine 6.[address] [facility] Comment: Interpretive Data U rine pH is affected by diet, medications, systemic acid-base disturbances, and renal tubular function. pH may affect urinary stone formation. For example, urine pH below 6.0 may help reduce the tendency for calcium phosphate stones and pH greater than 6.0 may reduce the tendency for uric acid stone formation. Source: Site Intelligence Current Interpretive Data was last revised on 2017 Protein, ur ql Negative Negative [facility] Glucose, ur ql Negative Negative [facility] Ketones, ur Negative Negative [facility] Bilirubin, ur Negative Negative [facility] Blood, ur Negative Negative [facility] Urobilinogen, ur <2.0 <2.0 mg/dL [facility] Nitrite, ur Negative Negative [facility] Leukocyte esterase, ur Negative Negative [facility] UA reflex comment Reflex conditions for microscopic UA and culture not met. [facility] Urine, clean voided 03/04/2025 11:26 AM CDT 03/04/2025 12:34 PM CDT Kirsty Cobb MD LAB MICROBIOLOGY - GENERAL ORDER BALDEV Final Result [facility] [place] [address] * (ABNORMAL) Basic metabolic panel (03/04/2025 11:26 AM CDT) Sodium 143 135 - 145 mmol/L Potassium, pl 4.0 3.3 - 4.9 mmol/L [facility] Chloride 105 97 - 110 mmol/L [facility] CO2 30 22 - 32 mmol/L [facility] Anion gap 8 2 - 15 mmol/L [facility] BUN 20 6 - 25 mg/dL [facility] Creatinine 1.32(H) 0.60 - 1.10 mg/dL [facility] Glucose 137 70 - 199 mg/dL [facility] Comment: Interpretive Data Fasting glucose >/= [...] 8.5 - 10.3 mg/dL [facility] Blood 03/04/2025 11:2 6 AM CDT 03/04/2025 12:28 PM CDT Result Roxana Cobb MD LAB BLOOD ORDERABLES Final Resul t Performing Organization Address [facility] de Phone Number [facility] [place] [address] * Urea nitrogen, urine, random (03/03/2025 10:17 PM CDT) Urea nitrogen, ur 366 mg/dL Comment: Interpretive Data No reference range established. Current interpretive data was last revised 2019. Urine 03/03/2025 10:1 7 PM CDT 03/03/2025 11:41 PM CDT us Kirsty Cobb MD LAB URINE ORDERABLES Final Resul t Performing Organization Address [facility] de Phone Number [facility] [place] [address] * Creatinine, urine, random (03/03/2025 10:17 PM CDT) Creatinine Ur 66.0 mg/dL Comment: Interpretive Data No reference range established. Current interpretive data was last revised 2019. Urine 03/03/2025 10:1 7 PM CDT 03/03/2025 11:41 PM CDT Result Roxana Cobb MD LAB URINE ORDERABLES Final Resul t Performing Organization Address [facility] de Phone Number [facility] [place] [address] * (ABNORMAL) eGFR (03/03/2025 10:15 PM CDT) [...] ORDERABLES Final Resul t [facility] [place] [address] * (ABNORMAL) CBC without differential (03/03/2025 10:15 PM CDT) WBC 6.35 3.80 - 9.90 K/cumm Hgb 7.4(L) 11.9 - 15.5 g/dL [facility] Hct 24.0(L) 35.6 - 45.5 % [facility] Plt 221 150 - 400 K/cumm [facility] MPV 10.2 9.1 - 12.[address] [facility] RBC 2.53(L) 3.90 - 5.20 M/cumm [facility] MCV 94.9 81.3 - 96.[address] [facility] MCH 29.2 27.1 - 33.[address] [facility] MCHC 30.8(L) 32.3 - 35.7 g/dL [facility] RDW CV 15.2(H) 11.1 - 14.9 % [facility] RDW SD 52.5(H) 35.7 - 48.[address] [facility] NRBC abs 0.00 0.00 - 0.01 K/cumm [facility] Blood 03/03/2025 10:1 5 PM CDT 03/03/2025 11:25 PM CDT us Kirsty Cobb MD LAB BLOOD ORDERABLES Final Resul t Performing Organization Address City/[facility] Co de Phone Number [facility] [place] [address] * Phosphorus (03/03/2025 10:15 PM CDT) [facility] Phosphorus, pl 3.8 2.3 - 4.5 mg/dL Blood 03/03/2025 10:1 5 PM CDT 03/03/2025 11:25 PM CDT us Kirsty Cobb MD LAB BLOOD ORDERABLES Final Resul t Performing Organization Address [facility] Co de Phone Number [facility] [place] [address] * Magnesium (03/03/2025 10:15 PM CDT) [facility] Magnesium 1.8 1.4 - 2.5 mg/dL Blood 03/03/2025 10:1 5 PM CDT 03/03/2025 11:25 PM CDT us Kirsty Cobb MD LAB BLOOD ORDERABLES Final Resul t Performing Organization Address [facility] [place] [address] * (ABNORMAL) Basic metabolic panel (03/03/2025 10:15 PM CDT) [facility] Sodium 145 135 - 145 mmol/L Potassium, pl 4.0 3.3 - 4.9 mmol/L [facility] Chloride 108 97 - 110 mmol/L [facility] CO2 29 22 - 32 mmol/L [facility] Anion gap 8 2 - 15 mmol/L [facility] BUN 22 6 - 25 mg/dL [facility] Creatinine 1.38(H) 0.60 - 1.10 mg/dL [facility] Glucose 111 70 - 199 mg/dL [facility] Comment: Interpretive Data Fasting glucose >/= [...] 8.5 - 10.3 mg/dL [facility] Blood 03/03/2025 10:1 5 PM CDT 03/03/2025 11:25 PM CDT us Kirsty Cobb MD LAB BLOOD ORDERABLES Final Resul t Performing Organization Address City/[facility] Co de Phone Number [facility] [place] [address] * Sodium, urine, random (03/03/2025 1:14 PM CDT) Sodium, ur 154 mmol/L Comment: Interpretive Data No reference range established. Current interpretive data was last revised 2019. Urine 03/03/2025 1:14 PM CDT 03/03/2025 1:58 PM CDT us Kirsty Cobb MD LAB URINE ORDERABLES Final Resul t Performing Organization Address City/[facility]/ZIP Co de Phone Number [facility] [place] [address] * Creatinine, urine, random (03/03/2025 1:14 PM CDT) Creatinine Ur 19.9 mg/dL Comment: Interpretive Data No reference range established. Current interpretive data was last revised 2019. Urine 03/03/2025 1:14 PM CDT 03/03/2025 1:58 PM CDT Kirsty Cobb MD LAB URINE ORDERABLES Final Resul t Performing Organization Address [facility] Co de Phone Number [facility] [place] [address] * (ABNORMAL) Vancomycin level trough Draw trough 30 minutes prior to vancomycin dose. (03/03/2025 9:46 AM CDT) Vancomycin trough 21.2(H) 10.0 - 20.0 mcg/mL Blood 03/03/2025 9:46 AM CDT 03/03/2025 10:22 AM CDT Narrative [facility] - 03/03/2025 10:52 AM CDT Draw trough 30 minutes prior to vancomycin dose. Esperanza Banda MD LAB BLOOD ORDERABL ES Final Result Performing Organization Address [facility] de Phone Number [facility] [place] [address] * (ABNORMAL) eGFR (03/02/2025 10:15 PM CDT) [...] LAB BLOOD ORDERABLES Final Resul t [facility] Department [place] [address] * (ABNORMAL) CBC without differential (03/02/2025 10:15 PM CDT) WBC 8.01 3.80 - 9.90 K/cumm Hgb 7.9(L) 11.9 - 15.5 g/dL [facility] Hct 25.4(L) 35.6 - 45.5 % [facility] Plt 204 150 - 400 K/cumm [facility] MPV 10.8 9.1 - 12.[address] [facility] RBC 2.71(L) 3.90 - 5.20 M/cumm [facility] MCV 93.7 81.3 - 96.[address] [facility] MCH 29.2 27.1 - 33.[address] [facility] MCHC 31.1(L) 32.3 - 35.7 g/dL [facility] RDW CV 15.5(H) 11.1 - 14.9 % [facility] RDW SD 53.4(H) 35.7 - 48.[address] [facility] NRBC abs 0.00 0.00 - 0.01 K/cumm [facility] Blood 03/02/2025 10:1 5 PM CDT 03/02/2025 11:05 PM CDT Kirsty Cobb MD LAB BLOOD ORDERABLES Final Resul t [facility] [place] [address] * Phosphorus (03/02/2025 10:15 PM CDT) Phosphorus, pl 3.4 2.3 - 4.5 mg/dL Blood 03/02/2025 10:1 5 PM CDT 03/02/2025 11:05 PM CDT us Kirsty Cobb MD LAB BLOOD ORDERABLES Final Resul t [facility] [place] [address] * (ABNORMAL) Basic metabolic panel (03/02/2025 10:15 PM CDT) Pathologist [facility] Sodium 140 135 - 145 mmol/L Potassium, pl 3.4 3.3 - 4.9 mmol/L [facility] Chloride 103 97 - 110 mmol/L [facility] CO2 25 22 - 32 mmol/L [facility] Anion gap 12 2 - 15 mmol/L [facility] BUN 24 6 - 25 mg/dL [facility] Creatinine 1.46(H) 0.60 - 1.10 mg/dL [facility] Glucose 155 70 - 199 mg/dL [facility] Comment: Interpretive Data Fasting glucose >/= [...] 8.5 - 10.3 mg/dL [facility] Blood 03/02/2025 10:1 5 PM CDT 03/02/2025 11:05 PM CDT us Kirsty Cobb MD LAB BLOOD ORDERABLES Final Resul t Performing Organization Address City/[facility] de Phone Number [facility] [place] [address] * (ABNORMAL) eGFR (03/01/2025 9:16 PM CDT) [...] Final Resul t Performing Organization Address [facility] Co de Phone Number [facility] [place] [address] * (ABNORMAL) CBC without differential (03/01/2025 9:16 PM CDT) WBC 12.35(H) 3.80 - 9.90 K/cumm Hgb 7.6(L) 11.9 - 15.5 g/dL [facility] Hct 24.5(L) 35.6 - 45.5 % [facility] Plt 163 150 - 400 K/cumm [facility] MPV 10.5 9.1 - 12.[address] [facility] RBC 2.59(L) 3.90 - 5.20 M/cumm [facility] MCV 94.6 81.3 - 96.[address] [facility] MCH 29.3 27.1 - 33.[address] [facility] MCHC 31.0(L) 32.3 - 35.7 g/dL [facility] RDW CV 15.7(H) 11.1 - 14.9 % [facility] RDW SD 54.2(H) 35.7 - 48.[address] [facility] NRBC abs 0.00 0.00 - 0.01 K/cumm [facility] Blood 03/01/2025 9:16 PM CDT 03/01/2025 10:27 PM CDT us Kirsty Cobb MD LAB BLOOD ORDERABLES Final Resul t Performing Organization Address [facility] de Phone Number [facility] [place] [address] * Phosphorus (03/01/2025 9:16 PM CDT) Phosphorus, pl 3.3 2.3 - 4.5 mg/dL Blood 03/01/2025 9:16 PM CDT 03/01/2025 10:27 PM CDT us Kirsty Cobb MD LAB BLOOD ORDERABLES Final Resul t Performing Organization Address City/[facility] Co de Phone Number [facility] [place] [address] * Magnesium (03/01/2025 9:16 PM CDT) Magnesium 2.2 1.4 - 2.5 mg/dL Blood 03/01/2025 9:16 PM CDT 03/01/2025 10:27 PM CDT us Kirsty Cobb MD LAB BLOOD ORDERABLES Final Resul t Performing Organization Address City/[facility]/ZIP Co de Phone Number WALLY [facility] Department [place] [address] * (ABNORMAL) Basic metabolic panel (03/01/2025 9:16 PM CDT) Sodium 142 135 - 145 mmol/L Potassium, pl 3.7 3.3 - 4.9 mmol/L [facility] Chloride 106 97 - 110 mmol/L [facility] CO2 25 22 - 32 mmol/L [facility] Anion gap 11 2 - 15 mmol/L [facility] BUN 28(H) 6 - 25 mg/dL [facility] Creatinine 1.34(H) 0.60 - 1.10 mg/dL [facility] Glucose 128 70 - 199 mg/dL [facility] Comment: Interpretive Data Fasting glucose >/= [...] 8.5 - 10.3 mg/dL [facility] Blood 03/01/2025 9:16 PM CDT 03/01/2025 10:27 PM CDT Kirsty Cobb MD LAB BLOOD ORDERABLES Final Resul t Performing Organization Address [facility] Co de Phone Number [facility] [place] [address] * POCT glucose (03/01/2025 6:06 AM CDT) Glucose, POC 102 70 - 199 mg/dL Blood 03/01/2025 6:06 AM CDT 03/01/2025 6:06 AM CDT Kirsty Cobb MD LAB POCT ORDERABLES - DEVICE Fin al Result Performing Organization Address [facility] de Phone Number WALLY [facility] Department [place] [address] * (ABNORMAL) eGFR (02/28/2025 9:37 PM CDT) [...] ORDERABLES Bronwyn l Result Performing Organization Address City/[facility]/ZIP Co de Phone Number [facility] [place] [address] * (ABNORMAL) CBC without differential (02/28/2025 9:37 PM CDT) WBC 17.76(H) 3.80 - 9.90 K/cumm Hgb 7.8(L) 11.9 - 15.5 g/dL [facility] Hct 24.7(L) 35.6 - 45.5 % [facility] Plt 207 150 - 400 K/cumm [facility] MPV 10.3 9.1 - 12.[address] [facility] RBC 2.60(L) 3.90 - 5.20 M/cumm [facility] MCV 95.0 81.3 - 96.[address] [facility] MCH 30.0 27.1 - 33.[address] [facility] MCHC 31.6(L) 32.3 - 35.7 g/dL [facility] RDW CV 15.8(H) 11.1 - 14.9 % [facility] RDW SD 55.0(H) 35.7 - 48.[address] [facility] NRBC abs 0.00 0.00 - 0.01 K/cumm [facility] Blood 02/28/2025 9:37 PM CDT 02/28/2025 10:47 PM CDT Tarsha Moraes MD LAB BLOOD ORDERABLES Bronwyn l Result [facility] [place] [address] * Phosphorus (02/28/2025 9:37 PM CDT) Phosphorus, pl 3.1 2.3 - 4.5 mg/dL Blood 02/28/2025 9:37 PM CDT 02/28/2025 10:47 PM CDT Tarsha Moraes MD LAB BLOOD ORDERABLES Bronwyn l Result [facility] [place] [address] * Magnesium (02/28/2025 9:37 PM CDT) Magnesium 1.6 1.4 - 2.5 mg/dL Blood 02/28/2025 9:37 PM CDT 02/28/2025 10:47 PM CDT us Tarsha Moraes MD LAB BLOOD ORDERABLES Bronwyn lau Result [facility] [place] [address] * Lipid panel (02/28/2025 9:37 PM CDT) [...] on 2018. Triglycerides 56 <=149 mg/dL [facility] Comment: Interpretive Data Ages < or [...] revised on 2018. HDL 51 >=40 mg/dL [facility] Comment: Interpretive Data Ages < or [...] 2018. LDL, calculated 50 <=129 mg/dL [facility] Comment: Interpretive Data Ages < or = [...] revised on 2024. Non-HDL Cholesterol 63 mg/dL [facility] Comment: Interpretive Data Ages < or = [...] last revised on 2018. Chol/HDL ratio 2 [facility] Blood 02/28/2025 9:37 PM CDT 02/28/2025 10:47 PM CDT us Kirsty Cobb MD LAB BLOOD ORDERABLES Final Resul t [facility] [place] [address] * (ABNORMAL) Basic metabolic panel (02/28/2025 9:37 PM CDT) [facility] Sodium 142 135 - 145 mmol/L Potassium, pl 4.1 3.3 - 4.9 mmol/L [facility] Chloride 107 97 - 110 mmol/L [facility] CO2 27 22 - 32 mmol/L [facility] Anion gap 8 2 - 15 mmol/L [facility] BUN 26(H) 6 - 25 mg/dL [facility] Creatinine 1.30(H) 0.60 - 1.10 mg/dL [facility] Glucose 225(H) 70 - 199 mg/dL [facility] Comment: Interpretive Data Fasting glucose >/= [...] 8.5 - 10.3 mg/dL [facility] Blood 02/28/2025 9:37 PM CDT 02/28/2025 10:47 PM CDT us Tarsha Moraes MD LAB BLOOD ORDERABLES Bronwyn l Result [facility] [place] [address] * (ABNORMAL) Aerobic and anaerobic culture and gram stain Aspirate Neck, right (02/28/2025 2:33 PM CDT) [facility] Direct Specimen Exam Stain: Few polymorphonuclear leukocytes seen. Abundant Gram Negative Bacilli Abundant Gram Positive Cocci Rare Gram Positive Bacilli Report Final Report: Abundant Pseudomonas aeruginosa Abundant Streptococcus agalactiae (Group B Streptococci) Abundant Staphylococcus aureus Methicillin resistant (MRSA) by penicillin binding protein 2a (PBP2a) testing. (.) [facility] Organism PSEUDOMONAS AERUGINOSA [facility] Organism STREPTOCOCCUS AGALACTIAE (GROUP B STREPTOCOCCI) [facility] Organism STAPHYLOCOCCUS AUREUS [facility] Aspirate (Neck, right) 02/28/2025 2:33 PM CDT 02/28/2025 2:49 PM CDT Narrative [facility] - 03/06/2025 2:02 PM CDT Testing performed by [facility] ([phone]) Specimens submitted from normally sterile body sites [...] MICROBIOLOGY - GENERAL O RDERABLES Final Result [facility] [place] [address] * Triglycerides, body fluid (02/28/2025 2:33 PM CDT) Specimen type, fld Peritoneal Triglycerides, fld <20 mg/dL [facility] Comment: Repeated and Verified The above specimen [...] References: Pleural Fluid characteristics of Chylothorax. [facility] Proceedings. December 2008; 84(2):129-133 Clifford Textbook of Clinical Chemistry and Molecular Diagnostics, Sixth Edition. Elsevier Press. 2018. Chapter 43, Body Fluids, p. 925 [place] Test directory, Body Fluid Reference Intervals and/or Interpretative Information. [email or web address] [facility] Laboratories. Practical Guide to the Analytical Validation of Body Fluid Chemistry Testing. January 2013. 1-9. Current Interpretive Data was last revised 2019. Fluid 02/28/2025 2:33 PM CDT 02/28/2025 2:45 PM CDT Narrative [facility] - 02/28/2025 3:33 PM CDT From neck drain aspirate us Aliya Funk MD LAB BODY FLUIDS AND STOOLS O RDERABLES Final Result Performing Organization Address City/[facility]/ZIP Co de Phone Number [facility] [place] [address] * Amylase, body fluid (02/28/2025 2:33 PM [...] 2018. Chapter 43, Body Fluids, p. 925 [employer] Test directory, Body Fluid Reference Intervals and/or Interpretative Information. [email or web address] Current Interpretive Data was last revised 2019. Fluid 02/28/2025 2:33 PM CDT 02/28/2025 2:45 PM CDT Narrative [facility] - 02/28/2025 3:33 PM CDT From neck drain aspirate us Aliya Funk MD LAB BODY FLUIDS AND STOOLS O RDERABLES Final Result [facility] [place] [address] * CT Neck Soft Tissue W Contrast [...] agrees with it. Electronically signed by: Marianne hPilip M.D., Ph.D. Narrative 02/28/2025 2:07 PM CDT [...] are normal. The limited view of the [place] is unremarkable. The visualized portions [...] are normal. The limited view of the [place] is unremarkable. The visualized portions [...] Marianne Philip M.D., Ph.D. Aliya Funk MD IM CT PROCEDURES Final Resu lt * (ABNORMAL) POCT creatinine (02/28/2025 10:36 AM CDT) Creatinine POC 1.2(H) 0.6 - 1.1 mg/dL Blood 02/28/2025 10:3 6 AM CDT 02/28/2025 10:36 AM CDT us Tarsha Moraes MD LAB POCT ORDERABLES - DEV ICE Final Result Performing Organization Address [facility] Co de Phone Number WALLY [facility] [place] [address] * (ABNORMAL) eGFR (02/28/2025 10:06 AM CDT) [...] ORDERABLES Final R esult Performing Organization Address City/[facility]/ZIP Co de Phone Number WALLY [facility] [place] [address] * (ABNORMAL) Differential, auto (02/28/2025 10:06 AM CDT) Neutrophil abs 10.19(H) 1.50 - 6.50 K/cumm Imm gran abs 0.05 0.00 - 0.10 K/cumm [facility] Lymphocyte abs 0.72(L) 0.80 - 3.30 K/cumm [facility] Monocyte abs 0.64 0.20 - 0.80 K/cumm [facility] Eosinophil abs 0.18 0.00 - 0.50 K/cumm [facility] Basophil abs 0.03 0.00 - 0.10 K/cumm [facility] Neutrophil pct 86.3 % [facility] Comment: Interpretive Data Percent cell count reference ranges are not reported, since discordance with absolute values may lead to misinterpretation of CBC data. Current Interpretive Data was last revised on 2018. Imm gran pct 0.4 % [facility] Comment: Interpretive Data Percent cell count reference ranges are not reported, since discordance with absolute values may lead to misinterpretation of CBC data. Current Interpretive Data was last revised on 2018. Lymphocyte pct 6.1 % [facility] Comment: Interpretive Data Percent cell count reference ranges are not reported, since discordance with absolute values may lead to misinterpretation of CBC data. Current Interpretive Data was last revised on 2018. Monocyte pct 5.4 % [facility] Comment: Interpretive Data Percent cell count reference ranges are not reported, since discordance with absolute values may lead to misinterpretation of CBC data. Current Interpretive Data was last revised on 2018. Eosinophil pct 1.5 % [facility] Comment: Interpretive Data Percent cell count reference ranges are not reported, since discordance with absolute values may lead to misinterpretation of CBC data. Current Interpretive Data was last revised on 2018. Basophil pct 0.3 % [facility] Comment: Interpretive Data Percent cell count reference ranges are not reported, since discordance with absolute values may lead to misinterpretation of CBC data. Current Interpretive Data was last revised on 2018. Blood 02/28/2025 10:0 6 AM CDT 02/28/2025 10:36 AM CDT us Aliya Funk MD LAB BLOOD ORDERABLES Final R esult [facility] [place] [address] * (ABNORMAL) CBC with auto differential (02/28/2025 10:06 AM CDT) [facility] WBC 11.81(H) 3.80 - 9.90 K/cumm Hgb 9.3(L) 11.9 - 15.5 g/dL [facility] Hct 29.5(L) 35.6 - 45.5 % [facility] Plt 241 150 - 400 K/cumm [facility] MPV 9.4 9.1 - 12.[address] [facility] RBC 3.15(L) 3.90 - 5.20 M/cumm [facility] MCV 93.7 81.3 - 96.[address] [facility] MCH 29.5 27.1 - 33.[address] [facility] MCHC 31.5(L) 32.3 - 35.7 g/dL [facility] RDW CV 15.5(H) 11.1 - 14.9 % [facility] RDW SD 52.7(H) 35.7 - 48.[address] [facility] NRBC abs 0.00 0.00 - 0.01 K/cumm [facility] Blood 02/28/2025 10:0 6 AM CDT 02/28/2025 10:36 AM CDT Aliya Funk MD LAB BLOOD ORDERABLES Final R esult [facility] [place] [address] * (ABNORMAL) Comprehensive metabolic panel (02/28/2025 10:06 AM CDT) [facility] Sodium 142 135 - 145 mmol/L Potassium, pl 3.6 3.3 - 4.9 mmol/L [facility] Chloride 105 97 - 110 mmol/L [facility] CO2 28 22 - 32 mmol/L [facility] Anion gap 9 2 - 15 mmol/L [facility] BUN 25 6 - 25 mg/dL [facility] Creatinine 1.29(H) 0.60 - 1.10 mg/dL [facility] Glucose 135 70 - 199 mg/dL [facility] Comment: Interpretive Data Fasting glucose >/= [...] 8.5 - 10.3 mg/dL [facility] Bilirubin, total 0.8 0.1 - 1.2 mg/dL [facility] Protein, pl 6.8 6.5 - 8.5 g/dL [facility] Albumin 3.4(L) 3.5 - 5.0 g/dL [facility] Alk phos 126 40 - 130 Units/L [facility] ALT 7 7 - 45 Units/L [facility] AST 18 10 - 45 Units/L [facility] Blood 02/28/2025 10:0 6 AM CDT 02/28/2025 10:35 AM CDT us Aliya Funk MD LAB BLOOD ORDERABLES Final R esult [facility] Department [place] [address] * POCT glucose (02/12/2025 11:48 AM CDT) [facility] Glucose, POC 131 70 - 199 mg/dL Blood 02/12/2025 11:4 8 AM CDT 02/12/2025 11:48 AM CDT us Kirsty Cobb MD LAB POCT ORDERABLES - DEVICE Fin al Result Performing Organization Address [facility] de Phone Number WALLY Reagan [facility] [place] [address] * POCT glucose (02/12/2025 7:26 AM CDT) Glucose, POC 97 70 - 199 mg/dL Blood 02/12/2025 7:26 AM CDT 02/12/2025 7:26 AM CDT us Kirsty Cobb MD LAB POCT ORDERABLES - DEVICE Fin al Result Performing Organization Address [facility] de Phone Number WALLY DUNCAN [facility] [place] [address] * (ABNORMAL) eGFR (02/11/2025 10:14 PM CDT) [...] Final Resul t Performing Organization Address [facility]/State/ZIP Co de Phone Number [facility] [place] [address] * PTH (02/11/2025 10:14 PM CDT) Pathologist [place] [facility] PTH 15 15 - 65 pg/mL Blood 02/11/2025 10:1 4 PM CDT 02/11/2025 10:54 PM CDT Kirsty Cobb MD LAB BLOOD ORDERABLES Final Resul t [facility] Department [place] [address] * (ABNORMAL) Basic metabolic panel (02/11/2025 10:14 PM CDT) [facility] Sodium 142 135 - 145 mmol/L Potassium, pl 4.1 3.3 - 4.9 mmol/L [facility] Chloride 110 97 - 110 mmol/L [facility] CO2 24 22 - 32 mmol/L [facility] Anion gap 8 2 - 15 mmol/L [facility] BUN 32(H) 6 - 25 mg/dL [facility] Creatinine 1.45(H) 0.60 - 1.10 mg/dL [facility] Glucose 149 70 - 199 mg/dL [facility] Comment: Interpretive Data Fasting glucose >/= [...] 8.5 - 10.3 mg/dL [facility] Blood 02/11/2025 10:1 4 PM CDT 02/11/2025 10:54 PM CDT us Kirsty Cobb MD LAB BLOOD ORDERABLES Final Resul t Performing Organization Address City/[facility]/ZIP Co de Phone Number [facility] [place] [address] * POCT glucose (02/11/2025 7:38 PM CDT) Glucose, POC 143 70 - 199 mg/dL Blood 02/11/2025 7:38 PM CDT 02/11/2025 7:38 PM CDT us Kirsty Cobb MD LAB POCT ORDERABLES - DEVICE Fin al Result Performing Organization Address [facility] Co de Phone Number [facility] [place] [address] * POCT glucose (02/11/2025 5:30 PM CDT) Glucose, POC 160 70 - 199 mg/dL Blood 02/11/2025 5:30 PM CDT 02/11/2025 5:30 PM CDT us Kirsty Cobb MD LAB POCT ORDERABLES - DEVICE Fin al Result Performing Organization Address [facility] Co de Phone Number [facility] [place] [address] * (ABNORMAL) eGFR (02/11/2025 1:15 PM CDT) [...] Final Resul t Performing Organization Address [facility] de Phone Number [facility] [place] [address] * (ABNORMAL) Calcium, ionized (02/11/2025 1:15 PM CDT) Calcium, Ionized 4.49(L) 4.50 - 5.10 mg/dL Blood 02/11/2025 1:15 PM CDT 02/11/2025 1:56 PM CDT Result Roxana Cobb MD LAB BLOOD ORDERABLES Final Resul t Performing Organization Address [facility] de Phone Number [facility] [place] [address] * Vitamin D 25 hydroxy (02/11/2025 1:15 PM CDT) Vitamin D 25-OH 33 30 - 80 ng/mL Blood 02/11/2025 1:15 PM CDT 02/11/2025 1:59 PM CDT Result Roxana Cobb MD LAB BLOOD ORDERABLES Final Resul t Performing Organization Address [facility] de Phone Number [facility] [place] [address] * PTH (02/11/2025 1:15 PM CDT) Pathologist [facility] PTH 18 15 - 65 pg/mL Blood 02/11/2025 1:15 PM CDT 02/11/2025 1:59 PM CDT us Kirsty Cobb MD LAB BLOOD ORDERABLES Final Resul t Performing Organization Address City/[facility] Co de Phone Number [facility] [place] [address] * Vitamin B12 (02/11/2025 1:15 PM CDT) [facility] Vitamin B12 399 230 - 1,250 pg/mL Blood 02/11/2025 1:15 PM CDT 02/11/2025 1:59 PM CDT us Kirsty Cobb MD LAB BLOOD ORDERABLES Final Resul t Performing Organization Address [facility] de Phone Number [facility] [place] [address] * (ABNORMAL) Basic metabolic panel (02/11/2025 1:15 PM CDT) [facility] Sodium 141 135 - 145 mmol/L Potassium, pl 3.9 3.3 - 4.9 mmol/L [facility] Chloride 105 97 - 110 mmol/L [facility] CO2 25 22 - 32 mmol/L [facility] Anion gap 11 2 - 15 mmol/L [facility] BUN 26(H) 6 - 25 mg/dL [facility] Creatinine 1.33(H) 0.60 - 1.10 mg/dL [facility] Glucose 156 70 - 199 mg/dL [facility] Comment: Interpretive Data Fasting glucose >/= [...] 8.5 - 10.3 mg/dL [facility] Blood 02/11/2025 1:15 PM CDT 02/11/2025 1:59 PM CDT us Kirsty Cobb MD LAB BLOOD ORDERABLES Final Resul t Performing Organization Address [facility] Co de Phone Number [facility] [place] [address] * (ABNORMAL) POCT glucose (02/11/2025 12:28 PM CDT) Glucose, POC 210(H) 70 - 199 mg/dL Blood 02/11/2025 12:2 8 PM CDT 02/11/2025 12:28 PM CDT us Kirsty Cobb MD LAB POCT ORDERABLES - DEVICE Fin al Result Performing Organization Address [facility] de Phone Number [facility] [place] [address] * POCT glucose (02/11/2025 8:26 AM CDT) Glucose, POC 167 70 - 199 mg/dL Blood 02/11/2025 8:26 AM CDT 02/11/2025 8:26 AM CDT us Kirsty Cobb MD LAB POCT ORDERABLES - DEVICE Fin al Result Performing Organization Address [facility] de Phone Number [facility] [place] [address] * (ABNORMAL) eGFR (02/11/2025 6:03 AM CDT) eGFR 47(L) >=60 mL/min/1. 73 [...] LAB BLOOD ORDERABLES Final Resul t [facility] [place] [address] * (ABNORMAL) Calcium, ionized (02/11/2025 6:03 AM CDT) Calcium, Ionized 4.21(L) 4.50 - 5.10 mg/dL Blood 02/11/2025 6:03 AM CDT 02/11/2025 6:17 AM CDT Kirsty Cobb MD LAB BLOOD ORDERABLES Final Resul t [facility] [place] [address] * (ABNORMAL) PTH (02/11/2025 6:03 AM CDT) PTH 8(L) 15 - 65 pg/mL Blood 02/11/2025 6:03 AM CDT 02/11/2025 6:18 AM CDT us Kirsty Cobb MD LAB BLOOD ORDERABLES Final Resul t [facility] [place] [address] * (ABNORMAL) Basic metabolic panel (02/11/2025 6:03 AM CDT) [facility] Sodium 141 135 - 145 mmol/L Potassium, pl 4.6 3.3 - 4.9 mmol/L [facility] Chloride 108 97 - 110 mmol/L [facility] CO2 25 22 - 32 mmol/L [facility] Anion gap 8 2 - 15 mmol/L [facility] BUN 28(H) 6 - 25 mg/dL [facility] Creatinine 1.32(H) 0.60 - 1.10 mg/dL [facility] Glucose 143 70 - 199 mg/dL [facility] Comment: Interpretive Data Fasting glucose >/= [...] 8.5 - 10.3 mg/dL [facility] Blood 02/11/2025 6:03 AM CDT 02/11/2025 6:17 AM CDT Narrative [facility] - 02/11/2025 6:39 AM CDT Begin after renal function panel us Kirsty Cobb MD LAB BLOOD ORDERABLES Final Resul t Performing Organization Address City/[facility]/ZIP Co de Phone Number [facility] [place] [address] * (ABNORMAL) POCT glucose (02/10/2025 11:20 PM CDT) Glucose, POC 250(H) 70 - 199 mg/dL Blood 02/10/2025 11:2 0 PM CDT 02/10/2025 11:20 PM CDT us Kirsty Cobb MD LAB POCT ORDERABLES - DEVICE Fin al Result Performing Organization Address City/[facility]/ZIP Co de Phone Number [facility] [place] [address] * (ABNORMAL) eGFR (02/10/2025 11:14 PM CDT) Pathologist [facility] eGFR 51(L) >=60 mL/min/1. 73 m2 Comment: [...] LAB BLOOD ORDERABLES Final Resul t [facility] [place] [address] * (ABNORMAL) Calcium, ionized (02/10/2025 11:14 PM CDT) [facility] Calcium, Ionized 4.35(L) 4.50 - 5.10 mg/dL Blood 02/10/2025 11:1 4 PM CDT 02/10/2025 11:49 PM CDT us Kirsty Cobb MD LAB BLOOD [place]AB[place] [address] * (ABNORMAL) PTH (02/10/2025 11:14 PM CDT) [facility] PTH 11(L) 15 - 65 pg/mL Blood 02/10/2025 11:1 4 PM CDT 02/11/2025 1:11 AM CDT us Kirsty Cobb MD LAB BLOOD ORDERABLES Final Resul t Performing Organization Address City/[facility] Co de Phone Number [place] [address] * (ABNORMAL) Basic metabolic panel (02/10/2025 11:14 PM CDT) [facility] Sodium 140 135 - 145 mmol/L Potassium, pl 4.4 3.3 - 4.9 mmol/L [facility] Chloride 107 97 - 110 mmol/L [facility] CO2 26 22 - 32 mmol/L [facility] Anion gap 7 2 - 15 mmol/L [facility] BUN 27(H) 6 - 25 mg/dL [facility] Creatinine 1.22(H) 0.60 - 1.10 mg/dL [facility] Glucose 238(H) 70 - 199 mg/dL [facility] Comment: Interpretive Data Fasting glucose >/= [...] 8.5 - 10.3 mg/dL [facility] Blood 02/10/2025 11:1 4 PM CDT 02/10/2025 11:53 PM CDT us Kirsty Cobb MD LAB BLOOD ORDERABLES Final Resul t Performing Organization Address [facility] Co de Phone Number [facility] [place] [address] * (ABNORMAL) POCT glucose (02/10/2025 9:15 PM CDT) [facility] Signature Glucose, POC 288(H) 70 - 199 mg/dL Blood 02/10/2025 9:15 PM CDT 02/10/2025 9:15 PM CDT us Kirsty Cobb MD LAB POCT ORDERABLES - DEVICE Fin al Result Performing Organization Address [facility] Co de Phone Number [facility] [place] [address] * GA AN PROCEDURE PLACEHOLDER (02/10/2025 5:42 PM CDT) [...] POCT ORDERABLES - DEVICE Fin al Result [facility] [place] [address] * Surgical pathology (02/10/2025 3:30 PM CDT) [...] (Thyroid) 02/10/2025 6:00 PM CDT Narrative PATHOLOGY [facility] - 02/16/2025 11:40 AM CDT EPIC results best viewed via link to PDF [facility] [place] [address] Note to Patients: This report may contain [...] Gender: F : 1965 (Age: 60) Address: [address] [place], [place] [address] Hospital #: [id number] Taken:02/10/2025 Received:02/11/2025 Reported: 02/16/2025 Patient Type: [facility] OP In Bed Service: Surgery Location: [place] [address] Physician(s): MD Andrés Ulrich PA Natnael Beyene [...] of encapsulated nodule at opposite end A4 Pigment Pumper sections of mass in relation to grossly uninvolved thyroid A5 Pigment Pumper sections of mass in relation to black inked margin in areas of putative positive margin A6 Additional sales representative uniforms sections of mass A7 One possible lymph [...] submitted entirely D9-D11 Level three lymph node, sales representative uniforms sections of matted mass of lymph nodes [...] described nodule losest approach to margins E5 Pigment Pumper sections of uninvolved thyroid Jar 0. F. [...] Surgical Pathology and Flow Cytometry Departments at [facility] as part of an ongoing corporate quality assurance manager program and in compliance with federally [...] Surgical Pathology and Flow Cytometry Departments of [facility]. It has not been cleared or approved by the U. S. Food and Drug Administration. IMAGES AND SCANNED DOCUMENTS, IF INCLUDED, ONLY VIEWABLE IN PDF VERSION OF REPORT us Kirsty Cobb MD LAB PATHOLOGY ORDERABLES Final R esult PATHOLOGY [facility] 3rd Floor [place], [place] [phone] * POCT glucose (02/10/2025 2:50 PM CDT) Glucose, POC 112 70 - 199 mg/dL Blood 02/10/2025 2:50 PM CDT 02/10/2025 2:50 PM CDT Kirsty Cobb MD LAB POCT ORDERABLES - DEVICE Fin al Result Performing Organization Address [facility] Co de Phone Number [facility] [place] [address] * GA AN ELECTIVE ENDOTRACHEAL AIRWAY, GA AN PROCEDURE PLACEHOLDER (02/10/2025 2:00 PM CDT) Narrative Ariana Smith CRNA - 02/10/2025 2:00 PM CDT Ariana Smith CRNA 02/10/2025 2:01 PM Airway Patient location: OR Urgency: elective Indications for airway management: anesthesia and airway protection Difficult airway: no Staff: Supervising provider: John Paul De La O MD Placed by: PERFORATING MACHINE OPERATOR: Ariana Smith CRNA Emergent airway documentation: Risks [...] POCT ORDERABLES - DEVICE Fin al Result [facility] [place] [address] * US Soft Tissue Neck (02/10/2025 11:15 [...] indirect Negative ABO Rh A Positive [facility] Blood 02/05/2025 9:37 AM CDT 02/05/2025 11:15 AM CDT [facility] - 02/05/2025 12:04 PM CDT Is this test being ordered in advance for a procedure?->Yes Expected date of procedure:->02/10/25 Has the patient been transfused in the past 3 months?->No Has the patient been in the past 3 months?->No us Genie Wilkinson NP LAB BLOOD BANK TEST ORDERAB LES Final Result [facility] Department [place] [address] * (ABNORMAL) POCT hemoglobin A1c (02/05/2025 8:23 AM CDT) Hgb A1C, POC 6.5(H) 4.0 - 5.6 % Est Average Gluc POC 140 mg/dL [facility] Comment: The ADA recommends reporting an estimated Average Glucose (eAG) with all Hemoglobin A1c results using the equation derived from a study of 507 normal and diabetic adults. Minority populations were underrepresented and children were not included. (Diabetes Care 31:6652-5000, 2008). The eAG is not equivalent to a fasting glucose. Blood 02/05/2025 8:23 AM CDT 02/05/2025 8:23 AM CDT Kirsty Cobb MD POINT OF CARE TEST ORDERABLES Fi nal Result Performing Organization Address City/[facility]/ZIP Co de Phone Number [facility] [place] [address] * ECG 12 lead (02/05/2025 8:11 AM CDT) Ventricular Rate EKG/Min 65 BPM [facility] Atrial Rate 65 BPM [facility] GA-Interval (MSEC) 160 ms [facility] QRS-Interval (MSEC) 96 ms [facility] QT-Interval (MSEC) 432 ms [facility] QTc 449 ms [facility] P [place] 23 degrees [facility] R [place] -15 degrees [facility] T [place] 14 degrees [facility] Diagnosis Normal sinus rhythm Normal ECG No previous ECGs available Confirmed by Zari Parker MD ([id number]) on 02/08/2025 8:03:24 AM [facility] 02/05/2025 8:11 AM CDT 02/08/2025 8:03 AM CDT Genie Wilkinson DRONE PILOT ECG ORDERABLES Final Resul t Performing Organization Address City/[facility]/ZIP Co de Phone Number [facility] goOutMap [facility] * Screening Mammogram Bilateral W Valerio (11/24/2021 8:39 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) Anatomical Region Laterality Modality Breast Bilateral Mammography 11/24/2021 9:28 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 Impressions 11/24/2021 9:28 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 There is no mammographic evidence of malignancy. Routine screening mammography is recommended in 1 year. BI-RADS: 1 - Negative. The patient will be entered into a reminder system with a target due date of 1 year for her next mammogram. Electronically signed by: Bull Garcia M.D. Narrative 11/24/2021 9:28 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 EXAMINATION: SCREENING MAMMOGRAM BILATERAL W VALERIO ORDERING [...] Relevant to Health Maintenance Insurance MEDICARE ADVANTAGE [facility] MEDICARE ADVANTAGE IDPA [facility] MEDICARE ADVANTAGE IDPA Advance Directives For more information, please contact: [phone] * Full Code (Latest Code Status on File) Date Activated Date Inactivated Comments 02/28/2025 5:33 PM 03/04/2025 10:56 PM * Full Code Date Activated Date Inactivated Comments 02/10/2025 8:54 PM 02/12/2025 6:14 PM * Full Code Date Activated Date Inactivated Comments 07/04/2023 10:44 AM 07/04/2023 5:20 PM Care Teams Manager Culinary Relationship Specialty Start Date End Date Andrés Smiley PA [address] [place] [address] PCP - General 04/18/17
--- OUTSIDE RECORDS SUMMARY | 2025-04-27 13:26 | XMS_ITS | Clinical Summary ---
Author Organization [facility] Facility Address [address] [place] [address] Care Team Providers Care Dining Services Director Name Role Phone Unavailable Primary Care Provider Unavailabl e Encounters Date Type Department Care Team Description 03/26/2025 Documentation Only [facility] [address]. [address] [facility] [address] [place] [address] Emre Patel MD 03/26/2025 Documentation Only [facility] Caelb. [address] [facility] [address] [place] [address] Emre Patel MD from Last [...]
--- OUTSIDE RECORDS SUMMARY | 2025-04-27 13:26 | XMS_ITS | Encounter Summary ---
Author Organization [facility] Address [address] [place] [address] Phone Care Team Providers Care Crane Hooker Name Role Phone Andrés Smiley Primary Care Provider [phone] Reason for Visit * Reason Onset Date Comments Patient issue/concern 04/15/2025 Encounter Details Date Type Department Care Team (Late st Contact Info) Description 04/15/2025 Telephone 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 Backline. Reason for call?: Nubia called in returning a call from Dr Cobb. She requested a call back from wither or the Nurse from Dr Cobb's office. Who is the caller: Nubia. What is the best number for them to contact for a call back: [phone] Last office visit: 03/24/2025 Date of Surgery: 02/10/2025 documented in this encounter Plan of Treatment Not on file documented as of this encounter Visit Diagnoses Not on filedocumented in this encounter Care Teams Crane Hooker Relationship Specialty Start Date End Date Andrés Smiley PA [address] [place] [address] PCP - General 04/18/17 documented as of this encounter
== END 2025-04-27 12:04 | disposition home or self-care (01) ==
LOC: CHSIMG 12:05
PROVIDERS: PCP Physician Assistant; Visit Provider Physician Assistant
DX: L03.221 Cellulitis of neck (principal); L02.11 Cutaneous abscess of neck
CPT/HCPCS: 76536

== ENCOUNTER 2025-05-08 13:01 | Emergency (ER) | payer MEDICARE, MEDICAID, SELFPAY ==
--- NOTE | ~2025-05-08 | CT_ITS ---
Non-contrast Head CT History: CVA COMPARISON: 11/06/2024 Technique: Axial non-contrast imaging of the brain was performed. Dose reduction technique was used on this scan by utilizing automated exposure control and iterative reconstruction technique. The dose -length product (DLP) was 605.33 mGy-cm. Findings: There is no evidence of intracranial hemorrhage, mass lesion, or acute infarct. Brain par enchyma appears normal. The ventricles and subarachnoid spaces are normal in size. The calvarium ap pears normal. The visualized paranasal sinuses and mastoid air cells are clear. Impression: No significant abnormality seen. Reviewed, dictated and finalized at location . Impression: No significant abnormality seen.
--- NOTE | ~2025-05-08 | XR_ITS ---
Portable chest x-ray Comparison: 04/19/2024 Clinical History: CVA Findings: Lungs are clear, without focal consolidation or pleural effusion. Cardiomediastinal silho uette is stable. Bones and soft tissues are unremarkable. Impression: Clear lungs. Reviewed, dictated and finalized at [facility]. Impression: Clear lungs.
[2025-05-08 13:03] VITALS: BP 129/96; PULSE 90; RESP 18; TEMP 37.1; O2SAT 98
--- NOTE | 2025-05-08 13:16 | ED_ITS ---
HPI - General Adult General Chief complaint: Weakness Stated complaint: weakness Time Seen by Provider: 05/08/25 13:15 Source: patient and family Mode of arrival: ambulatory History of Present Illness HPI narrative: 60 years old white female came to the ED by private car complaining of heaviness of the right leg noticed it early today more than usual. numbness tingling of the right side of face, upper and lower extremity noticed 3 days ago, was told by the physical therapy 2 weeks ago that her right side is weaker than the left side. Patient is telling me that she been weaker on the right side since January 2025 after thyroidectomy but lately is getting worse history of hypertension, asthma, thyroid cancer, thyroidectomy currently on levothyroxine. Patient denies any fever, chills, nausea, vomiting, chest pain, shortness of breath, headache. Related Data Home Medications ?Medication ?Instructions ?Recorded ?Confirmed ?Last Taken ?Type amlodipine 10 mg tablet 10 mg PO DAILY 04/18/24 05/08/25 Unknown History wxxomsemhb-qeapqlhidrepg-fpzwlfso 1 tablet PO QAM 04/18/24 05/08/25 Unknown History 50 mg-325 mg-40 mg tablet celecoxib 200 mg capsule 200 mg PO DAILY 04/18/24 05/08/25 Unknown History escitalopram oxalate 20 mg tablet 20 mg PO DAILY 04/18/24 05/08/25 Unknown History ibuprofen 800 mg tablet 800 mg PO BID 04/18/24 05/08/25 Unknown History lisinopril 20 mg tablet 20 mg PO DAILY 04/18/24 05/08/25 Unknown History melatonin 5 mg tablet 5 mg PO HS PRN Insomnia 04/18/24 05/08/25 Unknown History multivitamin 1 tablet PO DAILY 04/18/24 05/08/25 Unknown History tirzepatide 7.5 mg/0.5 mL 7.5 mg subcut WEEKLY 04/18/24 05/08/25 Unknown History subcutaneous pen injector (Mounjaro) Allergies Allergy/AdvReac Type Severity Reaction Status Date / Time sulfamethoxazole (From Allergy Severe Loss of Verified 05/08/25 13:18 Bactrim) Consciousness trimethoprim (From Bactrim) Allergy Severe Loss of Verified 05/08/25 13:18 Consciousness amoxicillin Allergy Unknown Unknown Verified 05/08/25 13:18 tetracycline Allergy Unknown Unknown Verified 05/08/25 13:18 Review of Systems 2 Review of Systems: All systems reviewed & are unremarkable except as noted in HPI and below PMFSH Past Medical History Medical History delivery delivered IBS (irritable bowel syndrome) Asthma High blood pressure Anxiety Depression Migraine CVA (cerebral vascular accident) Surgical History Surgical History History of Ken-en-Y gastric bypass Family History Family History Daughter ESRD (end stage renal disease) Mother ESRD (end stage renal disease) Social History Social History Smoking status: Never smoker Alcohol intake: never Substance use: never Do You Feel Safe in your Home?: Yes Lack of Transportation: No Lack of Food: Never True Current Housing: I Have Housing Concerned About Future Housing: No Difficulty Paying Gas/Electric Bills: No Difficulty Paying for Meds: No Currently Unemployed: No Education: Trade/Vocational Certificate Difficulty w/ Childcare or Family Care: No Spiritual care concerns: Yes (Gnosticism) Exam 2 Narrative: General appearance: Well-developed, well-nourished Skin: Normal color Head: Normocephalic, nontraumatic Eyes: Clear conjunctiva ENT: Oropharynx normal, ears normal, nose normal Neck: Supple, nontender Chest and respiratory: Airway patent, no respiratory distress, no accessory muscle use Heart: Regular rate/rhythm Abdomen: Soft, nontender, no organomegaly, quiet bowel sounds Vascular: Normal peripheral pulses, normal capillary refill. Musculoskeletal: Limited range of motion of the right shoulder and right hip, no swelling, no bruises, no deformity, nontender back Neurologic: Alert and oriented ?3 Course Vital Signs Vital signs: Vital Signs Temperature 37.1 C 05/08/25 13:03 Pulse Rate 90 05/08/25 13:03 Respiratory Rate 18 05/08/25 13:03 Blood Pressure 129/96 H 05/08/25 13:03 Pulse Oximetry 98 05/08/25 13:03 Oxygen Delivery Room Air 05/08/25 13:03 Temperature 37.1 C 05/08/25 15:11 Pulse Rate 98 05/08/25 15:11 Respiratory Rate 16 05/08/25 15:11 Blood Pressure 149/96 H 05/08/25 15:11 Pulse Oximetry 98 05/08/25 15:11 Oxygen Delivery Room Air 05/08/25 15:11 Medical Decision Making MDM Narrative Medical decision making narrative: patient presents with weakness of the right side of her body including the upper and lower extremity since January 2025. She blaming the thyroidectomy for that symptoms. Patient has been on physical therapy tense was told 2 weeks ago that her right side is getting weaker compared to the left side. Then start had numbness and tingling 3-4 days ago and today noticed that her right leg is little bit heavier than normal is. Vital signs are stable Physical examination consistent with weakness of the right upper and right lower extremity, stroke scale is 5 Differential diagnosis include intracranial metastasis, CVA, electrolyte imbalance, dehydration, urinary tract infection Blood workup today includes CBC, CMP, TSH, coags, troponin showed no significant abnormalities Urinalysis showed no evidence of infection Chest x-ray showed within normal limit CT head without contrast showed no acute abnormalities patient could not have CTA head and neck because of iodine therapy of the thyroid gland recently and in the future. Diagnosis stroke which high likely been going over the last few months Discharged on aspirin and follow-up with neurologist for further evaluation. The pt was discharged to home.the pt,s condition upon discharge was fair,education was provided to the pt in reference to the final impression,discharge study results,treatment,prognosis and need for follow up . Differential Diagnosis Differential Diagnosis: as above Medical Records Medical records reviewed: Yes I reviewed the external patient's medical records. Vital Signs Vital Signs: Vital Signs Temperature 37.1 C 05/08/25 13:03 Pulse Rate 90 05/08/25 13:03 Respiratory Rate 18 05/08/25 13:03 Blood Pressure 129/96 H 05/08/25 13:03 Pulse Oximetry 98 05/08/25 13:03 Oxygen Delivery Room Air 05/08/25 13:03 Temperature 37.1 C 05/08/25 15:11 Pulse Rate 98 05/08/25 15:11 Respiratory Rate 16 05/08/25 15:11 Blood Pressure 149/96 H 05/08/25 15:11 Pulse Oximetry 98 05/08/25 15:11 Oxygen Delivery Room Air 05/08/25 15:11 Lab Data 05/08/25 13:27 05/08/25 13:27 Labs: Lab Results 05/08/25 05/08/25 Range/Units 13:27 13:33 WBC 5.2 (4.8-10.8) K/mm3 RBC 3.72 L (4.20-5.40) M/mm3 Hgb 10.7 L (12.0-15.0) g/dL Hct 34.4 L (35.0-49.0) % MCV 92.5 (78.0-102.0) fL MCH 28.8 (27.0-31.0) pg MCHC 31.1 L (32-36) g/dL RDW 13.5 (11.6-14.4) % Plt Count 267 (150-420) K/mm3 MPV 9.1 L (9.2-11.8) fl Immature Gran % (Auto) 0.0 (0.0-0.0) % Neut % (Auto) 60.4 (50.0-70.0) % Lymph % (Auto) 27.2 (18.0-42.0) % [place] % (Auto) 7.0 (2.0-11.0) % Eos % (Auto) 5.0 (1.0-6.0) % Baso % (Auto) 0.4 (0.0-1.0) % Lymph # (Auto) 1.40 (1.10-4.50) K/mm3 [place] # (Auto) 0.36 (0.10-0.90) K/mm3 Eos # (Auto) 0.26 (0.02-0.50) K/mm3 Baso # (Auto) 0.02 (0.00-0.10) K/mm3 Abs Immat Gran (auto) 0.00 (0.00-0.00) K/mm3 Absolute Neuts (auto) 3.11 (1.70-7.20) K/mm3 Absolute Nucleated RBC 0.00 (0.00-0.00) K/mm3 Nucleated RBC % 0.0 (0-0.0) % PT 10.7 (9.50-12.1) Seconds INR 1.0 APTT 25.5 (23.9-30.70) Sec Sodium 140 (137-145) mmol/L Potassium 3.5 (3.4-5.0) mmol/L Chloride 108 H (98-107) mmol/L Carbon Dioxide 29 (22-30) mmol/L Anion Gap 3 L (4-12) mmol/L BUN 24 H D (7-17) mg/dL Creatinine 1.14 H (0.7-1.0) mg/dL Estim Creat Clear Calc 59 ml/min Estimated GFR 49 L (59 - ) Glucose 113 H (65-110) mg/dL Calculated Osmolality 295 (285-295) mOsm/kg Calcium 8.6 (8.4-10.2) mg/dL Total Bilirubin 0.6 (0.2-1.3) mg/dL AST 31 (14-36) U/L ALT 17 (6-35) U/L Alkaline Phosphatase 117 (38-126) U/L Troponin I < 0.012 (0.000-0.034) ng/mL Total Protein 6.8 (6.3-8.2) g/dL Albumin 3.6 (3.5-5.1) g/dL TSH 0.023 L (0.465-4.680) uIU/mL Urine Color Light yellow (Yellow) Urine Appearance Clear (Clear) Urine pH 6.0 (5.0-8.0) Ur Specific [place] 1.025 H (1.010-1.020) Urine Protein Trace H (Negative) Urine Glucose (UA) Negative (Negative) Urine Ketones Negative (Negative) Ur Blood (Man) Negative (Negative) Urine Nitrate Negative (Negative) Urine Bilirubin Negative (Negative) Urine Urobilinogen 0.2 (0.2-1.0) mg/dL Leukocyte Esterase Rfl Trace H (Negative) RUMA/UL Urine RBC None seen (0-2) /hpf Urine WBC 0-5 (0-3) /hpf Ur Squamous Epith Cells Few (Few) /hpf Urine Bacteria Trace (None) /hpf Imaging Data Radiologist's impression: Impressions Head CT 05/08/25 13:47 Impression: No significant abnormality seen. Chest X-Ray 05/08/25 13:49 Impression: Clear lungs. Critical Care Time Critical Care Time Critical Care Time: No Discharge Plan Discharge Clinical Impression: Hemiplegia affecting right dominant side Patient Disposition: Home Condition: Stable Instructions: Stroke (DC) Additional Instructions: Return if symptoms are worsening , call your family physician/ Dr. Doty for appointment, take Tylenol as as needed for aches and pain, continue home medications. Patient Language: Ukrainian Prescriptions: New aspirin 81 mg capsule 81 mg PO DAILY Qty: 30 0RF No Action celecoxib 200 mg capsule 200 mg PO DAILY ibuprofen 800 mg tablet 800 mg PO BID lisinopril 20 mg tablet 20 mg PO DAILY zycmzmsnmg-yqdlvwozyfxnh-npbs 50-325-40 mg tablet 1 tablet PO QAM amlodipine 10 mg tablet 10 mg PO DAILY escitalopram oxalate 20 mg tablet 20 mg PO DAILY Mounjaro 7.5 mg/0.5 mL pen injector 7.5 mg SUBCUT WEEKLY Rx Instructions: takes every sunday multivitamin Tablet 1 tablet PO DAILY melatonin 5 mg Tablet 5 mg PO HS PRN (Reason: Insomnia) Follow-up/Referrals: Sherice,KALEN Diaz [Primary Care Provider] - Camila Doty MD [Physician] - 05/11/25 Quality Stroke Scale Stroke Scale 1: Stroke scale date:: 05/08/25 1a Level of consciousness: alert-0 1b Level of consciousness questions: answers both correctly-0 1c Level of consciousness commands: obeys both correctly-0 2 Best gaze: normal-0 3 Visual: no visual loss-0 4 Facial palsy: normal-0 5a Motor: left arm: no drift-0 5b Motor: right arm: drift-1 6a Motor: left leg: no drift-0 6b Motor: right leg: drift-1 7 Limb ataxia: present in two limbs-2 8 Sensory: pinprick less sharp-1 9 Best language: no aphasia-0 10 Dysarthria: normal-0 11 Extinction and inattention: no abnormality-0 Level:: 5
[2025-05-08 13:32] LABS: Basophils Absolute Auto 0.02 K/mm3 (0.00-0.10); Basophils Percent Auto 0.4 % (0.0-1.0); Eosinophils Absolute Auto 0.26 K/mm3 (0.02-0.50); Hematocrit 34.4 % (35.0-49.0); Hemoglobin 10.7 g/dL (12.0-15.0); Lymphocytes Percent Auto 27.2 % (18.0-42.0); Mean Corpuscular HGB Conc 31.1 g/dL (32-36); Mean Corpuscular Hemoglobin 28.8 pg (27.0-31.0); Mean Corpuscular Volume 92.5 fL (78.0-102.0); Mean Platelet Volume 9.1 fl (9.2-11.8); Monocytes Absolute Auto 0.36 K/mm3 (0.10-0.90); Neutrophils Absolute Auto 3.11 K/mm3 (1.70-7.20); Neutrophils Percent Auto 60.4 % (50.0-70.0); Platelet Count Result 267 K/mm3 (150-420); Red Blood Count 3.72 M/mm3 (4.20-5.40); Red Cell Distribution Width 13.5 % (11.6-14.4); White Blood Count 5.2 K/mm3 (4.8-10.8)
[2025-05-08 13:36] LABS: Add Urine Microscopic? YES; Appearance Urine Clear (Clear); Bilirubin Urine Negative (Negative); Blood Urine Negative (Negative); Color Urine Light Yellow (Yellow); Glucose Urine UA Negative (Negative); Ketones Urine Negative (Negative); Leukocyte Esterase Ur Trace LEU/UL (Negative); Nitrate Urine Negative (Negative); Protein Urine Trace (Negative); Specific Grav Ur 1.025 (1.010-1.020); Urobilinogen Urine 0.2 mg/dL (0.2-1.0)
[2025-05-08 13:44] LABS: Bacteria Urine Trace /hpf; RBC Urine None seen /hpf (0-2); Squamous Epithelial Cell Urine Few /hpf (Few); WBC Urine 0-5 /hpf (0-3)
[2025-05-08 13:44] LABS: Alanine Aminotransferase 17 U/L (6-35); Albumin Level 3.6 g/dL (3.5-5.1); Alkaline Phosphatase 117 U/L (38-126); Anion Gap 3 mmol/L (4-12); Aspartate Amino Transferase 31 U/L (14-36); Bilirubin,Total 0.6 mg/dL (0.2-1.3); Blood Urea Nitrogen 24 mg/dL (7-17); Calcium 8.6 mg/dL (8.4-10.2); Carbon Dioxide 29 mmol/L (22-30); Chloride 108 mmol/L (98-107); Estimated CRCL calculation 59 ml/min; Estimated Glomerular Filt Rate 49; Glucose 113 mg/dL (65-110); Osmolality Calculated 295 mOsm/kg (285-295); Potassium 3.5 mmol/L (3.4-5.0); Sodium 140 mmol/L (137-145); Total Protein 6.8 g/dL (6.3-8.2)
[2025-05-08 13:46] LABS: Partial Thromboplastin Time 25.5 Sec (23.9-30.70); Prothrombin Time 10.7 Seconds (9.50-12.1)
[2025-05-08 13:56] LABS: Troponin I < 0.012 ng/mL (0.000-0.034)
[2025-05-08 14:15] LABS: Thyroid Stimulating Hormone 0.023 uIU/mL (0.465-4.680)
[2025-05-08] MEDS: ASPIRIN 81 MG CHEWABLE TABLET 324 MG PO (15:08)
[2025-05-08 15:11] VITALS: BP 149/96; PULSE 98; RESP 16; TEMP 37.1; O2SAT 98
== END 2025-05-08 15:10 | disposition home or self-care (01) ==
PROVIDERS: Emergency Provider Emergency Medicine; PCP Physician Assistant
DX: G81.91 Hemiplegia, unspecified affecting right dominant side (principal); Z90.89 Acquired absence of other organs
CPT/HCPCS: 36415; 70450; 71045; 80053; 81001; 84443; 84484; 85025; 85610; 85730; 99284; A9270

== ENCOUNTER 2025-05-26 08:57 | Outpatient (CLI) | payer MEDICARE, MEDICAID, SELFPAY ==
--- OUTSIDE RECORDS SUMMARY | 2025-05-26 09:04 | XMS_ITS ---
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 Refer to [...] pain 07/04/2023 Coronary artery disease invo lving qawalangin coronary artery of qawalangin heart 06/08/2023 Calculus of gallbladder with out cholecystitis without obstruction 05/17/2022 Overview (05/17/2022): Added automatically from request for surgery [id number] Incisional hernia, without obstruction or gangre ne 05/17/2022 Overview (05/17/2022): Added automatically from request for surgery [id number] Current Treatment and Therapy Plans No current plan information found. Past Treatment and Therapy Plans No past plan information found. Lifetime Dose Tracking * Chemical Lifetime Dose Automatic Entry Manual Entr y Air kerma at the reference point (Ka,r) 524 mGy 0 mGy 524 mGy DLP 1,243 mGycm 1,243 mGycm 0 mGycm
--- OUTSIDE RECORDS SUMMARY | 2025-05-26 09:05 | XMS_ITS | Clinical Summary ---
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 Refer to [...] pain 07/04/2023 Coronary artery disease invo lving hughes coronary artery of hughes heart 06/08/2023 Calculus of gallbladder with out cholecystitis without obstruction 05/17/2022 Overview (05/17/2022): Added automatically from request for surgery [id number] Incisional hernia, without obstruction or gangre ne 05/17/2022 Overview (05/17/2022): Added automatically from request for surgery [id number] Encounters Date Type Department Care Team Description 05/15/2025 Orders Only [facility] Floor 5 [place] [address] Lizette See RN 05/14/2025 Orders Only [facility] 1 [place] [address] Blanca Mohan RN 05/05/2025 Telephone [facility] 1 [place] [address] Anna Casarez, MACK 05/05/2025 Telephone [facility] 1 [place] [address] Anna Casarez, MACK 04/16/2025 Telephone [facility] Surgery [address] [place] [address] 5 [place] [address] Lizette See, MACK 04/15/2025 Orders Only [facility] 5 [place] [address] Lizette See, MACK Dysphagia, unspecified type (Primary Dx) 04/15/2025 Telephone [facility] Surgery [address] [place] [address] 5 [place] [address] Lizette See, MACK 04/15/2025 Telephone [facility] Surgery [address] [place] [address] Floor 8 [place] [address] Kirsty Cobb Patient issue/concern 04/13/2025 Telephone [facility] Surgery [address] [place] [address] Floor 5 [place] [phone] Kirsty Cobb MD 04/10/2025 Telephone [facility] 1 [place] [address] Anna Casarez, MACK 04/08/2025 2:08 PM CDT - 04/08/2025 11:59 PM CDT Hospital [facility] [address] [place] [address] Discharge Disposition: Discharge to home or self care 04/07/2025 Telephone [facility] 1 [place] [address] Anna Casarez, MACK 04/01/2025 Orders Only [facility] 1 [place] [address] Anna Casarez RN 03/27/2025 Orders Only [facility] 1 [place] [address] Anna Casarez, MACK Thyroid cancer (HCC) (Primary Dx) 03/27/2025 Telephone [facility] [address] [place] [address] Anna Casarez, MACK 03/24/2025 1:00 PM CDT Telemedicine [facility] Endocrinology Metabolism and Lipid [address] [facility] Floor 1, [address] [place] [phone] Kd Pike MD Papillary thyroid carcinoma (HCC) (Primary Dx); Lung nodules; Post-surgical hypothyroidism 03/24/2025 Documentation [facility] Advanced Medicine Radiation Oncology [facility] [place] [address] Ai Flores RN 03/24/2025 Orders Only [facility] Surgery [address] [facility] Floor 5 [place] [phone] Kirsty Cobb MD Papillary thyroid carcinoma (HCC) (Primary Dx) 03/24/2025 Telephone [facility] Surgery [address] [facility] Floor 8 [place] [phone] Kirsty Cobb MD Medical Question/Miscellaneo us 03/13/2025 3:45 PM CDT Office Visit [facility] Surgery [address] [place] [phone] Kirsty Cobb MD Thyroid cancer (HCC) (Primary Dx); Papillary thyroid carcinoma (HCC) 03/13/2025 1:45 PM CDT Lab [facility] - Lab Collection [address] [place] [id number] Thyroid cancer (HCC) 03/13/2025 Orders Only [facility] Surgery [address] [place] [phone] Kirsty Cobb MD Papillary thyroid carcinoma (HCC) 03/13/2025 Orders Only [facility] Surgery [address] [place] [phone] Lizette See RN Papillary thyroid carcinoma (HCC) (Primary Dx) 03/12/2025 Telephone [facility] Surgery [address] [place] [phone] Lizette See RN 03/09/2025 Results Follow-Up [facility] [address] [place] [phone] Kirsty Cobb MD Aerobic and anaerobic culture and gram stain Aspirate Neck, right 02/28/2025 9:07 AM CDT - 03/04/2025 6:51 PM CDT Hospital Encounter [address] [phone] Tarsha Moraes MD Brown, Taylor, MD Localized swelling, mass or lump of neck (Primary Dx); 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 Discharge Disposition: Discharge to home or self care 02/28/2025 Orders Only [facility] [address] [place] [address] Maryam Lee, RN 02/28/2025 Orders Only [facility] Oncology [address] [place] [phone] Amina Villa NP 02/25/2025 Telephone [facility] Floor 5 [place] [address] Lizette See RN 02/25/2025 Telephone [facility] Floor 5 [place] [address] Lizette See RN 02/24/2025 Telephone [facility] Surgery [address] [place] [address] 5 [place] [address] Lizette See RN 02/24/2025 Orders Only [facility] Surgery [address] [place] [address] Floor 5 [place] [address] Lizette See RN Papillary thyroid carcinoma (HCC) (Primary Dx) 02/24/2025 Telephone [facility] Surgery [address] [place] [address] 5 [place] [address] Lizette See RN 02/24/2025 Telephone [facility] Surgery [address] [place] [address] Floor 8 [place] [address] Kirsty Cobb MD Medical Question/Miscellaneo us from Last 3 Months Immunizations Immunization Administration [...] on file Legal Sex Female 12:10 AM CHIEF SCIENCE OFFICER Gender Identity Not on file Sexual Orientation [...] 2023-2 5 season) 2024 10/05/2021, 03/16/2021, 02/16/2021 Influenza Vaccine (#1) 2025 , 09/17/2021, 09/13/2020, Additional history exists Hemoglobin A1C 08/08/2025 02/05/2025, 05/0 04/2020, 08/01/2019, Additional history exists Breast Cancer Screening-Mammogram 09/10/2025 024, 11/24/2021 Lipid Panel 02/28/2026 02/28/2025, 050 04/2020, 07/30/2018, Additional history exists eGFR 03/04/2026 03/04/2025, 02/17, 03/02/2025, Additional history exists Zoster Vaccine Completed 08/16/2024, 04/16/2024 Medical Devices Implanted Type Area Mat Inspector Device Identifier Shelf Expiration Date Model / Serial / Lot Cell-A-Spot Angio-Seal Vip 6fr Closere Device [id number] - [id number] Implanted:Qty: 1 on 07/04/2023 by Hank Irby MD at [facility] Cell-[employer]-Spot 01/17/2024 [id number] / / [id number] Procedures Procedure Name Priority Date/Time Associated Diagnosis [...] DIFFERENTIAL Routine 02/28/2025 10:06 AM CDT POCT HEMOGLOBIN A1C Routine 02/05/2025 8 :23 AM CDT SCREENING MAMMOGRAM BILATERAL W VALERIO Schedule Routine, Read Routine (OP Routine) 11/24/2021 8:39 AM CHIEF SCIENCE OFFICER Encounter for screening mammogram for malignant neoplasm of breast from Last 3 Months or Most Recently Relevant to Health Maintenance Results * Neuro CT Outside Reference (04/08/2025 2:08 PM CDT) Impressions [facility]_P[facility] - 04/08/2025 2:08 PM CDT These images are for Reference purposes only and have not been reviewed by [facility] Radiology. There will be no report generated by a [facility] Radiologist. Narrative RAD_PACS_[facility] - 04/08/2025 2:08 PM CDT EXAMINATION: Images For Reference Purposes Only us Patti Alejandro MD IMG CT PROCEDURES Final Result [facility] * Reflex thyroglobulin, tumor marker, IA, S (03/13/2025 1:45 PM CDT) Thyroglobulin, Tumor Marker 78 < or = 33 ng/mL [facility] Thyroglobulin interp See Footnote [facility] Comment: Thyroglobulin (Tg) reference intervals are for [...] testing methods are immunoenzymatic assays manufactured by [employer] and performed on the [employer] DXI 800. Values obtained from different assay methods or kits may be different and cannot be used interchangeably. The results cannot be interpreted as absolute evidence for the presence or absence of malignant disease. Test Performed by: [place] [address] Automation Machine Builder: Basil Rose Ph.D.; CLIA# [id number] Blood 03/13/2025 1:45 PM CDT 03/13/2025 3:05 PM CDT us Kirsty Cobb MD LAB BLOOD ORDERABLES Final Resul t Performing Organization Address [facility] de Phone Number [facility] [place] [address] [facility] * Thyroglobulin reflex to MS or IA (03/13/2025 1:45 PM CDT) Anti-thyroglobulin <1.8 <1.8 IUnits/mL [facility] Comment: Thyroglobulin Antibody < 1.8 IU/mL. Thyroglobulin performed by Immunoassay to follow. Test Performed by: [place] [address] Automation Machine Builder: Basil Rose Ph.D.; CLIA# [id number] Blood 03/13/2025 1:45 PM CDT 03/13/2025 3:05 PM CDT us Kirsty Cobb MD LAB BLOOD ORDERABLES Final Resul t Performing Organization Address City/[facility] Co de Phone Number [facility] [address] [facility] * (ABNORMAL) TSH (03/13/2025 1:45 PM CDT) Thyroid Stimulating Hormone 0.04(L) 0.30 - 4.20 mcIUnit/mL Blood 03/13/2025 1:45 PM CDT 03/13/2025 1:47 PM CDT us Kirsty Cobb MD LAB BLOOD ORDERABLES Final Resul t [facility] [place] [address] * US Kidney Complete (03/04/2025 3:13 PM [...] hydronephrosis. Electronically signed by: Carolann Aleman M.D. us Kirsty Cobb MD IMG US PROCEDURES Final Result * (ABNORMAL) eGFR [...] LAB BLOOD ORDERABLES Final Resul t [facility] [place] [address] * Urinalysis reflex to microscopic and culture Urine, clean voided (03/04/2025 11:26 AM CDT) Color, ur Straw Yellow Clarity, ur Clear Clear [facility] Specific gravity, ur 1.014 1.003 - 1.030 [facility] pH, urine 6.5 [facility] Comment: Interpretive Data U rine pH is affected by diet, medications, systemic acid-base disturbances, and renal tubular function. pH may affect urinary stone formation. For example, urine pH below 6.0 may help reduce the tendency for calcium phosphate stones and pH greater than 6.0 may reduce the tendency for uric acid stone formation. Source: [facility] [employer] Current Interpretive Data was last revised on 2017 Protein, ur ql Negative Negative [facility] Glucose, ur ql Negative Negative [facility] Ketones, ur Negative Negative [facility] Bilirubin, ur Negative Negative [facility] Blood, ur Negative Negative [facility] Urobilinogen, ur <2.0 <2.0 mg/dL [facility] Nitrite, ur Negative Negative [facility] Leukocyte esterase, ur Negative Negative [facility] UA reflex comment Reflex conditions for microscopic UA and culture not met. [facility] Urine, clean voided 03/04/2025 11:26 AM CDT 03/04/2025 12:34 PM CDT Kirsty Cobb MD LAB MICROBIOLOGY - GENERAL ORDER BALDEV Final Result [facility] [place] [address] * (ABNORMAL) Basic metabolic panel (03/04/2025 11:26 AM CDT) Sodium 143 135 - 145 mmol/L Potassium, pl 4.0 3.3 - 4.9 mmol/L [facility] Chloride 105 97 - 110 mmol/L [facility] CO2 30 22 - 32 mmol/L [facility] Anion gap 8 2 - 15 mmol/L [facility] BUN 20 6 - 25 mg/dL [facility] Creatinine 1.32(H) 0.60 - 1.10 mg/dL [facility] Glucose 137 70 - 199 mg/dL [facility] Comment: Interpretive Data Fasting glucose >/= [...] 2022. Calcium 9.0 8.5 - 10.3 mg/dL [facility] Blood 03/04/2025 11:2 6 AM CDT 03/04/2025 12:28 PM CDT Result Roxana Cobb MD LAB BLOOD ORDERABLES Final Resul t Performing Organization Address [facility] de Phone Number [facility] [place] [address] * Urea nitrogen, urine, random (03/03/2025 10:17 PM CDT) Urea nitrogen, ur 366 mg/dL Comment: Interpretive Data No reference range established. Current interpretive data was last revised 2019. Urine 03/03/2025 10:1 7 PM CDT 03/03/2025 11:41 PM CDT Result Roxana Cobb MD LAB URINE ORDERABLES Final Resul t Performing Organization Address [facility] de Phone Number [facility] Department [place] [address] * Creatinine, urine, random (03/03/2025 10:17 PM CDT) Creatinine Ur 66.0 mg/dL Comment: Interpretive Data No reference range established. Current interpretive data was last revised 2019. Urine 03/03/2025 10:1 7 PM CDT 03/03/2025 11:41 PM CDT Result Roxana Cobb MD LAB URINE ORDERABLES Final Resul t Performing Organization Address [facility] de Phone Number [facility] [place] [address] * (ABNORMAL) eGFR (03/03/2025 10:15 PM CDT) Pathologist [facility] eGFR 44(L) >=60 mL/min/1. 73 m2 Comment: [...] ORDERABLES Final Resul t Performing Organization Address [facility] de Phone Number [facility] [place] [address] * (ABNORMAL) CBC without differential (03/03/2025 10:15 PM CDT) Pathologist [facility] WBC 6.35 3.80 - 9.90 K/cumm Hgb 7.4(L) 11.9 - 15.5 g/dL [facility] Hct 24.0(L) 35.6 - 45.5 % [facility] Plt 221 150 - 400 K/cumm [facility] MPV 10.2 9.1 - 12.3 fL [facility] RBC 2.53(L) 3.90 - 5.20 M/cumm [facility] MCV 94.9 81.3 - 96.4 fL [facility] MCH 29.2 27.1 - 33.3 pg [facility] MCHC 30.8(L) 32.3 - 35.7 g/dL [facility] RDW CV 15.2(H) 11.1 - 14.9 % [facility] RDW SD 52.5(H) 35.7 - 48.1 fL [facility] NRBC abs 0.00 0.00 - 0.01 K/cumm [facility] Blood 03/03/2025 10:1 5 PM CDT 03/03/2025 11:25 PM CDT us Kirsty Cobb MD LAB BLOOD ORDERABLES Final Resul t Performing Organization Address [facility] de Phone Number [facility] Department [place] [address] * Phosphorus (03/03/2025 10:15 PM CDT) Phosphorus, pl 3.8 2.3 - 4.5 mg/dL Blood 03/03/2025 10:1 5 PM CDT 03/03/2025 11:25 PM CDT us Kirsty Cobb MD LAB BLOOD ORDERABLES Final Resul t Performing Organization Address [facility] Co de Phone Number [facility] Department [place] [address] * Magnesium (03/03/2025 10:15 PM CDT) Magnesium 1.8 1.4 - 2.5 mg/dL Blood 03/03/2025 10:1 5 PM CDT 03/03/2025 11:25 PM CDT us Kirsty Cobb MD LAB BLOOD ORDERABLES Final Resul t [facility] Department [place] [address] * (ABNORMAL) Basic metabolic panel (03/03/2025 10:15 PM CDT) Sodium 145 135 - 145 mmol/L Potassium, pl 4.0 3.3 - 4.9 mmol/L [facility] Chloride 108 97 - 110 mmol/L [facility] CO2 29 22 - 32 mmol/L [facility] Anion gap 8 2 - 15 mmol/L [facility] BUN 22 6 - 25 mg/dL [facility] Creatinine 1.38(H) 0.60 - 1.10 mg/dL [facility] Glucose 111 70 - 199 mg/dL [facility] Comment: Interpretive Data Fasting glucose >/= [...] 2022. Calcium 8.7 8.5 - 10.3 mg/dL [facility] Blood 03/03/2025 10:1 5 PM CDT 03/03/2025 11:25 PM CDT Kirsty Cobb MD LAB BLOOD ORDERABLES Final Resul t [facility] [place] [address] * Sodium, urine, random (03/03/2025 1:14 PM CDT) Sodium, ur 154 mmol/L Comment: Interpretive Data No reference range established. Current interpretive data was last revised 2019. Urine 03/03/2025 1:14 PM CDT 03/03/2025 1:58 PM CDT us Kirsty Cobb MD LAB URINE ORDERABLES Final Resul t Performing Organization Address [facility] Co de Phone Number [facility] [place] [address] * Creatinine, urine, random (03/03/2025 1:14 PM CDT) Creatinine Ur 19.9 mg/dL Comment: Interpretive Data No reference range established. Current interpretive data was last revised 2019. Urine 03/03/2025 1:14 PM CDT 03/03/2025 1:58 PM CDT us Kirsty Cobb MD LAB URINE ORDERABLES Final Resul t Performing Organization Address [facility] Co de Phone Number [facility] [place] [address] * (ABNORMAL) Vancomycin level trough Draw trough 30 minutes prior to vancomycin dose. (03/03/2025 9:46 AM CDT) [facility] Vancomycin trough 21.2(H) 10.0 - 20.0 mcg/mL Blood 03/03/2025 9:46 AM CDT 03/03/2025 10:22 AM CDT Narrative [facility] - 03/03/2025 10:52 AM CDT Draw trough 30 minutes prior to vancomycin dose. us Esperanza Banda MD LAB BLOOD ORDERABL ES Final Result Performing Organization Address [facility] Co de Phone Number [facility] [place] [address] * (ABNORMAL) eGFR (03/02/2025 10:15 PM CDT) Pathologist [facility] eGFR 41(L) >=60 mL/min/1. 73 m2 Comment: [...] MD LAB BLOOD ORDERABLES Final Resul t [facility] [place] [address] * (ABNORMAL) CBC without differential (03/02/2025 10:15 PM CDT) WBC 8.01 3.80 - 9.90 K/cumm Hgb 7.9(L) 11.9 - 15.5 g/dL [facility] Hct 25.4(L) 35.6 - 45.5 % [facility] Plt 204 150 - 400 K/cumm [facility] MPV 10.8 9.1 - 12.3 fL [facility] RBC 2.71(L) 3.90 - 5.20 M/cumm [facility] MCV 93.7 81.3 - 96.4 fL [facility] MCH 29.2 27.1 - 33.3 pg [facility] MCHC 31.1(L) 32.3 - 35.7 g/dL [facility] RDW CV 15.5(H) 11.1 - 14.9 % [facility] RDW SD 53.4(H) 35.7 - 48.1 fL [facility] NRBC abs 0.00 0.00 - 0.01 K/cumm [facility] Blood 03/02/2025 10:1 5 PM CDT 03/02/2025 11:05 PM CDT us Kirsty Cobb MD LAB BLOOD ORDERABLES Final Resul t Performing Organization Address City/[facility] Co de Phone Number [facility] [place] [address] * Phosphorus (03/02/2025 10:15 PM CDT) Pathologist [facility] [place] Phosphorus, pl 3.4 2.3 - 4.5 mg/dL Blood 03/02/2025 10:1 5 PM CDT 03/02/2025 11:05 PM CDT us Kirsty Cobb MD LAB BLOOD ORDERABLES Final Resul t Performing Organization Address City/[facility] de Phone Number [facility] [place] [address] * (ABNORMAL) Basic metabolic panel (03/02/2025 10:15 PM CDT) [facility] Sodium 140 135 - 145 mmol/L Potassium, pl 3.4 3.3 - 4.9 mmol/L [facility] Chloride 103 97 - 110 mmol/L [facility] CO2 25 22 - 32 mmol/L [facility] Anion gap 12 2 - 15 mmol/L [facility] BUN 24 6 - 25 mg/dL [facility] Creatinine 1.46(H) 0.60 - 1.10 mg/dL [facility] Glucose 155 70 - 199 mg/dL [facility] Comment: Interpretive Data Fasting glucose >/= [...] 2022. Calcium 8.7 8.5 - 10.3 mg/dL [facility] Blood 03/02/2025 10:1 5 PM CDT 03/02/2025 11:05 PM CDT us Kirsty Cobb MD LAB BLOOD ORDERABLES Final Resul t Performing Organization Address [facility] Co de Phone Number [facility] [place] [address] * (ABNORMAL) eGFR (03/01/2025 9:16 PM CDT) [...] ORDERABLES Final Resul t Performing Organization Address City/[facility]/ZIP Co de Phone Number [facility] [place] [address] * (ABNORMAL) CBC without differential (03/01/2025 9:16 PM CDT) [facility] WBC 12.35(H) 3.80 - 9.90 K/cumm Hgb 7.6(L) 11.9 - 15.5 g/dL [facility] Hct 24.5(L) 35.6 - 45.5 % [facility] Plt 163 150 - 400 K/cumm [facility] MPV 10.5 9.1 - 12.3 fL [facility] RBC 2.59(L) 3.90 - 5.20 M/cumm [facility] MCV 94.6 81.3 - 96.4 fL [facility] MCH 29.3 27.1 - 33.3 pg [facility] MCHC 31.0(L) 32.3 - 35.7 g/dL [facility] RDW CV 15.7(H) 11.1 - 14.9 % [facility] RDW SD 54.2(H) 35.7 - 48.1 fL [facility] NRBC abs 0.00 0.00 - 0.01 K/cumm [facility] Blood 03/01/2025 9:16 PM CDT 03/01/2025 10:27 PM CDT us Kirsty Cobb MD LAB BLOOD ORDERABLES Final Resul t Performing Organization Address City/[facility]/ZIP Co de Phone Number [facility] [place] [address] * Phosphorus (03/01/2025 9:16 PM CDT) [facility] Phosphorus, pl 3.3 2.3 - 4.5 mg/dL Blood 03/01/2025 9:16 PM CDT 03/01/2025 10:27 PM CDT us Kirsty Cobb MD LAB BLOOD ORDERABLES Final Resul t Performing Organization Address City/State/[facility] Co de Phone Number [facility] One [facility] [place] [address] * Magnesium (03/01/2025 9:16 PM CDT) [facility] Magnesium 2.2 1.4 - 2.5 mg/dL Blood 03/01/2025 9:16 PM CDT 03/01/2025 10:27 PM CDT Kirsty Cobb MD LAB BLOOD ORDERABLES Final Resul t [facility] [place] [address] * (ABNORMAL) Basic metabolic panel (03/01/2025 9:16 PM CDT) [facility] Sodium 142 135 - 145 mmol/L Potassium, pl 3.7 3.3 - 4.9 mmol/L [facility] Chloride 106 97 - 110 mmol/L [facility] CO2 25 22 - 32 mmol/L [facility] Anion gap 11 2 - 15 mmol/L [facility] BUN 28(H) 6 - 25 mg/dL [facility] Creatinine 1.34(H) 0.60 - 1.10 mg/dL [facility] Glucose 128 70 - 199 mg/dL [facility] Comment: Interpretive Data Fasting glucose >/= [...] 2022. Calcium 8.6 8.5 - 10.3 mg/dL [facility] Blood 03/01/2025 9:16 PM CDT 03/01/2025 10:27 PM CDT us Kirsty Cobb MD LAB BLOOD ORDERABLES Final Resul t [facility] [place] [address] * POCT glucose (03/01/2025 6:06 AM CDT) Glucose, POC 102 70 - 199 mg/dL Blood 03/01/2025 6:06 AM CDT 03/01/2025 6:06 AM CDT Kirsty Cobb MD LAB POCT ORDERABLES - DEVICE Fin al Result Performing Organization Address [facility] Co de Phone Number [facility] [place] [address] * (ABNORMAL) eGFR (02/28/2025 9:37 PM CDT) [...] ORDERABLES Bronwyn l Result Performing Organization Address [facility]/ZIP Co de Phone Number [facility] [place] [address] * (ABNORMAL) CBC without differential (02/28/2025 9:37 PM CDT) Pathologist [facility] WBC 17.76(H) 3.80 - 9.90 K/cumm Hgb 7.8(L) 11.9 - 15.5 g/dL [facility] Hct 24.7(L) 35.6 - 45.5 % [facility] Plt 207 150 - 400 K/cumm [facility] MPV 10.3 9.1 - 12.3 fL [facility] RBC 2.60(L) 3.90 - 5.20 M/cumm [facility] MCV 95.0 81.3 - 96.4 fL [facility] MCH 30.0 27.1 - 33.3 pg [facility] MCHC 31.6(L) 32.3 - 35.7 g/dL [facility] RDW CV 15.8(H) 11.1 - 14.9 % [facility] RDW SD 55.0(H) 35.7 - 48.1 fL [facility] NRBC abs 0.00 0.00 - 0.01 K/cumm [facility] Blood 02/28/2025 9:37 PM CDT 02/28/2025 10:47 PM CDT Tarsha Moraes MD LAB BLOOD ORDERABLES Bronwyn l Result [facility] Department [place] [address] * Phosphorus (02/28/2025 9:37 PM CDT) Pathologist [facility] [place] Phosphorus, pl 3.1 2.3 - 4.5 mg/dL Blood 02/28/2025 9:37 PM CDT 02/28/2025 10:47 PM CDT Tarsha Moraes MD LAB BLOOD ORDERABLES Bronwyn l Result Performing Organization Address City/[facility] Co de Phone Number [facility] [place] [address] * Magnesium (02/28/2025 9:37 PM CDT) Magnesium 1.6 1.4 - 2.5 mg/dL Blood 02/28/2025 9:37 PM CDT 02/28/2025 10:47 PM CDT Tarsha Moraes MD LAB BLOOD ORDERABLES Bronwyn l Result Performing Organization Address [facility] Co de Phone Number [facility] [place] [address] * Lipid panel (02/28/2025 9:37 PM CDT) [...] revised on 2018. Triglycerides 56 <=149 mg/dL [facility] Comment: Interpretive Data Ages < or [...] on 2018. HDL 51 >=40 mg/dL [facility] Comment: Interpretive Data Ages < or [...] 2018. LDL, calculated 50 <=129 mg/dL [facility] Comment: Interpretive Data Ages < or [...] NCEP Expert Panel. Circulation 2004;110:227 3. Avtar Miramontes al. JASBIR Cardiol. 2020 March 19;5(5):540-548. doi: 10.1001/[email or web address].2020.0013 Current Interpretive Data was last revised on 2024. Non-HDL Cholesterol 63 mg/dL [facility] Comment: Interpretive Data Ages < or [...] last revised on 2018. Chol/HDL ratio 2 [facility] Blood 02/28/2025 9:37 PM CDT 02/28/2025 10:47 PM CDT Kirsty Cobb MD LAB BLOOD ORDERABLES Final Resul t [facility] [place] [address] * (ABNORMAL) Basic metabolic panel (02/28/2025 9:37 PM CDT) Sodium 142 135 - 145 mmol/L Potassium, pl 4.1 3.3 - 4.9 mmol/L [facility] Chloride 107 97 - 110 mmol/L [facility] CO2 27 22 - 32 mmol/L [facility] Anion gap 8 2 - 15 mmol/L [facility] BUN 26(H) 6 - 25 mg/dL [facility] Creatinine 1.30(H) 0.60 - 1.10 mg/dL [facility] Glucose 225(H) 70 - 199 mg/dL [facility] Comment: Interpretive Data Fasting glucose >/= [...] 2022. Calcium 8.1(L) 8.5 - 10.3 mg/dL [facility] Blood 02/28/2025 9:37 PM CDT 02/28/2025 10:47 PM CDT us Tarsha Moraes MD LAB BLOOD ORDERABLES Bronwyn sid Result [facility] [place] [address] * (ABNORMAL) Aerobic and anaerobic culture and gram stain Aspirate Neck, right (02/28/2025 2:33 PM CDT) Direct Specimen Exam Stain: Few polymorphonuclear leukocytes seen. Abundant Gram Negative Bacilli Abundant Gram Positive Cocci Rare Gram Positive Bacilli Report Final Report: Abundant Pseudomonas aeruginosa Abundant Streptococcus agalactiae (Group B Streptococci) Abundant Staphylococcus aureus Methicillin resistant (MRSA) by penicillin binding protein 2a (PBP2a) testing. (.) [facility] Organism PSEUDOMONAS AERUGINOSA [facility] Organism STREPTOCOCCUS AGALACTIAE (GROUP B STREPTOCOCCI) [facility] Organism STAPHYLOCOCCUS AUREUS [facility] Aspirate (Neck, right) 02/28/2025 2:33 PM CDT 02/28/2025 2:49 PM CDT Narrative [facility] - 03/06/2025 2:02 PM CDT Testing performed by [facility] ([phone]) Specimens submitted from normally sterile body sites [...] - GENERAL O RDERABLES Final Result [facility] [place] [address] * Triglycerides, body fluid (02/28/2025 2:33 PM CDT) Specimen type, fld Peritoneal Triglycerides, fld <20 mg/dL [facility] Comment: Repeated and Verified The above specimen [...] ascites. References: Pleural Fluid characteristics of Chylothorax. [place] [facility] Proceedings. December 2008; 84(2):129-133 Clifford Textbook of Clinical Chemistry and Molecular Diagnostics, Sixth Edition. Elsevier Press. 2018. Chapter 43, Body Fluids, p. 925 [employer] Test directory, Body Fluid Reference Intervals and/or Interpretative Information. [email or web address] [facility] Laboratories. Practical Guide to the Analytical Validation of Body Fluid Chemistry Testing. January 2013. 1-9. Current Interpretive Data was last revised 2019. Fluid 02/28/2025 2:33 PM CDT 02/28/2025 2:45 PM CDT Narrative [facility] - 02/28/2025 3:33 PM CDT From neck drain aspirate Aliya Funk MD LAB BODY FLUIDS AND STOOLS O RDERABLES Final Result Performing Organization Address [facility] Co de Phone Number [facility] [place] [address] * Amylase, body fluid (02/28/2025 2:33 PM CDT) Specimen type, fld Peritoneal Amylase, fld <30 Units/L [facility] Comment: Repeated and Verified The above [...] 2018. Chapter 43, Body Fluids, p. 925 [employer] Test directory, Body Fluid Reference Intervals and/or Interpretative Information. [email or web address] Current Interpretive Data was last revised 2019. Fluid 02/28/2025 2:3 3 PM CDT 02/28/2025 2:45 PM CDT Narrative [facility] - 02/28/2025 3:33 PM CDT From neck drain aspirate Aliya Funk MD LAB BODY FLUIDS AND STOOLS O RDERABLES Final Result [facility] [place] [address] * CT Neck Soft Tissue W Contrast [...] are normal. The limited view of the [place] is unremarkable. The visualized portions [...] are normal. The limited view of the [place] is unremarkable. The visualized portions [...] Electronically signed by: Marianne Philip M.D., Ph.D. us Aliya Funk MD IMG CT PROCEDURES Final Resu lt * (ABNORMAL) POCT creatinine (02/28/2025 10:36 AM CDT) Creatinine POC 1.2(H) 0.6 - 1.1 mg/dL Blood 02/28/2025 10:3 6 AM CDT 02/28/2025 10:36 AM CDT us Tarsha Moraes MD LAB POCT ORDERABLES - DEV ICE Final Result [facility] [place] [address] * (ABNORMAL) eGFR (02/28/2025 10:06 AM CDT) [...] MD LAB BLOOD ORDERABLES Final R esult [facility] [place] [address] * (ABNORMAL) Differential, auto (02/28/2025 10:06 AM CDT) Neutrophil abs 10.19(H) 1.50 - 6.50 K/cumm Imm gran abs 0.05 0.00 - 0.10 K/cumm [facility] Lymphocyte abs 0.72(L) 0.80 - 3.30 K/cumm [facility] Monocyte abs 0.64 0.20 - 0.80 K/cumm [facility] Eosinophil abs 0.18 0.00 - 0.50 K/cumm [facility] Basophil abs 0.03 0.00 - 0.10 K/cumm [facility] Neutrophil pct 86.3 % [facility] Comment: Interpretive Data Percent cell count reference ranges are not reported, since discordance with absolute values may lead to misinterpretation of CBC data. Current Interpretive Data was last revised on 2018. Imm gran pct 0.4 % [facility] Comment: Interpretive Data Percent cell count reference ranges are not reported, since discordance with absolute values may lead to misinterpretation of CBC data. Current Interpretive Data was last revised on 2018. Lymphocyte pct 6.1 % [facility] Comment: Interpretive Data Percent cell count reference ranges are not reported, since discordance with absolute values may lead to misinterpretation of CBC data. Current Interpretive Data was last revised on 2018. Monocyte pct 5.4 % [facility] Comment: Interpretive Data Percent cell count reference ranges are not reported, since discordance with absolute values may lead to misinterpretation of CBC data. Current Interpretive Data was last revised on 2018. Eosinophil pct 1.5 % [facility] Comment: Interpretive Data Percent cell count reference ranges are not reported, since discordance with absolute values may lead to misinterpretation of CBC data. Current Interpretive Data was last revised on 2018. Basophil pct 0.3 % [facility] Comment: Interpretive Data Percent cell count reference ranges are not reported, since discordance with absolute values may lead to misinterpretation of CBC data. Current Interpretive Data was last revised on 2018. Blood 02/28/2025 10:0 6 AM CDT 02/28/2025 10:36 AM CDT Aliya Funk MD LAB BLOOD ORDERABLES Final R esult [facility] [place] [address] * (ABNORMAL) CBC with auto differential (02/28/2025 10:06 AM CDT) WBC 11.81(H) 3.80 - 9.90 K/cumm Hgb 9.3(L) 11.9 - 15.5 g/dL [facility] Hct 29.5(L) 35.6 - 45.5 % [facility] Plt 241 150 - 400 K/cumm [facility] MPV 9.4 9.1 - 12.3 fL [facility] RBC 3.15(L) 3.90 - 5.20 M/cumm [facility] MCV 93.7 81.3 - 96.4 fL [facility] MCH 29.5 27.1 - 33.3 pg [facility] MCHC 31.5(L) 32.3 - 35.7 g/dL [facility] RDW CV 15.5(H) 11.1 - 14.9 % [facility] RDW SD 52.7(H) 35.7 - 48.1 fL [facility] NRBC abs 0.00 0.00 - 0.01 K/cumm [facility] Blood 02/28/2025 10:0 6 AM CDT 02/28/2025 10:36 AM CDT Aliya Funk MD LAB BLOOD ORDERABLES Final R esult [facility] [place] [address] * (ABNORMAL) Comprehensive metabolic panel (02/28/2025 10:06 AM CDT) Sodium 142 135 - 145 mmol/L Potassium, pl 3.6 3.3 - 4.9 mmol/L [facility] Chloride 105 97 - 110 mmol/L [facility] CO2 28 22 - 32 mmol/L [facility] Anion gap 9 2 - 15 mmol/L [facility] BUN 25 6 - 25 mg/dL [facility] Creatinine 1.29(H) 0.60 - 1.10 mg/dL [facility] Glucose 135 70 - 199 mg/dL [facility] Comment: Interpretive Data Fasting glucose >/= [...] 2022. Calcium 8.9 8.5 - 10.3 mg/dL [facility] Bilirubin, total 0.8 0.1 - 1.2 mg/dL [facility] Protein, pl 6.8 6.5 - 8.5 g/dL [facility] Albumin 3.4(L) 3.5 - 5.0 g/dL [facility] Alk phos 126 40 - 130 Units/L [facility] ALT 7 7 - 45 Units/L [facility] AST 18 10 - 45 Units/L [facility] Blood 02/28/2025 10:0 6 AM CDT 02/28/2025 10:35 AM CDT Aliya Funk MD LAB BLOOD ORDERABLES Final [facility] [place] [address] * (ABNORMAL) POCT hemoglobin A1c (02/05/2025 8:23 AM CDT) Hgb A1C, POC 6.5(H) 4.0 - 5.6 % Est Average Gluc POC 140 mg/dL [facility] Comment: The ADA recommends reporting an estimated Average Glucose (eAG) with all Hemoglobin A1c results using the equation derived from a study of 507 normal and diabetic adults. Minority populations were underrepresented and children were not included. (Diabetes Care 31:4424-5299, 2008). The eAG is not equivalent to a fasting glucose. Blood 02/05/2025 8:23 AM CDT 02/05/2025 8:23 AM CDT Kirsty Cobb MD POINT OF CARE TEST ORDERABLES Fi nal Result Performing Organization Address [facility] de Phone Number [facility] [place] [address] * Screening Mammogram Bilateral W Valerio (11/24/2021 8:39 AM CHIEF SCIENCE OFFICER) Anatomical Region Laterality Modality Breast Bilateral Mammography 11/24/2021 9:28 AM CHIEF SCIENCE OFFICER Impressions 11/24/2021 9:28 AM CHIEF SCIENCE OFFICER There is no mammographic evidence of malignancy. Routine screening mammography is recommended in 1 year. BI-RADS: 1 - Negative. The patient will be entered into a reminder system with a target due date of 1 year for her next mammogram. Electronically signed by: Bull Garcia M.D. Narrative 11/24/2021 9:28 AM CHIEF SCIENCE OFFICER EXAMINATION: SCREENING MAMMOGRAM BILATERAL W VALERIO ORDERING [...] Relevant to Health Maintenance Insurance [place] [address] [facility] MEDICARE ADVANTAGE [facility] [place] [address] [facility] MEDICARE ADVANTAGE ID[employer] Advance Directives For more information, please contact: [phone] * Full Code (Latest Code Status on File) Date Activated Date Inactivated Comments 02/28/2025 5:33 PM 03/04/2025 10:56 PM * Full Code Date Activated Date Inactivated Comments 02/10/2025 8:54 PM 02/12/2025 6:14 PM * Full Code Date Activated Date Inactivated Comments 07/04/2023 10:44 AM 07/04/2023 5:20 PM Care Teams District Supervisor Relationship Specialty Start Date End Date Andrés Smiley PA [address] [place] [address] PCP - General 04/18/17
--- OUTSIDE RECORDS SUMMARY | 2025-05-26 09:05 | XMS_ITS | Referral Summary ---
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 Name Role Phone Andrés Smiley Primary Care Provider [phone] Encounters Date Type Department Care Team Description 05/15/2025 Orders Only [facility] [address] [place] [address] 5 [place] [phone] Lizette See, MACK 05/14/2025 Orders Only [facility] Radiology [address] [place] [phone] Blanca Mohan RN 05/05/2025 Telephone [facility]iology [address] [place] [phone] Anna Casarez, MACK 05/05/2025 Telephone [facility] Radiology [address] [place] [phone] Anna Casarez, RN 04/16/2025 Telephone [facility] [address] [place] [phone] Lizette See, MACK 04/15/2025 Orders Only [facility] [address] [place] [phone] Lizette See, RN Dysphagia, unspecified type (Primary Dx) 04/15/[address] [phone] Lizette See RN 04/15/2025 Telephone [facility] [address] [facility] Floor 8 [place] [address] Kirsty Cobb Patient issue/concern 04/13/2025 Telephone [facility] Floor 5 [place] [address] Kirsty Cobb MD 04/10/2025 Telephone [facility] Radiology 1 [place] [address] Anna Casarez, MACK 04/08/2025 2:08 PM CDT - 04/08/2025 11:59 PM CDT Hospital Encounter [facility] [address] [place] [phone] Discharge Disposition: Discharge to home or self care 04/07/2025 Telephone [facility] Radiology 1 [place] [address] Anna Casarez, MACK 04/01/2025 Orders Only [facility] Radiology [address] [place] [phone] Anna Casarez, MACK 03/27/2025 Orders Only [facility] Radiology [address] [place] [phone] Anna Casarez, MACK Thyroid cancer (HCC) (Primary Dx) 03/27/2025 Telephone [facility] Radiology [address] [place] [phone] Anna Casarez, MACK 03/24/2025 Documentation [facility] Radiation Oncology [address] [place] [address] [place] [address] Ai Flores RN 03/24/2025 Orders Only [facility] Floor 5 [place] [address] Kirsty Cobb MD Papillary thyroid carcinoma (HCC) (Primary Dx) 03/24/2025 Telephone [facility] Floor 8 [place] [address] Kirsty Cobb MD Medical Question/Miscellaneo us 03/24/2025 1:00 PM CDT Telemedicine [facility] Endocrin[facility] Metabolism and Lipid [facility] Floor 1, [address] [place] [address] Kd Pike MD Papillary thyroid carcinoma (HCC) (Primary Dx); Lung nodules; Post-surgical hypothyroidism 03/13/2025 Orders Only [facility] [address] [place] [address] Floor 5 [place] [address] Kirsty Cobb MD Papillary thyroid carcinoma (HCC) 03/13/2025 Orders Only [facility] [address] [place] [address] 5 [place] [phone] Lizette See RN Papillary thyroid carcinoma (HCC) (Primary Dx) 03/13/2025 1:45 PM CDT Lab [facility] [place] - Lab Collection [address] [place] [address] 5 [place] [address] Thyroid cancer (HCC) 03/13/2025 3:45 PM CDT Office Visit [facility] [address] [place] [address] 5 [place] [address] Kirsty Cobb MD Thyroid cancer (HCC) (Primary Dx); Papillary thyroid carcinoma (HCC) 03/12/2025 Telephone [facility] [address] [place] [address] 5 [place] [address] Lizette See RN 03/09/2025 Results Follow-Up [facility] [address] [place] [address] 5 [place] [phone] Kirsty Cobb MD Aerobic and anaerobic culture and gram stain Aspirate Neck, right 02/28/2025 9:07 AM CDT - 03/04/2025 6:51 PM CDT Hospital Encounter [facility] 1 [place] [address] aTrsha Moraes MD Brown, Taylor, MD Localized swelling, mass or lump of neck (Primary Dx); 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 Discharge Disposition: Discharge to home or self care 02/28/2025 Orders Only [facility] Radiology 1 [facility] [place] [address] Maryam Lee, MACK 02/28/2025 Orders Only [facility] On[facility] [address] [place] [phone] Amina Villa NP 02/25/2025 Telephone [facility] Floor 5 [place] [phone] Lizette See, MACK 02/25/2025 Telephone [facility] [address] [place] [address] Floor 5 [place] [phone] Lizette See RN 02/24/2025 Telephone [facility] [address] [place] [address] Floor 5 [place] [address] Lizette See RN 02/24/2025 Orders Only [facility] [address] [place] [address] Floor 5 [place] [phone] Lizette See RN Papillary thyroid carcinoma (HCC) (Primary Dx) 02/24/2025 Telephone [facility] [address] [place] [address] Floor 5 [place] [phone] Lizette See RN 02/24/2025 Telephone [facility] [address] [place] [address] Floor 8 [place] [phone] Kirsty Cobb MD Medical Question/Miscellaneo us from Last 3 Months Allergies Active Allergy [...] mouth nightly as needed for anxiety 06/28/20 Active amLODIPine (NORVASC) 10 mg tablet Take [...] 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 Refer to [...] pain 07/04/2023 Coronary artery disease invo lving [place] coronary artery of [place] heart 06/08/2023 Calculus of gallbladder with out cholecystitis without obstruction 05/17/2022 Overview (05/17/2022): Added automatically from request for surgery [id number] Incisional hernia, without obstruction or gangre ne 05/17/2022 Overview (05/17/2022): Added automatically from request for surgery [id number] Immunizations Immunization Administration Dates Next Due Influenza, [...] on file Legal Sex Female 12:10 AM LOG CUT OFF SAWYER Gender Identity Not on file Sexual Orientation [...] on file Medical Devices Implanted Type 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 [email or web address] 01/17/2024 [id number] / / [id number] Procedures Procedure Name Priority Date/Time Associated Diagnosis [...] Read Routine (OP Routine) 11/24/2021 8:39 AM LOG CUT OFF SAWYER Encounter for screening mammogram for malignant neoplasm of breast from Last 3 Months or Most Recently Relevant to Health Maintenance Results * Neuro CT Outside Reference (04/08/2025 2:08 PM CDT) Impressions [facility] - 04/08/2025 2:08 PM CDT These images are for Reference purposes only and have not been reviewed by [facility]. There will be no report generated by a [facility] Radiologist. Narrative [facility] - 04/08/2025 2:08 PM CDT EXAMINATION: Images For Reference Purposes Only us Patti Alejandro MD IMG CT PROCEDURES Final Result [facility] * Reflex thyroglobulin, tumor marker, IA, S (03/13/2025 1:45 PM CDT) Thyroglobulin, Tumor Marker 78 < or = 33 ng/mL [facility] Thyroglobulin interp See Footnote [facility] Comment: Thyroglobulin (Tg) reference intervals are [...] testing methods are immunoenzymatic assays manufactured by [employer] and performed on the [employer] DXI 800. Values obtained from different assay methods or kits may be different and cannot be used interchangeably. The results cannot be interpreted as absolute evidence for the presence or absence of malignant disease. Test Performed by: [address] [address] Carrier Associate: aBsil Rose Ph.D.; CLIA# [id number] Blood 03/13/2025 1:45 PM CDT 03/13/2025 3:05 PM CDT us Kirsty Cobb MD LAB BLOOD ORDERABLES Final Resul t Performing Organization Address [facility] de Phone Number [facility] [place] [place] [address] [facility] * Thyroglobulin reflex to MS or IA (03/13/2025 1:45 PM CDT) Anti-thyroglobulin <1.8 <1.8 IUnits/mL [facility] Comment: Thyroglobulin Antibody < 1.8 IU/mL. Thyroglobulin performed by Immunoassay to follow. Test Performed by: [address] [address] Carrier Associate: Basil Rose Ph.D.; CLIA# [id number] Blood 03/13/2025 1:45 PM CDT 03/13/2025 3:05 PM CDT us Kirsty Cobb MD LAB BLOOD ORDERABLES Final Resul t Performing Organization Address City/[facility] de Phone Number [facility] [place] [address] [facility] * (ABNORMAL) TSH (03/13/2025 1:45 PM CDT) Thyroid Stimulating Hormone 0.04(L) 0.30 - 4.20 mcIUnit/mL Blood 03/13/2025 1:45 PM CDT 03/13/2025 1:47 PM CDT us Kirsty Cobb MD LAB BLOOD ORDERABLES Final Resul t [facility] Department [place] [address] * US Kidney Complete (03/04/2025 3:13 PM [...] 6 AM CDT 03/04/2025 12:28 PM CDT Kirsty Cobb MD LAB BLOOD ORDERABLES Final Resul t [facility] Department [place] [address] * Urinalysis reflex to microscopic and culture Urine, clean voided (03/04/2025 11:26 AM CDT) Color, ur Straw Yellow Clarity, ur Clear Clear [facility] Specific gravity, ur 1.014 1.003 - 1.030 [facility] pH, urine 6.5 [facility] Comment: Interpretive Data U rine pH is affected by diet, medications, systemic acid-base disturbances, and renal tubular function. pH may affect urinary stone formation. For example, urine pH below 6.0 may help reduce the tendency for calcium phosphate stones and pH greater than 6.0 may reduce the tendency for uric acid stone formation. Source: [facility] Current Interpretive Data was last revised on 2017 Protein, ur ql Negative Negative [facility] Glucose, ur ql Negative Negative [facility] Ketones, ur Negative Negative [facility] Bilirubin, ur Negative Negative [facility] Blood, ur Negative Negative [facility] Urobilinogen, ur <2.0 <2.0 mg/dL [facility] Nitrite, ur Negative Negative [facility] Leukocyte esterase, ur Negative Negative [facility] UA reflex comment Reflex conditions for microscopic UA and culture not met. [facility] Urine, clean voided 03/04/2025 11:26 AM CDT 03/04/2025 12:34 PM CDT Kirsty Cobb MD LAB MICROBIOLOGY - GENERAL ORDER BALDEV Final Result [facility] Department [place] [address] * (ABNORMAL) Basic metabolic panel (03/04/2025 11:26 AM CDT) Sodium 143 135 - 145 mmol/L Potassium, pl 4.0 3.3 - 4.9 mmol/L [facility] Chloride 105 97 - 110 mmol/L [facility] CO2 30 22 - 32 mmol/L [facility] Anion gap 8 2 - 15 mmol/L [facility] BUN 20 6 - 25 mg/dL [facility] Creatinine 1.32(H) 0.60 - 1.10 mg/dL [facility] Glucose 137 70 - 199 mg/dL [facility] Comment: Interpretive Data Fasting glucose >/= 126 [...] 2022. Calcium 9.0 8.5 - 10.3 mg/dL [facility] Blood 03/04/2025 11:2 6 AM CDT 03/04/2025 12:28 PM CDT Result Roxana Cobb MD LAB BLOOD ORDERABLES Final Resul t Performing Organization Address [facility] de Phone Number [facility] Department [place] [address] * Urea nitrogen, urine, random (03/03/2025 10:17 PM CDT) Urea nitrogen, ur 366 mg/dL Comment: Interpretive Data No reference range established. Current interpretive data was last revised 2019. Urine 03/03/2025 10:1 7 PM CDT 03/03/2025 11:41 PM CDT Result Roxaan Cobb MD LAB URINE ORDERABLES Final Resul t Performing Organization Address [facility] de Phone Number [facility] Department [place] [address] * Creatinine, urine, random (03/03/2025 10:17 PM CDT) Creatinine Ur 66.0 mg/dL Comment: Interpretive Data No reference range established. Current interpretive data was last revised 2019. Urine 03/03/2025 10:1 7 PM CDT 03/03/2025 11:41 PM CDT us Kirsty Cobb MD LAB URINE ORDERABLES Final Resul t Performing Organization Address [facility] de Phone Number [facility] Department [place] [address] * (ABNORMAL) eGFR (03/03/2025 10:15 PM CDT) Pathologist [facility] eGFR 44(L) >=60 mL/min/1. 73 m2 Comment: [...] ORDERABLES Final Resul t Performing Organization Address [facility] de Phone Number [facility] Department [place] [address] * (ABNORMAL) CBC without differential (03/03/2025 10:15 PM CDT) [facility] WBC 6.35 3.80 - 9.90 K/cumm Hgb 7.4(L) 11.9 - 15.5 g/dL [facility] Hct 24.0(L) 35.6 - 45.5 % [facility] Plt 221 150 - 400 K/cumm [facility] MPV 10.2 9.1 - 12.3 fL [facility] RBC 2.53(L) 3.90 - 5.20 M/cumm [facility] MCV 94.9 81.3 - 96.4 fL [facility] MCH 29.2 27.1 - 33.3 pg [facility] MCHC 30.8(L) 32.3 - 35.7 g/dL [facility] RDW CV 15.2(H) 11.1 - 14.9 % [facility] RDW SD 52.5(H) 35.7 - 48.1 fL [facility] NRBC abs 0.00 0.00 - 0.01 K/cumm [facility] Blood 03/03/2025 10:1 5 PM CDT 03/03/2025 11:25 PM CDT us Kirsty Cobb MD LAB BLOOD ORDERABLES Final Resul t Performing Organization Address [facility]/ZIP Co de Phone Number [facility] Department [place] [address] * Phosphorus (03/03/2025 10:15 PM CDT) Phosphorus, pl 3.8 2.3 - 4.5 mg/dL Blood 03/03/2025 10:1 5 PM CDT 03/03/2025 11:25 PM CDT us Kirsty Cobb MD LAB BLOOD ORDERABLES Final Resul t Performing Organization Address [facility] de Phone Number [facility] Department [place] [address] * Magnesium (03/03/2025 10:15 PM CDT) Magnesium 1.8 1.4 - 2.5 mg/dL Blood 03/03/2025 10:1 5 PM CDT 03/03/2025 11:25 PM CDT us Kirsty Cobb MD LAB BLOOD ORDERABLES Final Resul t Performing Organization Address City/State/[facility] de Phone Number [facility] Department [place] [address] * (ABNORMAL) Basic metabolic panel (03/03/2025 10:15 PM CDT) Sodium 145 135 - 145 mmol/L Potassium, pl 4.0 3.3 - 4.9 mmol/L [facility] Chloride 108 97 - 110 mmol/L [facility] CO2 29 22 - 32 mmol/L [facility] Anion gap 8 2 - 15 mmol/L [facility] BUN 22 6 - 25 mg/dL [facility] Creatinine 1.38(H) 0.60 - 1.10 mg/dL [facility] Glucose 111 70 - 199 mg/dL [facility] Comment: Interpretive Data Fasting glucose >/= 126 [...] 2022. Calcium 8.7 8.5 - 10.3 mg/dL [facility] Blood 03/03/2025 10:1 5 PM CDT 03/03/2025 11:25 PM CDT us Kirsty Cobb MD LAB BLOOD ORDERABLES Final Resul t Performing Organization Address [facility] de Phone Number [facility] Department [place] [address] * Sodium, urine, random (03/03/2025 1:14 PM CDT) Sodium, ur 154 mmol/L Comment: Interpretive Data No reference range established. Current interpretive data was last revised 2019. Urine 03/03/2025 1:14 PM CDT 03/03/2025 1:58 PM CDT Kirsty Cobb MD LAB URINE ORDERABLES Final Resul t Performing Organization Address [facility] de Phone Number [facility] [place] [address] * Creatinine, urine, random (03/03/2025 1:14 PM CDT) Creatinine Ur 19.9 mg/dL Comment: Interpretive Data No reference range established. Current interpretive data was last revised 2019. Urine 03/03/2025 1:14 PM CDT 03/03/2025 1:58 PM CDT Kirsty Cobb MD LAB URINE ORDERABLES Final Resul t Performing Organization Address [facility] de Phone Number [facility] [place] [address] * (ABNORMAL) Vancomycin level trough Draw trough 30 minutes prior to vancomycin dose. (03/03/2025 9:46 AM CDT) [facility] Vancomycin trough 21.2(H) 10.0 - 20.0 mcg/mL Blood 03/03/2025 9:46 AM CDT 03/03/2025 10:22 AM CDT Narrative [facility] - 03/03/2025 10:52 AM CDT Draw trough 30 minutes prior to vancomycin dose. Esperanza Banda MD LAB BLOOD ORDERABL ES Final Result Performing Organization Address [facility] de Phone Number [facility] [place] [address] * (ABNORMAL) eGFR (03/02/2025 10:15 PM CDT) [...] MD LAB BLOOD ORDERABLES Final Resul t [facility] Department [place] [address] * (ABNORMAL) CBC without differential (03/02/2025 10:15 PM CDT) WBC 8.01 3.80 - 9.90 K/cumm Hgb 7.9(L) 11.9 - 15.5 g/dL [facility] Hct 25.4(L) 35.6 - 45.5 % [facility] Plt 204 150 - 400 K/cumm [facility] MPV 10.8 9.1 - 12.3 fL [facility] RBC 2.71(L) 3.90 - 5.20 M/cumm [facility] MCV 93.7 81.3 - 96.4 fL [facility] MCH 29.2 27.1 - 33.3 pg [facility] MCHC 31.1(L) 32.3 - 35.7 g/dL [facility] RDW CV 15.5(H) 11.1 - 14.9 % [facility] RDW SD 53.4(H) 35.7 - 48.1 fL [facility] NRBC abs 0.00 0.00 - 0.01 K/cumm [facility] Blood 03/02/2025 10:1 5 PM CDT 03/02/2025 11:05 PM CDT us Kirsty Cobb MD LAB BLOOD ORDERABLES Final Resul t Performing Organization Address City/[facility]/ZIP Co de Phone Number [facility] Department [place] [address] * Phosphorus (03/02/2025 10:15 PM CDT) Pathologist [facility] Phosphorus, pl 3.4 2.3 - 4.5 mg/dL Blood 03/02/2025 10:1 5 PM CDT 03/02/2025 11:05 PM CDT us Kirsty Cobb MD LAB BLOOD ORDERABLES Final Resul t Performing Organization Address [facility] de Phone Number [facility] Department [place] [address] * (ABNORMAL) Basic metabolic panel (03/02/2025 10:15 PM CDT) [facility] Sodium 140 135 - 145 mmol/L Potassium, pl 3.4 3.3 - 4.9 mmol/L [facility] Chloride 103 97 - 110 mmol/L [facility] CO2 25 22 - 32 mmol/L [facility] Anion gap 12 2 - 15 mmol/L [facility] BUN 24 6 - 25 mg/dL [facility] Creatinine 1.46(H) 0.60 - 1.10 mg/dL [facility] Glucose 155 70 - 199 mg/dL [facility] Comment: Interpretive Data Fasting glucose >/= 126 [...] Final Resul t [facility] Department [place] [address] * (ABNORMAL) eGFR (03/01/2025 9:16 PM CDT) [...] MD LAB BLOOD ORDERABLES Final Resul t [facility] Department [place] [address] * (ABNORMAL) CBC without differential (03/01/2025 9:16 PM CDT) Pathologist [facility] WBC 12.35(H) 3.80 - 9.90 K/cumm Hgb 7.6(L) 11.9 - 15.5 g/dL [facility] Hct 24.5(L) 35.6 - 45.5 % [facility] Plt 163 150 - 400 K/cumm [facility] MPV 10.5 9.1 - 12.3 fL [facility] RBC 2.59(L) 3.90 - 5.20 M/cumm [facility] MCV 94.6 81.3 - 96.4 fL [facility] MCH 29.3 27.1 - 33.3 pg [facility] MCHC 31.0(L) 32.3 - 35.7 g/dL [facility] RDW CV 15.7(H) 11.1 - 14.9 % [facility] RDW SD 54.2(H) 35.7 - 48.1 fL [facility] NRBC abs 0.00 0.00 - 0.01 K/cumm [facility] Blood 03/01/2025 9:16 PM CDT 03/01/2025 10:27 PM CDT us Kirsty Cobb MD LAB BLOOD ORDERABLES Final Resul t Performing Organization Address [facility] de Phone Number [facility] Department [place] [address] * Phosphorus (03/01/2025 9:16 PM CDT) [facility] Phosphorus, pl 3.3 2.3 - 4.5 mg/dL Blood 03/01/2025 9:16 PM CDT 03/01/2025 10:27 PM CDT us iKrsty Cobb MD LAB BLOOD ORDERABLES Final Resul t [facility] Department [place] [address] * Magnesium (03/01/2025 9:16 PM CDT) [facility] Magnesium 2.2 1.4 - 2.5 mg/dL Blood 03/01/2025 9:16 PM CDT 03/01/2025 10:27 PM CDT Kirsty Cobb MD LAB BLOOD ORDERABLES Final Resul t Performing Organization Address [facility] de Phone Number [facility] [place] [address] * (ABNORMAL) Basic metabolic panel (03/01/2025 9:16 PM CDT) [facility] Sodium 142 135 - 145 mmol/L Potassium, pl 3.7 3.3 - 4.9 mmol/L [facility] Chloride 106 97 - 110 mmol/L [facility] CO2 25 22 - 32 mmol/L [facility] Anion gap 11 2 - 15 mmol/L [facility] BUN 28(H) 6 - 25 mg/dL [facility] Creatinine 1.34(H) 0.60 - 1.10 mg/dL [facility] Glucose 128 70 - 199 mg/dL [facility] Comment: Interpretive Data Fasting glucose >/= 126 [...] 2022. Calcium 8.6 8.5 - 10.3 mg/dL [facility] Blood 03/01/2025 9:16 PM CDT 03/01/2025 10:27 PM CDT us Kirsty Cobb MD LAB BLOOD ORDERABLES Final Resul t Performing Organization Address City/[facility]/ZIP Co de Phone Number [facility] Department [place] [address] * POCT glucose (03/01/2025 6:06 AM CDT) Glucose, POC 102 70 - 199 mg/dL Blood 03/01/2025 6:06 AM CDT 03/01/2025 6:06 AM CDT us Kirsty Cobb MD LAB POCT ORDERABLES - DEVICE Fin al Result Performing Organization Address [facility] de Phone Number [facility] Department [place] [address] * (ABNORMAL) eGFR (02/28/2025 9:37 PM CDT) [...] ORDERABLES Bronwyn l Result Performing Organization Address City/[facility]/ZIP Co de Phone Number [facility] Department [place] [address] * (ABNORMAL) CBC without differential (02/28/2025 9:37 PM CDT) WBC 17.76(H) 3.80 - 9.90 K/cumm Hgb 7.8(L) 11.9 - 15.5 g/dL [facility] Hct 24.7(L) 35.6 - 45.5 % [facility] Plt 207 150 - 400 K/cumm [facility] MPV 10.3 9.1 - 12.3 fL [facility] RBC 2.60(L) 3.90 - 5.20 M/cumm [facility] MCV 95.0 81.3 - 96.4 fL [facility] MCH 30.0 27.1 - 33.3 pg [facility] MCHC 31.6(L) 32.3 - 35.7 g/dL [facility] RDW CV 15.8(H) 11.1 - 14.9 % [facility] RDW SD 55.0(H) 35.7 - 48.1 fL [facility] NRBC abs 0.00 0.00 - 0.01 K/cumm [facility] Blood 02/28/2025 9:37 PM CDT 02/28/2025 10:47 PM CDT Tarsha Moraes MD LAB BLOOD ORDERABLES Bronwyn l Result [facility] of [place] [address] * Phosphorus (02/28/2025 9:37 PM CDT) Phosphorus, pl 3.1 2.3 - 4.5 mg/dL Blood 02/28/2025 9:37 PM CDT 02/28/2025 10:47 PM CDT Tarsha Moraes MD LAB BLOOD ORDERABLES Bronwyn l Result Performing Organization Address City/[facility] Co de Phone Number [facility] Department [place] [address] * Magnesium (02/28/2025 9:37 PM CDT) Magnesium 1.6 1.4 - 2.5 mg/dL Blood 02/28/2025 9:37 PM CDT 02/28/2025 10:47 PM CDT Tarsha Moraes MD LAB BLOOD ORDERABLES Bronwyn l Result Performing Organization Address [facility] de Phone Number [facility] Department [place] [address] * Lipid panel (02/28/2025 9:37 PM CDT) [...] revised on 2018. Triglycerides 56 <=149 mg/dL [facility] Comment: Interpretive Data Ages < or = [...] on 2018. HDL 51 >=40 mg/dL [facility] Comment: Interpretive Data Ages < or [...] 2018. LDL, calculated 50 <=129 mg/dL [facility] Comment: Interpretive Data Ages < or [...] on 2024. Non-HDL Cholesterol 63 mg/dL [facility] Comment: Interpretive Data Ages < or [...] last revised on 2018. Chol/HDL ratio 2 [facility] Blood 02/28/2025 9:37 PM CDT 02/28/2025 10:47 PM CDT us Kirsty Cobb MD LAB BLOOD ORDERABLES Final Resul t [facility] Department [place] [address] * (ABNORMAL) Basic metabolic panel (02/28/2025 9:37 PM CDT) Sodium 142 135 - 145 mmol/L Potassium, pl 4.1 3.3 - 4.9 mmol/L [facility] Chloride 107 97 - 110 mmol/L [facility] CO2 27 22 - 32 mmol/L [facility] Anion gap 8 2 - 15 mmol/L [facility] BUN 26(H) 6 - 25 mg/dL [facility] Creatinine 1.30(H) 0.60 - 1.10 mg/dL [facility] Glucose 225(H) 70 - 199 mg/dL [facility] Comment: Interpretive Data Fasting glucose >/= 126 [...] 2022. Calcium 8.1(L) 8.5 - 10.3 mg/dL [facility] Blood 02/28/2025 9:37 PM CDT 02/28/2025 10:47 PM CDT us Tarsha Moraes MD LAB BLOOD ORDERABLES Bronwyn lau Result [facility] Department [place] [address] * (ABNORMAL) Aerobic and anaerobic culture and gram stain Aspirate Neck, right (02/28/2025 2:33 PM CDT) Direct Specimen Exam Stain: Few polymorphonuclear leukocytes seen. Abundant Gram Negative Bacilli Abundant Gram Positive Cocci Rare Gram Positive Bacilli Report Final Report: Abundant Pseudomonas aeruginosa Abundant Streptococcus agalactiae (Group B Streptococci) Abundant Staphylococcus aureus Methicillin resistant (MRSA) by penicillin binding protein 2a (PBP2a) testing. (.) [facility] Organism PSEUDOMONAS AERUGINOSA [facility] Organism STREPTOCOCCUS AGALACTIAE (GROUP B STREPTOCOCCI) [facility] Organism STAPHYLOCOCCUS AUREUS [facility] Aspirate (Neck, right) 02/28/2025 2:33 PM CDT 02/28/2025 2:49 PM CDT Narrative [facility] - 03/06/2025 2:02 PM CDT Testing performed by [facility] ([phone]) Specimens submitted from normally sterile body sites [...] RDERABLES Final Result [facility] [place] [address] * Triglycerides, body fluid (02/28/2025 2:33 PM [...] ascites. References: Pleural Fluid characteristics of Chylothorax. [facility] Proceedings. December 2008; 84(2):129-133 Clifford Textbook of Clinical Chemistry and Molecular Diagnostics, Sixth Edition. Elsevier Press. 2018. Chapter 43, Body Fluids, p. 925 [employer] Test directory, Body Fluid Reference Intervals and/or Interpretative Information. [email or web address]/bodyfluids [facility]. Practical Guide to the Analytical Validation of Body Fluid Chemistry Testing. January 2013. 1-9. Current Interpretive Data was last revised 2019. Fluid 02/28/2025 2:33 PM CDT 02/28/2025 2:45 PM CDT Narrative [facility] - 02/28/2025 3:33 PM CDT From neck drain aspirate Aliya Funk MD LAB BODY FLUIDS AND STOOLS O RDERABLES Final Result Performing Organization Address [facility]/ZIP Co de Phone Number [facility] Department [place] [address] * Amylase, body fluid (02/28/2025 2:33 PM CDT) Specimen type, fld Peritoneal Amylase, fld <30 Units/L [facility] Comment: Repeated and Verified The above [...] 2018. Chapter 43, Body Fluids, p. 925 [employer] Test directory, Body Fluid Reference Intervals and/or Interpretative Information. [email or web address] Current Interpretive Data was last revised 2019. Fluid 02/28/2025 2:33 PM CDT 02/28/2025 2:45 PM CDT Narrative [facility] - 02/28/2025 3:33 PM CDT From neck drain aspirate Aliya Funk MD LAB BODY FLUIDS AND STOOLS O RDERABLES Final Result [facility] Department [place] [address] * CT Neck Soft Tissue W Contrast [...] are normal. The limited view of the [place] is unremarkable. The visualized portions [...] are normal. The limited view of the [place] is unremarkable. The visualized portions [...] POCT ORDERABLES - DEV ICE Final Result [facility] [place] [address] * (ABNORMAL) eGFR (02/28/2025 10:06 AM CDT) [...] MD LAB BLOOD ORDERABLES Final R esult [facility] [place] [address] * (ABNORMAL) Differential, auto (02/28/2025 10:06 AM CDT) Neutrophil abs 10.19(H) 1.50 - 6.50 K/cumm Imm gran abs 0.05 0.00 - 0.10 K/cumm [facility] Lymphocyte abs 0.72(L) 0.80 - 3.30 K/cumm [facility] Monocyte abs 0.64 0.20 - 0.80 K/cumm [facility] Eosinophil abs 0.18 0.00 - 0.50 K/cumm [facility] Basophil abs 0.03 0.00 - 0.10 K/cumm [facility] Neutrophil pct 86.3 % [facility] Comment: Interpretive Data Percent cell count reference ranges are not reported, since discordance with absolute values may lead to misinterpretation of CBC data. Current Interpretive Data was last revised on 2018. Imm gran pct 0.4 % [facility] Comment: Interpretive Data Percent cell count reference ranges are not reported, since discordance with absolute values may lead to misinterpretation of CBC data. Current Interpretive Data was last revised on 2018. Lymphocyte pct 6.1 % [facility] Comment: Interpretive Data Percent cell count reference ranges are not reported, since discordance with absolute values may lead to misinterpretation of CBC data. Current Interpretive Data was last revised on 2018. Monocyte pct 5.4 % [facility] Comment: Interpretive Data Percent cell count reference ranges are not reported, since discordance with absolute values may lead to misinterpretation of CBC data. Current Interpretive Data was last revised on 2018. Eosinophil pct 1.5 % [facility] Comment: Interpretive Data Percent cell count reference ranges are not reported, since discordance with absolute values may lead to misinterpretation of CBC data. Current Interpretive Data was last revised on 2018. Basophil pct 0.3 % [facility] Comment: Interpretive Data Percent cell count reference ranges are not reported, since discordance with absolute values may lead to misinterpretation of CBC data. Current Interpretive Data was last revised on 2018. Blood 02/28/2025 10:0 6 AM CDT 02/28/2025 10:36 AM CDT Aliya Funk MD LAB BLOOD ORDERABLES Final R esult [facility] Department [place] [address] * (ABNORMAL) CBC with auto differential (02/28/2025 10:06 AM CDT) WBC 11.81(H) 3.80 - 9.90 K/cumm Hgb 9.3(L) 11.9 - 15.5 g/dL [facility] Hct 29.5(L) 35.6 - 45.5 % [facility] Plt 241 150 - 400 K/cumm [facility] MPV 9.4 9.1 - 12.3 fL [facility] RBC 3.15(L) 3.90 - 5.20 M/cumm [facility] MCV 93.7 81.3 - 96.4 fL [facility] MCH 29.5 27.1 - 33.3 pg [facility] MCHC 31.5(L) 32.3 - 35.7 g/dL [facility] RDW CV 15.5(H) 11.1 - 14.9 % [facility] RDW SD 52.7(H) 35.7 - 48.1 fL [facility] NRBC abs 0.00 0.00 - 0.01 K/cumm [facility] Blood 02/28/2025 10:0 6 AM CDT 02/28/2025 10:36 AM CDT Aliya Funk MD LAB BLOOD ORDERABLES Final R esult [facility] [place] [address] * (ABNORMAL) Comprehensive metabolic panel (02/28/2025 10:06 AM CDT) Sodium 142 135 - 145 mmol/L Potassium, pl 3.6 3.3 - 4.9 mmol/L [facility] Chloride 105 97 - 110 mmol/L [facility] CO2 28 22 - 32 mmol/L [facility] Anion gap 9 2 - 15 mmol/L [facility] BUN 25 6 - 25 mg/dL [facility] Creatinine 1.29(H) 0.60 - 1.10 mg/dL [facility] Glucose 135 70 - 199 mg/dL [facility] Comment: Interpretive Data Fasting glucose >/= 126 [...] 2022. Calcium 8.9 8.5 - 10.3 mg/dL [facility] Bilirubin, total 0.8 0.1 - 1.2 mg/dL [facility] Protein, pl 6.8 6.5 - 8.5 g/dL [facility] Albumin 3.4(L) 3.5 - 5.0 g/dL [facility] Alk phos 126 40 - 130 Units/L [facility] ALT 7 7 - 45 Units/L [facility] AST 18 10 - 45 Units/L [facility] Blood 02/28/2025 10:0 6 AM CDT 02/28/2025 10:35 AM CDT Aliya Funk MD LAB BLOOD ORDERABLES Final R esult [facility] [place] [address] * (ABNORMAL) POCT hemoglobin A1c (02/05/2025 8:23 AM CDT) Hgb A1C, POC 6.5(H) 4.0 - 5.6 % Est Average Gluc POC 140 mg/dL [facility] Comment: The ADA recommends reporting an estimated Average Glucose (eAG) with all Hemoglobin A1c results using the equation derived from a study of 507 normal and diabetic adults. Minority populations were underrepresented and children were not included. (Diabetes Care 31:3112-4110, 2008). The eAG is not equivalent to a fasting glucose. Blood 02/05/2025 8:23 AM CDT 02/05/2025 8:23 AM CDT Kirsty Cobb MD POINT OF CARE TEST ORDERABLES Fi nal Result Performing Organization Address [facility] de Phone Number [facility] Department [place] [address] * Screening Mammogram Bilateral W Valerio (11/24/2021 8:39 AM LOG CUT OFF SAWYER) Anatomical Region Laterality Modality Breast Bilateral Mammography 11/24/2021 9:28 AM LOG CUT OFF SAWYER Impressions 11/24/2021 9:28 AM LOG CUT OFF SAWYER There is no mammographic evidence of malignancy. Routine screening mammography is recommended in 1 year. BI-RADS: 1 - Negative. The patient will be entered into a reminder system with a target due date of 1 year for her next mammogram. Electronically signed by: Bull Garcia M.D. Narrative 11/24/2021 9:28 AM LOG CUT OFF SAWYER EXAMINATION: SCREENING MAMMOGRAM BILATERAL W VALERIO ORDERING [...] Most Recently Relevant to Health Maintenance Insurance [employer] MEDICARE ADVANTAGE [facility] MEDICARE ADVANTAGE 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
--- OUTSIDE RECORDS SUMMARY | 2025-05-26 09:05 | XMS_ITS | Data Portability ---
Author Organization [facility] CATHIEBelety Vaughan Address [address] [place] [address] Care Team Providers Care Catalog Librarian Name Role Phone PORSCHE SMILEY Primary Care Provider ART ARITA Residential Sales Manager Unavailable Assessment No assessment recorded. Plan of Treatment Reminders Order Date Submit Date Provider Last Modified By Organization Details Last Modified Time Details Appointments None recorded. Lab None recorded. Referral neurologis t referral 2024 025 [facility] Dept Of Neurology, [address], [address], 5 10:25:[address] referral 2024 0[facility], 2 [facility] Suad Hood, [facility] [address], [address], 5 11:22:47 Procedures None recorded. Surgeries None recorded. Imaging MRI, brain, w/o contrast 2024 025 [facility] Radiology, [address] [place], [address], 5 14:55:00 CT, neck, soft tissue, w/ contrast 2024 025 [facility]iology, [address] [place], [address], 5 17:02:55 Medication Orders Cipro 500 mg tablet 2024 025 [id number], [address] [place], [address], 05:02:35 meclizine 25 mg tablet 2024 025 [id number], [address] [place], [address], 16:01:56 ondansetro n 4 mg disintegra ting tablet 2024 025 [id number], [address] [place], [address], 15:18:24 tramadol 50 mg tablet 2024 025 [id number], [address] [place], [address], 15:18:25 furosemide 20 mg tablet 2024 025 [id number], [address] [place], [address], 15:30:55 Patient TargetsNo targets recorded. Patient Instructions Encounter Date Encounter Id Patient Instructions Last Modified By Organization Details Last Modified Time 02/25/2025 [id number] A healthy lifestyle: care instructions jnanney Not available 02/25/2025 15:32:30 leg and ankle edema: care instructions jnanney Not available 02/25/2025 15:30:52 learning about high blood pressure jnanney Not available 02/25/2025 15:30:52 03/11/2025 [id number] nausea and vomiting: care instructions jnanney Not available 03/11/2025 15:18:22 learning about high blood pressure jnanney Not available 03/11/2025 15:18:22 thyroidectomy: before your surgery jnanney Not available 03/11/2025 15:18:22 04/17/2025 [id number] benign paroxysma l positional vertigo (bppv): care instructions jnanney Not available 04/17/2025 16:01:54 05/13/2025 [id number] stroke: care instructions jnanney Not available 05/13/2025 14:39:57 A healthy lifestyle: care instructions jnanney Not available 05/13/2025 14:40:31 Reason for Referral Doll Wig Maker Referral for De creased renal function Referring Physician: Porsche Smiley [facility] Medicine, Encounter Date: 02/25/2025 Neurologist Referral for Cer ebrovascular accident Referring Physician: Porsche Smiley [facility], Encounter Date: 05/13/2025 Results Created Date Observation Date Name Description [...] estimated from glycated hemoglobin 140 mg/dL Est Rhodes ge Gluc POC 140 mg/dL BRIELLE R [facility] Not Available Not Available 02/09/2025 11:16:07 02/06/20 25 02/05/2025 Hemog lobin A1c/H emogl obin. total in Blood interpretati on and review of laboratory results Abnorm al Not Available Not Available 11:16:07 04/06/20 25 04/06/2025 CT, neck, soft tissu e, w/o contr ast No observ ation record ed. [facility] [address] [facility], [place], [address], 04/07/2025 09:24:13 04/29/20 25 04/27/2025 US, neck, soft tissu e No observ ation record ed. [facility] [address] [place], [address], 04/29/2025 14:04:49 04/29/20 25 04/27/2025 US, neck, soft tissu e No observ ation record ed. [facility] [address] [place], [address], 04/29/2025 14:58:31 05/08/20 25 05/08/2025 CT, head, w/o contr ast No observ [facility] [address] [place], [address], 05/08/2025 15:34:02 05/08/20 25 05/08/2025 XR, chest No observ [facility]ion [facility] ed[facility] [address] [place], [address], 05/08/2025 15:34:18 Result Notes None recorded. Problems Name Problem SNOMED Code Status Onset Date Resolution Date Notes Provider Name and Address Organization Details Recorded Time Knee pain Active Not Available [facility] 4 00:18:38 Morbid obesity 159591683 Active Not Available [facility] 4 00:18:38 Chronic depression 547469322 Active Not Available [facility] 4 00:18:38 Cerebrovascul ar accident 174523530 Active Not Available [facility] 4 00:18:38 Psoriasis 6431315 Active Not Available [facility] 4 00:18:38 Candidiasis of skin 71516521 Active Not Available [facility] 4 00:18:38 Hyperglycemia 81188239 Active Not Available [facility] 4 00:18:38 Right upper quadrant pain 750240318 Active Not Available [facility] 4 00:18:38 Diabetes mellitus 33091226 Active Not Available [facility] 4 00:18:38 Cellulitis 895028161 Active Not Available [facility] 4 00:18:38 Migraine 36403880 Active Not Available [facility] 4 00:18:38 Incontinence 57201537 Active Not Available [facility] 4 00:18:38 Notes:Some problems listed i n Documents: #[id number], #[id number], #[id number], #[id number], #[id number], #[id number], #[id number], #[id number], #[id number], #[id number], #[id number], #[id number] could not be added to this patient's chart. Please review these documents and add these problems to the patient's chart manually as needed. Problem Notes None recorded. Procedures Surgical History Date Name Laterality Status Provider Name and Address Organization Details Recorded Time 11/24/19 22 Date of Last Mammogram completed Kate Landa MA [facility] 01/04/2022 11:53:00 11/19/18 97 Total hysterectomy completed Kate Landa MA [facility] 02/14/2021 11:30:00 tonsillectomy completed Kate Landa MA [facility] 10/10/2021 10:51:03 Removal of adenoids completed Kate Landa MA [facility] 10/10/2021 10:51:32 abdominoplasty completed Kate Landa MA [facility] 10/10/2021 10:51:40 Gastric Bypass completed Eleonora Miller MA [facility] 01/24/2016 10:13:00 Imaging Results None recorded. Procedure Notes None recorded. Medical Equipment None Reported. Allergies Allergen ID Allergen Name Allergen Category Reaction Reaction Severity Criticality Documentation Date Start Date Code Code System Note Provider Name and Address Organization Details Recorded Time 842264 tetracycl ine medicatio n rash Not available Not available 03/24/2020 60393 RxNorm STEPHANY Blackman [facility] 0 10:56:37 734049 Bactrim medicatio n hives Not available Not available 02/14/2021 82357 9 RxNorm Vomit ing STEPHANY Blackman [facility] 1 11:28:25 63364 amoxicill in medicatio n rash Not available Not available 09/18/2016 723 RxNorm Kate Landa MA null, [place] - [facility] 0 10:51:29 62227 Medicinal product containin g tetracycl ine structure and acting as antibacte rial agent (product) medicatio n vomiting severe Not available 09/18/2016 71425 1004 SNOMED Ania Zayas MA null, [place] - [facility] 6 10:37:03 Medications Name Sig Start Date [...] 1 TABLET (175 MCG TOTAL) BY MOUTH [employer] BEFORE BREAKFAST active Not Available Not Available [...] completed Not Available Not Available Not Available Cipro 500 mg tablet Take 1 tablet every 12 hours by oral route for 10 days. 05/04 completed Not Available Not Available Not Available [...] completed Not Available Not Available Not Available aspirin 81 mg tablet Take 1 tablet every day by oral route. active Not Available Not Available No t Available hydrochloro thiazide 25 mg tablet TAKE [...] Not Available Not Available Not Avai lable levofloxaci n 750 mg tablet TAKE 1 [...] Ultra-Fine Short Pen Needle 31 gauge x 04/03 completed Not Available Not Available Not Available [...] Not Available Vitals Date Recorded Body height Systolic And Diastolic Provider Name and Address Organization Details Last Updated DateTime 02/25/2025 162.56 cm 160/87 mm[Hg] Rubina Zuniga MA [facility] 02/25/2025 14:57:21 Date Recorded Body height Body mass index (BMI) Body weight Oxygen saturation Oxygen saturation in Arterial blood by Pulse oximetry Heart rate Systolic And Diastolic Provider Name and Address Organization Details Last Updated DateTime 162.56 cm 43.8 kg/m2 954160. 05 g 98 % 98 % 75 /min 128/76 mm[Hg] Kate Landa MA [facility] 14:38:27 Date Recorded Body height Body mass index (BMI) Body weight Respiratory rate Oxygen saturation Oxygen saturation in Arterial blood by Pulse oximetry Heart rate Systolic And Diastolic Provider Name and Address Organization Details Last Updated DateTime 5 162.56 cm 43.9 kg/m2 064289. 65 g 16 /min 99 % 99 % 72 /min 124/80 mm[Hg] Rubina Zuniga MA [facility] 5 16:51:50 Date Recorded Body height Body mass index (BMI) Body weight Respiratory rate Oxygen saturation Oxygen saturation in Arterial blood by Pulse oximetry Heart rate Systolic And Diastolic Provider Name and Address Organization Details Last Updated DateTime 5 162.56 cm 42.6 kg/m2 663084. 91 g 16 /min 98 % 98 % 78 /min 122/74 mm[Hg] Rubina Zuniga MA [facility] 5 15:30:56 Date Recorded Body height Body mass index (BMI) Body weight Oxygen saturation Oxygen saturation in Arterial blood by Pulse oximetry Heart rate Respiratory rate Systolic And Diastolic Provider Name and Address Organization Details Last Updated DateTime 5 162.56 cm 42.7 kg/m2 189536. 5 g 98 % 98 % 88 /min 18 /min 139/85 mm[Hg] Rubina Zuniga MA [facility] 5 14:16:51 Social History Question Answer Notes LastModified by Organizat ion Details LastModified Time Tobacco Smoking Status Never Smoker Eleonora Miller MA [facility], [facility] 01/24/2016 10:13:00 Are You Blind Or Do [...] Do You Have Serious Difficulty Hearing? Yes Ute Both Ear Information not available 06/28/2022 What Type Of Diet Are You Following? REGULAR Information not available 02/14/2021 Which Illicit Or Recreational Drugs Have You Used? NO Information not available 03/24/2020 Education 2 Year College Information not available 03/24/2020 Marital Status Informatio n not available 03/24/2020 What Was The Date Of Your Most Recent Tobacco Screening? 05/13/2025 Information not available 05/13/2025 What Is Your Relationship Status? Information not [...] What Date Was Tobacco Cessation Counseling Provided? 05/13/2025 Information not available 05/13/2025 Sex: Female Functional Status Question Answer Note [...] anxious, or unable to sleep at night)? [id number] [facility] Information not available 12/07/2022 Family History Relationship [...] Response Coronary Artery Disease N Other N High Blood Pressure N Atrial Fibrillation N Thyroid Problems N Kidney or Bladder Problems N GI Problems N Depression Y COPD N Blood Clots N Skin Problems Y Eating Disorder N Anemia Y Heart Attack (NH) N Anxiety Disorder Y Diabetes Y Muscle, [...] virus, quadrivalent, preservative 0 completed Not Available [facility] 01/07/2024 00:18:39 COVID-19, mRNA, LNP-S, PF, 30 mcg/0.3 mL dose 1 completed Not Available [facility] 01/07/2024 00:18:39 COVID-19, mRNA, LNP-S, PF, 30 mcg/0.3 mL dose 1 completed Not Available [facility] 01/07/2024 00:18:39 Influenza, MDCK, quadrivalent, PF 9 completed LIGIA RODRIGUEZ NP Attn: Accounting,[address] [place], [place], [address] [place] [address], [place] [facility] 08/18/2024 09:32:08 COVID-19, mRNA, LNP-S, PF, 30 mcg/0.3 mL dose 1 completed LIGIA RODRIGUEZ NP Attn: Accounting,[address] [place], [place], [address] [place] [address], [place] [facility] 08/18/2024 09:32:08 Influenza, split virus, quadrivalent, PF 0 completed LIGIA RODRIGUEZ NP Attn: Accounting[address] [place], [address] [place] [address], [place] [facility] 08/18/2024 09:32:08 Influenza, split virus, quadrivalent, PF 1 completed LIGIA RODRIGUEZ NP Attn: Accounting[address] [place], [place], [address] [place] [address], [place] [facility] 08/18/2024 09:32:08 zoster recombinant 4 completed Marianela Muñoz [place] null, [place] [facility] 08/28/2024 11:51:46 Pneumococcal conjugate PCV20, polysaccharide [id number] conjugate, adjuvant, PF 4 completed Marianela Muñoz [place], [place] [facility] 08/28/2024 11:51:46 zoster recombinant 4 completed Marianela Muñoz [place], [place] [facility] 08/28/2024 11:51:46 COVID-19, mRNA, LNP-S, PF, levy-sucrose, 30 mcg/0.3 mL 4 completed Marianela Muñoz [place], [place] [facility] 08/28/2024 11:51:46 Influenza, split virus, trivalent, PF 4 completed Marianela Muñoz MA [facility], [place] - [place] 08/28/2024 11:51:46 Past Encounters Encounter ID Performer Location Encounter Start Date Encounter Closed Date Diagnosis/Indication Diagnosis SNOMED-CT Code Diagnosis ICD10 Code Diagnosis Note [id number] Porsche Smiley PA-C [facility] [address] [place] [address] 01/24/2016 10:18:29 01/24/2016 11:06:11 Knee pain 54950812 M25.561 Morbid obesity 106327454 E66.01 Chronic depression 12821 0009 F34.1 Cerebrovas cular accident 087004025 I63.9 Psoriasis 7741901 L40.9 Candidiasis of skin 4988 3006 B37.2 [id number] Porsche Smiley PA-C [facility] [address] [place] [address] 02/03/2016 10:09:00 02/03/2016 11:32:58 Candidiasis of skin 17715996 B37.2 Chronic depression 29682 0009 F34.1 Morbid obesity 504932452 E66.01 Psoriasis 7324442 L40.9 Hyperglycemia 55733445 R 73.9 Right uppe r quadrant pain 922839214 R10.11 [id number] Porsche Smiley PA-C [facility] [address] [place] [address] 02/10/2016 10:14:27 02/10/2016 10:43:22 Candidiasis of skin 15291127 B37.2 Knee pain 03602036 M25.5 61 Right uppe r quadrant pain 405507404 R10.11 Chronic depression 77148 0009 F34.1 Morbid obesity 981384203 E66.01 Psoriasis 0524624 L40.9 Cerebrovas cular accident 373374980 I63.9 Hyperglycemia 71027069 R 73.9 Diabetes mellitus 634995 09 E11.9 [id number] Porsche Smiley PA-C [facility] [address] [place] [address] 03/27/2016 10:09:45 03/27/2016 11:06:28 Diabetes mellitus 72887148 E11.9 Morbid obesity 628158965 E66.01 Cellulitis 940568127 L03 .90 [id number] Porsche Smiley PA-C [facility] [address] [place] [address] 04/04/2016 10:29:21 04/04/2016 11:17:27 Cellulitis 681005213 L03.90 Diabetes mellitus 731547 09 E11.9 Morbid obesity 363591688 E66.01 Chronic depression 02619 0009 F34.1 [id number] Guille George MD [facility] [address] [place] [address] 05/11/2016 14:25:18 05/11/2016 15:30:24 Migraine 81203368 G43.909 Diabetes mellitus 737016 09 E11.9 Incontinence 00843569 R3 2 [id number] Porsche Smiley PA-C [facility] [address] [place] [address] 07/07/2016 10:19:31 07/07/2016 10:53:58 Cellulitis 349200703 L03.90 Chronic depression 9 F34.1 [id number] Porsche Smiley PA-C [facility] [address] [place] [address] 09/18/2016 10:20:55 09/18/2016 12:18:41 Essential hypertension 26739563 I10 [id number] Guille George MD [facility] [address] [place] [address] 04/18/2017 15:51:38 04/18/2017 17:21:24 Incontinence 30078364 N39.42 Chronic depression 24029 0009 F34.1 Cerebrovas cular accident 565394531 I63.00 [id number] Guille George MD [facility] [address] [place] [address] 07/11/2017 10:58:35 07/11/2017 12:27:18 [id number] Guille George MD [facility] [address] [place] [address] 07/16/2017 10:44:11 07/16/2017 13:40:27 Cellulitis 702460448 L03.90 Morbid obesity 373396618 E66.01 Diabetes mellitus 539366 09 E11.9 [id number] Guille George MD [facility] [address] [place] [address] 07/18/2017 15:44:57 07/18/2017 17:51:52 Diabetes mellitus 17593097 E11.9 Laceration of lower leg 656523030 S81.811D Primary insomnia 0176236 F51.01 [id number] Guille George MD [facility] [address] [place] [address] 01/09/2018 16:30:51 01/09/2018 18:30:44 Migraine with aura 8228826 G43.109 Essential hypertension 84763497 I10 Primary insomnia 0387453 F51.01 [id number] Mahendra Landa MD [facility] [address] [place] [address] 01/17/2018 15:44:00 01/17/2018 16:43:58 Screening for malignant neoplasm of breast 447862675 Z12.31 New daily persistent headache 6304259547 69666 G44.52 Plaque psoriasis 3364971 09 L40.0 Type 2 kiran betes mellitus 82947667 E11.9 [id number] Guille George MD [facility] [address] [place] [address] 07/29/2018 10:22:56 07/29/2018 11:15:54 Morbid obesity 748330568 E66.01 Diabetes mellitus 380114 09 E11.9 Psoriasis 8768878 L40.0 History of polyp of colon 329183484 Z86.572 [id number] Guille George MD [facility] [address] [place] [address] 08/05/2018 09:51:59 08/05/2018 11:09:56 Chronic depression 808299098 F34.1 Morbid obesity 216201609 E66.01 Diabetes mellitus 412847 09 E11.9 Cerebrovas cular accident 176520436 I63.00 Dyspnea on exertion 6084 5006 R06.09 Essential hypertension 03166868 I10 New daily persistent headache 4346694759 25923 G44.52 [id number] Porsche Smiley PA-C [facility] [address] [place] [address] 08/29/2018 10:52:13 08/29/2018 12:06:39 Pain in right knee 3736972849 43321 M25.239 [id number] Jermain Garcia MD [facility] (IFT[address]) [address] [place] [address] 01/15/2019 11:01:30 01/15/2019 13:08:11 Psoriasis 8023183 L40.9 Neurofibroma 631635161 D 36.10 [id number] NOMAN Meng [facility] [address] [place] [address] 07/31/2019 16:03:16 07/31/2019 17:16:29 Cerebrovascular accident 715746501 I63.00 Morbid obesity 160782396 E66.01 Incontinence 35022490 N3 9.42 Diabetes mellitus 217874 09 E11.9 Psoriasis 6704095 L40.0 New daily persistent headache 8013991419 81586 G44.52 Essential hypertension 62188287 I10 Migraine with aura 31919 06 G43.109 Primary insomnia 8072041 F51.01 [id number] Porsche Smiley PA-C [facility] [address] [place] [address] 03/24/2020 10:42:16 03/25/2020 09:54:07 Essential hypertension 70663476 I10 New daily persistent headache 7940573885 62062 G44.52 Diabetes mellitus 939683 09 E11.9 Migraine with aura 69368 06 G43.109 History of asthma 445579 007 Z87.09 Chronic depression 61140 0009 F34.1 [id number] NOMAN Meng [address] [place] [address] 03/31/2020 10:21:17 03/31/2020 11:29:43 Essential hypertension 82604773 I10 [id number] NOMAN Meng [address] [place] [address] 07/13/2020 09:29:52 07/14/2020 16:16:19 Abscess of left axilla 0616315787 8609546 L02.939 [id number] MD Mary Cruz [address] [place] [address] 02/14/2021 10:12:46 02/15/2021 13:25:03 Furuncle 615397019 L02.828 Benign par oxysmal positional vertigo 822163400 H81.11 [id number] Porsche Smiley PA-C [facility] [address] [place] [address] 10/10/2021 10:40:31 10/10/2021 12:43:11 Essential hypertension 56150337 I10 Type 2 kiran betes mellitus 95367038 E11.9 Migraine without aura 56 420478 G43.009 Chronic depression 92812 0009 F34.1 Screening for malignant neoplasm of breast 366135315 Z12.31 [id number] Porsche Smiley PA-C [facility] [address] [place] [address] 01/04/2022 11:32:37 01/04/2022 12:53:09 Pain of right knee joint 2662882307 16157 M25.561 Mixed anxi ety and depressive disorder 270137000 F41.8 Body mass index 40+ - severely obese 053815920 Z68.43 Osteoarthr itis of knee 914230773 M17.9 [id number] Guille George MD [facility] [address] [place] [address] 02/01/2022 10:56:34 02/01/2022 11:38:27 Morbid obesity 914022351 E66.01 [id number] Porsche Smiley PA-C [facility] [address] [place] [address] 06/28/2022 10:21:30 06/28/2022 11:23:17 Adult health examination 473628471 Z00.00 Essential hypertension 01861388 I10 Migraine without aura 56 116434 G43.009 Moderate p ersistent asthma 198817810 J45.40 Osteoarthritis 974141229 M19.90 Mixed anxi ety and depressive disorder 609995334 F41.8 Gastroesop hageal reflux disease without esophagitis 370545991 K21.9 [id number] Porsche Smiley PA-C [facility] [address] [place] [address] 08/21/2022 14:51:49 08/21/2022 15:50:24 Morbid obesity 471517911 E66.01 Overweight 404418514 E66 .3 Essential hypertension 12143075 I10 Adult heal th examination 038549568 Z00.00 [id number] Porsche Smiley PA-C [facility] [address] [place] [address] 09/05/2022 15:05:15 09/05/2022 15:51:20 Edema of lower extremity 298041757 R60.0 [id number] Porsche Smiley PA-C [facility] [address] [place] [address] 09/20/2022 10:16:07 09/20/2022 11:14:23 Morbid obesity 745606076 E66.01 Cellulitis of lower limb 356729305 L03.119 Persistent cough 4464769 02 R05.3 [id number] [facility] [address] [place] [address] 12/07/2022 14:17:34 12/14/2022 16:31:08 Skin lesion 25766866 L98.9 - Noted on right labia externa; [...] warm, red, and much bigger in size [id number] Porsche Smiley PA-C [facility] [address] [place] [address] 12/15/2022 11:40:18 12/20/2022 12:26:53 Cellulitis 799840636 L03.115 Overweight 935119781 E66 .3 [id number] Porsche Smiley PA-C [facility] [address] [place] [address] 03/27/2023 13:52:07 04/02/2023 13:37:49 Angina co-occurrent and due to coronary arteriosclerosis 4216106599 6200208 I25.112 History of cerebrovascular accident 012699567 Z86.73 Morbid obesity 388173390 E66.01 Type 2 kiran betes mellitus 07540113 E11.9 Overweight 539185384 E66 .3 [id number] Guille George MD [facility] [address] [place] [address] 05/09/2023 11:07:10 05/10/2023 09:54:11 Cellulitis 272793533 L03.115 Overweight 517692821 E66 .3 [id number] Guille George MD [facility] [address] [place] [address] 07/02/2023 11:15:47 07/03/2023 11:36:47 Strain of triceps brachii muscle 573513640 S46.312A Overweight 023934918 E66 .3 Plaque psoriasis 2020025 09 L40.0 Chronic neck pain 672553 9013 107 M54.2 Osteoarthritis 072469754 M19.90 [id number] Guille George MD [facility] [address] [place] [address] 07/26/2023 10:44:49 07/31/2023 15:47:13 Pain of left shoulder joint 7454552784 4374082 M25.056 [id number] Porsche Smiley PA-C [facility] [address] [place] [address] 08/27/2023 14:01:38 08/29/2023 15:49:45 Cellulitis of right lower limb 7642847412 4600619 L03.115 Adhesive c apsulitis of left shoulder 7943668545 71232 M75.02 Overweight 461687234 E66 .3 [id number] Porsche Smiley PA-C [facility] [address] [place] [address] 01/03/2024 11:07:00 01/08/2024 09:55:08 Long-term drug therapy 407301803 Z79.899 Adhesive c apsulitis of left shoulder 9558950108 11113 M75.02 Morbid obesity 446996616 E66.01 Mixed anxi ety and depressive disorder 652066819 F41.8 [id number] Porsche Smiley PA-C [facility] [address] [place] [address] 02/18/2024 10:58:46 03/06/2024 14:49:01 Fever 925561279 R50.9 Morbid obesity 573669523 E66.01 COVID-19 777526856 U07.1 [id number] Guille George MD [facility] [address] [place] [address] 03/27/2024 14:10:40 03/28/2024 16:14:49 Morbid obesity 210105125 E66.01 Migraine without aura 56 159922 G43.009 Pain of le ft shoulder joint 7577452111 1067454 M25.488 [id number] Guille George MD [facility] [address] [place] [address] 04/29/2024 11:12:28 04/30/2024 08:50:16 Pain of left shoulder joint 2698052272 9729003 M25.512 Overweight 535794748 E66 .3 intermediate current use of non-steroidal anti-inflammatory drug 7898227961 72328 Z79.1 Essential hypertension 75497352 I10 Serum crea tinine above reference range [id number] R79.89 [id number] Loren Ames MD [facility] [address] [place] [address] 08/18/2024 09:58:21 08/20/2024 16:02:37 Gynecologic examination 78972688 Z01.419 Arm Rest Builder exam completedB reast and thyroid WNLDenies any [...] Discussed when to return to clinic for /ANODIZER complaints . Screening mammography 24 333810 Z12.31 Last Mammogram: 2Or janes placed for Helena Menopause 806887599 Z78. 0 pt is post menopausal Discussed vaginal changes, moisturize rs and lubricatio nDiscussed returning to clinic with any vaginal bleedingDi scussed Calcium and Vitamin D supplement ation Morbid obesity 492119240 E66.01 Furuncle of vulva 972032 006 N76.4 2 small boils that have popped noted to upper vulvaPt is allergic to Bactrim and tetracycli nesWill try mupirocin 2% topical ointment Psoriasis 1613930 L40.9 psoriasis notedPt is no longer seeing anyone for management [id number] Porsche Smiley PA-C [facility] [address] [place] [address] 08/28/2024 11:13:27 09/04/2024 11:00:58 Mixed anxiety and depressive disorder 007038960 F41.8 Pain in left foot 010960 4500 80699 M79.672 Morbid obesity 661020952 E66.01 [id number] Guille George MD [facility] [address] [place] [address] 10/31/2024 11:19:34 11/03/2024 09:29:35 Mediastinal lymphadenopathy 98630545 R59.0 Thyroid nodule 071194081 E04.1 Morbid obesity 832586554 E66.01 [id number] Guille George MD [facility] [address] [place] [address] 11/17/2024 14:09:49 11/18/2024 12:59:36 Postconcussion syndrome 03145501 F07.81 Morbid obesity 523276615 E66.01 [id number] Guille George MD [facility] [address] [place] [address] 12/16/2024 11:12:16 12/22/2024 11:39:20 Dysuria 41953831 R30.0 Thyroid nodule 088058658 E04.1 Mediastina l lymphadenopathy 31559157 R59.0 Acute urin jeramy tract infection 819675428 N30.00 Morbid obesity 849743127 E66.01 [id number] Guille George MD [facility] [address] [place] [address] 01/09/2025 15:50:45 01/12/2025 12:18:52 History of malignant neoplasm of thyroid 485424093 Z85.850 Cervical lymphadenopathy 903251068 R59.0 Multiple n odules of lung 579357059 R91.8 Acute bron chitis with bronchospasm 01404197 J20.8 Overweight 800442723 E66 .3 [id number] Guille George MD [facility] [address] [place] [address] 02/18/2025 15:10:27 02/20/2025 10:12:33 Mixed anxiety and depressive disorder 861576903 F41.8 cont current meds Essential hypertension 23169987 I10 Malignant tumor of thyroid gland 504615626 C73 Body mass index 40+ - severely obese 380097422 Z68.43 Overweight 333525935 E66 .3 Muscle weakness 20165705 M62.81 [id number] Guille George MD [facility] [address] [place] [address] 02/25/2025 14:46:22 02/26/2025 16:07:33 Essential hypertension 34595353 I10 start lasix Edema of l ower extremity 195136544 R60.0 stop hctz start lasix Decreased renal function 64299024 R94.4 Overweight 400647673 E66 .3 [id number] Guille George MD [facility] [address] [place] [address] 03/11/2025 14:08:18 03/13/2025 10:17:30 Malignant tumor of thyroid gland 833151158 C73 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 869708439 E66.01 Essential hypertension 14633255 I10 start lasix Nausea and vomiting 1691999 R11.2 [id number] Guille George MD [facility] [address] [place] [address] 03/30/2025 16:20:28 04/01/2025 12:13:31 Esophageal dysphagia 97219445 R13.19 History of surgery 55295 5003 Z98.737 [id number] Guille George MD [facility] [address] [place] [address] 04/17/2025 15:16:12 04/20/2025 16:32:20 Therapeutic drug monitoring assay 80494759 Z51.81 Abscess 099492734 L02.91 Benign par oxysmal positional vertigo 897171408 H81.11 [id number] Guille George MD [facility] [address] [place] [address] 05/13/2025 14:01:07 05/18/2025 08:00:48 Cerebrovascular accident 919006690 I63.9 Obese class III 38018888 5 E66.813 Health Concerns Section Related Observation LastModified by Organization Detai ls LastModified Time None Recorded Concern Status LastModified by Organization Details LastModified Time None Recorded Advance Directives Directive None Recorded Payers Insurance Date Sequence Insurance Name Policy Number Policy Courtney Covered Member ID Courtney Member ID Guarantor Name 04/17/2025 [place] [facility] Nubia Schultz [id number] Nubia Schultz 04/17/2025 [facility] (MEDICARE REPLACEMENT/AD VANTAGE - HMO) [id number] Nubia Schultz [id number] Nubia Schultz 05/18/2025 1 [facility] (MEDICARE REPLACEMENT/AD VANTAGE - HMO) [id number] Nubia Schultz [id number] Nubia Schultz 04/17/2025 2 [place] Nubia Schultz [id number] Nubia Schultz 05/26/2025 2 [place] WHEN MEDICARE OR MEDICARE REPLACEMENT PRIMARY) Nubia Schultz [id number] Nubia Schultz 04/17/2025 [place] [facility] Nubia Schultz [id number] Nubia Schultz Notes Date Note Type Note Provider Name and Address Organization Details Recorded Time 02/25/2025 text/html follw up from [facility]...surgeon feels that the extra yellow fluid coming from neck drain is secondary to general fluid build up from water retention..HCTZ was replaced to her but she reports no increase urine output... Porsche Smiley PA-C Attn: Accounting,[address] [place], [address], [facility] 02/25/2025 15:33:22 03/11/2025 text/html had reaction to mounjaro because of un diagnosed thyroid cancer...d/c ...lamenting her weight loss..wants something else but she cannot now with dx of thyroid cancer..lost 100 pounds in 1 year... Porsche Smiley PA-C Attn: Accounting, [address] [facility], [place], [address], [facility] 03/11/2025 15:19:46 03/30/2025 text/html began with troub le swallowing since her surgery..surgeon disregarded this..has not had radiation on neck yet.... Porsche Smiley PA-C Attn: Accounting, [address] [facility], [place], [address], [facility] 03/30/2025 17:39:58 04/17/2025 text/html hx of PTC treate d by oncology....is supposed to see interventional radiology for drainage..now is dizzy also....feels like the room is spinning.... Porsche Smiley PA-C Attn: Accounting, [address] [facility], [place], [address], [facility] 04/17/2025 16:02:55 05/13/2025 text/html we sent her to t he ER was told she had a stroke..here for re eval needs neuro..rt side weakness and leg heaviness CT was negative..memory somewhat foggy Porsche Smiley PA-C Attn: Accounting, [address] [facility], [place], [address], [facility] 05/13/2025 14:41:06 OBGyn Episode No OBEpisode recorded.
--- OUTSIDE RECORDS SUMMARY | 2025-05-26 09:05 | XMS_ITS | Encounter Summary ---
Author Organization [facility] Healthcare Address [address] [place] [address] Care Team Providers Care Hvac Project Engineer Name Role Phone Andrés Smiley Primary Care Provider [phone] Reason for Visit * Diagnostic Imaging (Routine) - Closed Specialty Diagnoses / Procedures Referred By Ainsh t Referred To Contact Diagnoses Left shoulder pain, unspecified chronicity Procedures XR Shoulder Left 2 or More Views XR Shoulder Left 1 View Yennifer Andrade PA [address] [place] [address] Phone: tel: fax: Referral ID Status Reason Start Date Expiration Date Visits Re quested Visits Authorized [id number] Closed 08/22/2023 09/20/2024 1 1 Encounter Details Date Type Department Care Team (Late st Contact Info) Description 08/22/2023 7:53 AM CDT Hospital Encounter [facility] [address] [place] [address] [place] [phone] Social History Tobacco Use Types Packs/Day Years [...] on file 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
--- OUTSIDE RECORDS SUMMARY | 2025-05-26 09:06 | XMS_ITS | Clinical Summary ---
Author Organization [facility] Facility Address [address] [place] [address] Care Team Providers Care Medical Receptionist Medical Assistant Name Role Phone Unavailable Primary Care Provider Unavailabl e Encounters Date Type Department Care Team Description 03/26/2025 Documentation Only [facility] C[facility]. [address] [place] [address] Emre Patel MD 03/26/2025 Documentation Only [facility] [address]. [address] [place] [address] Emre Patel MD from Last [...] Diabetes: Hemoglobin A1C 05/08/2025 02/05/2025 Influenza Vaccine (#1) 2025 4, 09/17/2021, 09/13/2020, Additional history exists
--- OUTSIDE RECORDS SUMMARY | 2025-05-26 09:06 | XMS_ITS | Clinical Summary ---
Author Organization [facility] Address [address] [place] [address] Phone Care Team Providers Care Precision Optics Technician Name Role Phone Andrés Smiley Primary Care Provider [phone] Allergies Active Allergy Reactions Criticality Noted Date Comments Amoxicillin Rash 05/14/2025 Sulfamethoxazole-Trimethoprim Hives 2024 Tetracycline Rash 05/14/2025 Medications ALPRAZolam (XANAX) 1 MG Tablet Take 1 mg by mouth 3 times daily. Active amLODIPine (NORVASC) 10 MG Tablet Take 10 mg by mouth daily. Active aspirin EC 81 MG Tablet Delayed Response Take 81 mg by mouth daily. Active calcitRIOL (ROCALTROL) 0.25 MCG Capsule Take 0.25 mcg by mouth daily. Active escitalopram (LEXAPRO) 20 MG Tablet Take 20 mg by mouth daily. Active furosemide (LASIX) 20 MG Tablet Take 20 mg by mouth daily. Active hydroCHLOROthiazi de 25 MG Tablet Take 25 mg by mouth daily. Active ibuprofen (MOTRIN) 800 MG Tablet Take 800 mg by mouth every 6 hours as needed. Active levothyroxine (SYNTHROID) 175 MCG Tablet Take 175 mcg by mouth daily. Active meclizine (ANTIVERT) 25 MG Tablet Take 25 mg by mouth 3 times daily as needed. Active ondansetron (ZOFRAN-ODT) 4 MG TABLET DISPERSIBLE Take 4 mg by mouth every 8 hours as needed. Active traMADol (ULTRAM) 50 MG Tablet Take 50 mg by mouth every 6 hours as needed. Active Family History Medical History Relation Name Comments Depression Father Hypertension Father Other-comment Father Stroke Father Asthma Mother Depression Mother Diabetes Mother Hypertension Mother Migraines Mother disorder of thyroid Mother Relation Name Status Comments Father Mother Social History Tobacco Use Types Packs/Day Years Used Date Smoking Tobacco: Never Smokeless Tobacco: Never Tobacco Cessation:Counseling Given: Not Answered Alcohol Use Standard Drinks/Week Comments Not Currently 0 (1 standard drink = 0.6 oz pur e alcohol) Comments Unknown Sex and Gender Information Value Date Recorded Sex Assigned at Not on file Legal Sex Female 11:51 PM CDT Gender Identity Not on file Sexual Orientation Not on file Last Filed Vital Signs Vital Sign Reading Time Taken Comments Blood Pressure - - Pulse - - Temperature - - Respiratory Rate - - Oxygen Saturation - - Inhaled Oxygen Concentration - - Weight - - Height 162.6 cm (5' 4) 05/14/2025 7:24 AM CDT Body Mass Index - - Plan of Treatment Upcoming Encounters Date Type Department Care Team (Late st Contact Info) Description 11/24/2025 10:30 AM WORD PROCESSOR TECHNICIAN Office Visit [facility] [address] [place] [address] Kimo Bran MD [address] [place] [address] Health Maintenance Due Date Last Done Comments Hepatitis C Virus (HCV) Screening 1965 TdaP Immunization 1967 Hepatitis B Immunization (1 of 3 - 19+ 3-dose series) 1986 Pap Smear 02/08/1988 Cervical Cancer Screening (CCS) 1997 HPV/Cotest 1997 Cologuard 02/08/2012 Colonoscopy 02/08/2012 Colorectal Cancer Screening 02/08/2012 Immunochemical Fecal Occult Blood 02/08/2012 Mammogram 11/24/2022 11/24/2021 Influenza Immunization (#1) 2025 092 06/2024, 09/17/2021, 09/13/2020, Additional history exists Respiratory Syncytial Virus (RSV) Immunization (Adult) (1 - 1-dose 75+ series) 2042 Pneumococcal Immunization (50+ years) Completed 04/16/2024 Pneumococcal Immunization Combined Discontinued 04/16/2024 SARS-COV-2 Immunization Completed 08/16/20 24, 10/05/2021, 03/16/2021, Additional history exists Zoster Immunization Completed 08/16/2024, Human Papillomavirus (HPV) Immunization Aged Out No longer eligible based on patient's age to complete this topic Meningococcal Immunization (ACWY) Aged Out No longer eligible based on patient's age to complete this topic Rotavirus Immunization Aged Out No lo nger eligible based on patient's age to complete this topic Insurance [facility]IC[facility] Care Teams Precision Optics Technician Relationship Specialty Start Date End Date Andrés Smiley PAC [address] [place] [address] PCP - General Physician Industrial Painter 11/06/24
[2025-05-26 10:01] LABS: Thyroid Stimulating Hormone 52.600 uIU/mL (0.465-4.680)
== END 2025-05-26 08:58 | disposition home or self-care (01) ==
PROVIDERS: PCP Physician Assistant
DX: C73 Malignant neoplasm of thyroid gland (principal)
CPT/HCPCS: 36415; 84443; 86800

== ENCOUNTER 2025-06-18 10:21 | Outpatient (CLI) | payer MEDICARE, MEDICAID, SELFPAY ==
--- NOTE | ~2025-06-18 | MR_ITS ---
EXAMINATION: MR brain/brain stem wo con DATE: 06/18/2025 12:28 INDICATION: Acute stroke with right-sided deficits TECHNIQUE: Magnetic resonance imaging (MRI) of the brain and brainstem was performed without intraven ous contrast. Sequences included sagittal and axial T1-weighted SE, axial diffusion-weighted FS SE, a xial T2*-weighted GRE, axial T2-weighted FLAIR, and axial T2-weighted FSE. Apparent diffusion coeffic ient (ADC) maps were created. COMPARISON: Head CT dated 05/08/2025 FINDINGS: There are no areas of restricted diffusion to suggest acute infarction. No intracranial hemorrhage or abnormal intracranial mass lesion. There are a few scattered small foci of nonspecific increased T2- weighted signal intensity in the pontine and cerebral white matter which is within normal limits for age and likely sequela of chronic small vessel ischemic disease. There are no intraparenchymal signal abnormalities seen on the other pulse sequences. The ventricles are symmetric and normal in size. Th ere are no abnormal extra-axial fluid collections. Flow voids are seen in the cerebral arteries on th e T2-weighted sequences consistent with their expected patency. Right vertebral artery is dominant. M ild mucosal thickening the bilateral ethmoid sinuses. Visualized orbits and soft tissues are unremark able. IMPRESSION: 1. Normal for age brain MR with a few scattered small foci of nonspecific cerebral and pontine white matter T2 hyperintensity likely sequela of chronic small vessel ischemic disease. Reviewed, dictated and finalized at location A. IMPRESSION: 1. Normal for age brain MR with a few scattered small foci of nonspecific cereb ral and pontine white matter T2 hyperintensity likely sequela of chronic small vessel ischemic disease.
--- OUTSIDE RECORDS SUMMARY | 2025-06-18 10:30 | XMS_ITS | Encounter Summary ---
Author Organization [facility] Healthcare Address [address] [place] [address] Care Team Providers Care Textile Converter Name Role Phone Andrés Smiley Primary Care Provider [phone] Reason for Visit * Diagnostic Imaging (Routine) - Closed Specialty Diagnoses / Procedures Referred By Anish t Referred To Contact Diagnoses Left shoulder pain, unspecified chronicity Procedures XR Shoulder Left 2 or More Views XR Shoulder Left 1 View Yennifer Andrade PA [address] [place] [address] Phone: tel: fax: Referral ID Status Reason Start Date Expiration Date Visits Re quested Visits Authorized [id number] Closed 08/22/2023 09/20/2024 1 1 Encounter Details Date Type Department Care Team (Late st Contact Info) Description 08/22/2023 7:53 AM CDT Hospital Encounter [facility] Orthopedics and Sports Medicine [address] [place] [address] [place] [phone] Social History Tobacco Use Types Packs/Day Years [...] on file 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
--- OUTSIDE RECORDS SUMMARY | 2025-06-18 10:30 | XMS_ITS | Referral Summary ---
Author Organization [facility] Address 1 [place] [address] Care Team Providers Care Social Worker Name Role Phone Andrés Smiley Primary Care Provider [phone] Encounters Date Type Department Care Team Description 06/01/2025 1:04 PM CDT - 06/01/2025 11:59 PM CDT Hospital Encounter [facility] [address] [place] [address] Discharge Disposition: Discharge to home or self care 06/01/2025 7:49 AM CDT - 06/01/2025 11:59 PM CDT Hospital Encounter [facility] Radiology 1 [place] [address] Thyroid cancer (HCC) Discharge Disposition: Discharge to home or self care 05/28/2025 Orders Only [facility] Radiology 1 [place] [address] Anna Casarez RN 05/28/2025 8:32 AM CDT - 05/28/2025 11:59 PM CDT Hospital Encounter [facility] Radiology 1 [place] [address] Thyroid cancer (HCC) Discharge Disposition: Discharge to home or self care 05/15/2025 Orders Only [facility] Surgery [address] [facility] 5 [place] [address] Lizette See RN 05/14/2025 Orders Only [facility] Radiology 1 [place] [address] Blanca Mohan RN 05/05/2025 Telephone [facility] Radiology 1 [place] [address] Anna Casarez, MACK 05/05/2025 Telephone [facility] Radiology 1 [place] [address] Anna Casarez, MACK 04/16/2025 Telephone [facility] Surgery [facility] Floor 5 [place] [address] Lizette See RN 04/15/2025 Orders Only [facility] Surgery [address] [place] [address] Floor 5 [place] [address] Lizette See RN Dysphagia, unspecified type (Primary Dx) 04/15/2025 Telephone [facility] Surgery [address] [place] [address] Floor 5 [place] [address] Lizette See RN 04/15/2025 Telephone [facility] Surgery [address] [place] [address] Floor 8 [place] [id number] Kirsty Cobb Patient issue/concern 04/13/2025 Telephone [facility] Surgery [address] [place] [address] Floor 5 [place] [address] Kirsty Cobb MD 04/10/2025 Telephone [facility] Radiology 1 [place] [address] Anna Casarez, MACK 04/08/2025 2:08 PM CDT - 04/08/2025 11:59 PM CDT Hospital [facility] ([facility]) [address] [place] [address] Discharge Disposition: Discharge to home or self care 04/07/2025 Telephone [facility] Radiology 1 [place] [address] Anna Casarez, MACK 04/01/2025 Orders Only [facility] Radiology 1 [place] [address] Anna Casarez, MACK 03/27/2025 Orders Only [facility] Radiology 1 [place] [address] Anna Casarez RN Thyroid cancer (HCC) (Primary Dx) 03/27/2025 Telephone [facility] Radiology 1 [place] [address] Anna Casarez RN 03/24/2025 Documentation [facility] Radiation Oncology [facility] [place] [address] Ai Flores RN 03/24/2025 Orders Only [facility] Surgery [facility] Floor 5 [place] [address] Kirsty Cobb MD Papillary thyroid carcinoma (HCC) (Primary Dx) 03/24/2025 Telephone [facility] Surgery [facility] Floor 8 [place] [address] Kirsty Cobb MD Medical Question/Miscellaneo us 03/24/2025 1:00 PM CDT Telemedicine [facility] Endocrinology Metabolism and Lipid [facility] Floor 1, [address] [place] [address] Kd Pike MD Papillary thyroid carcinoma (HCC) (Primary Dx); Lung nodules; Post-surgical hypothyroidism from Last 3 Months Allergies Active Allergy Reactions Criticality Noted Date Comments Amoxicillin Shortness of breath,Rash High Penicillins Shortness of breath,Rash High Sulfamethoxazole-Trime thoprim Hives Medium 01/02/2025 Bactrim Tetracycline Rash,Vomiting Medium Thyrotropin Akira Other (See comments) 05/28/2025 Severe constipation Medications multivitamin capsule 0 0 04/06/20 15 Active lisinopril (PRINIVIL,ZESTRIL) 20 mg tablet Take 1 tablet (20 mg total) by mouth every morning 3 08/05/20 18 Active albuterol HFA (PROVENTIL HFA,VENTOLIN HFA,PROAIR HFA) 90 mcg/actuation inhaler Inhale 2 puffs every 6 (six) hours as needed for wheezing or shortness of breath 03/21/20 Active escitalopram (LEXAPRO) 20 mg tablet Take 1 tablet (20 mg total) by mouth every morning 04/28/20 Active melatonin 10 mg tablet Take 1 tablet (10 mg total) by mouth nightly Active ALPRAZolam (XANAX) 1 mg tablet Take 1 tablet (1 mg total) by mouth nightly as needed for anxiety 06/28/20 Active amLODIPine (NORVASC) 10 mg tablet Take 1 tablet (10 mg total) by mouth every morning 06/28/20 Active celecoxib (CeleBREX) 200 mg capsule Take [...] 1 tablet (175 mcg total) by mouth buggy runner before breakfast 90 tablet 1 03/16/20 25 Active ondansetron (ZOFRAN) 4 mg tablet Take 1 tablet (4 mg total) by mouth every 8 (eight) hours as needed for nausea or vomiting 20 tablet 05/28/20 25 Active Active Problems Patient Care Coordination [...] wit h other specified complication, unspecified whether alf insulin use 01/27/2025 Papillary thyroid carcinoma 01/19/2025 Assessment & Plan (01/19/2025 3:25 PM POT PRESS OPERATOR): PET scan scheduled for 01/21/25. Refer [...] pain 07/04/2023 Coronary artery disease invo lving [place] coronary artery of [place] heart 06/08/2023 Calculus of gallbladder with out cholecystitis without obstruction 05/17/2022 Overview (05/17/2022): Added automatically from request for surgery [id number] Incisional hernia, without obstruction or gangre ne 05/17/2022 Overview (05/17/2022): Added automatically from request for surgery [id number] Immunizations Immunization Administration Dates Next Due Influenza, [...] on file Legal Sex Female 12:10 AM POT PRESS OPERATOR Gender Identity Not on file Sexual Orientation Not on file Last Filed Vital Signs Vital Sign Reading Time Taken Comments Blood Pressure 147/77 05/28/2025 8:56 AM CDT Pulse 63 05/28/2025 8:56 AM CDT Temperature 36.8 C (98.3 F) 03/13/2025 2:00 PM CDT Respiratory Rate 16 05/28/2025 8:56 AM CDT Oxygen Saturation 96% 05/28/2025 8:56 AM CDT Inhaled Oxygen Concentration - - Weight 114.8 kg (253 lb) 05/28/2025 8:56 AM CDT Height 162.6 cm (5' 4) 05/28/2025 8:56 AM CDT Body Mass Index 43.43 05/28/2025 8:56 AM CDT Plan of Treatment Not on file Medical Devices Implanted Type Area Sheet Metal Engineer Device Identifier Shelf Expiration Date Model / Serial / Lot Blaze Angio-Seal Vip 6fr Closere Device [id number] - [id number] Implanted:Qty: 1 on 07/04/2023 by Hank Irby MD at [facility] Blaze 01/17/2024 [id number] / / [id number] Procedures Procedure Name Priority Date/Time Associated Diagnosis Comments NEURO CT OUTSIDE REFERENCE Routine 06/01/2025 1:04 PM CDT NM THYROID CANCER METS WHOLE BODY IMAGING Schedule Routine, Read Routine (OP Routine) 06/01/2025 10:43 AM CDT Thyroid cancer (HCC) NM THYROID CANCER CONSULTATION & I-131 THERAPY (INITIAL) Schedule Routine, Read Routine (OP Routine) 05/28/2025 11:19 AM CDT Thyroid cancer (HCC) NEURO CT OUTSIDE REFERENCE Routine 04/08/2025 2:08 PM CDT Diagnosis unknown EGFR Timed 03/04/2025 11:26 AM CDT LIPID PANEL Routine 02/28/2025 9:37 PM CDT POCT HEMOGLOBIN A1C Routine 02/05/2025 8 :23 AM CDT SCREENING MAMMOGRAM BILATERAL W VALERIO Schedule Routine, Read Routine (OP Routine) 11/24/2021 8:39 AM POT PRESS OPERATOR Encounter for screening mammogram for malignant neoplasm of breast from Last 3 Months or Most Recently Relevant to Health Maintenance Results * Neuro CT Outside Reference (06/01/2025 1:04 PM CDT) Impressions [facility] - 06/01/2025 1:04 PM CDT These images are for Reference purposes only and have not been reviewed by [facility]iology. There will be no report generated by a [facility] Radiologist. Narrative [facility] - 06/01/2025 1:04 PM CDT EXAMINATION: Images For Reference Purposes Only us Chemo Gardner MD IMG CT PROCEDURES Final Re sult [facility] * NM Thyroid Cancer Mets Whole Body Imaging (06/01/2025 10:43 AM CDT) Anatomical Region Laterality Modality Head and Neck N/A Nuclear Medicine 06/01/2025 12:0 9 PM CDT Impressions 06/01/2025 1:13 PM CDT 1. Residual functional thyroid tissue in the midline thyroidectomy bed. 2. I-131 avid, right level 3 and anterior mediastinal lymph nodes, suspicious for residual maikel metastatic disease. 3. Diffuse moderate lung uptake corresponding to innumerable lung nodules suspicious for I-131 avid pulmonary metastasis. 4. Interval near-complete resolution of the previous right lower neck operative bed collection when compared with 02/28/[address] Dictated by: Dudley Nash M.D.(R) The radiology attending physician has personally reviewed this study, and had reviewed and/or edited this written report and agrees with it. Electronically signed by: Sravanthi De Anda M.D. Narrative 06/01/2025 1:13 PM CDT EXAMINATION: WHOLE-BODY I-131 IMAGING DATE OF STUDY: 06/01/2025 HISTORY: 60-year-old with classic multifocal papillary thyroid carcinoma. She underwent total thyroidectomy on 02/10/2025 complicated by fluid collection, she is being treated with levothyroxine. Her most recent thyroglobulin level was 78 on 03/13/25. COMPARISON: None FINDINGS: A 150.3-mCi therapeutic dose of I-131 sodium iodide was administered orally on 05/28/25 by the staff of the Division of Nuclear Medicine. Images of the head, neck, trunk, and proximal extremities were obtained 4 days later. There is expected I-131 activity in the salivary glands, stomach, colon, and urinary bladder. There is activity in the thyroidectomy bed left greater than right. SPECT CT was done for further characterization. A focus of moderate uptake is seen in the right upper neck below the submandibular gland. This corresponds to a .8 x 1.5 cm lymph node (image number 11) at the level of the hyoid that is likely a level 3 lymph node. There is focus of additional uptake in the right upper mediastinum measuring 1.1 x 1.3 cm that that is likely a prevascular lymph node that is unchanged from prior neck CT. Diffuse uptake is seen throughout the lungs with demonstration of innumerable scattered lesions throughout the lungs in a similar distribution as prior Chest CT from 01/06/2025. There is mild diffuse uptake in the liver likely from metabolized I-[address] Findings: Post surgical changes of thyroidectomy and neck dissection. Interval resolution of right anterior neck collection with mild residual soft tissue thickening without drainable fluid collection. Post surgical changes of partial gastrectomy. Coronary artery calcifications. Procedure Note Sravanthi De Anda MD - 06/01/2025 EXAMINATION: WHOLE-BODY I-131 IMAGING DATE OF STUDY: 06/01/2025 HISTORY: 60-year-old with classic multifocal papillary thyroid carcinoma. She underwent total thyroidectomy on 02/10/2025 complicated by fluid collection, she is being treated with levothyroxine. Her most recent thyroglobulin level was 78 on 03/13/25. COMPARISON: None FINDINGS: A 150.3-mCi therapeutic dose of I-131 sodium iodide was administered orally on 05/28/25 by the staff of the Division of Nuclear Medicine. Images of the head, neck, trunk, and proximal extremities were obtained 4 days later. There is expected I-131 activity in the salivary glands, stomach, colon, and urinary bladder. There is activity in the thyroidectomy bed left greater than right. SPECT CT was done for further characterization. A focus of moderate uptake is seen in the right upper neck below the submandibular gland. This corresponds to a .8 x 1.5 cm lymph node (image number 11) at the level of the hyoid that is likely a level 3 lymph node. There is focus of additional uptake in the right upper mediastinum measuring 1.1 x 1.3 cm that that is likely a prevascular lymph node that is unchanged from prior neck CT. Diffuse uptake is seen throughout the lungs with demonstration of innumerable scattered lesions throughout the lungs in a similar distribution as prior Chest CT from 01/06/2025. There is mild diffuse uptake in the liver likely from metabolized I-[address] Findings: Post surgical changes of thyroidectomy and neck dissection. Interval resolution of right anterior neck collection with mild residual soft tissue thickening without drainable fluid collection. Post surgical changes of partial gastrectomy. Coronary artery calcifications. IMPRESSION: 1. Residual functional thyroid tissue in the midline thyroidectomy bed. 2. I-131 avid, right level 3 and anterior mediastinal lymph nodes, suspicious for residual maikel metastatic disease. 3. Diffuse moderate lung uptake corresponding to innumerable lung nodules suspicious for I-131 avid pulmonary metastasis. 4. Interval near-complete resolution of the previous right lower neck operative bed collection when compared with 02/28/[address] Dictated by: Dudley Nash M.D.(R) The radiology attending physician has personally reviewed this study, and had reviewed and/or edited this written report and agrees with it. Electronically signed by: Sravanthi De Anda M.D. us Elvia Green MD IMG NM PROCEDURES Final Res ult * NM Thyroid Cancer Consultation and I-131 Therapy (Initial) (05/28/2025 11:19 AM CDT) Anatomical Region Laterality Modality Body N/A Nuclear Medicine 05/28/2025 12:2 2 PM CDT Impressions 05/28/2025 12:50 PM CDT The patient will restart the previously prescribed dosage of levothyroxine (175 mcg, p.o. daily) and is to begin taking this medicine on an empty stomach in the buggy runner, starting tomorrow. Patient will return for whole-body I-131 imaging on 06/01/2025 at 8:30 AM, and is aware that we will contact the patient after the scan to discuss the timing of follow-up evaluation or the need for additional treatment based on scan results. The patient will schedule an appointment with Dr. Kd Pike in 6 months with ultrasound and thyroid lab testing. Drs. Saleh and Asha Marie also participated in the evaluation and treatment of this patient. I, Stephen Bonilla M.D., saw and evaluated the patient, and agree with the plan of care as documented by the resident. I was present during the entire administration of the I-131 treatment dose. A copy of this report is being sent to the referring physician. Dictated by: Felipe Heller MD The radiology attending physician has personally reviewed this study, and had reviewed and/or edited this written report and agrees with it. Electronically signed by: Stephen Bonilla M.D. Narrative 05/28/2025 12:50 PM CDT EXAMINATION: I-131 THERAPY FOR THYROID CANCER DATE OF TREATMENT: 05/28/2025 12:19 PM PROCEDURE: NORRIS SCHULTZ, 60-year-old woman has a diagnosis of papillary thyroid carcinoma as documented in the previous Consult note. Time out was performed prior to the procedure verifying patient identity, consent and procedure, and reconfirming that this female patient was not or . The patient received 150.3 mCi of I-131 sodium iodide p.o. at 10:46 AM on 05/28/2025. The attending physician supervised the administration of the I-131. The patient was given both written and oral instructions regarding radiation safety precautions intended to maintain exposure to other individuals as low as reasonably achievable. Follow-up of the patient's thyroid condition will be provided by Dr. Kd Pike, blow down operator, in conjunction with the Division of Nuclear Medicine. The patient was informed of the need for lifetime medical follow-up to assess for recurrent thyroid cancer and to maintain optimal thyroid hormone replacement. The patient was discharged to home. Procedure Note Stephen Bonilla MD - 05/28/2025 EXAMINATION: I-131 THERAPY FOR THYROID CANCER DATE OF TREATMENT: 05/28/2025 12:19 PM PROCEDURE: NORRIS SCHULTZ, 60-year-old woman has a diagnosis of papillary thyroid carcinoma as documented in the previous Consult note. Time out was performed prior to the procedure verifying patient identity, consent and procedure, and reconfirming that this female patient was not or . The patient received 150.3 mCi of I-131 sodium iodide p.o. at 10:46 AM on 05/28/2025. The attending physician supervised the administration of the I-131. The patient was given both written and oral instructions regarding radiation safety precautions intended to maintain exposure to other individuals as low as reasonably achievable. Follow-up of the patient's thyroid condition will be provided by Dr. Kd Pike, blow down operator, in conjunction with the Division of Nuclear Medicine. The patient was informed of the need for lifetime medical follow-up to assess for recurrent thyroid cancer and to maintain optimal thyroid hormone replacement. The patient was discharged to home. IMPRESSION: The patient will restart the previously prescribed dosage of levothyroxine (175 mcg, p.o. daily) and is to begin taking this medicine on an empty stomach in the buggy runner, starting tomorrow. Patient will return for whole-body I-131 imaging on 06/01/2025 at 8:30 AM, and is aware that we will contact the patient after the scan to discuss the timing of follow-up evaluation or the need for additional treatment based on scan results. The patient will schedule an appointment with Dr. Kd Pike in 6 months with ultrasound and thyroid lab testing. Drs. Saleh and Asha Marie also participated in the evaluation and treatment of this patient. I, Stephen Smith Parihar, M.D., saw and evaluated the patient, and agree with the plan of care as documented by the resident. I was present during the entire administration of the I-131 treatment dose. A copy of this report is being sent to the referring physician. Dictated by: Felipe Heller MD The radiology attending physician has personally reviewed this study, and had reviewed and/or edited this written report and agrees with it. Electronically signed by: Stephen Bonilla M.D. Elvia Green MD IMG NM PROCEDURES Final Res ult * Neuro CT Outside Reference (04/08/2025 2:08 PM CDT) Impressions RAD[facility]PACS_[facility] - 04/08/2025 2:08 PM CDT These images are for Reference purposes only and have not been reviewed by [facility] Radiology. There will be no report generated by a [facility] Radiologist. Narrative [facility] - 04/08/2025 2:08 PM CDT EXAMINATION: Images For Reference Purposes Only Patti Alejandro MD IMG CT PROCEDURES Final Result [facility] * (ABNORMAL) eGFR (03/04/2025 11:26 AM CDT) [...] MD LAB BLOOD ORDERABLES Final Resul t [facility] Department [place] [address] * Lipid panel (02/28/2025 9:37 PM CDT) [...] revised on 2018. Triglycerides 56 <=149 mg/dL [facility] Comment: Interpretive Data Ages < [...] on 2018. HDL 51 >=40 mg/dL [facility] Comment: Interpretive Data Ages < [...] 2018. LDL, calculated 50 <=129 mg/dL [facility] Comment: Interpretive Data Ages < [...] on 2024. Non-HDL Cholesterol 63 mg/dL [facility] Comment: Interpretive Data Ages < [...] [facility] Blood 02/28/2025 9:37 PM CDT 02/28/2025 10:47 PM CDT us Kirsty Cobb MD LAB BLOOD ORDERABLES Final Resul t Performing Organization Address [facility] Co de Phone Number [facility] [place] [address] * (ABNORMAL) POCT hemoglobin A1c (02/05/2025 8:23 AM CDT) Hgb A1C, POC 6.5(H) 4.0 - 5.6 % Est Average Gluc POC 140 mg/dL [facility] Comment: The ADA recommends reporting an estimated Average Glucose (eAG) with all Hemoglobin A1c results using the equation derived from a study of 507 normal and diabetic adults. Minority populations were underrepresented and children were not included. (Diabetes Care 31:5417-3421, 2008). The eAG is not equivalent to a fasting glucose. Blood 02/05/2025 8:23 AM CDT 02/05/2025 8:23 AM CDT us Kirsty Cobb MD POINT OF CARE TEST ORDERABLES Fi nal Result Performing Organization Address [facility] Co de Phone Number [facility] [email or web address] [address] * Screening Mammogram Bilateral W Valerio (11/24/2021 8:39 AM POT PRESS OPERATOR) Anatomical Region Laterality Modality Breast Bilateral Mammography 11/24/2021 9:28 AM POT PRESS OPERATOR Impressions 11/24/2021 9:28 AM POT PRESS OPERATOR There is no mammographic evidence of malignancy. Routine screening mammography is recommended in 1 year. BI-RADS: 1 - Negative. The patient will be entered into a reminder system with a target due date of 1 year for her next mammogram. Electronically signed by: Bull Garcia M.D. Narrative 11/24/2021 9:28 AM POT PRESS OPERATOR EXAMINATION: SCREENING MAMMOGRAM BILATERAL W VALERIO [...] Relevant to Health Maintenance Insurance MEDICARE ADVANTAGE [facility] MEDICARE ADVANTAGE IDPA [facility] MEDICARE ADVANTAGE IDPA Advance Directives For more information, please contact: [phone] * Full Code (Latest Code Status on File) Date Activated Date Inactivated Comments 02/28/2025 5:33 PM 03/04/2025 10:56 PM * Full Code Date Activated Date Inactivated Comments 02/10/2025 8:54 PM 02/12/2025 6:14 PM * Full Code Date Activated Date Inactivated Comments 07/04/2023 10:44 AM 07/04/2023 5:20 PM Care Teams Social Worker Relationship Specialty Start Date End Date Andrés Smiley PA [address] [place] [address] PCP - General 04/18/17
--- OUTSIDE RECORDS SUMMARY | 2025-06-18 10:30 | XMS_ITS ---
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 Refer [...] pain 07/04/2023 Coronary artery disease invo lving [place] coronary artery of [place] heart 06/08/2023 Calculus of gallbladder with out cholecystitis without obstruction 05/17/2022 Overview (05/17/2022): Added automatically from request for surgery [id number] Incisional hernia, without obstruction or gangre ne 05/17/2022 Overview (05/17/2022): Added automatically from request for surgery [id number] Current Treatment and Therapy Plans No current plan information found. Past Treatment and Therapy Plans No past plan information found. Lifetime Dose Tracking * Chemical Lifetime Dose Automatic Entry Manual Entr y Air kerma at the reference point (Ka,r) 524 mGy 0 mGy 524 mGy DLP 1,243 mGycm 1,243 mGycm 0 mGycm
--- OUTSIDE RECORDS SUMMARY | 2025-06-18 10:31 | XMS_ITS | Clinical Summary ---
Author Organization [facility] Address [address] [place] [address] Care Team Providers Care Car Sales Associate Name Role Phone Andrés Smiley Primary Care Provider [phone] Allergies Active Allergy Reactions Criticality Noted Date [...] tablet (175 mcg total) by mouth early childhood educator aide before breakfast 90 tablet 1 03/16/20 25 [...] 01/19/2025 Assessment & Plan (01/19/2025 3:25 PM AIRBRUSH PAINTER): PET scan scheduled for 01/21/25. Refer to [...] pain 07/04/2023 Coronary artery disease invo lving [place] coronary artery of [place] heart 06/08/2023 Calculus of gallbladder with out cholecystitis without obstruction 05/17/2022 Overview (05/17/2022): Added automatically from request for surgery [id number] Incisional hernia, without obstruction or gangre ne 05/17/2022 Overview (05/17/2022): Added automatically from request for surgery [id number] Encounters Date Type Department Care Team Description 06/01/2025 1:04 PM CDT - 06/01/2025 11:59 PM CDT Hospital Encounter [facility] ([facility]) [address] [place] [address] Discharge Disposition: Discharge to home or self care 06/01/2025 7:49 AM CDT - 06/01/2025 11:59 PM CDT Hospital Encounter [facility] Radiology 1 [place] [address] Thyroid cancer (HCC) Discharge Disposition: Discharge to home or self care 05/28/2025 8:32 AM CDT - 05/28/2025 11:59 PM CDT Hospital Encounter [facility] Radiology 1 [place] [address] Thyroid cancer (HCC) Discharge Disposition: Discharge to home or self care 05/28/2025 Orders Only [facility] Radiology 1 [place] [address] Anna Casarez, MACK 05/15/2025 Orders Only [facility] Surgery [address] [facility] 5 [place] [address] Lizette See RN 05/14/2025 Orders Only [facility] Radiology 1 [place] [address] Blanca Mohan RN 05/05/2025 Telephone [facility] Radiology 1 [place] [address] Anna Casarez, MACK 05/05/2025 Telephone [facility] Radiology 1 [place] [address] Anna Casarez, MACK 04/16/2025 Telephone [facility] Surgery [address] [place] [address] Floor 5 [place] [address] Lizette See RN 04/15/2025 Orders Only [facility] Surgery [address] [place] [address] Floor 5 [place] [address] Lizette See RN Dysphagia, unspecified type (Primary Dx) 04/15/[address] Floor 5 [place] [address] Lizette See RN 04/15/2025 Telephone [facility] Surgery [address] [place] [address] Floor 8 [place] [address] Kirsty Cobb Patient issue/concern 04/13/2025 Telephone [facility] Surgery [address] [place] [address] Floor 5 [place] [address] Kirsty Cobb MD 04/10/2025 Telephone [facility] Radiology 1 [place] [address] Anna Casarez, MACK 04/08/2025 2:08 PM CDT - 04/08/2025 11:59 PM CDT Hospital [facility]) [address] [place] [address] Discharge Disposition: Discharge to home or self care 04/07/2025 Telephone [facility] Radiology 1 [place] [address] Anna Casarez, MACK 04/01/2025 Orders Only [facility] Radiology 1 [place] [address] Anna Casarez RN 03/27/2025 Orders Only [facility] Radiology 1 [place] [address] Anna Casarez RN Thyroid cancer (HCC) (Primary Dx) 03/27/2025 Telephone [facility] Radiology 1 [place] [address] Anna Casarez RN 03/24/2025 1:00 PM CDT Telemedicine [facility] Endocrinology Metabolism and Lipid [address] [facility] Floor 1, [address] [place] [address] Kd Pike MD Papillary thyroid carcinoma (HCC) (Primary Dx); Lung nodules; Post-surgical hypothyroidism 03/24/2025 Documentation [facility] Oncology [address] [facility] [place] [address] Ai Flores RN 03/24/2025 Orders Only [facility] Surgery [address] [facility] Floor 5 [place] [address] Kirsty Cobb MD Papillary thyroid carcinoma (HCC) (Primary Dx) 03/24/2025 Telephone [facility] Surgery [address] [facility] Floor 8 [place] [address] Kirsty Cobb MD Medical Question/Miscellaneo [...] on file Legal Sex Female 12:10 AM AIRBRUSH PAINTER Gender Identity Not on file Sexual Orientation [...] 05/28/2025 8:56 AM CDT Plan of Treatment Health Maintenance Due [...] 07/30/2018, Additional history exists eGFR 03/04/2026 03/04/2025, 1 03/2025, 03/02/2025, Additional history exists Zoster Vaccine Completed 08/16/2024, 04/16/2024 Medical Devices Implanted Type Area Single Wire Saw Operator Device Identifier Shelf Expiration Date Model / Serial / Lot [employer] Angio-Seal Vip 6fr Closere Device [id number] - [id number] Implanted:Qty: 1 on 07/04/2023 by Hank Irby MD at [facility] [employer] 01/17/2024 [id number] / / [id number] Procedures Procedure Name Priority Date/Time Associated Diagnosis [...] Read Routine (OP Routine) 11/24/2021 8:39 AM AIRBRUSH PAINTER Encounter for screening mammogram for malignant neoplasm of breast from Last 3 Months or Most Recently Relevant to Health Maintenance Results * Neuro CT Outside Reference (06/01/2025 1:04 PM CDT) Impressions RAD_PACS_[facility] - 06/01/2025 1:04 PM CDT These images are for Reference purposes only and have not been reviewed by [facility] Radiology. There will be no report generated by a [facility] Radiologist. Narrative [facility]_PACS[facility] - 06/01/2025 1:04 PM [...] and agrees with it. Electronically signed by: Sravantih De Anda M.D. Narrative 06/01/2025 1:13 PM [...] medicine on an empty stomach in the early childhood educator aide, starting tomorrow. Patient will return for whole-body [...] will be provided by Dr. Kd Pike, glazier stained glass, in conjunction with the Division of Nuclear [...] will be provided by Dr. Kd Pike, glazier stained glass, in conjunction with the Division of Nuclear [...] medicine on an empty stomach in the early childhood educator aide, starting tomorrow. Patient will return for whole-body [...] the evaluation and treatment of this patient. Stephen Montemayor M.D., saw and evaluated the patient, and [...] only and have not been reviewed by [facility] Radiology. There will be no report generated by a [facility] Radiologist. Narrative RAD_PACS_[facility] - 04/08/2025 2:08 [...] LAB BLOOD ORDERABLES Final Resul t [facility] One [facility] Department [place] [address] * Lipid panel (02/28/2025 9:37 PM CDT) [...] on 2018. Triglycerides 56 <=149 mg/dL [facility] Comment: Interpretive Data Ages < or = [...] on 2018. HDL 51 >=40 mg/dL [facility] Comment: Interpretive Data Ages < or = [...] 2018. LDL, calculated 50 <=129 mg/dL [facility] Comment: Interpretive Data Ages < or = [...] on 2024. Non-HDL Cholesterol 63 mg/dL [facility] Comment: Interpretive Data Ages < or = [...] last revised on 2018. Chol/HDL [facility] Blood 02/28/2025 9:37 PM CDT 02/28/2025 10:47 PM CDT us Kirsty Brown MD LAB BLOOD ORDERABLES Final Resul t Performing Organization Address [facility] Co de Phone Number [facility] Center [place] [address] * (ABNORMAL) POCT hemoglobin A1c (02/05/2025 8:23 AM CDT) Hgb A1C, POC 6.5(H) 4.0 - 5.6 % Est Average Gluc POC 140 mg/dL [facility] Comment: The ADA recommends reporting an estimated Average Glucose (eAG) with all Hemoglobin A1c results using the equation derived from a study of 507 normal and diabetic adults. Minority populations were underrepresented and children were not included. (Diabetes Care 31:3317-6218, 2008). The eAG is not equivalent to a fasting glucose. Blood 02/05/2025 8:23 AM CDT 02/05/2025 8:23 AM CDT us Kirsty Cobb MD POINT OF CARE TEST ORDERABLES Fi nal Result Performing Organization Address [facility] Co de Phone Number [facility] [place] [address] * Screening Mammogram Bilateral W Valerio (11/24/2021 8:39 AM AIRBRUSH PAINTER) Anatomical Region Laterality Modality Breast Bilateral Mammography 11/24/2021 9:28 AM AIRBRUSH PAINTER Impressions 11/24/2021 9:28 AM AIRBRUSH PAINTER There is no mammographic evidence of malignancy. Routine screening mammography is recommended in 1 year. BI-RADS: 1 - Negative. The patient will be entered into a reminder system with a target due date of 1 year for her next mammogram. Electronically signed by: Bull Garcia M.D. Narrative 11/24/2021 9:28 AM AIRBRUSH PAINTER EXAMINATION: SCREENING MAMMOGRAM BILATERAL W VALERIO ORDERING [...] to Health Maintenance Insurance [place] [address] [facility] [place] [address] [place] [address] [employer] Advance Directives For more information, please contact: [phone] * Full Code (Latest Code Status on File) Date Activated Date Inactivated Comments 02/28/2025 5:33 PM 03/04/2025 10:56 PM * Full Code Date Activated Date Inactivated Comments 02/10/2025 8:54 PM 02/12/2025 6:14 PM * Full Code Date Activated Date Inactivated Comments 07/04/2023 10:44 AM 07/04/2023 5:20 PM Care Teams Car Sales Associate Relationship Specialty Start Date End Date Andrés Smiley PA [address] [place] [address] PCP - General 04/18/17
--- OUTSIDE RECORDS SUMMARY | 2025-06-18 10:31 | XMS_ITS | Clinical Summary ---
Author Organization [facility] Address [address] [place] [address] Phone Care Team Providers Care Food Analyst Name Role Phone Andrés Smiley Primary Care Provider [phone] Allergies Active Allergy Reactions Criticality Noted Date [...] st Contact Info) Description 11/24/2025 10:30 AM PROFESSOR OF HISTORY Office Visit [facility] [address] [place] [address] Kiom Bran MD [address] [place] [address] Health Maintenance Due Date Last Done Comments [...] to complete this topic Insurance MEDICARE [facility] Care Teams Food Analyst Relationship Specialty Start Date End Date Andrés Smiley PAC [address] [place] [address] PCP - General Physician Retrimmer 11/06/24
--- OUTSIDE RECORDS SUMMARY | 2025-06-18 10:31 | XMS_ITS | Clinical Summary ---
Author Organization [facility] Facility Address [address] [place] [address] Care Team Providers Care Steel Handler Name Role Phone Unavailable Primary Care Provider Unavailabl e Encounters Date Type Department Care Team Description 03/26/2025 Documentation Only [facility] Caleb. [address] [place] [address] Emre Patel MD 03/26/2025 Documentation Only [facility] [address]. [address] [place] [address] Emre Patel MD from Last [...]
== END 2025-06-18 10:22 | disposition home or self-care (01) ==
LOC: CHSIMG 10:22
PROVIDERS: PCP Physician Assistant; Visit Provider Physician Assistant
DX: I63.9 Cerebral infarction, unspecified (principal)
CPT/HCPCS: 70551

== ENCOUNTER 2025-07-04 11:53 | Emergency (ER) | payer MEDICARE, MEDICAID, SELFPAY ==
[2025-07-04 11:53] VITALS: BP 130/56; PULSE 68; RESP 16; TEMP 36.8; O2SAT 97
--- OUTSIDE RECORDS SUMMARY | 2025-07-04 11:55 | XMS_ITS | Clinical Summary ---
Author Organization [facility] Address [address] [place] [address] Care Team Providers Care Video Games Storywriter Name Role Phone Andrés Smiley Primary Care Provider [phone] Allergies Active Allergy Reactions Criticality Noted Date [...] 1 tablet (175 mcg total) by mouth electronic operator before breakfast 90 tablet 1 03/16/20 25 [...] h other specified complication, unspecified whether termite control technician insulin use 01/27/2025 Papillary thyroid carcinoma 01/19/2025 Assessment & Plan (01/19/2025 3:25 PM SUPERVISOR LABORATORY ANIMAL FACILITY): PET scan scheduled for 01/21/25. Refer to [...] pain 07/04/2023 Coronary artery disease invo lving [place] coronary artery of [place] heart 06/08/2023 Calculus of gallbladder with out cholecystitis without obstruction 05/17/2022 Overview (05/17/2022): Added automatically from request for surgery [id number] Incisional hernia, without obstruction or gangre ne 05/17/2022 Overview (05/17/2022): Added automatically from request for surgery [id number] Encounters Date Type Department Care Team Description 06/01/2025 1:04 PM CDT - 06/01/2025 11:59 PM CDT Hospital Encounter [facility] ([facility]) [address] [place] [address] Discharge Disposition: Discharge to home or self care 06/01/2025 7:49 AM CDT - 06/01/2025 11:59 PM CDT Hospital Encounter [facility] Radiology 1 [place] [address] Thyroid cancer (HCC) Discharge Disposition: Discharge to home or self care 05/28/2025 8:32 AM CDT - 05/28/2025 11:59 PM CDT Hospital Encounter [facility] Radiology [address] [place] [address] Thyroid cancer (HCC) Discharge Disposition: Discharge to home or self care 05/28/2025 Orders Only [facility] Radiology [address] [place] [address] Anna Casarez, MACK 05/15/2025 Orders Only [facility] Surgery [address] [facility] 5 [place] [address] Lizette See RN 05/14/2025 Orders Only [facility] Radiology [address] [place] [address] Blanca Mohan RN 05/05/2025 Telephone [facility] Radiology 1 [place] [address] Anna Casarez, MACK 05/05/2025 Telephone [facility] Radiology [address] [place] [address] Anna Casarez, MACK 04/16/2025 Telephone [facility] Surgery [address] [place] [address] Floor 5 [place] [address] Lizette See RN 04/15/2025 Orders Only [facility] Surgery [address] [place] [address] Floor 5 [place] [address] Lizette See RN Dysphagia, unspecified type (Primary Dx) 04/15/[address] [place] [address] Lizette See RN 04/15/2025 Telephone [facility] Surgery [address] [place] [address] Floor 8 [place] [address] Kirsty Cobb Patient issue/concern 04/13/2025 Telephone [facility] Surgery [address] [place] [address] Floor 5 [place] [address] Kirsty Cobb MD 04/10/2025 Telephone [facility] Radiology [address] [place] [address] Anna Casarez, MACK 04/08/2025 2:08 PM CDT - 04/08/2025 11:59 PM CDT Hospital Encounter [facility]) [address] [place] [address] Discharge Disposition: Discharge to home or self care 04/07/2025 Telephone [facility] Radiology [address] [place] [address] Anna Casarez, MACK from Last 3 Months Immunizations Immunization Administration [...] on file Legal Sex Female 12:10 AM SUPERVISOR LABORATORY ANIMAL FACILITY Gender Identity Not on file Sexual Orientation [...] 08/16/2024, 04/16/2024 Medical Devices Implanted Type Area Heat Treat Puller Device Identifier Shelf Expiration Date Model / Serial / Lot [employer] Angio-Seal Vip 6fr Closere Device [id number] - [id number] Implanted:Qty: 1 on 07/04/2023 by Hank Irby MD at [facility] 01/17/2024 [id number] / / [id number] Procedures Procedure Name Priority Date/Time Associated Diagnosis [...] Read Routine (OP Routine) 11/24/2021 8:39 AM SUPERVISOR LABORATORY ANIMAL FACILITY Encounter for screening mammogram for malignant neoplasm of breast from Last 3 Months or Most Recently Relevant to Health Maintenance Results * Neuro CT Outside Reference (06/01/2025 1:04 PM CDT) Impressions [facility] - 06/01/2025 1:04 PM CDT These images are for Reference purposes only and have not been reviewed by [facility] Radiology. There will be no report generated by a [facility] Radiologist. Narrative [facility]_PACS[facility] - 06/01/2025 1:04 [...] medicine on an empty stomach in the electronic operator, starting tomorrow. Patient will return for whole-body [...] will be provided by Dr. Kd Pike, core analysis operator, in conjunction with the Division of [...] will be provided by Dr. Kd Pike, core analysis operator, in conjunction with the Division of [...] medicine on an empty stomach in the electronic operator, starting tomorrow. Patient will return for whole-body [...] it. Electronically signed by: Stephen Bonilla M.D. us Elvia Green MD IMG NM PROCEDURES Final Res ult * Neuro CT Outside Reference (04/08/2025 2:08 PM CDT) Impressions [facility] - 04/08/2025 2:08 PM CDT These images are for Reference purposes only and have not been reviewed by [facility] Radiology. There will be no report generated by a [facility] Radiologist. Narrative RAD_PACS[facility] - 04/08/2025 2:08 [...] ORDERABLES Final Resul t [facility] Department [place] [address] * Lipid panel (02/28/2025 9:37 PM CDT) [...] on 2018. Triglycerides 56 <=149 mg/dL [facility] Comment: Interpretive Data Ages < or = [...] revised on 2018. HDL 51 >=40 mg/dL [facility] Comment: Interpretive Data Ages < or = [...] on 2018. LDL, calculated 50 <=129 mg/dL [facility] Comment: Interpretive Data Ages < [...] on 2024. Non-HDL Cholesterol 63 mg/dL [facility] Comment: Interpretive Data Ages < or [...] revised on 2018. Chol/HDL ratio 2 [facility] Blood 02/28/2025 9:37 PM CDT 02/28/2025 10:47 PM CDT us Kirsty Cobb MD LAB BLOOD ORDERABLES Final Resul t Performing Organization Address [facility] de Phone Number [facility] [place] [address] * (ABNORMAL) POCT hemoglobin A1c (02/05/2025 8:23 AM CDT) Hgb A1C, POC 6.5(H) 4.0 - 5.6 % Est Average Gluc POC 140 mg/dL [facility] Comment: The ADA recommends reporting an estimated Average Glucose (eAG) with all Hemoglobin A1c results using the equation derived from a study of 507 normal and diabetic adults. Minority populations were underrepresented and children were not included. (Diabetes Care 31:1058-9965, 2008). The eAG is not equivalent to a fasting glucose. Blood 02/05/2025 8:23 AM CDT 02/05/2025 8:23 AM CDT us Kirsty Cobb MD POINT OF CARE TEST ORDERABLES Fi nal Result Performing Organization Address [facility] Co de Phone Number [facility] [place] [address] * Screening Mammogram Bilateral W Valerio (11/24/2021 8:39 AM SUPERVISOR LABORATORY ANIMAL FACILITY) Anatomical Region Laterality Modality Breast Bilateral Mammography 11/24/2021 9:28 AM SUPERVISOR LABORATORY ANIMAL FACILITY Impressions 11/24/2021 9:28 AM SUPERVISOR LABORATORY ANIMAL FACILITY There is no mammographic evidence of malignancy. Routine screening mammography is recommended in 1 year. BI-RADS: 1 - Negative. The patient will be entered into a reminder system with a target due date of 1 year for her next mammogram. Electronically signed by: Mathew Mares 11/24/2021 9:28 AM SUPERVISOR LABORATORY ANIMAL FACILITY EXAMINATION: SCREENING MAMMOGRAM BILATERAL W VALERIO ORDERING [...] to Health Maintenance Insurance UHC MEDICARE ADVANTAGE UHC MEDICARE ADVANTAGE [employer] MEDICARE ADVANTAGE IDPA Advance Directives For more information, please contact: [phone] * Full Code (Latest Code Status on File) Date Activated Date Inactivated Comments 02/28/2025 5:33 PM 03/04/2025 10:56 PM * Full Code Date Activated Date Inactivated Comments 02/10/2025 8:54 PM 02/12/2025 6:14 PM * Full Code Date Activated Date Inactivated Comments 07/04/2023 10:44 AM 07/04/2023 5:20 PM Care Teams Video Games Storywriter Relationship Specialty Start Date End Date Andrés Smiley PA [address] [place] [address] PCP - General 04/18/17
--- OUTSIDE RECORDS SUMMARY | 2025-07-04 11:55 | XMS_ITS | Encounter Summary ---
Author Organization [facility] Healthcare Address [address] [place] [address] Care Team Providers Care Kiln Hand Name Role Phone Andrés Smiley Primary Care Provider [phone] Reason for Visit * Diagnostic Imaging (Routine) - Closed Specialty Diagnoses / Procedures Referred By Anish t Referred To Contact Diagnoses Left shoulder pain, unspecified chronicity Procedures XR Shoulder Left 2 or More Views XR Shoulder Left 1 View Yennifer Andrade PA [address] [place] [address] Phone: tel: fax: Referral ID Status Reason Start Date Expiration Date Visits Re quested Visits Authorized [id number] Closed 08/22/2023 09/20/2024 1 1 Encounter Details Date Type Department Care Team (Late st Contact Info) Description 08/22/2023 7:53 AM CDT Hospital Encounter [facility] Medical Group Orthopedics and Sports Medicine [address] [place] [address] [place] [phone] Social History Tobacco Use Types Packs/Day Years [...] on file Legal Sex Female 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
--- OUTSIDE RECORDS SUMMARY | 2025-07-04 11:55 | XMS_ITS ---
Author Organization [facility] Address [address] [place] [address] Care Team Providers Care Facer Operator Name Role Phone Andrés Smiley Primary Care Provider [phone] Active Problems Patient Care Coordination No te [...] wit h other specified complication, unspecified whether chcf insulin use 01/27/2025 Papillary thyroid carcinoma 01/19/2025 Assessment & Plan (01/19/2025 3:25 PM AERIAL APPLICATOR PILOT): PET scan scheduled for 01/21/25. Refer to [...] pain 07/04/2023 Coronary artery disease invo lving [place] coronary artery of [place] heart 06/08/2023 Calculus of gallbladder with out cholecystitis without obstruction 05/17/2022 Overview (05/17/2022): Added automatically from request for surgery [id number] Incisional hernia, without obstruction or gangre ne 05/17/2022 Overview (05/17/2022): Added automatically from request for surgery [id number] Current Treatment and Therapy Plans No current plan information found. Past Treatment and Therapy Plans No past plan information found. Lifetime Dose Tracking * Chemical Lifetime Dose Automatic Entry Manual Entr y Air kerma at the reference point (Ka,r) 524 mGy 0 mGy 524 mGy DLP 1,243 mGycm 1,243 mGycm 0 mGycm
--- OUTSIDE RECORDS SUMMARY | 2025-07-04 11:55 | XMS_ITS | Clinical Summary ---
Author Organization [facility] Address [address] [place] [address] Phone Care Team Providers Care Tourist Information Officer Name Role Phone Andrés Smiley Primary Care Provider [phone] Allergies Active Allergy Reactions Criticality Noted Date [...] st Contact Info) Description 11/24/2025 10:30 AM LITHOGRAPH PRESS OPERATOR Office Visit [facility] - [facility] [address] [place] [address] Kimo Bran MD [address] [place] [address] Health Maintenance Due Date Last Done Comments [...] to complete this topic Insurance MEDICARE C [facility] Care Teams Tourist Information Officer Relationship Specialty Start Date End Date Andrés Smiley PAC [address] [place] [address] PCP - General Physician Production Sanitizer 11/06/24
--- OUTSIDE RECORDS SUMMARY | 2025-07-04 11:55 | XMS_ITS | Clinical Summary ---
Author Organization [facility] Facility Address [address] [address] Care Team Providers Care Rn Flight Name Role Phone Unavailable Primary Care Provider Unavailabl e Social History Tobacco Use Types Packs/Day Years [...]
--- NOTE | 2025-07-04 12:01 | ED_ITS ---
HPI - General Adult General Chief complaint: Unspecified Stated complaint: neck pain, rash under breast, feet swelling at HS Time Seen by Provider: 07/04/25 11:53 History of Present Illness HPI narrative: Nubia is a 60F with a PMH of IBS, asthma, depression, CVA, and HTN that presented to the ED with a few chronic concerns. She has had pain in her neck and right shoulder for weeks. She is in PT for this and has been taking Tramadol and Tylenol. No new trauma, falls or change in symptoms. She has also had a tender rash under her breasts for a couple weeks. No fevers or drainage. She also has concerns that she is retaining fluid. However, her PCP just upper her furosemide. No CP or dyspnea. Related Data Home Medications ?Medication ?Instructions ?Recorded ?Confirmed ?Last Taken ?Type amlodipine 10 mg tablet 10 mg PO DAILY 04/18/24 05/08/25 Unknown History lqwxvdrsrk-fnkaxrensgsit-tguvhpfa 1 tablet PO QAM 04/18/24 05/08/25 Unknown History 50 mg-325 mg-40 mg tablet celecoxib 200 mg capsule 200 mg PO DAILY 04/18/24 05/08/25 Unknown History escitalopram oxalate 20 mg tablet 20 mg PO DAILY 04/18/24 05/08/25 Unknown History ibuprofen 800 mg tablet 800 mg PO BID 04/18/24 05/08/25 Unknown History lisinopril 20 mg tablet 20 mg PO DAILY 04/18/24 05/08/25 Unknown History melatonin 5 mg tablet 5 mg PO HS PRN Insomnia 04/18/24 05/08/25 Unknown History multivitamin 1 tablet PO DAILY 04/18/24 05/08/25 Unknown History tirzepatide 7.5 mg/0.5 mL 7.5 mg subcut WEEKLY 04/18/24 05/08/25 Unknown History subcutaneous pen injector (Mounjaro) Allergies Allergy/AdvReac Type Severity Reaction Status Date / Time sulfamethoxazole (From Allergy Severe Loss of Verified 07/04/25 12:09 Bactrim) Consciousness trimethoprim (From Bactrim) Allergy Severe Loss of Verified 07/04/25 12:09 Consciousness amoxicillin Allergy Unknown Unknown Verified 07/04/25 12:09 tetracycline Allergy Unknown Unknown Verified 07/04/25 12:09 Review of Systems Review of Systems: All systems reviewed & are unremarkable except as noted in HPI and below PMFSH Past Medical History Medical History delivery delivered IBS (irritable bowel syndrome) Asthma High blood pressure Anxiety Depression Migraine CVA (cerebral vascular accident) Surgical History Surgical History History of [place] gastric bypass Family History Family History Daughter ESRD (end stage renal disease) Mother ESRD (end stage renal disease) Social History Social History Smoking status: Never smoker Alcohol intake: never Substance use: never Do You Feel Safe in your Home?: Yes Lack of Transportation: No Lack of Food: Never True Current Housing: I Have Housing Concerned About Future Housing: No Difficulty Paying Gas/Electric Bills: No Difficulty Paying for Meds: No Currently Unemployed: No Education: Trade/Vocational Certificate Difficulty w/ Childcare or Family Care: No Spiritual care concerns: Yes (Congregation) Exam Const: General: cooperative, healthy appearing, comfortable, no acute distress, well developed, alert, awake and Physically active Orientation/consciousness: oriented to person, oriented to place and oriented to time HENMT: Head: normal to inspection, normocephalic and atraumatic Ears: hearing grossly normal bilaterally and external ears normal Face/Nose/Sinus: Normal external nose present Eyes: General: appearance normal, both eyes and all related structures Periorbital: periorbital findings normal Sclera: sclerae normal Pupils: Equal, round and reactive pupils present Neck: Neck: normal visual inspection Chest: Chest palpation & inspection: normal inspection of the chest Resp: Effort & Inspection: normal respiratory effort, able to speak in complete sentences and no respiratory distress Cardio: Jugular venous distension: no JVD Skin: General skin exam: normal color and no rashes or lesions noted Other: Erythematous rash under the breast with satellite lesions Neuro: General: oriented to person, oriented to place and oriented to time Cranial nerves: Yes Equal, round and reactive pupils present Extrem: General: normal to inspection Other: No pitting edema Course Course Emergency Course: Given cyclobenzaprine for the neck. Discussed using her home meds, a heating pad. Candidiasis: Applied nystatin powder Edema: Discussed fluid and salt restriction as well elevating her feet and/or compression. Discharge Plan Discharge Clinical Impression: Candidiasis, Muscle spasms of neck, Edema Patient Disposition: Home Condition: Stable Instructions: Skin Yeast Infection (ED) Patient Language: Cape Verdean Prescriptions: New nystatin 100,000 unit/gram powder 1 applic topical BID Qty: 30 0RF cyclobenzaprine 5 mg tablet 5 mg PO TID PRN (Reason: muscle spasm) Qty: 30 0RF No Action aspirin 81 mg capsule 81 mg PO DAILY Qty: 30 0RF celecoxib 200 mg capsule 200 mg PO DAILY ibuprofen 800 mg tablet 800 mg PO BID lisinopril 20 mg tablet 20 mg PO DAILY huzlgdfdlt-rzilobpokaobn-ehqj 50-325-40 mg tablet 1 tablet PO QAM amlodipine 10 mg tablet 10 mg PO DAILY escitalopram oxalate 20 mg tablet 20 mg PO DAILY Mounjaro 7.5 mg/0.5 mL pen injector 7.5 mg SUBCUT WEEKLY Rx Instructions: takes every sunday multivitamin Tablet 1 tablet PO DAILY melatonin 5 mg Tablet 5 mg PO HS PRN (Reason: Insomnia) Follow-up/Referrals: Sherice,KALEN Diaz [Primary Care Provider] -
[2025-07-04] MEDS: CYCLOBENZAPRINE HCL 5 MG TABLET PO (12:30)
[2025-07-04] MEDS: TOLNAFTATE 1% POWDER 45 GM BTL 1 APPLIC TOPICAL (12:30)
--- OUTSIDE RECORDS SUMMARY | 2025-07-04 12:30 | XMS_ITS | Clinical Summary ---
Author Organization [facility] Address [address] [place] [address] Phone Care Team Providers Care Operator Prefinish Name Role Phone Andrés Smiley Primary Care Provider [phone] Allergies Active Allergy Reactions Criticality Noted Date [...] st Contact Info) Description 11/24/2025 10:30 AM EDUCATIONAL INSTITUTION CURATOR Office Visit [facility] - [facility] [address] [place] [address] Kimo Bran MD [address] [place] [address] Health Maintenance Due Date Last Done Comments [...] to complete this topic [email or web address] Care Teams Operator Prefinish Relationship Specialty Start Date End Date Andrés Smiley PAC [address] [place] [address] PCP - 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
--- OUTSIDE RECORDS SUMMARY | 2025-07-04 12:30 | XMS_ITS | Clinical Summary ---
Author Organization [facility] Facility Address [address] [address] Care Team Providers Care Engine Oiler Name Role Phone Unavailable Primary Care Provider [...]
--- OUTSIDE RECORDS SUMMARY | 2025-07-04 12:30 | XMS_ITS ---
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 Refer to [...] pain 07/04/2023 Coronary artery disease invo lving [place] coronary artery of [place] heart 06/08/2023 Calculus of gallbladder with out cholecystitis without obstruction 05/17/2022 Overview (05/17/2022): Added automatically from request for surgery [id number] Incisional hernia, without obstruction or gangre ne 05/17/2022 Overview (05/17/2022): Added automatically from request for surgery [id number] Current Treatment and Therapy Plans No current plan information found. Past Treatment and Therapy Plans No past plan information found. Lifetime Dose Tracking * Chemical Lifetime Dose Automatic Entry Manual Entr y Air kerma at the reference point (Ka,r) 524 mGy 0 mGy 524 mGy DLP 1,243 mGycm 1,243 mGycm 0 mGycm
--- OUTSIDE RECORDS SUMMARY | 2025-07-04 12:30 | XMS_ITS | Encounter Summary ---
Author Organization [facility] Address [address] [place] [address] Care Team Providers Care Image Consultant Name Role Phone Andrés Smiley Primary Care Provider [phone] Reason for Visit * Diagnostic Imaging (Routine) - Closed Specialty Diagnoses / Procedures Referred By Anish t Referred To Contact Diagnoses Left shoulder pain, unspecified chronicity Procedures XR Shoulder Left 2 or More Views XR Shoulder Left 1 View Yennifer Andrade PA [address] [place] [address] Phone: tel: fax: Referral ID Status Reason Start Date Expiration Date Visits Re quested Visits Authorized [id number] Closed 08/22/2023 09/20/2024 1 1 Encounter Details Date Type Department Care Team (Late st Contact Info) Description 08/22/2023 7:53 AM CDT Hospital Encounter [facility] Orthopedics and Sports Medicine [address] [place] [address] [place] [phone] Social History Tobacco Use Types Packs/Day Years [...] on file 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
--- OUTSIDE RECORDS SUMMARY | 2025-07-04 12:30 | XMS_ITS | Clinical Summary ---
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 Refer to [...] pain 07/04/2023 Coronary artery disease invo lving [place] coronary artery of [place] heart 06/08/2023 Calculus of gallbladder with out cholecystitis without obstruction 05/17/2022 Overview (05/17/2022): Added automatically from request for surgery [id number] Incisional hernia, without obstruction or gangre ne 05/17/2022 Overview (05/17/2022): Added automatically from request for surgery [id number] Encounters Date Type Department Care Team Description 06/01/2025 1:04 PM CDT - 06/01/2025 11:59 PM CDT Hospital Encounter [facility] ([facility]) [address] [place] [address] Discharge Disposition: Discharge to home or self care 06/01/2025 7:49 AM CDT - 06/01/2025 11:59 PM CDT Hospital Encounter [facility] [address] [place] [address] Thyroid cancer (HCC) Discharge Disposition: Discharge to home or self care 05/28/2025 8:32 AM CDT - 05/28/2025 11:59 PM CDT Hospital Encounter [facility] [address] [place] [address] Thyroid cancer (HCC) Discharge Disposition: Discharge to home or self care 05/28/2025 Orders Only [facility] [address] [place] [address] Anna Casarez, MACK 05/15/2025 Orders Only [facility] [address] [facility] [address] [place] [address] Lizette See RN 05/14/2025 Orders Only [facility] [address] [place] [address] Blanca Mohan RN 05/05/2025 Telephone [facility] [address] [place] [address] Anna Casarez, MACK 05/05/2025 Telephone [facility] [address] [place] [address] Anna Casarez, MACK 04/16/2025 Telephone [facility] [address] [place] [address] [address] [place] [address] Lizette See RN 04/15/2025 Orders Only [facility] [address] [place] [address] [address] [place] [address] Lizette See RN Dysphagia, unspecified type (Primary Dx) 04/15/[address] [place] [address] Lizette See RN 04/15/2025 Telephone [facility] [address] [place] [address] [address] [place] [phone] Kirsty Cobb Patient issue/concern 04/13/2025 Telephone [facility] [address] [place] [address] [address] [place] [phone] Kirsty Cobb MD 04/10/2025 Telephone [facility] [address] [place] [address] Anna Casarez, MACK 04/08/2025 2:08 PM CDT - 04/08/2025 11:59 PM CDT Hospital Encounter [facility] [address] [place] [address] Discharge Disposition: Discharge to home or self care 04/07/2025 Telephone [facility] [address] [place] [address] Anna Casarez, MACK from Last 3 Months [...] on file 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 Gender Identity Not on file Sexual Orientation [...] 08/16/2024, 04/16/2024 Medical Devices Implanted Type Area Fire Hydrant Mechanic Device Identifier Shelf Expiration Date Model / Serial / Lot [employer]al Angio-Seal Vip 6fr Closere Device [id number] - [id number] Implanted:Qty: 1 on 07/04/2023 by Hank Irby MD at [facility] [employer] [facility] 01/17/2024 [id number] / / [id number] Procedures Procedure Name Priority Date/Time Associated Diagnosis [...] Read Routine (OP Routine) 11/24/2021 8:39 AM TIPPLE MECHANIC Encounter for screening mammogram for malignant neoplasm of breast from Last 3 Months or Most Recently Relevant to Health Maintenance Results * Neuro CT Outside Reference (06/01/2025 1:04 PM CDT) Impressions [facility] - 06/01/2025 1:04 PM CDT These images are for Reference purposes only and have not been reviewed by [facility]. There will be no report generated by a [facility] Radiologist. Narrative [facility] - 06/01/2025 1:04 [...] medicine on an empty stomach in the vice president of consulting services, starting tomorrow. Patient will return for whole-body [...] will be provided by Dr. Kd Pike, jacquard plate maker, in conjunction with the Division of Nuclear [...] will be provided by Dr. Kd Pike, jacquard plate maker, in conjunction with the Division of Nuclear [...] medicine on an empty stomach in the vice president of consulting services, starting tomorrow. Patient will return for whole-body [...] and have not been reviewed by [facility]. There will be no report generated by a [facility] Radiologist. Narrative [facility] - 04/08/2025 2:08 [...] Final Resul t [facility] Department [place] [address] * Lipid panel (02/28/2025 9:37 PM CDT) [...] revised on 2018. HDL 51 >=40 mg/dL [facility] Comment: Interpretive Data Ages < [...] on 2024. Non-HDL Cholesterol 63 mg/dL [facility] Comment: Interpretive Data Ages < or [...] revised on 2018. Chol/HDL ratio 2 [facility] Blood 02/28/2025 9:37 PM CDT 02/28/2025 10:47 PM CDT us Kirsty Cobb MD LAB BLOOD ORDERABLES Final Resul t Performing Organization Address [facility] de Phone Number [facility] [place] [address] * (ABNORMAL) POCT hemoglobin A1c (02/05/2025 8:23 AM CDT) Hgb A1C, POC 6.5(H) 4.0 - 5.6 % Est Average Gluc POC 140 mg/dL [facility] Comment: The ADA recommends reporting an estimated Average Glucose (eAG) with all Hemoglobin A1c results using the equation derived from a study of 507 normal and diabetic adults. Minority populations were underrepresented and children were not included. (Diabetes Care 31:4495-9381, 2008). The eAG is not equivalent to a fasting glucose. Blood 02/05/2025 8:23 AM CDT 02/05/2025 8:23 AM CDT us Kirsty Cobb MD POINT OF CARE TEST ORDERABLES Fi nal Result Performing Organization Address [facility] Co de Phone Number [facility] [place] [address] * Screening Mammogram Bilateral W Valerio (11/24/2021 8:39 AM TIPPLE MECHANIC) Anatomical Region Laterality Modality Breast Bilateral Mammography 11/24/2021 9:28 AM TIPPLE MECHANIC Impressions 11/24/2021 9:28 AM TIPPLE MECHANIC There is no mammographic evidence of malignancy. Routine screening mammography is recommended in 1 year. BI-RADS: 1 - Negative. The patient will be entered into a reminder system with a target due date of 1 year for her next mammogram. Electronically signed by: Mathew Mares 11/24/2021 9:28 AM TIPPLE MECHANIC EXAMINATION: SCREENING MAMMOGRAM BILATERAL W VALERIO ORDERING [...] to Health Maintenance Insurance UHC MEDICARE [facility]VANT[facility] Address: [facility] [address] [place] [address] UHC MEDICARE ADVANTAGE [facility] Address: [address] [address] [place] [address] [employer] [facility] MEDICARE ADVANTAGE [facility] Address: [address] [address] [place] [address] [employer]PA Advance Directives For more information, please contact: [phone] * Full Code (Latest Code Status on File) Date Activated Date Inactivated Comments 02/28/2025 5:33 PM 03/04/2025 10:56 PM * Full Code Date Activated Date Inactivated Comments 02/10/2025 8:54 PM 02/12/2025 6:14 PM * Full Code Date Activated Date Inactivated Comments 07/04/2023 10:44 AM 07/04/2023 5:20 PM Care Teams Dispute Resolution Analyst Relationship Specialty Start Date End Date Andrés Smiley PA [address] [place] [address] PCP - General 04/18/17
[2025-07-04 12:40] VITALS: BP 113/66; PULSE 63; RESP 16; TEMP 36.8; O2SAT 98
== END 2025-07-04 12:40 | disposition home or self-care (01) ==
LOC: CHSED 12:28
PROVIDERS: Emergency Provider Family Medicine; PCP Physician Assistant
DX: B37.2 Candidiasis of skin and nail (principal); M62.830 Muscle spasm of back; R60.9 Edema, unspecified; I10 Essential (primary) hypertension; Z86.73 Personal history of transient ischemic attack (TIA), and cerebral infarction without residual deficits
CPT/HCPCS: 99283; A9270